=== PATIENT | male | born 1955 | race Caucasian/White ===

== ENCOUNTER 2018-09-12 08:35 | Inpatient (IN) ==
[2018-09-12] MEDS ORDERED: HYDROmorphone INJ 1 MG/ML SYRINGE IV STA ×2 (08:59→10:11)
[2018-09-12] MEDS ORDERED: ONDANSETRON INJ 2 MG/ML 2 ML VIAL IV STA (08:59)
[2018-09-12] MEDS ORDERED: SODIUM CHLORIDE 0.9% 1000ML 1,000 ML IV SCH (09:00)
[2018-09-12 09:47] LABS: Hematocrit (blood only) 33.1 % (42-52); Hemoglobin 10.7 g/dL (14.0-18.0); Mean Corpuscular Hgb Conc 32.3 g/dL (32-36); Mean Corpuscular Volume 92.5 fL (80-100); Mean Platelet Volume 9.8 fL (7.4-10.4); Platelet Count 143 K/uL (130-400); RDW Coefficient of Variation 14.2 % (11.5-14.5); RDW Standard Deviation 47.2 fL (36.4-46.3); Red Blood Count 3.58 M/uL (4.7-6.1); White Blood Count 5.64 K/uL (4.8-10.8)
[2018-09-12 09:59] LABS: Partial Thromboplastin Ratio 1.1; Partial Thromboplastin Time 29.4 Seconds (21.0-31.0); Prothrombin Time 10.3 Seconds (9.0-12.0)
[2018-09-12 10:03] LABS: Alanine Aminotransferase 17 U/L (12-78); Albumin Level 2.5 gm/dl (3.4-5.0); Aspartate Aminotransferase 18 U/L (15-37); BUN Creatinine Ratio 27.5 (10-20); Blood Urea Nitrogen 13 mg/dl (7-18); Calcium 8.7 mg/dl (8.5-10.1); Carbon Dioxide 26 mmol/L (21-32); Chloride 100 mmol/L (98-107); Creatinine Clr Calc Pharmacy 133.2 ml/min; Est GFR (African American) 135.2; Est GFR (Non-African American) 116.7; Glucose 161 mg/dl (70-99); Potassium 3.8 mmol/L (3.5-5.1); Sodium 134 mmol/L (136-145)
[2018-09-12 10:08] LABS: Albumin Globulin Ratio 0.6 (0.9-2); Alkaline Phosphatase 107 U/L (45-117); Bilirubin,Total 0.5 mg/dl (0.2-1); Globulin 4.1 gm/dl (2.5-4.0); Total Protein 6.6 gm/dl (6.4-8.2); Troponin I < 0.015 ng/ml (0-0.045)
[2018-09-12 10:09] LABS: Basophils # (auto) 0.01 K/uL (0-0.2); Basophils % (auto) 0.2 %; Eosinophils # (auto) 0.08 K/uL (0-0.5); Eosinophils % (auto) 1.4 %; Immature Granulocytes # (auto) 0.01 K/uL (0.00-0.02); Immature Granulocytes % (auto) 0.2 %; Lymphocytes # (auto) 0.52 K/uL (1.2-3.4); Lymphocytes % (auto) 9.2 %; Monocytes # (auto) 0.68 K/uL (0.11-0.59); Monocytes % (auto) 12.1 %; Neutrophils # (auto) 4.34 K/uL (1.4-6.5); Neutrophils % (auto) 76.9 %
[2018-09-12] MEDS ORDERED: IOVERSOL 100ml IV PRN (10:25)
--- NOTE | 2018-09-12 10:46 | CT Scan Report ---
CT SCAN OF THE ABDOMEN AND PELVIS WITH IV CONTRAST CLINICAL HISTORY: Diarrhea. Hematochezia. Left lower quadrant abdominal pain. COMPARISON STUDY: Abdominal CT dated 07/31/2018. TECHNIQUE: Following the IV administration of 94 cc of Optiray 320, CT scan of the abdomen and pelvi s is performed from the lung bases to the proximal femora. Images are reviewed in the axial, sagittal , and coronal planes. IV contrast was administered without complication. A dose lowering technique wa s utilized adhering to the principles of ALARA. CT DOSE: 293.82 mGy.cm FINDINGS: Lung bases: The heart is normal in size and without pericardial effusion. There is a moderate to larg e left pleural effusion with near-complete atelectasis of the left lower lung. Emphysematous change i s noted at the right lung base. There are foci of right basilar scarring/atelectasis. There are pulmo nary nodules at the right lung base which measure up to 7 mm (axial images #4, #7, #23). A small hiat al hernia is noted. Liver: The contrast-enhanced liver is normal in size, contour, and attenuation. There is no intrahepa tic biliary ductal dilatation. The hepatic veins and portal veins are patent. Gallbladder: Unremarkable. Spleen: Normal in size and attenuation. Pancreas: The pancreas is moderately atrophic. Scattered parenchymal calcifications suggest chronic p ancreatitis. Adrenal glands: Unremarkable. Kidneys: The contrast enhanced kidneys are normal in size and without hydronephrosis. The kidneys enh ance symmetrically. Abdominal vasculature: The abdominal aorta is normal in course and caliber noting advanced atheroscle rotic calcification. Bowel: There is a long segment of wall thickening and edema seen involving the distal descending colo n, the sigmoid colon, and the rectum. There is surrounding inflammatory change and trace fluid. The a ppearance is consistent with a nonspecific proctocolitis. No bowel obstruction is identified. There a re scattered colonic diverticula without CT evidence of acute diverticulitis. Moderate constipation i s observed. The appendix is well-visualized and normal. Peritoneum: There is no intraperitoneal free air or abdominal ascites. Foci of induration and subcuta neous gas within the ventral abdominal wall are likely related to subcutaneous injections. Lymphadenopathy: None. Pelvic viscera: Evaluation of the pelvis is degraded by streak artifact from a left hip arthroplasty. The bladder is distended but otherwise normal in appearance. The prostate gland is atrophic. Skeletal structures: Findings consistent with multifocal osseous metastatic disease. Lesions are iden tified throughout the lumbar spine. The largest lesion involves the body of L5 with a mild associated pathologic compression deformity. There is also minimal superior endplate compression deformity of L 1. The L5 compression deformity is new from 07/31/2018. No large retropulsed fragments are identified. There is a large permeative destructive lesion identified involving the left ischium with surroundin g soft tissue mass. The soft tissue lesion measures at least 5 cm as seen on image #415. Additional s maller lesions are scattered throughout the bony pelvis. A left hip arthroplasty is in place. IMPRESSION: 1. Findings are consistent with a nonspecific proctocolitis as above. This is likely on an infectious or inflammatory basis. 2. There is a moderate to large left pleural effusion with complete atelectasis of the left lower lawrence g. This has markedly increased in size from 07/31/2018. 3. There are changes of multifocal osseous metastatic disease. This appears modestly progressive as c ompared to 07/31/2018. 4. Mild pathologic compression deformities are seen involving L1 and L5. The L5 compression deformity is new from 07/31/2018. No retropulsed fragments are identified. 5. Metastatic pulmonary nodules are present at the right lung base. These have modestly increased in size from 07/31/2018. 6. Emphysema. 7. Additional findings as above. Electronically signed by: Corwin Gtz M.D. 09/12/2018 10:44 AM
--- NOTE | 2018-09-12 12:44 | History & Physical Report ---
Date of Service September 12, 2018 Assessment & Plan (1) Proctocolitis with rectal bleeding: This is a 63yo M with a PMH of metastatic lung cancer with mets to bone, DM II and HLD who presents with bright red blood in diarrhea since yesterday morning and was found to have non-specific proctocolitis. -Hgb stable at 10.7 (baseline ~12). Continue trending H&H -CT abd/pelvis with a nonspecific proctocolitis as above. This is likely on an infectious or inflammatory basis -Considered empiric Cipro and flagyl but will hold for now, as per GI -Stool cultures, C diff pending -NPO for bowel rest, pain control, antiemetics -Holding SQ lovenox for now (2) Metastatic primary lung cancer: History of metastatic lung cancer with mets to pelvis, vertabrae and ribs, s/p left hip resection of bony mets/replacement in Jul [address] [facility] [place] -Started new chemo regimen on August 30 consisting of Alimta and Carboplatin and is due for second round on September 20 -Recently completed 10 rounds of radiation as of last week -Inadequate home pain regimen. Will continue home dose Morphine ER, gabapentin TID and Methadone HS -Dilaudid FLATCAR WHACKER pump for PRN pain, will adjust as needed (holding Oxycodone IR) -Palliative care consulted for help optimizing pain regimen (3) Diabetes mellitus, type 2: A1c of 6.7 in Jul 2018 -Hold home agents -SSI while in-patient -BSG AC HS (4) Hyperlipidemia: Continue pravastatin DVT Ppx: SCDs in setting of GI bleed Code status: FULL per discussion with patient, PCP: Eugene Thapa Dispo: Admitted to med/surg. Discharge planning ordered. Patient seen in collaboration with Dr. Dawson. Please see addendum. Will be followed by Dr. Eileen Navarro for remainder of admission. History of Present Illness Chief Complaint: bright red blood per rectum Primary Care Provider: Warren Thapa This is a 63yo M with a PMH of metastatic lung cancer with mets to bone, DM II and HLD who presents with bright red blood in diarrhea since yesterday morning. Endorses about 6 episodes of diarrhea with bright red blood mixed in since then with associated lower abdominal pain, nausea and one episode of emesis yesterday. Denies history of GI bleed. Patient started new chemo regimen on August 30 consisting of Alimta and Carboplatin and is due for second round on September 20. Also completed 10 rounds of radiation as of last week. Takes 40 mg SQ Lovenox daily, last taken around 1400 yesterday. Denies any lightheadedness, chest pain, palpitations or shortness of breath. No melena. Hemoglobin is 10.7 (baseline ~12). Does endorse worsening bone pain of pelvis, ribs, left leg in setting of metastasis to bone. Allergies Allergy/AdvReac Type Severity Reaction Status Date / Time ciprofloxacin [From Cipro] Allergy Intermediate BLOOD IN Verified 09/12/18 10:54 KIDNEYS mushroom AdvReac Intermediate STOMACH Verified 09/12/18 10:54 PAIN Home Medications Home Medications Medication Instructions Recorded Confirmed Type Janumet 1 tab PO BID 08/20/18 09/12/18 History Jardiance 10 mg PO QAM 08/20/18 09/12/18 History aspirin [Aspir-Low] 81 mg PO QAM 08/20/18 09/12/18 History enoxaparin [Lovenox] 40 mg SUBCUT DAILY@1400 08/20/18 09/12/18 History morphine 90 mg PO HS 08/20/18 09/12/18 History multivitamin 1 tab PO DAILY 08/20/18 09/12/18 History pravastatin 80 mg PO QAM 08/20/18 09/12/18 History folic acid 1 mg tablet 1 mg PO DAILY 08/24/18 09/12/18 History morphine ER 60 mg tablet,extended 60 mg PO BID tab 08/24/18 09/12/18 History release ondansetron HCl 8 mg tablet 8 mg PO TID PRN 08/24/18 09/12/18 History prochlorperazine maleate 10 mg 10 mg PO UD PRN tab 08/24/18 09/12/18 History tablet dexamethasone 4 mg tablet 8 mg PO UD tab 08/28/18 09/12/18 History docusate sodium 100 mg capsule 100 mg PO BID 08/28/18 09/12/18 History polyethylene glycol 3350 17 17 gm PO DAILY 08/28/18 09/12/18 History gram/dose oral powder duloxetine 30 mg capsule,delayed 30 mg PO DAILY 09/03/18 09/12/18 History release gabapentin 600 mg tablet 600 mg PO TID tab 09/03/18 09/12/18 History oxycodone 20 mg tablet 20 mg PO Q2H PRN tab 09/03/18 09/12/18 History Ca-D3-mag wj-mzso-ugk-live-bor 1 tab PO BID 09/12/18 09/12/18 History [Calcium 600-D3 Plus] acetaminophen 1,000 mg PO Q8H PRN 09/12/18 09/12/18 History denosumab [Xgeva] 120 mg SUBCUT UD 09/12/18 09/12/18 History methadone 5 mg PO HS 09/12/18 09/12/18 History Past Med/Surg History Medical History Metastatic primary lung cancer (Chronic) with mets to pelvis, vertebrae, ribs Hyperlipidemia (Chronic) Diabetes mellitus, type 2 (Chronic) NIDDM Osteoarthritis (Chronic) Surgical History History of hip surgery (Resolved) s/p left acetabuluar metastasis and cemented left total hip arthroplasty 08/02/18= Grade I, Grider 2, ETT 7.5 at [facility] (anesthesia records scanned in); on lovenox post-op for DVT prophylaxis History of tooth extraction (Resolved) Hx of vasectomy (Resolved) Family History Other Coronary heart disease Social History Preferred Language: Turkish Communication Ability: Effective Beliefs That Will Affect Care: None marital status: Current Living Situation: Spouse 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 occupational status: 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 Other Information That Helps Us Care for You: No Feels Safe at Home: Yes Safety Concerns: Feels Safe At This Time Smoking Status: Former smoker Hx Alcohol Use: Yes Hx Substance Use: No during the past year weight has: decreased > 10 lbs Review of Systems All systems reviewed & are unremarkable except as noted in HPI & below Physical Exam Vital Signs (Past 24 Hours): Last Vital Signs Temp 36.3 C L 09/12/18 08:41 Pulse 92 H 09/12/18 10:36 Resp 29 H 09/12/18 10:36 BP 139/72 09/12/18 10:36 Pulse Ox 90 09/12/18 08:41 Physical Exam: General Appearance: WD/WN, no apparent distress, chronically i ll appearing Head: normocephalic, atraumatic Eyes: normal inspection, PERRL, EOMI ENT: hearing grossly normal, pharynx normal (moist mucous membranes) Neck: supple, no JVD, no adenopathy Respiratory/Chest: lungs clear to auscultation, decreased breath sounds at bases. No wheezes, rales or rhonci. No respiratory distress or accessory muscle use Cardiovascular: regular rate, rhythm, no murmur, normal peripheral pulses Abdomen/GI: normal bowel sounds, soft, TTP of LLQ and RLQ, no guarding Extremities/Musculoskelatal: normal inspection, no calf tenderness, normal capillary refill, no pedal edema Neurologic/Psych: alert, normal mood/affect, oriented x 3, anxious Skin: normal color, warm/dry Results & Data Laboratory Results Short CBC 09/12/18 Range/Units 09:32 WBC 5.64 (4.8-10.8) K/uL Hgb 10.7 L (14.0-18.0) g/dL Hct 33.1 L (42-52) % Plt Count 143 (130-400) K/uL BMP 09/12/18 09:32 Sodium 134 L Potassium 3.8 Chloride 100 Carbon Dioxide 26 BUN 13 Creatinine 0.47 L Glucose 161 H Calcium 8.7 Cardiac Enzymes 09/12/18 Range/Units 09:32 Troponin I < 0.015 (0-0.045) ng/ml Liver Function 09/12/18 Range/Units 09:32 Total Bilirubin 0.5 (0.2-1) mg/dl AST 18 (15-37) U/L ALT 17 (12-78) U/L Alkaline Phosphatase 107 (45-117) U/L Albumin 2.5 L (3.4-5.0) gm/dl Diagnostic Findings CT abd/pelvis: IMPRESSION: 1. Findings are consistent with a nonspecific proctocolitis as above. This is likely on an infectious or inflammatory basis. 2. There is a moderate to large left pleural effusion with complete atelectasis of the left lower lung. This has markedly increased in size from 07/31/2018. 3. There are changes of multifocal osseous metastatic disease. This appears modestly progressive as compared to 07/31/2018. 4. Mild pathologic compression deformities are seen involving L1 and L5. The L5 compression deformity is new from 07/31/2018. No retropulsed fragments are identified. 5. Metastatic pulmonary nodules are present at the right lung base. These have modestly increased in size from 07/31/2018. 6. Emphysema. 7. Additional findings as above. Code Status & VTE Plan Code Status FULL Supervising Physician Co-Signing Physician Notes I have seen and examined the patient and have discussed the case with the provider above. I agree with the assessment and plan as stated. The patient is comfortable on the diladud FLATCAR WHACKER in place of his oxycodone. DDX for GI bleed includes but is not limited to radiation proctitis, infection, ischemic colitis. Physical exam is unremarkable. Cont plan as above. Apprec GI recs. DO Samir
[2018-09-12] MEDS ORDERED: DEXTROSE 50% 50 ML SYRINGE IV PRN (13:17)
[2018-09-12] MEDS ORDERED: CARBOHYDRATES FOR HYPOGLYCEMIA PO PRN (13:17)
[2018-09-12] MEDS ORDERED: GLUCOSE 10 TABS/TUBE PO PRN (13:17)
[2018-09-12] MEDS ORDERED: GLUCAGON FOR INJ 1 MG VIAL SQ PRN (13:17)
[2018-09-12] MEDS ORDERED: GLUCOSE 40% GEL 15 GM TUBE PO PRN (13:17)
--- NOTE | 2018-09-12 13:24 | Gastrointestinal Consultation ---
Date of Consultation September 12, 2018 Assessment & Plan (1) Proctocolitis with rectal bleedin63 year old male with history of metastatic lung cancer to pelvis, ribs, vertebrae who presents with diarrhea, rectal bleeding and abdominal pain. CT w/ long segment of wall thickening and edema seen involving the distal descending colon, the sigmoid colon, and the rectum. He notes prior colon[place] of state w/ diverticulosis otherwise unremarkable. DDX discussed: infectious colitis, ischemic colitis, IBD, malignancy etc - NPO for bowel rest - Trend H&H - Monitor and document all GI output - Transfuse PRN - Check stool culture, stool for c.diff - Would hold on empiric ABX for now - Can have Bentyl 10 mg TID PRN abd pain or cramping Thank you for allowing us to participate in the care of this patient. Please call with any acute changes, questions or concerns. Please see addendum below with additional recommendation from my supervising physician. (2) Metastatic primary lung cancer: Supervising Physician Co-Signing Physician Notes Late entry: Patient was seen and examined on 09/12 with EMMETT Leone whose note reflects our findings and plan. History of Present Illness Reason for Consultation: rectal bleeding Requesting Physician: Jamison Attending Physician: Jamison History of Present Illness 63 year old male with history of T2DM, dyslipidemia, metastatic lung cancer to bone on chemotherapy w/ alimta and carboplatin and radiation therapy who presented to the ED with lower abdominal pain and rectal bleeding - GI asked to evaluate. at bedside in the ED. Assists in history. Endorses worsening bone pain - sternum, back, left hep and left leg. This has been progressive over the past 1-2 weeks. Notes that about 2-3 days ago developed looser, more frequent stools. Notes about 3-4 loose stools daily. At the same time was reporting difficulty urinating as well but no dysuria or hematuria. Yesterday, developed LLQ pain, intermittent associated with rectal bleeding. Notes 2-3 liquid stool with BRB in the toilet bowl and on the toilet tissue. No fever, chills, CP, SOB. No sick contacts. In the ED, he is afebrile w/o leukocytosis. HGB 10.7 down from baseline 12. No bump in BUN. LFT unremarkable. CT w/long segment of wall thickening and edema seen involving the distal descending colon, the sigmoid colon, and the rectum without evidence of diverticulitis CT: long segment of wall thickening and edema seen involving the distal descending colon, the sigmoid colon, and the rectum EGD: none Colonoscopy: many priors out of state in [place] and [place] Allergies Allergy/AdvReac Type Severity Reaction Status Date / Time ciprofloxacin [From Cipro] Allergy Intermediate BLOOD IN Verified 09/12/18 10:54 KIDNEYS mushroom AdvReac Intermediate STOMACH Verified 09/12/18 10:54 PAIN Home Medications Home Medications Medication Instructions Recorded Confirmed Type Janumet 1 tab PO BID 08/20/18 09/12/18 History Jardiance 10 mg PO QAM 08/20/18 09/12/18 History aspirin [Aspir-Low] 81 mg PO QAM 08/20/18 09/12/18 History enoxaparin [Lovenox] 40 mg SUBCUT DAILY@1400 08/20/18 09/12/18 History morphine 90 mg PO HS 08/20/18 09/12/18 History multivitamin 1 tab PO DAILY 08/20/18 09/12/18 History pravastatin 80 mg PO QAM 08/20/18 09/12/18 History folic acid 1 mg tablet 1 mg PO DAILY 08/24/18 09/12/18 History morphine ER 60 mg tablet,extended 60 mg PO BID tab 08/24/18 09/12/18 History release ondansetron HCl 8 mg tablet 8 mg PO TID PRN 08/24/18 09/12/18 History prochlorperazine maleate 10 mg 10 mg PO UD PRN tab 08/24/18 09/12/18 History tablet dexamethasone 4 mg tablet 8 mg PO UD tab 08/28/18 09/12/18 History docusate sodium 100 mg capsule 100 mg PO BID 08/28/18 09/12/18 History polyethylene glycol 3350 17 17 gm PO DAILY 08/28/18 09/12/18 History gram/dose oral powder duloxetine 30 mg capsule,delayed 30 mg PO DAILY 09/03/18 09/12/18 History release gabapentin 600 mg tablet 600 mg PO TID tab 09/03/18 09/12/18 History oxycodone 20 mg tablet 20 mg PO Q2H PRN tab 09/03/18 09/12/18 History Ca-D3-mag ox-khdt-pee-live-bor 1 tab PO BID 09/12/18 09/12/18 History [Calcium 600-D3 Plus] acetaminophen 1,000 mg PO Q8H PRN 09/12/18 09/12/18 History denosumab [Xgeva] 120 mg SUBCUT UD 09/12/18 09/12/18 History methadone 5 mg PO HS 09/12/18 09/12/18 History Patient History Medical History Metastatic primary lung cancer (Chronic) with mets to pelvis, vertebrae, ribs Hyperlipidemia (Chronic) Diabetes mellitus, type 2 (Chronic) NIDDM Osteoarthritis (Chronic) Surgical History History of hip surgery (Resolved) s/p left acetabuluar metastasis and cemented left total hip arthroplasty 08/02/18= Grade I, Grider 2, ETT 7.[address] 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 Other Information That Helps Us Care for You: No Feels Safe at Home: Yes Safety Concerns: Feels Safe At This Time Smoking Status: Former smoker Hx Alcohol Use: Yes Hx Substance Use: No during the past year weight has: decreased > 10 lbs Review of Systems Constitutional: no fever, no chills, no fatigue and no anorexia Respiratory: no cough, no dyspnea and no wheezing Cardiovascular: no chest pain, no chest pain at rest, no dyspnea and no palpitations Gastrointestinal: + abdominal pain, + diarrhea/loose stools and + blood in stools; no bloating, no nausea, no hematemesis, no cramping and no melena Genitourinary (Male): + difficulty urinating Physical Exam Vital Signs (Past 24 Hours): Last Vital Signs Temp 36.3 C L 09/12/18 08:41 Pulse 92 H 09/12/18 10:36 Resp 29 H 09/12/18 10:36 BP 139/72 09/12/18 10:36 Pulse Ox 90 09/12/18 08:41 Constitutional: + ill appearing (chronically ill) and cooperative; no acute distress Respiratory: normal respiratory effort, lungs clear to auscultation Cardiovascular: RRR, no murmur, no edema Gastrointestinal (Abdomen): Inspection/Auscultation: normal bowel sounds Percussion/Palpation: + abdomen tender (generalized abd pain worse in LLQ no rebound or guarding) and abdomen soft; no guarding and abdomen not rigid Skin: no rashes, warm and dry Results & Data Laboratory Results 09/12/18 09/12/18 09/12/18 Range/Units 09:32 09:32 09:32 WBC 5.64 (4.8-10.8) K/uL RBC 3.58 L (4.7-6.1) M/uL Hgb 10.7 L (14.0-18.0) g/dL Hct 33.1 L (42-52) % MCV 92.5 (80-100) fL MCH 29.9 (25-34) pg MCHC 32.3 (32-36) g/dL RDW Std Deviation 47.2 H (36.4-46.3) fL RDW Coeff of Henri 14.2 (11.5-14.5) % Plt Count 143 (130-400) K/uL MPV 9.8 (7.4-10.4) fL Immature Gran % (Auto) 0.2 % Neut % (Auto) 76.9 % Lymph % (Auto) 9.2 % Donley % (Auto) 12.1 % Eos % (Auto) 1.4 % Baso % (Auto) 0.2 % Immature Gran # (Auto) 0.01 (0.00-0.02) K/uL Neut # (Auto) 4.34 (1.4-6.5) K/uL Lymph # (Auto) 0.52 L (1.2-3.4) K/uL Donley # (Auto) 0.68 H (0.11-0.59) K/uL Eos # (Auto) 0.08 (0-0.5) K/uL Baso # (Auto) 0.01 (0-0.2) K/uL PT 10.3 (9.0-12.0) Seconds INR 1.0 (0.9-1.1) APTT 29.4 (21.0-31.0) Seconds PTT Ratio 1.1 Sodium 134 L (136-145) mmol/L Potassium 3.8 (3.5-5.1) mmol/L Chloride 100 (98-107) mmol/L Carbon Dioxide 26 (21-32) mmol/L Anion Gap 8.0 (3-11) BUN 13 (7-18) mg/dl Creatinine 0.47 L (0.6-1.4) mg/dl Est Cr Clr Drug Dosing 133.2 ml/min Est GFR ( Amer) 135.2 Est GFR (Non-Af Amer) 116.7 BUN/Creatinine Ratio 27.5 H (10-20) Glucose 161 H (70-99) mg/dl Calcium 8.7 (8.5-10.1) mg/dl Total Bilirubin 0.5 (0.2-1) mg/dl AST 18 (15-37) U/L ALT 17 (12-78) U/L Alkaline Phosphatase 107 (45-117) U/L Troponin I < 0.015 (0-0.045) ng/ml Total Protein 6.6 (6.4-8.2) gm/dl Albumin 2.5 L (3.4-5.0) gm/dl Globulin 4.1 H (2.5-4.0) gm/dl Albumin/Globulin Ratio 0.6 L (0.9-2) Blood Type Antibody Screen 09/12/18 Range/Units 09:20 WBC (4.8-10.8) K/uL RBC (4.7-6.1) M/uL Hgb (14.0-18.0) g/dL Hct (42-52) % MCV (80-100) fL MCH (25-34) pg MCHC (32-36) g/dL RDW Std Deviation (36.4-46.3) fL RDW Coeff of Henri (11.5-14.5) % Plt Count (130-400) K/uL MPV (7.4-10.4) fL Immature Gran % (Auto) % Neut % (Auto) % Lymph % (Auto) % Donley % (Auto) % Eos % (Auto) % Baso % (Auto) % Immature Gran # (Auto) (0.00-0.02) K/uL Neut # (Auto) (1.4-6.5) K/uL Lymph # (Auto) (1.2-3.4) K/uL Donley # (Auto) (0.11-0.59) K/uL Eos # (Auto) (0-0.5) K/uL Baso # (Auto) (0-0.2) K/uL PT (9.0-12.0) Seconds INR (0.9-1.1) APTT (21.0-31.0) Seconds PTT Ratio Sodium (136-145) mmol/L Potassium (3.5-5.1) mmol/L Chloride (98-107) mmol/L Carbon Dioxide (21-32) mmol/L Anion Gap (3-11) BUN (7-18) mg/dl Creatinine (0.6-1.4) mg/dl Est Cr Clr Drug Dosing ml/min Est GFR ( Amer) Est GFR (Non-Af Amer) BUN/Creatinine Ratio (10-20) Glucose (70-99) mg/dl Calcium (8.5-10.1) mg/dl Total Bilirubin (0.2-1) mg/dl AST (15-37) U/L ALT (12-78) U/L Alkaline Phosphatase (45-117) U/L Troponin I (0-0.045) ng/ml Total Protein (6.4-8.2) gm/dl Albumin (3.4-5.0) gm/dl Globulin (2.5-4.0) gm/dl Albumin/Globulin Ratio (0.9-2) Blood Type A Positive Antibody Screen NEGATIVE
[2018-09-12] MEDS ORDERED: OXYCODONE HCL IR 30 MG TAB (IMMEDIATE RELEASE) PO ONE (13:46)
--- NOTE | 2018-09-12 13:47 | Emergency Department Note ---
Entered by Abiola Marcus acting as a scribe for History of Present Illness General Chief complaint: Rectal Bleed Stated complaint: RECTAL BLEEDING Source: patient History of Present Illness Provider complaint: blood in stool Onset (ago): day(s) (yesterday morning) Location: buttocks Pain Consistency: + other (multiple episodes) Maximum Pain Intensity: 8 Quality: + other (blood in stool) Associated symptoms: + other (diarrhea, abdominal pain. denies: dark/tarry stools) The patient is a 63 year old male who presents to the Emergency Room with complaints of multiple episodes of blood in stool beginning yesterday morning. He reports he saw bright red blood around a normal stool yesterday, and had diarrhea today. The patient denies dark or tarry stools. He notes abdominal pain and diarrhea over the past few days, and states he has been having about 2 bowel movements every day. The patient reports he has seen about 1/4 to 1/2 cup of blood with each bowel movement. He notes he recently had difficulty passing urine. The patient states he has stage IV lung cancer (non-small cell adenocarcinoma) and has received chemo (most recently 08/30/18) and radiation. He reports he is on Lovenox and his last dose was yesterday. Home Medications Home Medications Medication Instructions Recorded Confirmed Type Janumet 1 tab PO BID 08/20/18 09/12/18 History Jardiance 10 mg PO QAM 08/20/18 09/12/18 History aspirin [Aspir-Low] 81 mg PO QAM 08/20/18 09/12/18 History enoxaparin [Lovenox] 40 mg SUBCUT DAILY@1400 08/20/18 09/12/18 History morphine 90 mg PO HS 08/20/18 09/12/18 History multivitamin 1 tab PO DAILY 08/20/18 09/12/18 History pravastatin 80 mg PO QAM 08/20/18 09/12/18 History folic acid 1 mg tablet 1 mg PO DAILY 08/24/18 09/12/18 History morphine ER 60 mg tablet,extended 60 mg PO BID tab 08/24/18 09/12/18 History release ondansetron HCl 8 mg tablet 8 mg PO TID PRN 08/24/18 09/12/18 History prochlorperazine maleate 10 mg 10 mg PO UD PRN tab 08/24/18 09/12/18 History tablet dexamethasone 4 mg tablet 8 mg PO UD tab 08/28/18 09/12/18 History docusate sodium 100 mg capsule 100 mg PO BID 08/28/18 09/12/18 History polyethylene glycol 3350 17 17 gm PO DAILY 08/28/18 09/12/18 History gram/dose oral powder duloxetine 30 mg capsule,delayed 30 mg PO DAILY 09/03/18 09/12/18 History release gabapentin 600 mg tablet 600 mg PO TID tab 09/03/18 09/12/18 History oxycodone 20 mg tablet 20 mg PO Q2H PRN tab 09/03/18 09/12/18 History Ca-D3-mag hh-etnn-ylz-live-bor 1 tab PO BID 09/12/18 09/12/18 History [Calcium 600-D3 Plus] acetaminophen 1,000 mg PO Q8H PRN 09/12/18 09/12/18 History denosumab [Xgeva] 120 mg SUBCUT UD 09/12/18 09/12/18 History methadone 5 mg PO HS 09/12/18 09/12/18 History Allergies Allergy/AdvReac Type Severity Reaction Status Date / Time ciprofloxacin [From Cipro] Allergy Intermediate BLOOD IN Verified 09/12/18 10:54 KIDNEYS mushroom AdvReac Intermediate STOMACH Verified 09/12/18 10:54 PAIN Past Med/Surg History Medical History Metastatic primary lung cancer (Chronic) with mets to pelvis, vertebrae, ribs Hyperlipidemia (Chronic) Diabetes mellitus, type 2 (Chronic) NIDDM Osteoarthritis (Chronic) Surgical History History of hip surgery (Resolved) s/p left acetabuluar metastasis and cemented left total hip arthroplasty 08/02/18= Grade I, Grider 2, ETT 7.5 at [facility] (anesthesia records scanned in); on lovenox post-op for DVT prophylaxis History of tooth extraction (Resolved) Hx of vasectomy (Resolved) Family History Other Coronary heart disease Social History Preferred Language: Welsh Communication Ability: Effective Beliefs That Will Affect Care: None marital status: Current Living Situation: Spouse current occupational status: retired 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 and A total of 10 systems reviewed and were otherwise negative Physical Exam Vital Signs Vital Signs - 24 hr 09/12/18 08:41 09/12/18 09:45 09/12/18 10:00 Temperature 36.3 C L Temperature Source Oral Sepsis Recent Fever Within 48 Hours No Sepsis Action Taken by Nursing No Action Required Pulse Rate 101 H 80 90 Pulse Rhythm Regular Pulse Strength Normal Respiratory Rate 26 H 18 30 H Respiratory Effort / Characteristics Non-Labored Respiratory Depth Normal Respiratory Pattern Regular Blood Pressure 124/81 Blood Pressure Mean 95 Blood Pressure Position Sitting Pulse Oximetry 90 Oxygen Delivery Method Room Air 09/12/18 10:30 09/12/18 10:36 09/12/18 10:37 Temperature Temperature Source Sepsis Recent Fever Within 48 Hours Sepsis Action Taken by Nursing Pulse Rate 94 H 92 H 93 H Pulse Rhythm Pulse Strength Respiratory Rate 24 29 H 22 Respiratory Effort / Characteristics Respiratory Depth Respiratory Pattern Blood Pressure 139/72 Blood Pressure Mean 94 Blood Pressure Position Pulse Oximetry Oxygen Delivery Method 09/12/18 10:56 09/12/18 11:00 09/12/18 11:35 Temperature Temperature Source Sepsis Recent Fever Within 48 Hours Sepsis Action Taken by Nursing Pulse Rate 94 H 97 H Pulse Rhythm Pulse Strength Respiratory Rate 25 H 26 H Respiratory Effort / Characteristics Non-Labored Spontaneous Respiratory Depth Normal Respiratory Pattern Regular Blood Pressure Blood Pressure Mean Blood Pressure Position Pulse Oximetry Oxygen Delivery Method Room Air 09/12/18 12:00 09/12/18 12:30 09/12/18 13:00 Temperature Temperature Source Sepsis Recent Fever Within 48 Hours Sepsis Action Taken by Nursing Pulse Rate 96 H 93 H 91 H Pulse Rhythm Pulse Strength Respiratory Rate 21 17 16 Respiratory Effort / Characteristics Respiratory Depth Respiratory Pattern Blood Pressure 133/75 Blood Pressure Mean 94 Blood Pressure Position Pulse Oximetry 98 Oxygen Delivery Method Room Air 09/12/18 13:20 Temperature Temperature Source Sepsis Recent Fever Within 48 Hours Sepsis Action Taken by Nursing Pulse Rate 92 H Pulse Rhythm Pulse Strength Respiratory Rate 21 Respiratory Effort / Characteristics Respiratory Depth Respiratory Pattern Blood Pressure 133/75 Blood Pressure Mean 94 Blood Pressure Position Pulse Oximetry Oxygen Delivery Method GENERAL: Sitting up in bed, chronically ill-appearing, no distress, non-toxic EYE EXAM: normal conjunctiva. OROPHARYNX: no exudate, no erythema, lips, buccal mucosa, and tongue normal and mucous membranes are moist NECK: supple, no nuchal rigidity, no adenopathy, non-tender LUNGS: Clear to auscultation. Normal chest wall mechanics HEART: no murmurs, S1 normal and S2 normal ABDOMEN: abdomen soft, normo-active bowel, sounds, no masses, no rebound or guarding. Diffuse tenderness to palpation in lower abdomen. BACK: Back is symmetrical on inspection and there is no deformity, no midline tenderness, no CVA tenderness. SKIN: no rashes and no bruising UPPER EXTREMITIES: upper extremities are grossly normal. LOWER EXTREMITIES: No pitting edema. NEURO EXAM: Normal sensorium, cranial nerves II-XII grossly intact, normal speech, no gross weakness of arms, no gross weakness of legs. Course ED COURSE: Vital signs were reviewed and showed tachycardia. The patients medical record was reviewed The above diagnostic studies were performed and reviewed. ED treatments and interventions as stated above. 0852: The patient was evaluated in room A10. A complete history and physical examination was performed. 1109: I reviewed the patient's case with Radha Swift PA-C, [facility]. She will evaluate the patient for further management. 1111: Upon reevaluation, the patient is resting. I discussed my findings with the patient and he understands and agrees with the treatment plan. Based on the patients age, coexisting illnesses, exam and lab findings the decision to treat as an inpatient was made. The patient remained stable while under my care. The patient will be evaluated for further management. Consultations Consultation #1: Radha Swift PA-C, [facility] Time: 11:09 Administered Medications Ioversol (Optiray 320 100ml) 94 ml IV ONCE PRN PRN Reason: Interaction Checking Stop: 09/16/18 10:24 Last Admin: 09/12/18 10:26 Dose: 94 ml Documented by: [id number] Discontinued Medications Hydromorphone HCl (Dilaudid) 1 mg IV NOW STA Stop: 09/12/18 09:00 Last Admin: 09/12/18 09:26 Dose: 1 mg Documented by: [id number] Hydromorphone HCl (Dilaudid) 1 mg IV NOW STA Stop: 09/12/18 10:12 Last Admin: 09/12/18 10:14 Dose: 1 mg Documented by: [id number] Sodium Chloride (Nss 1000ml) 1,000 mls @ 999 mls/hr IV .Q1H1M YEHUDA Stop: 09/12/18 10:00 Last Infusion: 09/12/18 10:49 Dose: 0 mls/hr Documented by: [id number] Admin: 09/12/18 09:32 Dose: 999 mls/hr Documented by: [id number] Ondansetron HCl (Zofran) 4 mg IV ONE STA Stop: 09/12/18 09:00 Last Admin: 09/12/18 09:26 Dose: 4 mg Documented by: [id number] Medical Decision Making Differential Diagnosis Differential diagnoses includes but is not limited to gastritis, peptic ulcer disease, GERD, gallbladder disease, pancreatitis, small bowel obstruction, acute coronary syndrome, pericarditis, ischemic bowel, irritable bowel disease, irritable bowel syndrome, appendicitis, diverticulitis, malignancy, hernia, urinary tract infection, torsion, perforation, trauma, infectious. Medical Records Attestation: I reviewed the patient's medical records. Home Medications Current Medication List: was personally reviewed by me Laboratory Data Attestation: I reviewed the patient's lab results. Result diagrams: 09/12/18 09:32 09/12/18 09:32 Lab Results 09/12/18 09/12/18 09/12/18 Range/Units 09:20 09:32 09:32 WBC 5.64 (4.8-10.8) K/uL RBC 3.58 L (4.7-6.1) M/uL Hgb 10.7 L (14.0-18.0) g/dL Hct 33.1 L (42-52) % MCV 92.5 (80-100) fL MCH 29.9 (25-34) pg MCHC 32.3 (32-36) g/dL RDW Std Deviation 47.2 H (36.4-46.3) fL RDW Coeff of Henri 14.2 (11.5-14.5) % Plt Count 143 (130-400) K/uL MPV 9.8 (7.4-10.4) fL Immature Gran % (Auto) 0.2 % Neut % (Auto) 76.9 % Lymph % (Auto) 9.2 % [place] % (Auto) 12.1 % Eos % (Auto) 1.4 % Baso % (Auto) 0.2 % Immature Gran # (Auto) 0.01 (0.00-0.02) K/uL Neut # (Auto) 4.34 (1.4-6.5) K/uL Lymph # (Auto) 0.52 L (1.2-3.4) K/uL [place] # (Auto) 0.68 H (0.11-0.59) K/uL Eos # (Auto) 0.08 (0-0.5) K/uL Baso # (Auto) 0.01 (0-0.2) K/uL PT 10.3 (9.0-12.0) Seconds INR 1.0 (0.9-1.1) APTT 29.4 (21.0-31.0) Seconds PTT Ratio 1.1 Sodium (136-145) mmol/L Potassium (3.5-5.1) mmol/L Chloride (98-107) mmol/L Carbon Dioxide (21-32) mmol/L Anion Gap (3-11) BUN (7-18) mg/dl Creatinine (0.6-1.4) mg/dl Est Cr Clr Drug Dosing ml/min Est GFR ( Amer) Est GFR (Non-Af Amer) BUN/Creatinine Ratio (10-20) Glucose (70-99) mg/dl Calcium (8.5-10.1) mg/dl Total Bilirubin (0.2-1) mg/dl AST (15-37) U/L ALT (12-78) U/L Alkaline Phosphatase (45-117) U/L Troponin I (0-0.045) ng/ml Total Protein (6.4-8.2) gm/dl Albumin (3.4-5.0) gm/dl Globulin (2.5-4.0) gm/dl Albumin/Globulin Ratio (0.9-2) Blood Type A Positive Antibody Screen NEGATIVE 09/12/18 Range/Units 09:32 WBC (4.8-10.8) K/uL RBC (4.7-6.1) M/uL Hgb (14.0-18.0) g/dL Hct (42-52) % MCV (80-100) fL MCH (25-34) pg MCHC (32-36) g/dL RDW Std Deviation (36.4-46.3) fL RDW Coeff of Henri (11.5-14.5) % Plt Count (130-400) K/uL MPV (7.4-10.4) fL Immature Gran % (Auto) % Neut % (Auto) % Lymph % (Auto) % [place] % (Auto) % Eos % (Auto) % Baso % (Auto) % Immature Gran # (Auto) (0.00-0.02) K/uL Neut # (Auto) (1.4-6.5) K/uL Lymph # (Auto) (1.2-3.4) K/uL [place] # (Auto) (0.11-0.59) K/uL Eos # (Auto) (0-0.5) K/uL Baso # (Auto) (0-0.2) K/uL PT (9.0-12.0) Seconds INR (0.9-1.1) APTT (21.0-31.0) Seconds PTT Ratio Sodium 134 L (136-145) mmol/L Potassium 3.8 (3.5-5.1) mmol/L Chloride 100 (98-107) mmol/L Carbon Dioxide 26 (21-32) mmol/L Anion Gap 8.0 (3-11) BUN 13 (7-18) mg/dl Creatinine 0.47 L (0.6-1.4) mg/dl Est Cr Clr Drug Dosing 133.2 ml/min Est GFR ( Amer) 135.2 Est GFR (Non-Af Amer) 116.7 BUN/Creatinine Ratio 27.5 H (10-20) Glucose 161 H (70-99) mg/dl Calcium 8.7 (8.5-10.1) mg/dl Total Bilirubin 0.5 (0.2-1) mg/dl AST 18 (15-37) U/L ALT 17 (12-78) U/L Alkaline Phosphatase 107 (45-117) U/L Troponin I < 0.015 (0-0.045) ng/ml Total Protein 6.6 (6.4-8.2) gm/dl Albumin 2.5 L (3.4-5.0) gm/dl Globulin 4.1 H (2.5-4.0) gm/dl Albumin/Globulin Ratio 0.6 L (0.9-2) Blood Type Antibody Screen Imaging Data Radiologist's Impression: Radiology results as stated below per my review and the radiologist's interpretation: CT SCAN OF THE ABDOMEN AND PELVIS WITH IV CONTRAST CLINICAL HISTORY: Diarrhea. Hematochezia. Left lower quadrant abdominal pain. COMPARISON STUDY: Abdominal CT dated 07/31/2018. TECHNIQUE: Following the IV administration of 94 cc of Optiray 320, CT scan of the abdomen and pelvis is performed from the lung bases to the proximal femora. Images are reviewed in the axial, sagittal, and coronal planes. IV contrast was administered without complication. A dose lowering technique was utilized adhering to the principles of ALARA. CT DOSE: 293.82 mGy.cm FINDINGS: Lung bases: The heart is normal in size and without pericardial effusion. There is a moderate to large left pleural effusion with near-complete atelectasis of the left lower lung. Emphysematous change is noted at the right lung base. There are foci of right basilar scarring/atelectasis. There are pulmonary nodules at the right lung base which measure up to 7 mm (axial images #4, #7, #23). A small hiatal hernia is noted. Liver: The contrast-enhanced liver is normal in size, contour, and attenuation. There is no intrahepatic biliary ductal dilatation. The hepatic veins and portal veins are patent. Gallbladder: Unremarkable. Spleen: Normal in size and attenuation. Pancreas: The pancreas is moderately atrophic. Scattered parenchymal calcifications suggest chronic pancreatitis. Adrenal glands: Unremarkable. Kidneys: The contrast enhanced kidneys are normal in size and without hydronephrosis. The kidneys enhance symmetrically. Abdominal vasculature: The abdominal aorta is normal in course and caliber noting advanced atherosclerotic calcification. Bowel: There is a long segment of wall thickening and edema seen involving the distal descending colon, the sigmoid colon, and the rectum. There is surrounding inflammatory change and trace fluid. The appearance is consistent with a nonspecific proctocolitis. No bowel obstruction is identified. There are scattered colonic diverticula without CT evidence of acute diverticulitis. Moderate constipation is observed. The appendix is well-visualized and normal. Peritoneum: There is no intraperitoneal free air or abdominal ascites. Foci of induration and subcutaneous gas within the ventral abdominal wall are likely related to subcutaneous injections. Lymphadenopathy: None. Pelvic viscera: Evaluation of the pelvis is degraded by streak artifact from a left hip arthroplasty. The bladder is distended but otherwise normal in appearance. The prostate gland is atrophic. Skeletal structures: Findings consistent with multifocal osseous metastatic disease. Lesions are identified throughout the lumbar spine. The largest lesion involves the body of L5 with a mild associated pathologic compression deformity. There is also minimal superior endplate compression deformity of L1. The L5 compression deformity is new from 07/31/2018. No large retropulsed fragments are identified. There is a large permeative destructive lesion identified involving the left ischium with surrounding soft tissue mass. The soft tissue lesion measures at least 5 cm as seen on image #415. Additional smaller lesions are scattered throughout the bony pelvis. A left hip arthroplasty is in place. IMPRESSION: 1. Findings are consistent with a nonspecific proctocolitis as above. This is likely on an infectious or inflammatory basis. 2. There is a moderate to large left pleural effusion with complete atelectasis of the left lower lung. This has markedly increased in size from 07/31/2018. 3. There are changes of multifocal osseous metastatic disease. This appears modestly progressive as compared to 07/31/2018. 4. Mild pathologic compression deformities are seen involving L1 and L5. The L5 compression deformity is new from 07/31/2018. No retropulsed fragments are identified. 5. Metastatic pulmonary nodules are present at the right lung base. These have modestly increased in size from 07/31/2018. 6. Emphysema. 7. Additional findings as above. Electronically signed by: Corwin Gtz M.D. 09/12/2018 10:44 AM ECG Data Attestation: I personally reviewed and interpreted this ECG as follows: Indication: other (GI bleed) Rate (beats per minute): 81 Rhythm: normal sinus Findings: + other (normal axis); no PVC Blood Pressure Blood Pressure Findings: Elevated blood pressure Blood Pressure Disposition: further management by hospitalist KELLY Lee Patient is a 63-year-old male with a past medical history of non-small cell adenocarcinoma who presents the ER on Lovenox shots for left lower quadrant pain associated with bright red blood per rectum for the past 24 hours. Labs were obtained and showed a mild anemia at 10.7. No significant leukocytosis. INR was unremarkable. BMP along with LFTs bilirubin was unremarkable. Troponin was negative. Patient was given IV fluids and IV narcotics along with Zofran. CT abdomen pelvis shows pancolitis. He was updated bedside. He was discussed with the hospitalist and admitted for bright red blood per rectum. Impression & Plan GI bleed Discharge Plan Visit Data Chief Complaint: Rectal Bleed Stated Complaint: RECTAL BLEEDING ED Provider: Gt Pereyra Discharge Problem: GI bleed Patient Disposition: Being Evaluated by Hospitalist The scribe's documentation has been prepared under my direction and personally reviewed by me in its entirety. I confirm that the note above accurately reflects all work, treatment, procedures, and medical decision making performed by me.
[2018-09-12] MEDS ORDERED: OXYCODONE HCL IR 5 MG TAB (IMMEDIATE RELEASE) ONE (14:09)
[2018-09-12] MEDS ORDERED: NALOXONE HCL 0.4 MG/1 ML VIAL/CARP IV PRN (14:15)
[2018-09-12] MEDS ORDERED: ACETAMINOPHEN 500 MG TAB PO PRN (14:15)
[2018-09-12] MEDS ORDERED: GABAPENTIN 600 MG TAB PO SCH (14:30)
[2018-09-12] MEDS ORDERED: CONSULT PHARMACY PRN (14:33)
[2018-09-12] MEDS: SODIUM CHLORIDE 0.9% 1000ML 1,000 ML IV SCH ×2 (14:39→16:33)
[2018-09-12] MEDS: MoRPHine SULFATE CR 60 MG TABCR PO SCH ×2 (14:39→19:58)
[2018-09-12] MEDS: GABAPENTIN 600 MG TAB PO SCH ×2 (14:47→18:30)
[2018-09-12] MEDS: HYDROmorphone HCL 0.5MG/ML 50 ML CASSETTE IV PRN (14:48)
[2018-09-12] MEDS ORDERED: BUTT PASTE (ZINC OXIDE 16%) 171 APPLN/57 GM JAR EXT PRN (15:36)
[2018-09-12] MEDS: INSULIN ASPART 100 UNITS/ML 3 ML PEN SC SCH ×2 (17:18→20:36)
[2018-09-12] MEDS: MoRPHine SULFATE CR 15 MG TABCR PO SCH (19:58)
[2018-09-12] MEDS: CALCIUM 600MG + VIT D 400 IU TAB PO SCH (19:58)
[2018-09-12] MEDS ORDERED: MoRPHine SULFATE CR 60 MG TABCR PO SCH (20:00)
[2018-09-12] MEDS: ONDANSETRON INJ 2 MG/ML 2 ML VIAL IV PRN (20:03)
[2018-09-12] MEDS ORDERED: METHADONE HCL 5 MG TAB PO SCH (21:00)
[2018-09-12 21:06] LABS: Hematocrit (blood only) 32.7 % (42-52); Hemoglobin 10.4 g/dL (14.0-18.0)
[2018-09-13] MEDS: SODIUM CHLORIDE 0.9% 1000ML 1,000 ML IV SCH ×3 (04:25→16:01)
[2018-09-13 06:36] LABS: Hematocrit (blood only) 33.6 % (42-52); Hemoglobin 10.6 g/dL (14.0-18.0); Mean Corpuscular Hgb Conc 31.5 g/dL (32-36); Mean Corpuscular Volume 93.9 fL (80-100); Mean Platelet Volume 8.8 fL (7.4-10.4); Platelet Count 163 K/uL (130-400); RDW Coefficient of Variation 14.3 % (11.5-14.5); RDW Standard Deviation 48.4 fL (36.4-46.3); Red Blood Count 3.58 M/uL (4.7-6.1); White Blood Count 5.42 K/uL (4.8-10.8)
[2018-09-13] MEDS: ONDANSETRON INJ 2 MG/ML 2 ML VIAL IV PRN (06:38)
[2018-09-13 07:07] LABS: BUN Creatinine Ratio 26.7 (10-20); Blood Urea Nitrogen 9 mg/dl (7-18); Calcium 8.4 mg/dl (8.5-10.1); Carbon Dioxide 23 mmol/L (21-32); Chloride 104 mmol/L (98-107); Creatinine Clr Calc Pharmacy 196.3 ml/min; Est GFR (African American) > 150.0; Est GFR (Non-African American) 136.6; Glucose 120 mg/dl (70-99); Potassium 3.8 mmol/L (3.5-5.1); Sodium 137 mmol/L (136-145)
[2018-09-13] MEDS ORDERED: HYDROmorphone INJ 1 MG/ML SYRINGE ONE (09:00)
--- NOTE | 2018-09-13 09:17 | XRay Report ---
XR chest 1V portable CLINICAL HISTORY: thoracentesis postthoracentesis COMPARISON STUDY: 08/21/2018 FINDINGS: No evidence for postprocedural pneumothorax. Slight decrease in volume of a left effusion. Persistent prominence of pulmonary vasculature. IMPRESSION: No evidence for pneumothorax postthoracentesis. The above report was generated using voice recognition software. It may contain grammatical, syntax or spelling errors. Electronically signed by: Lan William M.D. 09/13/2018 9:15 AM
[2018-09-13] MEDS: MoRPHine SULFATE CR 60 MG TABCR PO SCH ×3 (09:19→19:33)
[2018-09-13] MEDS: FOLIC ACID 1 MG TAB PO SCH (09:21)
[2018-09-13] MEDS: CALCIUM 600MG + VIT D 400 IU TAB PO SCH ×2 (09:21→20:43)
[2018-09-13] MEDS: PRAVASTATIN SOD 40 MG TAB PO SCH (09:21)
[2018-09-13] MEDS: MULTIVITAMIN TAB PO SCH (09:21)
[2018-09-13] MEDS: GABAPENTIN 600 MG TAB PO SCH ×3 (09:21→18:11)
[2018-09-13] MEDS: DULOXETINE HCL 30 MG CAP PO SCH (09:21)
[2018-09-13] MEDS ORDERED: HYDROmorphone INJ 1 MG/ML SYRINGE IV STA (09:27)
--- NOTE | 2018-09-13 09:32 | Gastroenterology Progress Note ---
Date of Service September 13, 2018 Assessment & Plan (1) Proctocolitis with rectal bleedin63 year old male with history of metastatic lung cancer to pelvis, ribs, vertebrae who presents with diarrhea, rectal bleeding and abdominal pain. CT w/ long segment of wall thickening and edema seen involving the distal descending colon, the sigmoid colon, and the rectum. He notes [place] w/ diverticulosis otherwise unremarkable. DDX discussed: infectious colitis, ischemic colitis, radiation colitis, IBD, malignancy etc - C.diff negative - Pending culture - Clear liquids ok from GI standpoint - Trend H&H - Monitor and document all GI output - Transfuse PRN - Would hold on empiric ABX for now - Can have Bentyl 10 mg TID PRN abd pain or cramping Consider unprepped flex sig tomorrow. Thank you for allowing us to participate in the care of this patient. Please call with any acute changes, questions or concerns. Please see addendum below with additional recommendation from my supervising physician. (2) Metastatic primary lung cancer: Supervising Physician Co-Signing Physician Notes I have seen and examined the patient with EMMETT Leone whose note reflects our findings and plan. Subjective Pt was seen and evalauted, chart reviewed. No BM or rectal bleeding since admission. Does have persistent lower abdominal pain. Intermittent. No nausea, vomiting. Is hungry. No fever, chills. C.diff negative Culture pending CT: long segment of wall thickening and edema seen involving the distal descending colon, the sigmoid colon, and the rectum EGD: none Colonoscopy: many priors out of state in [place] and [place] Constitutional: no fever, no chills, no body aches and no weight loss Respiratory: no cough, no dyspnea and no wheezing Cardiovascular: no chest pain, no dyspnea and no palpitations Gastrointestinal: + abdominal pain, + diarrhea/loose stools and + blood in stools; no bloating, no nausea, no hematemesis, no cramping and no melena Genitourinary (Male): + difficulty urinating Physical Exam Vital Signs (Past 24 Hours): Last Vital Signs Temp 37.1 C 09/13/18 07:24 Pulse 84 09/13/18 07:24 Resp 18 09/13/18 07:24 BP 144/78 H 09/13/18 07:24 Pulse Ox 90 09/13/18 07:24 Constitutional: + ill appearing (chronically ill) and cooperative; no acute distress Respiratory: normal respiratory effort, lungs clear to auscultation Cardiovascular: RRR, no murmur, no edema Gastrointestinal (Abdomen): Inspection/Auscultation: normal bowel sounds Percussion/Palpation: + abdomen tender (generalized abd pain worse in LLQ no rebound or guarding) and abdomen soft; no guarding and abdomen not rigid Skin: no rashes, warm and dry Results & Data Laboratory Results 09/13/18 09/13/18 09/13/18 Range/Units 08:19 08:19 07:38 WBC (4.8-10.8) K/uL RBC (4.7-6.1) M/uL Hgb (14.0-18.0) g/dL Hct (42-52) % MCV (80-100) fL MCH (25-34) pg MCHC (32-36) g/dL RDW Std Deviation (36.4-46.3) fL RDW Coeff of Henri (11.5-14.5) % Plt Count (130-400) K/uL MPV (7.4-10.4) fL Immature Gran % (Auto) % Neut % (Auto) % Lymph % (Auto) % Mcdonough % (Auto) % Eos % (Auto) % Baso % (Auto) % Immature Gran # (Auto) (0.00-0.02) K/uL Neut # (Auto) (1.4-6.5) K/uL Lymph # (Auto) (1.2-3.4) K/uL Mcdonough # (Auto) (0.11-0.59) K/uL Eos # (Auto) (0-0.5) K/uL Baso # (Auto) (0-0.2) K/uL PT (9.0-12.0) Seconds INR (0.9-1.1) APTT (21.0-31.0) Seconds PTT Ratio Sodium (136-145) mmol/L Potassium (3.5-5.1) mmol/L Chloride (98-107) mmol/L Carbon Dioxide (21-32) mmol/L Anion Gap (3-11) BUN (7-18) mg/dl Creatinine (0.6-1.4) mg/dl Est Cr Clr Drug Dosing ml/min Est GFR ( Amer) Est GFR (Non-Af Amer) BUN/Creatinine Ratio (10-20) Glucose (70-99) mg/dl POC Glucose 122 H (70-99) Calcium (8.5-10.1) mg/dl Total Bilirubin (0.2-1) mg/dl AST (15-37) U/L ALT (12-78) U/L Alkaline Phosphatase (45-117) U/L Troponin I (0-0.045) ng/ml Total Protein (6.4-8.2) gm/dl Albumin (3.4-5.0) gm/dl Globulin (2.5-4.0) gm/dl Albumin/Globulin Ratio (0.9-2) Pleural Fluid Source Pending Pleural Color Pending Pleural Appearance Pending Pleural WBC Pending Pleural RBC Pending Pleural Total Protein Pending Pleural LDH Pending Pleural Glucose Pending Pleural Amylase Pending Pleural Cholesterol Pending Stl C. diff Tox B Gene (Neg) Blood Type Antibody Screen 09/13/18 09/13/18 09/12/18 Range/Units 06:20 06:20 20:50 WBC 5.42 (4.8-10.8) K/uL RBC 3.58 L (4.7-6.1) M/uL Hgb 10.6 L 10.4 L (14.0-18.0) g/dL Hct 33.6 L 32.7 L (42-52) % MCV 93.9 (80-100) fL MCH 29.6 (25-34) pg MCHC 31.5 L (32-36) g/dL RDW Std Deviation 48.4 H (36.4-46.3) fL RDW Coeff of Henri 14.3 (11.5-14.5) % Plt Count 163 (130-400) K/uL MPV 8.8 (7.4-10.4) fL Immature Gran % (Auto) % Neut % (Auto) % Lymph % (Auto) % Mcdonough % (Auto) % Eos % (Auto) % Baso % (Auto) % Immature Gran # (Auto) (0.00-0.02) K/uL Neut # (Auto) (1.4-6.5) K/uL Lymph # (Auto) (1.2-3.4) K/uL Mcdonough # (Auto) (0.11-0.59) K/uL Eos # (Auto) (0-0.5) K/uL Baso # (Auto) (0-0.2) K/uL PT (9.0-12.0) Seconds INR (0.9-1.1) APTT (21.0-31.0) Seconds PTT Ratio Sodium 137 (136-145) mmol/L Potassium 3.8 (3.5-5.1) mmol/L Chloride 104 (98-107) mmol/L Carbon Dioxide 23 (21-32) mmol/L Anion Gap 10.0 (3-11) BUN 9 (7-18) mg/dl Creatinine 0.32 L (0.6-1.4) mg/dl Est Cr Clr Drug Dosing 196.3 ml/min Est GFR ( Amer) > 150.0 Est GFR (Non-Af Amer) 136.6 BUN/Creatinine Ratio 26.7 H (10-20) Glucose 120 H (70-99) mg/dl POC Glucose (70-99) Calcium 8.4 L (8.5-10.1) mg/dl Total Bilirubin (0.2-1) mg/dl AST (15-37) U/L ALT (12-78) U/L Alkaline Phosphatase (45-117) U/L Troponin I (0-0.045) ng/ml Total Protein (6.4-8.2) gm/dl Albumin (3.4-5.0) gm/dl Globulin (2.5-4.0) gm/dl Albumin/Globulin Ratio (0.9-2) Pleural Fluid Source Pleural Color Pleural Appearance Pleural WBC Pleural RBC Pleural Total Protein Pleural LDH Pleural Glucose Pleural Amylase Pleural Cholesterol Stl C. diff Tox B Gene (Neg) Blood Type Antibody Screen 09/12/18 09/12/18 09/12/18 Range/Units 20:30 20:20 16:51 WBC (4.8-10.8) K/uL RBC (4.7-6.1) M/uL Hgb (14.0-18.0) g/dL Hct (42-52) % MCV (80-100) fL MCH (25-34) pg MCHC (32-36) g/dL RDW Std Deviation (36.4-46.3) fL RDW Coeff of Henri (11.5-14.5) % Plt Count (130-400) K/uL MPV (7.4-10.4) fL Immature Gran % (Auto) % Neut % (Auto) % Lymph % (Auto) % Mcdonough % (Auto) % Eos % (Auto) % Baso % (Auto) % Immature Gran # (Auto) (0.00-0.02) K/uL Neut # (Auto) (1.4-6.5) K/uL Lymph # (Auto) (1.2-3.4) K/uL Mcdonough # (Auto) (0.11-0.59) K/uL Eos # (Auto) (0-0.5) K/uL Baso # (Auto) (0-0.2) K/uL PT (9.0-12.0) Seconds INR (0.9-1.1) APTT (21.0-31.0) Seconds PTT Ratio Sodium (136-145) mmol/L Potassium (3.5-5.1) mmol/L Chloride (98-107) mmol/L Carbon Dioxide (21-32) mmol/L Anion Gap (3-11) BUN (7-18) mg/dl Creatinine (0.6-1.4) mg/dl Est Cr Clr Drug Dosing ml/min Est GFR ( Amer) Est GFR (Non-Af Amer) BUN/Creatinine Ratio (10-20) Glucose (70-99) mg/dl POC Glucose 118 H 128 H (70-99) Calcium (8.5-10.1) mg/dl Total Bilirubin (0.2-1) mg/dl AST (15-37) U/L ALT (12-78) U/L Alkaline Phosphatase (45-117) U/L Troponin I (0-0.045) ng/ml Total Protein (6.4-8.2) gm/dl Albumin (3.4-5.0) gm/dl Globulin (2.5-4.0) gm/dl Albumin/Globulin Ratio (0.9-2) Pleural Fluid Source Pleural Color Pleural Appearance Pleural WBC Pleural RBC Pleural Total Protein Pleural LDH Pleural Glucose Pleural Amylase Pleural Cholesterol Stl C. diff Tox B Gene Negative Cdiff Gene (Neg) Blood Type Antibody Screen 04/10/19 04/10/19 04/10/19 Range/Units 09:32 09:32 09:32 WBC 5.64 (4.8-10.8) K/uL RBC 3.58 L (4.7-6.1) M/uL Hgb 10.7 L (14.0-18.0) g/dL Hct 33.1 L (42-52) % MCV 92.5 (80-100) fL MCH 29.9 (25-34) pg MCHC 32.3 (32-36) g/dL RDW Std Deviation 47.2 H (36.4-46.3) fL RDW Coeff of Henri 14.2 (11.5-14.5) % Plt Count 143 (130-400) K/uL MPV 9.8 (7.4-10.4) fL Immature Gran % (Auto) 0.2 % Neut % (Auto) 76.9 % Lymph % (Auto) 9.2 % Mcdonough % (Auto) 12.1 % Eos % (Auto) 1.4 % Baso % (Auto) 0.2 % Immature Gran # (Auto) 0.01 (0.00-0.02) K/uL Neut # (Auto) 4.34 (1.4-6.5) K/uL Lymph # (Auto) 0.52 L (1.2-3.4) K/uL Mcdonough # (Auto) 0.68 H (0.11-0.59) K/uL Eos # (Auto) 0.08 (0-0.5) K/uL Baso # (Auto) 0.01 (0-0.2) K/uL PT 10.3 (9.0-12.0) Seconds INR 1.0 (0.9-1.1) APTT 29.4 (21.0-31.0) Seconds PTT Ratio 1.1 Sodium 134 L (136-145) mmol/L Potassium 3.8 (3.5-5.1) mmol/L Chloride 100 (98-107) mmol/L Carbon Dioxide 26 (21-32) mmol/L Anion Gap 8.0 (3-11) BUN 13 (7-18) mg/dl Creatinine 0.47 L (0.6-1.4) mg/dl Est Cr Clr Drug Dosing 133.2 ml/min Est GFR ( Amer) 135.2 Est GFR (Non-Af Amer) 116.7 BUN/Creatinine Ratio 27.5 H (10-20) Glucose 161 H (70-99) mg/dl POC Glucose (70-99) Calcium 8.7 (8.5-10.1) mg/dl Total Bilirubin 0.5 (0.2-1) mg/dl AST 18 (15-37) U/L ALT 17 (12-78) U/L Alkaline Phosphatase 107 (45-117) U/L Troponin I < 0.015 (0-0.045) ng/ml Total Protein 6.6 (6.4-8.2) gm/dl Albumin 2.5 L (3.4-5.0) gm/dl Globulin 4.1 H (2.5-4.0) gm/dl Albumin/Globulin Ratio 0.6 L (0.9-2) Pleural Fluid Source Pleural Color Pleural Appearance Pleural WBC Pleural RBC Pleural Total Protein Pleural LDH Pleural Glucose Pleural Amylase Pleural Cholesterol Stl C. diff Tox B Gene (Neg) Blood Type Antibody Screen 09/12/18 Range/Units 09:20 WBC (4.8-10.8) K/uL RBC (4.7-6.1) M/uL Hgb (14.0-18.0) g/dL Hct (42-52) % MCV (80-100) fL MCH (25-34) pg MCHC (32-36) g/dL RDW Std Deviation (36.4-46.3) fL RDW Coeff of Henri (11.5-14.5) % Plt Count (130-400) K/uL MPV (7.4-10.4) fL Immature Gran % (Auto) % Neut % (Auto) % Lymph % (Auto) % Mcdonough % (Auto) % Eos % (Auto) % Baso % (Auto) % Immature Gran # (Auto) (0.00-0.02) K/uL Neut # (Auto) (1.4-6.5) K/uL Lymph # (Auto) (1.2-3.4) K/uL Mcdonough # (Auto) (0.11-0.59) K/uL Eos # (Auto) (0-0.5) K/uL Baso # (Auto) (0-0.2) K/uL PT (9.0-12.0) Seconds INR (0.9-1.1) APTT (21.0-31.0) Seconds PTT Ratio Sodium (136-145) mmol/L Potassium (3.5-5.1) mmol/L Chloride (98-107) mmol/L Carbon Dioxide (21-32) mmol/L Anion Gap (3-11) BUN (7-18) mg/dl Creatinine (0.6-1.4) mg/dl Est Cr Clr Drug Dosing ml/min Est GFR ( Amer) Est GFR (Non-Af Amer) BUN/Creatinine Ratio (10-20) Glucose (70-99) mg/dl POC Glucose (70-99) Calcium (8.5-10.1) mg/dl Total Bilirubin (0.2-1) mg/dl AST (15-37) U/L ALT (12-78) U/L Alkaline Phosphatase (45-117) U/L Troponin I (0-0.045) ng/ml Total Protein (6.4-8.2) gm/dl Albumin (3.4-5.0) gm/dl Globulin (2.5-4.0) gm/dl Albumin/Globulin Ratio (0.9-2) Pleural Fluid Source Pleural Color Pleural Appearance Pleural WBC Pleural RBC Pleural Total Protein Pleural LDH Pleural Glucose Pleural Amylase Pleural Cholesterol Stl C. diff Tox B Gene (Neg) Blood Type A Positive Antibody Screen NEGATIVE
[2018-09-13] MEDS: INSULIN ASPART 100 UNITS/ML 3 ML PEN SC SCH ×4 (09:33→21:45)
[2018-09-13 09:53] LABS: Glucose Pleural Fluid 127 mg/dl
[2018-09-13] MEDS: HYDROmorphone HCL 0.5MG/ML 50 ML CASSETTE IV PRN ×3 (09:55→19:41)
[2018-09-13 10:01] LABS: Amylase Pleural Fluid 22 U/L; LDH Pleural Fluid 179 U/L; Total Protein Pleural Fluid 3.9 g/dl
[2018-09-13 10:17] LABS: Appearance Pleural Fluid CLOUDY; Color Pleural Fluid AMBER; Mononuclear WBC Pleural 95.1 %; Polynuclear WBC Pleural 4.9 %; RBC Pleural Fluid (A) 19000 /uL; Source Pleural Fluid LEFT LUNG; WBC Pleural Fluid (A) 493 /uL
--- NOTE | 2018-09-13 10:44 | Palliative Care Consultation ---
Date of Consultation September 13, 2018 Assessment & Plan (1) Cancer related pain: -63 year old male with PMH osteoarthritis, htn, hld, and newly diagnosed stage IV lung cancer, presented to the hospital with bright red bleeding per rectum. CT abd/pelvis showed proctocolitis and GI is consulted. Waiting for stool culture, if negative plan is for possible scope tomorrow. Patient also experiencing severe, intractable pain in his left acetabulum, where he has metastatic disease. Patient just recently moved here from [place], he and his have retired here. In [place], patient was experiencing this left knee and hip pain for about a year. He was told he had osteoarthritis by an orthopedic prov ider. He was dealing with the pain okay. After he retired, he and his set out on a trip across the country-- to [place], [place], [place], [place], and [place]. When visiting family in [place], patient started having severe pain, so they quickly came to here to [place] [employer] and got set up with a PCP. His PCP sent him to see Dr. Walker with ortho, who then ordered imaging which showed metastatic disease. He was admitted to [facility] on 07/30/18 in [place] and underwent extensive testing including biopsy of the left acetabular lesion which revealed metastatic lung cancer. Full body bone scan revealed mets to pelvis, vertebrae, and ribs. Patient then underwent left hip replacement in hopes that it would alleviate some pain. Unfortunately, it did not. He started following with palliative care at [facility] right away for pain management. He has been on a wide range of medications. Currently, his pain regime was MS Contin 60mg at 0800 and 1400, 90mg at 2000, oxy IR 20mg Q2h gabapentin 600mg TID, cymbalta, and methadone 5mg PO QHS (started on 09/10). Patient was still in excruciating pain that was "off the charts" with any movement. Patient was started on Dilaudid WIRED SWEATBAND CUTTER pump at 0.4mg Q20min demand dose on admission. Thoracic surgery consulted for left pleural effusion-- thoracentesis done today with drainage of >1000ml fluid. Palliative care is consulted for pain management. -Met with patient and his , Fior, in room 408. Upon entering, patient had just got done with thoracentesis and was in excruciating pain. Was writhing in bed, facial grimacing, tearful. Had nurse give 1mg IV Dilaudid. -Based on usage of Dilauidid WIRED SWEATBAND CUTTER pump since about 3:30pm yesterday, patient was averaging about 0.6mg/hr. I added a basal rate of 0.4mg/hr, continue the demand dose of 0.4mg Q20min. Patient began to get some relief. -Patient did have one dose of his current chemo regimen on 09/10, began experiencing diarrhea the day after, and eventually had BRBPR. His H/H is stable. Other labs unremarkable. Diarrhea is improving, no BM since yesterday morning. -Spoke with Dr. Lopez and returned to [facility] room to see patient together. Spoke again with patient and . -We will increase methadone to 10mg TID. -Start decadron 4mg PO daily. -If sedation is an issue, discontinue Dilaudid basal rate first. Call palliative care with any questions. [phone] -Emotional support given to patient and . -Palliative care will continue to follow. (2) Metastatic primary lung cancer: (3) Proctocolitis with rectal bleeding: Supervising Physician Co-Signing Physician Notes Chart reviewed, patient seen and examined along with his and Monica Bailon at bedside Reviewed patient's home pain regime as well as his current pain med requirements. Patient's pain regime at home-he was requiring approximately 570 mg of oral morphine equivalent with poor control. Patient's pain is related to his extensive bony metastases. This would calculate to approximately 40 mg of methadone. Discussed with patient and regarding use of methadone for pain control-they are agreeable to plan. PE: Patient awake and alert, appears more comfortable HEENT: EOMI, normal hearing Respirations: Clear, unlabored CV: Regular rate, no edema Abdomen: Soft, nontender Extremities: Full range of motion Neuro: Alert and oriented x4 Agree with above note, assessment and plan as per DEMETRIS Gonzalez. Collaborated with Monica regarding transition to methadone, also collaborated with attending physician. History of Present Illness Attending Physician: Eileen Navarro History of Present Illness This 63 year old male with PMH osteoarthritis, htn, hld, and newly diagnosed stage IV lung cancer, presented to the hospital with bright red bleeding per rectum. CT abd/pelvis showed proctocolitis and GI is consulted. Waiting for stool culture, if negative plan is for possible scope tomorrow. Patient also experiencing severe, intractable pain in his left acetabulum, where he has metastatic disease. Patient just recently moved here from [place], he and his have retired here. In [place], patient was experiencing this left knee and hip pain for about a year. He was told he had osteoarthritis by an orthopedic provider. He was dealing with the pain okay. After he retired, he and his set out on a trip across the country-- to [place], [place], [place], [place], and [place]. When visiting family in [place], patient started having severe pain, so they quickly came to here to [employer] and got set up with a PCP. His PCP sent him to see Dr. Walker with ortho, who then ordered imaging which showed metastatic disease. He was admitted to [facility] on 07/30/18 in [place] and underwent extensive testing including biopsy of the left acetabular lesion which revealed metastatic lung cancer. Full body bone scan revealed mets to pelvis, vertebrae, and ribs. Patient then underwent left hip replacement in hopes that it would alleviate some pain. Unfortunately, it did not. He started following with palliative care at [facility] right away for pain management. He has been on a wide range of medications. Currently, his pain regime was MS Contin 60mg at 0800 and 1400, 90mg at 2000, oxy IR 20mg Q2h gabapentin 600mg TID, cymbalta, and methadone 5mg PO QHS (started on 09/10). Patient was still in excruciating pain that was "off the charts" with any movement. Patient was started on Dilaudid WIRED SWEATBAND CUTTER pump at 0.4mg Q20min demand dose on admission. Thoracic surgery consulted for left pleural effusion-- thoracentesis done today with drainage of >1000ml fluid. Palliative care is consulted for pain management. Thank you kindly for this consult. We will follow. Allergies Allergy/AdvReac Type Severity Reaction Status Date / Time ciprofloxacin [From Cipro] Allergy Intermediate BLOOD IN Verified 09/12/18 10:54 KIDNEYS mushroom AdvReac Intermediate STOMACH Verified 09/12/18 10:54 PAIN Home Medications Home Medications Medication Instructions Recorded Confirmed Type Janumet 1 tab PO BID 08/20/18 09/12/18 History Jardiance 10 mg PO QAM 08/20/18 09/12/18 History aspirin [Aspir-Low] 81 mg PO QAM 08/20/18 09/12/18 History enoxaparin [Lovenox] 40 mg SUBCUT DAILY@1400 08/20/18 09/12/18 History morphine 90 mg PO HS 08/20/18 09/12/18 History multivitamin 1 tab PO DAILY 08/20/18 09/12/18 History pravastatin 80 mg PO QAM 08/20/18 09/12/18 History folic acid 1 mg tablet 1 mg PO DAILY 08/24/18 09/12/18 History morphine ER 60 mg tablet,extended 60 mg PO BID tab 08/24/18 09/12/18 History release ondansetron HCl 8 mg tablet 8 mg PO TID PRN 08/24/18 09/12/18 History prochlorperazine maleate 10 mg 10 mg PO UD PRN tab 08/24/18 09/12/18 History tablet dexamethasone 4 mg tablet 8 mg PO UD tab 08/28/18 09/12/18 History docusate sodium 100 mg capsule 100 mg PO BID 08/28/18 09/12/18 History polyethylene glycol 3350 17 17 gm PO DAILY 08/28/18 09/12/18 History gram/dose oral powder duloxetine 30 mg capsule,delayed 30 mg PO DAILY 09/03/18 09/12/18 History release gabapentin 600 mg tablet 600 mg PO TID tab 09/03/18 09/12/18 History oxycodone 20 mg tablet 20 mg PO Q2H PRN tab 09/03/18 09/12/18 History Ca-D3-mag gs-zrcr-zoe-live-bor 1 tab PO BID 09/12/18 09/12/18 History [Calcium 600-D3 Plus] acetaminophen 1,000 mg PO Q8H PRN 09/12/18 09/12/18 History denosumab [Xgeva] 120 mg SUBCUT UD 09/12/18 09/12/18 History methadone 5 mg PO HS 09/12/18 09/12/18 History Patient History Medical History Metastatic primary lung cancer (Chronic) with mets to pelvis, vertebrae, ribs Hyperlipidemia (Chronic) Diabetes mellitus, type 2 (Chronic) NIDDM Osteoarthritis (Chronic) Surgical History History of hip surgery (Resolved) s/p left acetabuluar metastasis and cemented left total hip arthroplasty 08/02/18= Grade I, Grider 2, ETT 7.5 at [facility] (anesthesia records scanned in); on lovenox post-op for DVT prophylaxis History of tooth extraction (Resolved) Hx of vasectomy (Resolved) Family History Other Coronary heart disease Social History Communication Ability: Effective Beliefs That Will Affect Care: None marital status: Current Living Situation: Spouse current occupational status: retired 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 Other Information That Helps Us Care for You: No Feels Safe at Home: Yes Safety Concerns: Feels Safe At This Time Smoking Status: Former smoker Hx Alcohol Use: Yes Hx Substance Use: No during the past year weight has: decreased > 10 lbs Review of Systems Constitutional: + weakness (mild) Ear, Nose, Mouth, Throat: no dysphagia Respiratory: + cough and + dyspnea on exertion; no dyspnea and no sputum production Cardiovascular: + chest pain (related to cancer pain); no edema Gastrointestinal: no abdominal pain, no nausea, no vomiting and no diarrhea/loose stools (none since admission) Neurologic: no confusion Psychiatric: + anxiety (related to the pain and cancer diagnosis) Physical Exam Vital Signs (Past 24 Hours): Last Vital Signs Temp 37.1 C 09/13/18 07:24 Pulse 84 09/13/18 07:24 Resp 18 09/13/18 07:24 BP 144/78 H 09/13/18 07:24 Pulse Ox 90 09/13/18 07:24 Constitutional: well developed, well nourished and + thin ENMT: external ear and nose normal, oropharynx normal Ears: no hearing impairment Neck: normal visual inspection Respiratory: normal respiratory effort; no labored breathing Auscultation: + crackles (LLL) Cardiovascular: RRR, no murmur, no edema Gastrointestinal (Abdomen): Inspection/Auscultation: abdomen normal to inspec tion and normal bowel sounds; abdomen not distended Percussion/Palpation: abdomen soft; abdomen nontender Skin: no rashes, warm and dry Neurologic: awake; not confused Psychiatric: A+Ox3, euthymic affect Time Spent Midlevel 145 minutes with >50% of time spent at bedside with patient and family discussing condition, pain management and plan of care; returned to room several times to discuss.
[2018-09-13] MEDS ORDERED: METOCLOPRAMIDE HCL INJ 5 MG/ML 2 ML VIAL IV ONE (10:49)
--- NOTE | 2018-09-13 11:06 | Consultation Report ---
DATE OF CONSULTATION: 09/13/2018 REASON FOR CONSULTATION: Pleural effusion. HISTORY OF PRESENT ILLNESS: This is a very pleasant gentleman who is 63 years old. He has a history of metastatic lung cancer with known bone metastases. He was admitted to the hospital yesterday secondary to bright red blood and loose bowel movements yesterday. Apparently, the patient had approximately 6 episodes of bright red blood per rectum with associated lower abdominal pain and nausea. He was admitted to the hospital for that problem. I did question the patient on numerous things, he said that he did not have any falls as a result of this. He denies head injuries, visual changes, tinnitus or sore throat. No neck pain or chest pain is reported. He does report some associated shortness of breath. He had abdominal complaints as well as bright blood per rectum as noted above. He has no prior history of GI bleed. He denies dysuria. He denied any fever, shakes, or chills. He does not have any known DVT or PE. Denies anxiety or depression. Upon presentation, the patient did have labs checked and his most recent labs were from today showing a white blood cell count and platelet count that were within normal range. Hemoglobin and hematocrit are 10.6 and 33.6. There has been no significant drop since admission. Coagulation studies were noted to be within normal range and a chemistry profile this morning showed sodium, potassium and BUN within normal range. His creatinine was actually slightly low at 0.32. The patient also had imaging studies including a CT scan of the abdomen and pelvis. The CT scan abdomen and pelvis did note some nonspecific proctocolitis. This did also demonstrate a moderate to large left pleural effusion with compressive atelectasis of the left lung. For this reason, we were asked to see the patient. At the time of my exam, he is resting comfortably in bed, but did admit to some shortness of breath with activity. PAST MEDICAL HISTORY: Includes the followin. History of metastatic lung cancer. 2. Hyperlipidemia. 3. Diabetes. 4. Osteoarthritis. PAST SURGICAL HISTORY: Includes: 1. Left hip arthroplasty. 2. History of teeth extractions. 3. History of vasectomy. SOCIAL HISTORY: The patient is a former smoker. FAMILY HISTORY: Positive for coronary artery disease. REVIEW OF SYSTEMS: As described above. ALLERGIES: HE HAS LISTED ALLERGIES TO MUSHROOMS AND CIPRO. HOME MEDICATIONS: Include: 1. As-needed Tylenol. 2. Aspirin 81 mg daily. 3. Calcium supplementation. 4. Xgeva 120 mg subcutaneously daily. 5. Dexamethasone 4 mg daily. 6. Colace 100 mg twice daily. 7. Cymbalta 30 mg daily. 8. Lovenox 40 mg daily subcutaneously. 9. Folic acid 1 mg daily. 10. Gabapentin 600 mg 3 times daily. 11. Janumet 1 tablet twice daily. 12. Jardiance 10 mg daily. 13. Methadone 5 mg at bedtime. 14. Morphine 90 mg at bedtime. 15. Morphine ER 60 mg twice daily. 16. Multivitamin daily. 17. Zofran 8 mg as needed for nausea. 18. Oxycodone 20 mg every 2 hours as needed. 19. MiraLax daily. 20. Pravachol 80 mg daily. 21. Phenergan 10 mg daily as needed for nausea. PHYSICAL EXAMINATION: VITAL SIGNS: The patient has a blood pressure of 144/78, pulse 84 and regular, respirations are 18 and unlabored. Temperature: He is afebrile with temperature of 37.1. Pulse ox 90% on room air. GENERAL: The patient was alert and oriented x3. He is not in any distress. HEENT: Head is atraumatic, normocephalic. Eyes: Pupils equal, round and reactive to light and accommodation. Extraocular motions are intact. Ears: Auditory acuity is grossly intact. Nose: Nasal patency was intact. Sinuses are nontender. Mouth is moist without exudates. NECK: Supple. There is no tracheal shift or stridor. CARDIOVASCULAR: Regular rate and rhythm. LUNGS: Revealed markedly decreased breath sounds at the left base. ABDOMEN: Soft and nontender. EXTREMITIES: Revealed no cyanosis or clubbing. NEUROLOGIC: Revealed he could move all 4 extremities and follow simple commands without noted focal deficits. DIAGNOSTIC DATA: As noted above. IMPRESSION: This is a 63-year-old male with known metastatic lung cancer. The patient now has a large left pleural effusion. Myself and Dr. Salcido have met with the patient at bedside this morning and we have discussed with him the possibility of performing an ultrasound-guided thoracentesis at bedside for diagnostic as well as therapeutic purposes. We have outlined the risks which include but not limited to bleeding, infection and pneumothorax. I have also outlined the benefits including obtain a diagnosis of the fluid as well as improve his respiratory status. Alternatives include clinical monitoring, but the benefits include improving his respiratory status and we have indicated his breathing may become worse if the fluid is not drain. After this discussion, the patient agreed and we will proceed with a left ultrasound-guided thoracentesis. For specifics of this procedure, please see separate operative report.
--- NOTE | 2018-09-13 13:40 | Hospitalist Progress Note ---
Date of Service September 13, 2018 Assessment & Plan (1) Proctocolitis with rectal bleeding: This is a 63 y/o M with a PMH of metastatic lung cancer with mets to bone, DM II and HLD who presents with bright red blood in diarrhea since yesterday morning and was found to have non-specific proctocolitis. No more bleeding episodes or BM since admission -Start on clear liquid diet -Hgb stable at 10.6 (baseline ~12). Continue trending H & H -CT abd/pelvis with a nonspecific proctocolitis as above. -D/D : Infectious colitis, ischemic colitis, radiation colitis -Stool cultures, C diff Neg -Appreciate GI inputs--> Considering flex sigmoidoscopy in AM (2) Metastatic primary lung cancer: History of metastatic lung cancer with mets to pelvis, vertabrae and ribs, s/p left hip resection of bony mets/replacement in Jul 2018 at [facility] [place] -Started new chemo regimen on August 30 consisting of Alimta and Carboplatin and is due for second round on September 20 -Recently completed 10 rounds of radiation last week -Inadequate home pain regimen. Will continue home dose of MS Contin 60 mg BID, 90 mg q HS, gabapentin 600 mg 3 times daily, Cymbalta. Held Oxy IR 20 mg PRN. Methadone 5 mg was started on admission---> Increased to 10 mg TID today. -Dilaudid EDITORIAL MANAGER pump for PRN pain (rate adjusted by palliative medicine) -Discussed with Palliative medicine- appreciate inputs (3) Diabetes mellitus, type 2: A1c of 6.7 in Jul 2018 -Hold home agents -SSI while in-patient -BSG HS (4) Hyperlipidemia: Continue pravastatin DVT Ppx: SCDs in setting of GI bleed Code status: FULL per discussion with patient, PCP: Eugene Thapa Dispo: Medical mx in progress Updated by bedside. Will be followed by Dr. Eileen Navarro for remainder of admission. Subjective Patient's pain is better controlled now after adjustment of IV Dilaudid pump rate by palliative medicine. Had nausea, requiring IV antiemetics. Has not had any bowel movement since admission. No bleeding per rectum. Still has left lower abdominal pain. No fever, chills. No nausea, vomiting. Physical Exam Vital Signs (Past 24 Hours): Last Vital Signs Temp 37.1 C 09/13/18 11:35 Pulse 87 09/13/18 11:35 Resp 18 09/13/18 11:35 BP 138/77 09/13/18 11:35 Pulse Ox 90 09/13/18 11:35 Physical Exam: GENERAL- AAOX3, No acute distress; Cachexia NECK- Supple, no JVD LUNGS- Air entry bilaterally equal. No rales, rhonchi, crackles, wheezes heard. HEART- Regular rate and rhythm. No murmurs ABDOMEN- Soft, tenderness - LLQ, non distended, Bowel sounds heard. EXTREMITIES- Good peripheral pulses, no edema
[2018-09-13] MEDS: METHADONE HCL 10 MG TAB PO SCH ×2 (13:45→20:45)
[2018-09-13] MEDS: dexAMETHasone 4 MG TAB PO SCH (13:45)
[2018-09-13] MEDS: MoRPHine SULFATE CR 15 MG TABCR PO SCH (19:33)
--- NOTE | 2018-09-14 01:19 | Consultation Report ---
DATE OF CONSULTATION: 09/13/2018 Mr. Mancini is a patient of Dr. Warren Thapa, who has been found to have stage IV lung cancer. He has bony metastases which are quite painful and in fact has undergone a left hip surgery prophylactically. Unfortunately, he is still having quite a bit of pain. He is also short of breath and has a cough and has been found to have a fairly large left pleural effusion. We were asked to evaluate him for this pleural fluid. I had a very long discussion with the patient's and the patient. I have explained to them that performing a thoracentesis is relatively easy; however, this is not going to provide any long-term survival advantage. It should help his cough and should help his breathing. They understand. We are going to proceed this morning. Please refer to Mr. Jake Segura's full consultation for specifics of this case.
--- NOTE | 2018-09-14 03:06 | Operative Report ---
PROCEDURE: Left thoracentesis under ultrasound guidance. SURGEON: LULU Abraham CO-SURGEON: Cleve Salcido MD ANESTHESIA: Local. SPECIFICS OF PROCEDURE: With the patient in a seated position, his left posterior chest was evaluated with an ultrasound. He was seen to have a large effusion as expected. After marking the space with indelible ink, a timeout was called. He was then prepped and draped in usual sterile fashion. A 25-gauge needle was used to raise a skin wheal and a larger bore needle was used to enter the pleural cavity without difficulty and free-flowing straw-colored fluid was drawn back. A guidewire was inserted and the needle removed. Short triple lumen catheter was slid in 17 cm. The patient was then drained for about 1700 mL of fluid. He began developing a reexpansion cough and had some mild chest pain, so we stopped at that point. It is important to understand that this is for comfort only. We removed the thoracentesis tubing and placed an antimicrobial dressing. No bleeding. He tolerated it well. Chest x-ray showed he still had fluid in his chest, but it was improved.
[2018-09-14] MEDS: SODIUM CHLORIDE 0.9% 1000ML 1,000 ML IV SCH ×3 (04:27→16:42)
[2018-09-14 06:10] LABS: Hematocrit (blood only) 36.4 % (42-52); Hemoglobin 11.5 g/dL (14.0-18.0); Mean Corpuscular Hgb Conc 31.6 g/dL (32-36); Mean Corpuscular Volume 93.3 fL (80-100); Mean Platelet Volume 9.7 fL (7.4-10.4); Platelet Count 260 K/uL (130-400); RDW Coefficient of Variation 14.4 % (11.5-14.5); RDW Standard Deviation 48.3 fL (36.4-46.3); White Blood Count 5.96 K/uL (4.8-10.8)
[2018-09-14 06:42] LABS: BUN Creatinine Ratio 17.6 (10-20); Calcium 8.5 mg/dl (8.5-10.1); Creatinine Clr Calc Pharmacy 143.9 ml/min; Est GFR (African American) 140.2; Potassium 4.1 mmol/L (3.5-5.1)
--- NOTE | 2018-09-14 06:58 | XRay Report ---
XR chest 1V portable CLINICAL HISTORY: effusion COMPARISON STUDY: 09/13/2018 FINDINGS: A right-sided A-Port catheter remains unchanged in position. There is a persistent left ple ural effusion with associated left lower lobe atelectasis/consolidation. There are old right-sided ri b fractures. There is a nonspecific 16 mm nodular opacity within the right upper lung zone[ IMPRESSION: 1. Persistent left pleural effusion with associated left lower lobe atelectasis/consolidation 2. Suspected 16mm right upper lung zone pulmonary nodule Electronically signed by: Derrick Deras M.D. 09/14/2018 6:57 AM
[2018-09-14] MEDS: INSULIN ASPART 100 UNITS/ML 3 ML PEN SC SCH ×3 (07:30→21:30)
[2018-09-14] MEDS: MoRPHine SULFATE CR 60 MG TABCR PO SCH ×3 (08:34→21:24)
[2018-09-14] MEDS: PRAVASTATIN SOD 40 MG TAB PO SCH (08:35)
[2018-09-14] MEDS: dexAMETHasone 4 MG TAB PO SCH (08:35)
[2018-09-14] MEDS: CALCIUM 600MG + VIT D 400 IU TAB PO SCH ×2 (08:35→21:24)
[2018-09-14] MEDS: MULTIVITAMIN TAB PO SCH (08:35)
[2018-09-14] MEDS: METHADONE HCL 10 MG TAB PO SCH ×3 (08:35→21:23)
[2018-09-14] MEDS: DULOXETINE HCL 30 MG CAP PO SCH (08:35)
[2018-09-14] MEDS: FOLIC ACID 1 MG TAB PO SCH (08:35)
[2018-09-14] MEDS: GABAPENTIN 600 MG TAB PO SCH ×3 (08:35→17:53)
[2018-09-14] MEDS: ONDANSETRON INJ 2 MG/ML 2 ML VIAL IV PRN (08:38)
--- NOTE | 2018-09-14 08:44 | Anesthesiology Consultation ---
Date of Service September 14, 2018 Assessment & Plan (1) Encounter for pre-operative examination: Chart Review Chart Review: Acceptable Risk for Surgery Consults Requested none ASA ASA4 Proposed Anesthesia Anesthesia Type: MAC Risk / Benefits Reviewed With: PT / POA / Parent / Guardian, Accepts Plan and Informed Consent Obtained NPO Date Last Intake of Fluids: 09/14/18 Time Last Intake of Fluids: 00:00 Date Last Intake of Solids: 09/14/18 Time Last Intake of Solids: 00:00 History Surgery Operation Date: 09/14/18 09:00 Proposed Procedures p Flexible Sigmoidoscopy Dr Tapia - Isadora Tapia Height/Weight Height: 5 ft 8 in Weight: 59.4 kg Allergies Allergy/AdvReac Type Severity Reaction Status Date / Time ciprofloxacin [From Cipro] Allergy Intermediate BLOOD IN Verified 09/12/18 10:54 KIDNEYS mushroom AdvReac Intermediate STOMACH Verified 09/12/18 10:54 PAIN Medications Home Medications Medication Instructions Recorded Confirmed Last Taken Janumet 1 tab PO BID 08/20/18 09/12/18 08/19/18 18:00 Jardiance 10 mg PO QAM 08/20/18 09/12/18 08/20/18 09:00 aspirin [Aspir-Low] 81 mg PO QAM 08/20/18 09/12/18 08/19/18 18:00 enoxaparin [Lovenox] 40 mg SUBCUT DAILY@1400 08/20/18 09/12/18 08/20/18 14:00 morphine 90 mg PO HS 08/20/18 09/12/18 08/20/18 20:00 multivitamin 1 tab PO DAILY 08/20/18 09/12/18 08/19/18 09:00 pravastatin 80 mg PO QAM 08/20/18 09/12/18 08/19/18 08:00 folic acid 1 mg tablet 1 mg PO DAILY 08/24/18 09/12/18 09/12/18 morphine ER 60 mg tablet,extended 60 mg PO BID tab 08/24/18 09/12/18 Unknown release ondansetron HCl 8 mg tablet 8 mg PO TID PRN 08/24/18 09/12/18 09/12/18 prochlorperazine maleate 10 mg 10 mg PO UD PRN tab 08/24/18 09/12/18 Unknown tablet dexamethasone 4 mg tablet 8 mg PO UD tab 08/28/18 09/12/18 Unknown docusate sodium 100 mg capsule 100 mg PO BID 08/28/18 09/12/18 Unknown polyethylene glycol 3350 17 17 gm PO DAILY 08/28/18 09/12/18 Unknown gram/dose oral powder duloxetine 30 mg capsule,delayed 30 mg PO DAILY 09/03/18 09/12/18 09/12/18 release gabapentin 600 mg tablet 600 mg PO TID tab 09/03/18 09/12/18 09/12/18 oxycodone 20 mg tablet 20 mg PO Q2H PRN tab 09/03/18 09/12/18 09/12/18 Ca-D3-mag [id number]-[id number] 1 tab PO BID 09/12/18 09/12/18 09/12/18 [Calcium 600-D3 Plus] acetaminophen 1,000 mg PO Q8H PRN 09/12/18 09/12/18 Unknown denosumab [Xgeva] 120 mg SUBCUT UD 09/12/18 09/12/18 Unknown methadone 5 mg PO HS 09/12/18 09/12/18 Unknown Active Medications Generic Name Dose Route Start Last Admin Trade Name Freq PRN Reason Stop Dose Admin Dexamethasone 4 mg 09/13/18 11:45 09/14/18 08:35 Decadron PO 10/13/18 11:44 4 mg DAILY YEHUDA Administration Duloxetine HCl 30 mg 09/13/18 09:00 09/14/18 08:35 Cymbalta PO 10/13/18 08:59 30 mg DAILY YEHUDA Administration Folic Acid 1 mg 09/13/18 09:00 09/14/18 08:35 Folvite PO 10/13/18 08:59 1 mg DAILY YEHUDA Administration Gabapentin 600 mg 09/12/18 14:45 09/14/18 08:35 Neurontin PO 10/12/18 14:44 600 mg TID@0800,1400,1800 YEHUDA Administration Hydromorphone HCl 25 mg 09/12/18 14:15 09/14/18 10:35 Dilaudid Career Placement Services Counselor IV 09/26/18 14:14 16.8 mg PRN PRN Administration Pain Protocol Sodium Chloride 1,000 mls @ 15 mls/hr 09/12/18 14:15 09/14/18 04:27 Nss 1000ml IV 09/26/18 14:17 0 mls/hr .Q24H YEHUDA Infusion Sodium Chloride 1,000 mls @ 80 mls/hr 09/12/18 15:15 09/14/18 04:27 Nss 1000ml IV 10/12/18 15:14 80 mls/hr .[id number] YEHUDA Administration Methadone HCl 10 mg 09/13/18 14:00 09/14/18 08:35 Dolophine PO 09/27/18 13:59 10 mg TID YEHUDA Administration Morphine Sulfate 60 mg 09/12/18 14:45 09/14/18 08:34 Ms Contin PO 09/26/18 14:44 60 mg BID@0800,1400 YEHUDA Administration Morphine Sulfate 60 mg 09/12/18 20:00 09/13/18 19:33 Ms Contin PO 09/26/18 19:59 60 mg DAILY@1999 YEHUDA Administration Morphine Sulfate 30 mg 09/12/18 20:00 09/13/18 19:33 Ms Contin PO 09/26/18 19:59 30 mg DAILY@1999 YEHUDA Administration Multivitamins 1 tab 09/13/18 09:00 09/14/18 08:35 Multivitamin Tab PO 10/13/18 08:59 1 tab DAILY YEHUDA Administration Multivitamins/Minerals 1 tab 09/12/18 21:00 09/14/18 08:35 Caltrate Plus PO 10/12/18 20:59 1 tab BID YEHUDA Administration Ondansetron HCl 4 mg 09/12/18 14:15 09/14/18 08:38 Zofran IV 10/12/18 14:14 4 mg Q6H PRN Administration Nausea Petrolatum 1 appln 09/12/18 15:36 09/12/18 16:20 Butt Paste EXT 10/12/18 15:44 1 appln Q1H PRN Administration anal pain/soreness/itching Pravastatin Sodium 80 mg 09/13/18 09:00 09/14/18 08:35 Pravachol PO 10/13/18 08:59 80 mg QAM YEHUDA Administration Past Medical History Medical History Metastatic primary lung cancer (Chronic) with mets to pelvis, vertebrae, ribs Hyperlipidemia (Chronic) Diabetes mellitus, type 2 (Chronic) NIDDM Osteoarthritis (Chronic) Past Family History Family History Other Coronary heart disease Past Surgical History Surgical History History of hip surgery (Resolved) s/p left acetabuluar metastasis and cemented left total hip arthroplasty 08/02/18= Grade I, Grider 2, ETT 7.5 at [facility] (anesthesia records scanned in); on lovenox post-op for DVT prophylaxis History of tooth extraction (Resolved) Hx of vasectomy (Resolved) Past Anesthesia History No Hx of Anesthesia Complications and No Family Hx of Anesthesia Complications History of PONV No Motion Sickness Screening History of Motion Sickness: No Social History Smoking Status: Former smoker tobacco type: cigarettes Smoking cigarettes per day: 1 PPD when he smoked Smoking End Date: 2012 Hx Alcohol Use: Yes Alcohol type: beer alcohol intake frequency: a few times a month Hx Substance Use: No substance use type: does not use Exercise / Class Metabolic Activity III < 4 Walking/Shop/Light housework Physical Exam Vital Signs Last Vital Signs Temp 98.8 F 09/14/18 11:32 Pulse 79 09/14/18 11:32 Resp 20 09/14/18 11:32 BP 141/74 H 09/14/18 11:32 Pulse Ox 94 09/14/18 11:32 ENMT Mouth: no dentition abnormality Thyromental Distance: > or= 3.5 Finger Breadths Mallampati Class: II Neck normal visual inspection Respiratory normal respiratory effort Auscultation: lungs clear to auscultation bilaterally Cardiovascular Rate/Rhythm: regular rate and regular rhythm Testing Electrocardiogram Date: 09/12/18 Normal sinus rhythm, rate 81 bpm Low voltage QRS Cannot rule out Anterior infarct , age undetermined Chest X-Ray Date: 09/14/18 1. Persistent left pleural effusion with associated left lower lobe atelectasis/consolidation 2. Suspected 16mm right upper lung zone pulmonary nodule Laboratory Results 09/14/18 05:24 09/14/18 05:24 Blood Type A Positive 09/12/18 09:20 Antibody Screen NEGATIVE 09/12/18 09:20 PT 10.3 Seconds (9.0-12.0) 09/12/18 09:32 INR 1.0 (0.9-1.1) 04/10/19 09:32 APTT 29.4 Seconds (21.0-31.0) 09/12/18 09:32 09/13/18 08:19 Acid Fast Bacilli Smear - Final Pleural Fluid 09/12/18 20:30 Shiga Toxin Test - Preliminary Stool Stool Culture - Preliminary No Salmonella isolated to date, No Shigella isolated to date, No Campylobacter jejuni isolated to date. 09/13/18 08:19 Fungal Smear - Final Pleural Fluid 09/13/18 08:19 Gram Stain - Final Pleural Fluid 09/14/18 09/13/18 06:14 23:58 POC Glucose 138 H 144 H
--- NOTE | 2018-09-14 08:46 | Gastroenterology Progress Note ---
Date of Service September 14, 2018 Assessment & Plan (1) Proctocolitis with rectal bleedin63 year old male with history of metastatic lung cancer to pelvis, ribs, vertebrae who presents with diarrhea, rectal bleeding and abdominal pain. CT w/ long segment of wall thickening and edema seen involving the distal descending colon, the sigmoid colon, and the rectum. He [place]/ diverticulosis otherwise unremarkable. DDX discussed: infectious colitis, ischemic colitis, radiation colitis, IBD, malignancy etc - NPO - Tap water enema - Flex sig - C.diff negative - Negative culture - Trend H&H - Monitor and document all GI output - Transfuse PRN - Would hold on empiric ABX for now - Can have Bentyl 10 mg TID PRN abd pain or cramping (2) Metastatic primary lung cancer: Supervising Physician Co-Signing Physician Notes I have seen and examined the patient with A.S whose note reflects our findings and plan Subjective Pt was seen and evaluated, chart reviewed. ABD pain still present althought slightly improved. Did have a small bm w/ rectal bleeding since this AM. . No nausea, vomiting. Is hungry. No fever, chills. C.diff negative Culture negative CT: long segment of wall thickening and edema seen involving the distal descending colon, the sigmoid colon, and the rectum EGD: none Colonoscopy: many priors out of state in [place] and [place] Gastrointestinal: + abdominal pain, + diarrhea/loose stools and + blood in stools; no bloating, no nausea, no hematemesis, no cramping and no melena Genitourinary (Male): + difficulty urinating Physical Exam Vital Signs (Past 24 Hours): Last Vital Signs Temp 37.2 C 09/14/18 07:35 Pulse 78 09/14/18 07:35 Resp 18 09/14/18 07:35 BP 131/70 09/14/18 07:35 Pulse Ox 90 09/14/18 07:35 Constitutional: well developed, well nourished, cooperative and comfortable; no acute distress Respiratory: normal respiratory effort, lungs clear to auscultation Cardiovascular: RRR, no murmur, no edema Gastrointestinal (Abdomen): Inspection/Auscultation: normal bowel sounds Percussion/Palpation: + abdomen tender (generalized abd pain worse in LLQ no rebound or guarding) and abdomen soft; no guarding and abdomen not rigid Skin: no rashes, warm and dry Results & Data Laboratory Results 09/14/18 09/14/18 09/14/18 Range/Units 06:14 05:24 05:24 WBC 5.96 (4.8-10.8) K/uL RBC 3.90 L (4.7-6.1) M/uL Hgb 11.5 L (14.0-18.0) g/dL Hct 36.4 L (42-52) % MCV 93.3 (80-100) fL MCH 29.5 (25-34) pg MCHC 31.6 L (32-36) g/dL RDW Std Deviation 48.3 H (36.4-46.3) fL RDW Coeff of Henri 14.4 (11.5-14.5) % Plt Count 260 D (130-400) K/uL MPV 9.7 (7.4-10.4) fL Sodium 140 (136-145) mmol/L Potassium 4.1 (3.5-5.1) mmol/L Chloride 108 H (98-107) mmol/L Carbon Dioxide 27 (21-32) mmol/L Anion Gap 5.0 (3-11) BUN 7 (7-18) mg/dl Creatinine 0.43 L (0.6-1.4) mg/dl Est Cr Clr Drug Dosing 143.9 ml/min Est GFR ( Amer) 140.2 Est GFR (Non-Af Amer) 121.0 BUN/Creatinine Ratio 17.6 (10-20) Glucose 129 H (70-99) mg/dl POC Glucose 138 H (70-99) Calcium 8.5 (8.5-10.1) mg/dl Pleural Fluid Source Pleural Color Pleural Appearance Pleural WBC /uL Pleural RBC /uL Pleural Polynuclear % % Pleural Mononuclear % % Pleural Total Protein g/dl Pleural LDH U/L Pleural Glucose mg/dl Pleural Amylase U/L Pleural Cholesterol Stool Occult Bld Scrn (Negative) 09/14/18 09/13/18 09/13/18 Range/Units 01:05 23:58 20:54 WBC (4.8-10.8) K/uL RBC (4.7-6.1) M/uL Hgb (14.0-18.0) g/dL Hct (42-52) % MCV (80-100) fL MCH (25-34) pg MCHC (32-36) g/dL RDW Std Deviation (36.4-46.3) fL RDW Coeff of Henri (11.5-14.5) % Plt Count (130-400) K/uL MPV (7.4-10.4) fL Sodium (136-145) mmol/L Potassium (3.5-5.1) mmol/L Chloride (98-107) mmol/L Carbon Dioxide (21-32) mmol/L Anion Gap (3-11) BUN (7-18) mg/dl Creatinine (0.6-1.4) mg/dl Est Cr Clr Drug Dosing ml/min Est GFR ( Amer) Est GFR (Non-Af Amer) BUN/Creatinine Ratio (10-20) Glucose (70-99) mg/dl POC Glucose 144 H 170 H (70-99) Calcium (8.5-10.1) mg/dl Pleural Fluid Source Pleural Color Pleural Appearance Pleural WBC /uL Pleural RBC /uL Pleural Polynuclear % % Pleural Mononuclear % % Pleural Total Protein g/dl Pleural LDH U/L Pleural Glucose mg/dl Pleural Amylase U/L Pleural Cholesterol Stool Occult Bld Scrn Positive H (Negative) 09/13/18 09/13/18 09/13/18 Range/Units 16:40 11:27 08:19 WBC (4.8-10.8) K/uL RBC (4.7-6.1) M/uL Hgb (14.0-18.0) g/dL Hct (42-52) % MCV (80-100) fL MCH (25-34) pg MCHC (32-36) g/dL RDW Std Deviation (36.4-46.3) fL RDW Coeff of Henri (11.5-14.5) % Plt Count (130-400) K/uL MPV (7.4-10.4) fL Sodium (136-145) mmol/L Potassium (3.5-5.1) mmol/L Chloride (98-107) mmol/L Carbon Dioxide (21-32) mmol/L Anion Gap (3-11) BUN (7-18) mg/dl Creatinine (0.6-1.4) mg/dl Est Cr Clr Drug Dosing ml/min Est GFR ( Amer) Est GFR (Non-Af Amer) BUN/Creatinine Ratio (10-20) Glucose (70-99) mg/dl POC Glucose 173 H 194 H (70-99) Calcium (8.5-10.1) mg/dl Pleural Fluid Source Pleural Color Pleural Appearance Pleural WBC /uL Pleural RBC /uL Pleural Polynuclear % % Pleural Mononuclear % % Pleural Total Protein g/dl Pleural LDH U/L Pleural Glucose mg/dl Pleural Amylase U/L Pleural Cholesterol Pending Stool Occult Bld Scrn (Negative) 09/13/18 Range/Units 08:19 WBC (4.8-10.8) K/uL RBC (4.7-6.1) M/uL Hgb (14.0-18.0) g/dL Hct (42-52) % MCV (80-100) fL MCH (25-34) pg MCHC (32-36) g/dL RDW Std Deviation (36.4-46.3) fL RDW Coeff of Henri (11.5-14.5) % Plt Count (130-400) K/uL MPV (7.4-10.4) fL Sodium (136-145) mmol/L Potassium (3.5-5.1) mmol/L Chloride (98-107) mmol/L Carbon Dioxide (21-32) mmol/L Anion Gap (3-11) BUN (7-18) mg/dl Creatinine (0.6-1.4) mg/dl Est Cr Clr Drug Dosing ml/min Est GFR ( Amer) Est GFR (Non-Af Amer) BUN/Creatinine Ratio (10-20) Glucose (70-99) mg/dl POC Glucose (70-99) Calcium (8.5-10.1) mg/dl Pleural Fluid Source LEFT LUNG Pleural Color KATHY Pleural Appearance CLOUDY Pleural WBC 493 /uL Pleural RBC 65944 /uL Pleural Polynuclear % 4.9 % Pleural Mononuclear % 95.1 % Pleural Total Protein 3.9 g/dl Pleural LDH 179 U/L Pleural Glucose 127 mg/dl Pleural Amylase 22 U/L Pleural Cholesterol Stool Occult Bld Scrn (Negative)
[2018-09-14] MEDS ORDERED: NURSING DECISION MEDICATION ONE ×2 (09:24→14:20)
[2018-09-14] MEDS ORDERED: TAP WATER ENEMA PR ONE (09:30)
--- NOTE | 2018-09-14 10:22 | Palliative Care Progress Note ---
Date of Service September 14, 2018 Assessment & Plan (1) Cancer related pain: -Met with patient and his , Fior, in room 408. Patient is having some increased pain today, especially with getting out of bed to bedside commode and doing enema for bowel prep. -Flexible sigmoidoscopy at some point today. -Used 25mg IV Dilaudid over 24 hours. Total oral morphine equivalent, including his PO medications and including methadone, is about 935mg. This equates to about 60mg PO methadone with 75% incomplete cross tolerance reduction. -Will not increase methadone dose until Monday. Patient and aware. I spent more time explain methadone's mechanism of action and how it's used/titrated. Patient and verbalized understanding. Continue 10mg TID. -Increased basal rate of Dilaudid to 0.6mg/hr, increased incremental dose of 0.4mg from every 20 minutes to every 15 minutes as needed. -Continue MS Contin 60mg at 0800, 1400, and 90mg at 2000. -If sedation is an issue, discontinue Dilaudid basal rate first. -Palliative care will continue to follow. (2) Metastatic primary lung cancer: (3) Proctocolitis with rectal bleeding: Subjective Patient feeling okay today. is at bedside. Plan is for flexible sigmoidoscopy today. Having some increased pain, 6-8/10, in left hip, chest, and back. Constitutional: + weakness (mild) Respiratory: + cough and + dyspnea on exertion; no dyspnea and no sputum production Cardiovascular: + chest pain (related to cancer pain); no edema Gastrointestinal: no abdominal pain and no nausea Neurologic: no confusion Psychiatric: + anxiety (related to the pain and cancer diagnosis) Physical Exam Vital Signs (Past 24 Hours): Last Vital Signs Temp 37.2 C 09/14/18 07:35 Pulse 78 09/14/18 07:35 Resp 18 09/14/18 07:35 BP 131/70 09/14/18 07:35 Pulse Ox 90 09/14/18 07:35 Constitutional: well developed, well nourished and + thin ENMT: external ear and nose normal, oropharynx normal Ears: no hearing impairment Neck: normal visual inspection Respiratory: normal respiratory effort; no labored breathing Auscultation: + crackles (LLL) Cardiovascular: RRR, no murmur, no edema Gastrointestinal (Abdomen): Inspection/Auscultation: abdomen normal to inspection and normal bowel sounds; abdomen not distended Percussion/Palpation: abdomen soft; abdomen nontender Skin: no rashes, warm and dry Neurologic: awake; not confused Psychiatric: A+Ox3, euthymic affect Supervising Physician Co-Signing Physician Notes Patient seen and examined, patient's , sister and [id number] at bedside. Patient reports much improved pain control-did have some breakthrough pain throughout the night-Dilaudid basal rate increased. Patient and report pain controlled well enough for patient to ambulate to the bathroom with minimal discomfort. PE: Patient appears comfortable, more relaxed facial expression HEENT: EOMI, normal hearing Respirations: Unlabored CV: Regular rate, no edema Abdomen: Not distended Extremities: Full range of motion Neuro: Alert and oriented, not sedated Agree with above note, assessment and plan as per DEMETRIS Gonzalez P-we will continue to follow to assist with pain management and goals of care Time Spent Midlevel 35 minutes with >50% of time spent at bedside with patient and family discussing pain medication/management.
[2018-09-14] MEDS: HYDROmorphone HCL 0.5MG/ML 50 ML CASSETTE IV PRN ×2 (10:35→18:00)
[2018-09-14] MEDS ORDERED: INSULIN ASPART 100 UNITS/ML 3 ML PEN SC SCH (12:00)
[2018-09-14] MEDS ORDERED: PROPOFOL IV EMULSION 10 MG/ML 20 ML VIAL IV ONE (12:11)
[2018-09-14] MEDS ORDERED: LIDOCAINE HCL 2% 2 ML VIAL/AMP(20MG/ML) INFIL ONE (12:12)
--- NOTE | 2018-09-14 12:35 | GI REPORT ---
Patient Name: Alex Mancini Procedure Date: 09/14/2018 12:16 PM Date of : 1955 Admit Type: Inpatient Age: 63 Gender: Male Attending MD: Isadora Tapia DO Procedure: Flexible Sigmoidoscopy Providers: Isadora Tapia DO Referring MD: Eileen Navarro Indications: Hematochezia Medicines: Propofol per Anesthesia Complications: No immediate complications. Estimated blood loss: None. Estimated Blood Loss: Estimated blood loss: none. Procedure: Pre-Anesthesia Assessment: - Prior to the procedure, a History and Physical was performed, and patient medications, allergies and sensitivities were reviewed. The patient's tolerance of previous anesthesia was reviewed. - The risks and benefits of the procedure and the sedation options and risks were discussed with the patient. All questions were answered and informed consent was obtained. - Patient identification and proposed procedure were verified prior to the procedure by the physician and the nurse. The procedure was verified in the pre-procedure area in the procedure room. - Mental Status Examination: alert and oriented. Airway Examination: normal oropharyngeal airway and neck mobility. Respiratory Examination: clear to auscultation. CV Examination: normal. Abdominal Examination: bowel sounds present, abdomen soft and non-tender, no masses or organomegaly noted. - ASA Grade Assessment: IV - A patient with severe systemic disease that is a constant threat to life. After obtaining informed consent, the endoscope was passed under direct vision. Throughout the procedure, the patient's blood pressure, pulse, and oxygen saturations were monitored continuously. The Endoscope was introduced through the anus and advanced to the rectosigmoid junction. The flexible sigmoidoscopy was accomplished without difficulty. The patient tolerated the procedure well. The quality of the bowel preparation was reasonably adequate. Findings: The perianal and digital rectal examinations were normal. Pertinent negatives include normal sphincter tone and no palpable rectal lesions. A localized area of erythematous mucosa was found in the rectum. Internal hemorrhoids were found during retroflexion. The hemorrhoids were medium-sized. Impression: - Erythematous mucosa in the rectum. No fresh or old blood. - Internal hemorrhoids. Recommendation: - Return patient to hospital [facility] for ongoing care. Isadora Tapia D.O. Isadora Tapia DO 09/14/2018 12:34:57 PM This report has been signed electronically. Note Initiated On: 09/14/2018 12:16 PM Number of Addenda: 0 I attest to the content of the Intraoperative Record and orders documented therein, exceptions below {[id number]}
--- NOTE | 2018-09-14 13:01 | Anesthesiology Progress Note ---
Date of Service September 14, 2018 Anesthesia Post Procedure Vital Signs Vital Signs: Temp Pulse Resp BP BP Pulse Ox 09/14/18 12:50 84 18 129/77 95 09/14/18 12:35 78 16 115/68 94 09/14/18 11:32 98.8 F 79 20 141/74 H 94 09/14/18 07:35 99.0 F 78 18 131/70 90 09/14/18 04:00 97.9 F 74 18 126/74 94 09/13/18 23:42 97.5 F L 76 18 121/73 90 09/13/18 19:13 99.0 F 83 18 143/80 H 92 09/13/18 15:38 98.4 F 88 18 151/84 H 93 Pain Intensity Back: Pain Intensity: 7 Lower Abdomen: Pain Intensity: 5 Generalized: Pain Intensity: 3 Notes Mental Status: alert / awake / arousable and participated in evaluation Patient Amnestic to Procedure: Yes Nausea / Vomiting: adequately controlled Pain: adequately controlled Airway Patency, RR, SpO2: stable & adequate BP & HR: stable & adequate Hydration State: stable & adequate Anesthetic Complications: no major complications apparent and Pt Satisfied with anesthetic care
[2018-09-14] MEDS ORDERED: HEPARIN 100 UNIT/ML 5ML FLUSH ONE (13:27)
--- NOTE | 2018-09-14 16:44 | Hospitalist Progress Note ---
Date of Service September 14, 2018 Assessment & Plan (1) Proctocolitis with rectal bleeding: This is a 63 y/o M with a PMH of metastatic lung cancer with mets to bone, DM II and HLD who presents with bright red blood in diarrhea since yesterday morning and was found to have non-specific proctocolitis. No more bleeding episodes or BM since admission except for mild streak while straining today -S/P Flexible sigmoidoscopy today by GI- Mild erythema in rectum, internal hemorrhoids. -Hgb stable at baseline. Monitor H & H -CT abd/pelvis with a nonspecific proctocolitis as above. -Stool cultures, C diff Neg -Appreciate GI inputs (2) Metastatic primary lung cancer: History of metastatic lung cancer with mets to pelvis, vertabrae and ribs, s/p left hip resection of bony mets/replacement in Jul 2018 [place] [facility] [place]Started new chemo regimen on August 30 consisting of Alimta and Carboplatin and is due for second round on September 20 -Recently completed 10 rounds of radiation last week -Inadequate home pain regimen. Will continue home dose of MS Contin 60 mg BID, 90 mg q HS, gabapentin 600 mg 3 times daily, Cymbalta. Held Oxy IR 20 mg PRN. Methadone 5 mg was started on admission---> Increased to 10 mg TID on 09/13/18 -Dilaudid LEARNING SUPPORT AIDE pump for pain (basal rate adjusted by palliative medicine today) -Discussed with Palliative medicine- appreciate inputs (3) Diabetes mellitus, type 2: A1c of 6.7 in Jul 2018 -Hold home agents -SSI while in-patient -BSG AC HS (4) Hyperlipidemia: Continue pravastatin DVT Ppx: Will restart Lovenox SQ which he was getting it for DVT prophylaxis at home as well as per ortho (recent sx), hem/onc recommendations. Family keep on restarting it. Code status: FULL per discussion with patient, PCP: Eugene Thapa Dispo: Medical mx in progress Still on IV dilaudid pump for pain control. Goal is to have a PO regimen which would work on discharge They want to be discharged before monday to make it to their PET scan appt on Mon PM which they have already missed 2 times in past. Updated by bedside. Will be followed by Dr. Eileen Navarro for remainder of admission. Subjective Patient's pain was still uncontrolled today a.m. IV Dilaudid pump basal rate was readjusted by palliative medicine. Status post flexible sigmoidoscopy. Now asking for food. Denies any nausea, vomiting. Had bowel movement with minimal streak of blood in it Left lower abdominal pain is better. No fever, chills Physical Exam Vital Signs (Past 24 Hours): Last Vital Signs Temp 36.2 C L 09/14/18 14:00 Pulse 84 09/14/18 14:33 Resp 18 09/14/18 14:33 BP 129/71 09/14/18 14:33 Pulse Ox 95 09/14/18 14:33 Constitutional: Awake, alert, oriented x3, not in acute distress Respiratory: Auscultation: lungs clear to auscultation bilaterally; no crackles and no wheezes Cardiovascular: Rate/Rhythm: regular rate and regular rhythm Extremities: no edema Gastrointestinal (Abdomen): Percussion/Palpation: + abdomen tender Left lower abdominal tenderness, no guarding no rigidity
[2018-09-14] MEDS: ENOXAPARIN INJ 40 MG/0.4 ML SYR SQ SCH (18:36)
[2018-09-14] MEDS: MoRPHine SULFATE CR 15 MG TABCR PO SCH (21:24)
--- NOTE | 2018-09-14 22:15 | Progress Note ---
DATE: 09/14/2018 Mr. Mancini was seen today. He looks much improved. His breathing is much better. He is much improved since we performed a thoracentesis. This is a malignant pleural effusion. It appears to be metastatic adenocarcinoma. Should this recur, we could make a case for inserting a PleurX catheter. We will follow up with Mr. Mancini.
[2018-09-14] MEDS ORDERED: HEPARIN 100 UNIT/ML 5ML FLUSH FLUSH PRN (23:10)
[2018-09-15] MEDS: SODIUM CHLORIDE 0.9% 1000ML 1,000 ML IV SCH ×3 (05:19→17:50)
[2018-09-15 06:24] LABS: Hematocrit (blood only) 34.9 % (42-52); Hemoglobin 11.1 g/dL (14.0-18.0); Mean Corpuscular Hgb Conc 31.8 g/dL (32-36); Mean Corpuscular Volume 93.3 fL (80-100); Mean Platelet Volume 9.2 fL (7.4-10.4); Platelet Count 330 K/uL (130-400); RDW Coefficient of Variation 14.6 % (11.5-14.5); RDW Standard Deviation 49.1 fL (36.4-46.3); Red Blood Count 3.74 M/uL (4.7-6.1); White Blood Count 5.59 K/uL (4.8-10.8)
[2018-09-15] MEDS: METHADONE HCL 10 MG TAB PO SCH ×3 (08:17→21:13)
[2018-09-15] MEDS: MoRPHine SULFATE CR 60 MG TABCR PO SCH ×3 (08:17→21:12)
[2018-09-15] MEDS: CALCIUM 600MG + VIT D 400 IU TAB PO SCH ×2 (08:19→21:13)
[2018-09-15] MEDS: FOLIC ACID 1 MG TAB PO SCH (08:19)
[2018-09-15] MEDS: GABAPENTIN 600 MG TAB PO SCH ×3 (08:19→17:50)
[2018-09-15] MEDS: PRAVASTATIN SOD 40 MG TAB PO SCH (08:19)
[2018-09-15] MEDS: DULOXETINE HCL 30 MG CAP PO SCH (08:19)
[2018-09-15] MEDS: dexAMETHasone 4 MG TAB PO SCH (08:19)
[2018-09-15] MEDS: MULTIVITAMIN TAB PO SCH (08:19)
[2018-09-15] MEDS: INSULIN ASPART 100 UNITS/ML 3 ML PEN SC SCH ×4 (08:54→21:18)
[2018-09-15] MEDS ORDERED: Nursing to Pharmacy Communication ONE (09:36)
[2018-09-15] MEDS: POLYETHYLENE (MIRALAX) 17 GM PACK PO SCH ×2 (11:12→21:13)
[2018-09-15] MEDS: DOCUSATE SODIUM 100 MG CAP PO SCH ×2 (11:12→21:11)
[2018-09-15] MEDS: HYDROmorphone HCL 0.5MG/ML 50 ML CASSETTE IV PRN ×2 (11:25→14:31)
--- NOTE | 2018-09-15 14:27 | Hospitalist Progress Note ---
Date of Service September 15, 2018 Assessment & Plan (1) Proctocolitis with rectal bleeding: This is a 63 y/o M with a PMH of metastatic lung cancer with mets to bone, DM II and HLD who presents with bright red blood in diarrhea since yesterday morning and was found to have non-specific proctocolitis. No more bleeding episodes of blood in BMS -S/P Flexible sigmoidoscopy 09/14/18 by GI- Mild erythema in rectum, internal hemorrhoids. -Hgb stable at baseline. -CT abd/pelvis with a nonspecific proctocolitis as above. -Stool cultures, C diff Neg -Appreciate GI inputs (2) Metastatic primary lung cancer: History of metastatic lung cancer with mets to pelvis, vertabrae and ribs, s/p left hip resection of bony mets[place]placement [place] [facility] [place]Started new chemo regimen on August 30 consisting of Alimta and Carboplatin and is due for second round on September 20 -Recently completed 10 rounds of radiation last week -Inadequate home pain regimen. Continuing home dose of MS Contin 60 mg BID, 90 mg q HS, gabapentin 600 mg 3 times daily, Cymbalta. Held Oxy IR 20 mg PRN. Methadone 5 mg was started on admission---> Increased to 10 mg TID on 09/13/18 -Dilaudid ICT SALES ASSISTANT pump for pain (basal rate increased to 0.8 mg/hour per my discussion with palliative over phone as pain is still not controlled) -Discussed with Palliative medicine- appreciate inputs (3) Diabetes mellitus, type 2: A1c of 6.7 in Jul 2018 -Hold home agents -SSI while in-patient -BSG HS (4) Hyperlipidemia: Continue pravastatin DVT Ppx: Restarted Lovenox SQ which he was getting it for DVT prophylaxis at home as well as per ortho (recent sx), hem/onc recommendations. Family keep on restarting it. Code status: FULL per discussion with patient, PCP: Eugene Thapa Dispo: Medical mx in progress Still on IV dilaudid pump for pain control. Goal is to have a PO regimen which would work on discharge They want to be discharged before monday to make it to their PET scan appt on Mon PM which they have already missed 2 times in past. Updated by bedside. Subjective Patient's pain was still uncontrolled today AM. Used 5.45 mg from 4 to 8 AM and requested it 16 times, got it 9 times Denies any nausea, vomiting. No blood in BM Left lower abdominal pain is better. No fever, chills Tolerating regular diet well Physical Exam Vital Signs (Past 24 Hours): Last Vital Signs Temp 36.8 C 09/15/18 07:00 Pulse 71 09/15/18 07:00 Resp 18 09/15/18 07:00 BP 124/80 09/15/18 07:00 Pulse Ox 91 09/15/18 07:00 Constitutional: well developed Awake, alert, oriented x3, not in acute distress Respiratory: Auscultation: lungs clear to auscultation bilaterally; no crackles and no wheezes Cardiovascular: Rate/Rhythm: regular rate and regular rhythm Extremities: no edema Gastrointestinal (Abdomen): Percussion/Palpation: + abdomen tender
--- NOTE | 2018-09-15 14:58 | Surgery Progress Note ---
Date of Service September 15, 2018 Assessment & Plan (1) Pleural effusion on left: -pt. is s/p thoracentesis -cytology (+) for malignancy -culture are (-) -pt. appears to be reaccumulating fluid -consideration will be given to placing pleurex cather Subjective Pt. state his breathing feels better since thoracentesis. Physical Exam Vital Signs (Past 24 Hours): Last Vital Signs Temp 36.8 C 09/15/18 07:00 Pulse 71 09/15/18 07:00 Resp 18 09/15/18 07:00 BP 124/80 09/15/18 07:00 Pulse Ox 91 09/15/18 07:00 Respiratory: no respiratory distress, no labored breathing and does not use accessory muscles BS are decrease at left base
[2018-09-15] MEDS: ENOXAPARIN INJ 40 MG/0.4 ML SYR SQ SCH (17:51)
[2018-09-15] MEDS: MoRPHine SULFATE CR 15 MG TABCR PO SCH (21:11)
[2018-09-16] MEDS: SODIUM CHLORIDE 0.9% 1000ML 1,000 ML IV SCH ×2 (06:28→17:57)
[2018-09-16] MEDS ORDERED: LIDOCAINE HCL 2% (LOCAL) INJ 50 ML VIAL INFIL SCH (07:45)
--- NOTE | 2018-09-16 07:50 | Surgery Progress Note ---
Date of Service September 16, 2018 Assessment & Plan (1) Pleural effusion on left: -pt. is s/p thoracentesis -cytology (+) for malignancy -culture are (-) -will repeat CXR in am and consideration will be given to placing pleurex catheter Subjective Pt. notes he feels good without labored breathing and was able to walk in hallway yesterday as his pain control has improved. Physical Exam Vital Signs (Past 24 Hours): Last Vital Signs Temp 36.9 C 09/16/18 04:30 Pulse 101 H 09/16/18 04:30 Resp 18 09/16/18 04:30 BP 153/80 H 09/16/18 04:30 Pulse Ox 96 09/16/18 04:30 Respiratory: no respiratory distress, no labored breathing and does not use accessory muscles BS with some decrease at left base, but seems to have better aeration than what was noted yesterday
[2018-09-16] MEDS: HYDROmorphone HCL 0.5MG/ML 50 ML CASSETTE IV PRN (08:06)
[2018-09-16] MEDS: METHADONE HCL 10 MG TAB PO SCH ×3 (08:14→21:06)
[2018-09-16] MEDS: dexAMETHasone 4 MG TAB PO SCH (08:15)
[2018-09-16] MEDS: DULOXETINE HCL 30 MG CAP PO SCH (08:15)
[2018-09-16] MEDS: MoRPHine SULFATE CR 60 MG TABCR PO SCH ×3 (08:15→21:06)
[2018-09-16] MEDS: CALCIUM 600MG + VIT D 400 IU TAB PO SCH ×2 (08:15→21:07)
[2018-09-16] MEDS: GABAPENTIN 600 MG TAB PO SCH ×3 (08:15→18:21)
[2018-09-16] MEDS: POLYETHYLENE (MIRALAX) 17 GM PACK PO SCH ×2 (08:16→21:08)
[2018-09-16] MEDS: PRAVASTATIN SOD 40 MG TAB PO SCH (08:16)
[2018-09-16] MEDS: MULTIVITAMIN TAB PO SCH (08:16)
[2018-09-16] MEDS: DOCUSATE SODIUM 100 MG CAP PO SCH ×2 (08:17→21:07)
[2018-09-16] MEDS: FOLIC ACID 1 MG TAB PO SCH (08:17)
[2018-09-16] MEDS: INSULIN ASPART 100 UNITS/ML 3 ML PEN SC SCH ×4 (08:21→21:09)
--- NOTE | 2018-09-16 14:32 | Hospitalist Progress Note ---
Date of Service September 16, 2018 Assessment & Plan (1) Proctocolitis with rectal bleeding: This is a 63 y/o M with a PMH of metastatic lung cancer with mets to bone, DM II and HLD who presents with bright red blood in diarrhea since yesterday morning and was found to have non-specific proctocolitis. Intermittently has few streaks of blood in BM -S/P Flexible sigmoidoscopy 09/14/18 by GI- Mild erythema in rectum, internal hemorrhoids. -Hgb stable at baseline. -CT abd/pelvis with a nonspecific proctocolitis as above. -Stool cultures, C diff - Neg -Appreciate GI inputs (2) Pleural effusion on left: Patient is status post Thoracentesis by CT surgery on admission -Again SOB, on and off transient hypoxic episodes -Per CT surgery- CXR in AM and accordingly consider pleurx catheter placement -Appreciate inputs -Cytology from thoracentesis came back positive Present on Admission?: Yes (3) Metastatic primary lung cancer: History of metastatic lung cancer with mets to pelvis, vertabrae and ribs, s/p [place] [facility] [place]Started new chemo regimen on August 30 consisting of Alimta and Carboplatin and is due for second round on September 20 -Recently completed 10 rounds of radiation last week -Inadequate home pain regimen. Continuing home dose of MS Contin 60 mg BID, 90 mg q HS, gabapentin 600 mg 3 times daily, Cymbalta. Held Oxy IR 20 mg PRN. Methadone 5 mg was started on admission---> Increased to 10 mg TID on 09/13/18 -Dilaudid PARTS PRODUCT ANALYST pump for pain (basal rate increased to 0.8 mg/hour per my discu ssion with palliative over phone yesterday) -Discussed with Palliative medicine- appreciate inputs (4) Burning with urination: New complaint today Urinalysis ordered Follow-up (5) Diabetes mellitus, type 2: A1c of 6.7 in Jul 2018 -Hold home agents -SSI while in-patient -BSG AC HS (6) Hyperlipidemia: Continue pravastatin DVT Ppx: Restarted Lovenox SQ which he was getting it for DVT prophylaxis at home as well as per ortho (recent sx), hem/onc recommendations. Code status: FULL per discussion with patient, PCP: S [facility] Dispo: Medical mx in progress Still on IV dilaudid pump for pain control. Goal is to have a PO regimen which would work on discharge They want to be discharged before monday to make it to their PET scan appt on Mon PM which they have already missed 2 times in past. Updated by bedside. Subjective Patient's pain is better controlled after increasing the basal IV Dilaudid rate 2.8 mg/h yesterday. Does complain of shortness of breath on ambulation New complaint of burning micturition, frequency Does have a little bleeding with stools on and off, streaks Denies any nausea, vomiting. Tolerating diet well Physical Exam Vital Signs (Past 24 Hours): Last Vital Signs Temp 36.9 C 09/16/18 08:00 Pulse 80 09/16/18 08:00 Resp 20 09/16/18 08:00 BP 155/85 H 09/16/18 08:00 Pulse Ox 96 09/16/18 08:00 Constitutional: well developed Respiratory: Auscultation: + breath sounds absent (Left lung base); no crackles and no wheezes Cardiovascular: Rate/Rhythm: regular rate and regular rhythm Extremities: + edema; no pedal edema Gastrointestinal (Abdomen): Percussion/Palpation: + abdomen tender
[2018-09-16] MEDS ORDERED: LIDOCAINE HCL 1% 20 ML VIAL INFIL PRN (14:37)
[2018-09-16 15:14] LABS: Appearance Urine Clear (Clear); Bilirubin Urine Negative (Negative); Blood Urine Negative (Negative); Color Urine Yellow; Glucose Urine UA 3+ (Negative); Ketones Urine Negative (Negative); Leukocyte Esterase Urine Negative (Negative); Nitrite Urine Negative (Negative); Protein Urine Negative (Negative); Specific Gravity Urine 1.016 (1.000-1.030); Urobilinogen Urine Negative (Negative); pH Urine 7.5 (4.5-7.5)
[2018-09-16] MEDS: ENOXAPARIN INJ 40 MG/0.4 ML SYR SQ SCH (17:48)
[2018-09-16] MEDS: MoRPHine SULFATE CR 15 MG TABCR PO SCH (21:06)
[2018-09-17 05:56] LABS: Hematocrit (blood only) 35.8 % (42-52); Hemoglobin 11.6 g/dL (14.0-18.0); Mean Corpuscular Hgb Conc 32.4 g/dL (32-36); Mean Corpuscular Volume 92.3 fL (80-100); Mean Platelet Volume 8.8 fL (7.4-10.4); Nucleated RBC # (auto) 0.02 K/uL (0-0); Nucleated RBC % (auto) 0.4 %; Platelet Count 372 K/uL (130-400); RDW Coefficient of Variation 14.8 % (11.5-14.5); RDW Standard Deviation 49.2 fL (36.4-46.3); Red Blood Count 3.88 M/uL (4.7-6.1); White Blood Count 6.37 K/uL (4.8-10.8)
[2018-09-17 06:16] LABS: BUN Creatinine Ratio 18.7 (10-20); Calcium 8.8 mg/dl (8.5-10.1); Creatinine Clr Calc Pharmacy 130.2 ml/min; Est GFR (African American) 129.7; Est GFR (Non-African American) 111.9; Potassium 3.4 mmol/L (3.5-5.1)
[2018-09-17] MEDS: HYDROmorphone HCL 0.5MG/ML 50 ML CASSETTE IV PRN ×3 (07:06→23:21)
--- NOTE | 2018-09-17 07:22 | XRay Report ---
SINGLE VIEW CHEST CLINICAL HISTORY: Pleural effusion. FINDINGS: An AP, portable, upright chest radiograph is compared to study dated 09/14/2018. Correlation is made with chest CT dated 07/31/2018. The examination is degraded by portable technique and patient rotation. A right internal jugular central venous infusion port is unchanged in position. The cardio mediastinal silhouette is unremarkable, noting atherosclerotic calcification of the thoracic aorta. E mphysema and chronic interstitial thickening are similar to previous. There is a moderate left pleura l effusion with associated consolidation. This is similar to previous. A nodule is again seen in the right upper lobe. No pneumothorax is seen. The skeletal structures are osteopenic. The bony thorax is grossly intact. IMPRESSION: 1. Moderate left pleural effusion with associated consolidation. This is unchanged from previous. 2. Emphysema. 3. A right upper lobe pulmonary nodule is again noted. This was better characterized on the recent [facility] CT. Electronically signed by: Corwin Gtz M.D. 09/17/2018 7:20 AM
[2018-09-17] MEDS: POLYETHYLENE (MIRALAX) 17 GM PACK PO SCH ×2 (08:01→21:09)
[2018-09-17] MEDS: METHADONE HCL 10 MG TAB PO SCH ×3 (08:01→21:14)
[2018-09-17] MEDS: MoRPHine SULFATE CR 60 MG TABCR PO SCH ×3 (08:01→21:13)
[2018-09-17] MEDS: PRAVASTATIN SOD 40 MG TAB PO SCH (08:02)
[2018-09-17] MEDS: CALCIUM 600MG + VIT D 400 IU TAB PO SCH ×2 (08:02→21:08)
[2018-09-17] MEDS: DULOXETINE HCL 30 MG CAP PO SCH (08:02)
[2018-09-17] MEDS: DOCUSATE SODIUM 100 MG CAP PO SCH ×2 (08:02→21:09)
[2018-09-17] MEDS: GABAPENTIN 600 MG TAB PO SCH ×3 (08:02→18:30)
[2018-09-17] MEDS: dexAMETHasone 4 MG TAB PO SCH (08:02)
[2018-09-17] MEDS: FOLIC ACID 1 MG TAB PO SCH (08:03)
[2018-09-17] MEDS: MULTIVITAMIN TAB PO SCH (08:03)
[2018-09-17] MEDS: INSULIN ASPART 100 UNITS/ML 3 ML PEN SC SCH ×4 (08:53→21:06)
[2018-09-17] MEDS ORDERED: BISACODYL 5 MG TABEC PO ONE (11:29)
[2018-09-17] MEDS ORDERED: POTASSIUM CHLORIDE 20 MEQ TABCR PO STA (11:38)
--- NOTE | 2018-09-17 12:13 | Progress Note ---
DATE: 09/17/2018 Mr. Mancini was seen today on 09/17/2018. He is on room air with good saturations. He denies dyspnea on exertion. We obtained an x-ray today and he does have some fluid on the left, but has not changed greatly. I had a long discussion with the patient and his today at the bedside. He is still having pain in his hip and pelvic area. At this point, I would hold off addressing this fluid. One option would be to place a PleurX catheter. He really has not accumulated that much more fluid and as he is not requiring oxygen, I would hold off on this. It is a malignant effusion, it is quite possible that we will have to do something, but I would not offer to him at this point. We will continue to follow him while he is here, and if he is discharged, I will see him back in the office.
--- NOTE | 2018-09-17 12:27 | Palliative Care Progress Note ---
Date of Service September 17, 2018 Assessment & Plan (1) Cancer related pain: -Increase methadone to 20mg BID. Give today's dose at 1400, then start 20mg tonight at 2100. -Discussed posterior chest wall pain-- seems to be related to the metastatic lesions. Not associated exclusively to certain movements, pain is mobile and does move from place to place. -Continue Dilaudid LIVE HANGER at 0.8mg/hr, with incremental dose of 0.4mg Q15min PRN breakthrough pain. -Pleural effusion does appear to be malignant-- patient and family not aware of this yet today. Dr. Jordan Kilgore will discuss this with them. Question of whether or not to repeat thora vs. place Pleur-x catheter. Dr. Mock following. (2) Metastatic primary lung cancer: (3) Proctocolitis with rectal bleeding: -Flex sig on 09/14. Internal hemorrhoids, otherwise negative. Subjective Patient feeling okay today. Having some increased "fogginess" related to the Dilaudid and Methadone, which is expected. No respiratory depression. is at bedside. Pain is 4/10 today in left posterior chest wall. Constitutional: + weakness (mild) Respiratory: + cough and + dyspnea on exertion; no dyspnea and no sputum production Cardiovascular: + chest pain (related to cancer pain); no edema Psychiatric: + anxiety (related to the pain and cancer diagnosis) Physical Exam Vital Signs (Past 24 Hours): Last Vital Signs Temp 36.7 C 09/17/18 11:45 Pulse 87 09/17/18 11:45 Resp 18 09/17/18 11:45 BP 131/80 09/17/18 11:45 Pulse Ox 97 09/17/18 11:45 Constitutional: well developed, well nourished and + thin ENMT: external ear and nose normal, oropharynx normal Ears: no hearing impairment Neck: normal visual inspection Respiratory: normal respiratory effort; no labored breathing Auscultation: + diminished lung sounds (LLL) Cardiovascular: RRR, no murmur, no edema Chest (Breasts): Chest: normal inspection of chest; no mass Gastrointestinal (Abdomen): Inspection/Auscultation: abdomen normal to inspection and normal bowel sounds; abdomen not distended Percussion/Palpation: abdomen soft; abdomen nontender Skin: no rashes, warm and dry Neurologic: awake; not confused Psychiatric: A+Ox3, euthymic affect Supervising Physician Co-Signing Physician Notes Patient seen and examined, patient's , sister and [id number] at bedside. Collaborated with DEMETRIS Gonzalez regarding pain management strategies. Over the weekend patient had multiple PCI attempts-basal rate was increased to 0.8-he had only 3 attempts overnight. Patient is on day 09/07 of methadone-can increase to 40 mg daily divided twice daily. Calculating opioid requirements -goal still puts us in the range of 60- 80 mg of methadone daily. We will continue to titrate methadone and other opioids so that patient no longer requires IV Dilaudid-plan for further methadone titration as an outpatient PE: Patient up in a chair, alert, awake, no acute distress-eating lunch HEENT: EOMI, hearing within normal limits Respirations: Unlabored CV: Well-perfused Neuro: Alert and oriented on exam this afternoon Agree with above note, assessment and plan as per DEMETRIS Gonzalez-will continue to follow and assist with pain management as well as goals of care. Time Spent Midlevel 65 minutes with >50% of time spent at bedside with patient and discussing condition and pain management, as well as collaborating with IDT to discuss case.
--- NOTE | 2018-09-17 12:45 | Hospitalist Progress Note ---
Date of Service September 17, 2018 Assessment & Plan (1) Proctocolitis with rectal bleeding: This is a 63 y/o M with a PMH of metastatic lung cancer with mets to bone, DM II and HLD who presents with bright red blood in diarrhea for 1 day and was found to have non-specific proctocolitis. Intermittently has few streaks of blood in BM, but mainly liquid around -S/P Flexible sigmoidoscopy 09/14/18 by GI- Mild erythema in rectum, internal hemorrhoids. -Hgb stable at baseline. -CT abd/pelvis with a nonspecific proctocolitis as above. -Stool cultures, C diff - Neg -Appreciate GI inputs- signed off (2) Pleural effusion on left: Patient is status post Thoracentesis by CT surgery on admission -SOB on exertion + -Per CT surgery- CXR was done today- Moderate Lt pleural effusion, unchanged from previous, so no plans was pleurx catheter for now. -Cytology from thoracentesis came back positive (3) Metastatic primary lung cancer: History of metastatic lung cancer with mets to pelvis, vertabrae and ribs, s/p left hip resection of bony mets/replacement in Jul 2018 [place] [facility] [place]Started new chemo regimen on August 30 consisting of Alimta and Carboplatin and is due for second round on September 20 -Recently completed 10 rounds of radiation last week -Inadequate home pain regimen. Continuing home dose of MS Contin 60 mg BID, 90 mg q HS, gabapentin 600 mg 3 times daily, Cymbalta. Held Oxy IR 20 mg PRN. -Dilaudid TRIMMER OPERATOR THREE KNIFE pump for pain (basal rate increased to 0.8 mg/hour per my discussion with palliative over phone on 09/15/18). -Methadone 5 mg started on admission---> Increased to 10 mg TID next day-->Today up to to 20 mg BID -Discussed with Palliative medicine- appreciate inputs (4) Burning with urination: Urinary Urgency + Likely BPH in setting of receiving IVF UA- negative (5) Diabetes mellitus, type 2: A1c of 6.7 in Jul 2018 -Hold home agents -SSI while in-patient -BSG AC HS (6) Constipation: Liquid stool around but no solid stool coming out -On colace, miralex -Sennakot ordered by palliative medicine (7) Hyperlipidemia: Continue pravastatin DVT Ppx: Restarted Lovenox SQ which he was getting it for DVT prophylaxis at home as well as per ortho (recent sx), hem/onc recommendations. Code status: FULL per discussion with patient, PCP: Eugene Thapa Dispo: Medical mx in progress Still on IV dilaudid pump for pain control. Goal is to have a PO regimen which would work on discharge They want to be discharged before monday to make it to their PET scan appt on Mon PM which they have already missed 2 times in past. Decided to post post the appt. Updated by bedside. Subjective Patient's pain is better controlled after increasing the basal IV Dilaudid rate 0.8 mg/h over weekend. Today c/o back pain Does complain of shortness of breath on ambulation, but stable at rest Does complain of urinary urgency Does have a little bleeding with stools on and off, streaks- mainly liquid Denies any nausea, vomiting. Tolerating diet well Physical Exam Vital Signs (Past 24 Hours): Last Vital Signs Temp 36.7 C 09/17/18 11:45 Pulse 87 09/17/18 11:45 Resp 18 09/17/18 11:45 BP 131/80 09/17/18 11:45 Pulse Ox 97 09/17/18 11:45 Constitutional: well developed Awake, alert, oriented x 3, not in acute distress Respiratory: Auscultation: + breath sounds absent (Left lung base); no crackles and no wheezes Cardiovascular: Rate/Rhythm: regular rate and regular rhythm Extremities: + edema; no pedal edema Gastrointestinal (Abdomen): Percussion/Palpation: + abdomen tender
[2018-09-17] MEDS: SENNA 8.6 MG TAB PO SCH ×2 (13:05→21:10)
[2018-09-17] MEDS: ENOXAPARIN INJ 40 MG/0.4 ML SYR SQ SCH (18:30)
[2018-09-17] MEDS: MoRPHine SULFATE CR 15 MG TABCR PO SCH (21:13)
[2018-09-18] MEDS: HYDROmorphone INJ 0.5 MG/0.5 ML SYR IV PRN ×2 (01:48→07:29)
[2018-09-18] MEDS: HYDROmorphone HCL 0.5MG/ML 50 ML CASSETTE IV PRN ×2 (07:35→10:21)
[2018-09-18] MEDS: SODIUM CHLORIDE 0.9% 1000ML 1,000 ML IV SCH ×2 (07:35→22:00)
[2018-09-18] MEDS: METHADONE HCL 10 MG TAB PO SCH ×2 (07:40→20:49)
[2018-09-18] MEDS: MoRPHine SULFATE CR 60 MG TABCR PO SCH ×3 (07:40→20:49)
[2018-09-18] MEDS: MULTIVITAMIN TAB PO SCH (07:41)
[2018-09-18] MEDS: POLYETHYLENE (MIRALAX) 17 GM PACK PO SCH ×2 (07:41→20:41)
[2018-09-18] MEDS: DULOXETINE HCL 30 MG CAP PO SCH (07:41)
[2018-09-18] MEDS: SENNA 8.6 MG TAB PO SCH ×2 (07:41→20:43)
[2018-09-18] MEDS: PRAVASTATIN SOD 40 MG TAB PO SCH (07:41)
[2018-09-18] MEDS: FOLIC ACID 1 MG TAB PO SCH (07:41)
[2018-09-18] MEDS: DOCUSATE SODIUM 100 MG CAP PO SCH ×2 (07:42→20:45)
[2018-09-18] MEDS: CALCIUM 600MG + VIT D 400 IU TAB PO SCH ×2 (07:42→20:44)
[2018-09-18] MEDS: dexAMETHasone 4 MG TAB PO SCH (07:42)
[2018-09-18] MEDS: GABAPENTIN 600 MG TAB PO SCH ×3 (07:42→20:45)
[2018-09-18] MEDS: INSULIN ASPART 100 UNITS/ML 3 ML PEN SC SCH ×4 (08:51→20:41)
[2018-09-18] MEDS ORDERED: ANUSOL SUPP 1 EA PR PRN (14:59)
--- NOTE | 2018-09-18 15:07 | Hospitalist Progress Note ---
Date of Service September 18, 2018 Assessment & Plan (1) Proctocolitis with rectal bleeding: This is a 63 y/o M with a PMH of metastatic lung cancer with mets to bone, DM II and HLD who presents with bright red blood in diarrhea for 1 day and was found to have non-specific proctocolitis. Intermittently has few streaks of blood in BM, but mainly liquid around -S/P Flexible sigmoidoscopy 09/14/18 by GI- Mild erythema in rectum, internal hemorrhoids. -Anusol PRN for hemorrhoids -Hgb stable at baseline. -CT abd/pelvis with a nonspecific proctocolitis as above. -Stool cultures, C diff - Neg -Appreciate GI inputs- signed off (2) Pleural effusion on left: Patient is status post Thoracentesis by CT surgery on admission -SOB on exertion + -Per CT surgery- CXR was done today- Moderate Lt pleural effusion, unchanged from previous, so no plans was pleurx catheter for now. -Cytology from thoracentesis came back positive. Discussed with patient and (3) Myoclonic jerking: Noted yesterday on 09/17/18, now improved Likely secondary to opiods Stopped IV dilaudid pump x 2 hours yesterday and than decreased basal rate to half 0.4 mg/hour. Restarted at 0.6 mg / hour today -Monitor closely (4) Metastatic primary lung cancer: History of metastatic lung cancer with mets to pelvis, vertabrae and ribs, [place] [facility] [place]Started new chemo regimen on August 30 consisting of Alimta and Carboplatin and is due for second round on September 20 -Recently completed 10 rounds of radiation last week -Inadequate home pain regimen. Continuing home dose of MS Contin 60 mg BID, 90 mg q HS, gabapentin 600 mg 3 times daily, Cymbalta. Held Oxy IR 20 mg PRN. -Dilaudid SERGEANT MISSILE CREWMAN pump for pain (basal rate increased to 0.6 mg today (decreased from 0.8 yesterday) -Methadone 5 mg started on admission---> Increased to 10 mg TID next day-->up to to 20 mg BID on 09/17 -Discussed with Palliative medicine- appreciate inputs (5) Diabetes mellitus, type 2: A1c of 6.7 in Jul 2018 -Hold home agents -SSI while in-patient -BSG AC HS (6) Constipation: Liquid stool around but no solid stool coming out -On colace, miralex -Sennakot ordered by palliative medicine (7) Hyperlipidemia: Continue pravastatin DVT Ppx: Restarted Lovenox SQ which he was getting it for DVT prophylaxis at home as well as per ortho (recent sx), hem/onc recommendations. Code status: FULL per discussion with patient, PCP: Eugene Thapa Dispo: Medical mx in progress Still on IV dilaudid pump for pain control. Goal is to have a PO regimen which would work on discharge They want to be discharged before monday to make it to their PET scan appt on Mon PM which they have already missed 2 times in past. Decided to post post the appt. Updated by bedside. Subjective Patient had myoclonic jerks, increased drowsiness yesterday - IV dilaudid pump was stopped x 2 hours and restarted at half rate 0.4 mg/hour. Overnight had increased pain. Dilaudid pump basal rate increased to 0.6 mg now---> Doing well Does complain of shortness of breath on ambulation, but stable at rest Does complain of urinary urgency Does have a little bleeding with stools on and off, streaks- mainly liquid Denies any nausea, vomiting. Tolerating diet well Physical Exam Vital Signs (Past 24 Hours): Last Vital Signs Temp 36.8 C 09/18/18 14:54 Pulse 89 09/18/18 14:54 Resp 18 09/18/18 14:54 BP 144/89 H 09/18/18 14:54 Pulse Ox 90 09/18/18 14:54 Constitutional: well developed Respiratory: Auscultation: + breath sounds absent (Left lung base); no crackles and no wheezes Cardiovascular: Rate/Rhythm: regular rate and regular rhythm Extremities: + edema; no pedal edema Gastrointestinal (Abdomen): Percussion/Palpation: + abdomen tender
--- NOTE | 2018-09-18 15:43 | Palliative Care Progress Note ---
Date of Service September 18, 2018 Assessment & Plan (1) Cancer related pain: -Patient began experiencing myoclonic jerks yesterday afternoon/evening as well as increased drowsiness and foggiheadedness. Presumably from the amount of narcotics he is on, which are now potentiated with increasing levels of methadone. The evening shift doctor decreased basal rate to 0.4mg/hr and continued the intermittent dose of 0.4mg Q15min. Patient then began experiencing increased pain, so he was ordered a couple boluses of dilaudid 0.5mg IV. -Of course, while some drowsiness is expected until methadone is able to be titrated up and other narcotics weaned, we do need to be cautious of RADIOTELEGRAPHER depression, neurologic effects and watch for any respiratory depression. I spoke with Dr. Lopez. We will increase the basal rate to 0.6mg/hr. Increased the bolus dose to 0.6mg Q15min as needed in order to make up for the decreased basal rate (was 0.8mg/hr). Patient is satisfied with this. -Dr. Lopez did return to patient's room this afternoon and reports that patient is feeling better as far as his pain. This morning before bolus of Dilaudid, pain was back up to 6-7/10, now is at 4-5/10. His was at bedside and aware of plan. Both are comfortable with his current status. -Continue methadone to 20mg BID. (2) Metastatic primary lung cancer: (3) Proctocolitis with rectal bleeding: -Flex sig on 09/14. Internal hemorrhoids, otherwise negative. Subjective Patient began having myoclonic jerks yesterday afternoon/evening. Was dropping things. Dilaudid TRANSIT PLANNER was decreased and myoclonus improved. See A&P. Constitutional: + weakness (mild) Ear, Nose, Mouth, Throat: no dysphagia Respiratory: + cough and + dyspnea on exertion; no dyspnea and no sputum production Cardiovascular: + chest pain (related to cancer pain); no edema Gastrointestinal: no abdominal pain, no nausea and no vomiting Neurologic: as per Subjective / HPI "foggiheadedness" Psychiatric: + anxiety (related to the pain and cancer diagnosis) Physical Exam Vital Signs (Past 24 Hours): Last Vital Signs Temp 36.8 C 09/18/18 14:54 Pulse 89 09/18/18 14:54 Resp 18 04/16/19 14:54 BP 144/89 H 09/18/18 14:54 Pulse Ox 90 09/18/18 14:54 Constitutional: well developed, well nourished and + thin ENMT: external ear and nose normal, oropharynx normal Ears: no hearing impairment Neck: normal visual inspection Respiratory: normal respiratory effort; no labored breathing Auscultation: + diminished lung sounds (LLL) and + crackles (LLL) Cardiovascular: RRR, no murmur, no edema Chest (Breasts): Chest: normal inspection of chest; no mass Gastrointestinal (Abdomen): Inspection/Auscultation: abdomen normal to inspection and normal bowel sounds; abdomen not distended Percussion/Palpation: abdomen soft; abdomen nontender Skin: no rashes, warm and dry Neurologic: awake Motor/Sensory: + abnormal movement (having some myoclonic jerks while trying to use final motor skills) Psychiatric: Orientation: alert (but a little more "foggy" yesterday and today) and oriented x 3 Supervising Physician Co-Signing Physician Notes Chart reviewed, patient seen and examined- at bedside. Collaborated with DEMETRIS Gonzalez Attending physician called last p.m. regarding myoclonic jerks-decreased TRANSIT PLANNER continuous rate as well as held for 2 hours-patient with increasing pain, increased basal rate to 0.6 mg/h Dilaudid. PE: Patient sitting up in a chair, alert, pain control improved. Patient with mild sedation due to IV Dilaudid and other opioids HEENT: EOMI, hearing within normal limits Lungs: Good air movement bilaterally CV: Regular rate, no edema Abdomen: Not distended Neuro mild sedation, alert and oriented x4 Agree with above note, assessment and plan as per DEMETRIS Gonzalez. Will continue to follow and assist with pain management-goal is to control pain without use of IV medications-further titration on methadone to wean off other opioids can be done as an outpatient Time Spent Midlevel 35 minutes with >50% of time spent at bedside with patient discussing pain management and POC, as well as collaborating with physician to discuss plan.
[2018-09-18] MEDS: ENOXAPARIN INJ 40 MG/0.4 ML SYR SQ SCH (20:40)
[2018-09-18] MEDS: MoRPHine SULFATE CR 15 MG TABCR PO SCH (20:49)
--- NOTE | 2018-09-19 08:02 | XRay Report ---
XR chest 1V portable HISTORY: Pleural effusion. COMPARISON: Chest 09/17/2018. FINDINGS: Right jugular Port-A-Cath is unchanged in position. No pneumothorax. Moderate left pleural effusion and left basilar densities remain unchanged. No new focal lung consolidations. No evidence f or pulmonary edema. The heart is normal in size. Right upper lobe nodule is partially obscured by the overlying port. IMPRESSION: No change in the moderate left pleural effusion. Electronically signed by: Adelso Woo M.D. 09/19/2018 8:01 AM
[2018-09-19] MEDS: DOCUSATE SODIUM 100 MG CAP PO SCH ×2 (08:56→21:07)
[2018-09-19] MEDS: GABAPENTIN 600 MG TAB PO SCH ×3 (08:56→17:41)
[2018-09-19] MEDS: MoRPHine SULFATE CR 60 MG TABCR PO SCH ×3 (08:56→21:06)
[2018-09-19] MEDS: METHADONE HCL 10 MG TAB PO SCH ×2 (08:56→21:12)
[2018-09-19] MEDS: PRAVASTATIN SOD 40 MG TAB PO SCH (08:56)
[2018-09-19] MEDS: POLYETHYLENE (MIRALAX) 17 GM PACK PO SCH ×2 (08:56→21:13)
[2018-09-19] MEDS: DULOXETINE HCL 30 MG CAP PO SCH (08:56)
[2018-09-19] MEDS: CALCIUM 600MG + VIT D 400 IU TAB PO SCH ×2 (08:56→21:07)
[2018-09-19] MEDS: SENNA 8.6 MG TAB PO SCH ×2 (08:57→21:10)
[2018-09-19] MEDS: dexAMETHasone 4 MG TAB PO SCH (08:57)
[2018-09-19] MEDS: FOLIC ACID 1 MG TAB PO SCH (08:57)
[2018-09-19] MEDS: MULTIVITAMIN TAB PO SCH (08:57)
[2018-09-19] MEDS: INSULIN ASPART 100 UNITS/ML 3 ML PEN SC SCH ×4 (09:00→21:05)
[2018-09-19] MEDS ORDERED: HYDROCORTISONE HC 2.5% CRM 30GM TUBE EXT PRN (09:44)
[2018-09-19] MEDS ORDERED: HYDROCORTISONE HC 2.5% CRM 30GM TUBE EXT ONE (10:00)
[2018-09-19] MEDS: HYDROmorphone HCL 0.5MG/ML 50 ML CASSETTE IV PRN ×2 (10:11→19:18)
--- NOTE | 2018-09-19 12:46 | Progress Note ---
DATE: 09/19/2018 THORACIC SURGERY PROGRESS NOTE Mr. Mancini was seen today. He is still on room air 96% saturations. Physical exam is unchanged. His x-ray showed no increase in fluid in the left, although he still has moderate left pleural effusion. At this point, I would not do anything different. Our next step in this patient would probably be to put a PleurX and I would prefer not to do that. I have explained this to the patient and his . We will follow along and if this does become a problem, will be glad to insert a catheter.
[2018-09-19] MEDS: SODIUM CHLORIDE 0.9% 1000ML 1,000 ML IV SCH (14:55)
--- NOTE | 2018-09-19 15:42 | Palliative Care Progress Note ---
Date of Service September 19, 2018 Assessment & Plan (1) Cancer related pain: -Patient feeling much better today. Pain is at 4-5/10 in rectum, left hip, and back. Back pain is better than yesterday. Had three bowel movements last night. -Used about 20mg IV Dilaudid in 24 hours. Amount of button pushes on QUALITY CONTROL EXPERT has dramatically decreased from yesterday. -Still having mild jerking movements with hands, but much improved and less frequent today. -More awake and alert. -Continue QUALITY CONTROL EXPERT pump where it is: 0.6mg/hr with incremental dose 0.6mg Q15min. -Continue methadone 20mg BID. Will probably titrate up again tomorrow or Monday. Hopefully then will be able to start weaning IV Dilaudid. Still foresee discharge being delayed until next week once pain is under control on oral medications. -Plan will be for him to go home with his , Emilie. (2) Metastatic primary lung cancer: (3) Proctocolitis with rectal bleeding: -Flex sig on 09/14. Internal hemorrhoids, otherwise negative. Subjective Patient feeling much better today. Pain is at 4-5/10 in rectum, left hip, and back. Back pain is better than yesterday. Used about 20mg IV Dilaudid in 24 hours. Amount of button pushes on QUALITY CONTROL EXPERT has dramatically decreased from yesterday. Physical Exam Constitutional: well developed, well nourished and + thin ENMT: external ear and nose normal, oropharynx normal Ears: no hearing impairment Neck: normal visual inspection Respiratory: normal respiratory effort; no labored breathing Auscultation: + diminished lung sounds (LLL) Cardiovascular: RRR, no murmur, no edema Chest (Breasts): Chest: normal inspection of chest; no mass Gastrointestinal (Abdomen): Inspection/Auscultation: abdomen normal to inspection and normal bowel sounds; abdomen not distended Percussion/Palpation: abdomen soft; abdomen nontender Skin: no rashes, warm and dry Neurologic: awake Motor/Sensory: + abnormal movement (less myoclonic jerks while trying to use final motor skills) Psychiatric: A+Ox3, euthymic affect Results & Data Vital Signs (Past 12 Hours) Vital Signs Temp Pulse Resp BP BP Pulse Ox 09/19/18 15:26 36.4 C L 85 16 123/75 94 09/19/18 11:03 36.5 C 93 H 18 140/60 96 09/19/18 07:20 36.1 C L 80 16 137/79 96 09/19/18 04:14 37 C 73 18 160/84 H 98 Time Spent Midlevel 45 minutes with >50% of time spent at bedside with patient and discussing pain management and plan of care.
--- NOTE | 2018-09-19 16:19 | Hospitalist Progress Note ---
Date of Service September 19, 2018 Assessment & Plan (1) Proctocolitis with rectal bleeding: This is a 63 y/o M with a PMH of metastatic lung cancer with mets to bone, DM II and HLD who presents with bright red blood in diarrhea for 1 day and was found to have non-specific proctocolitis. Intermittently has few streaks of blood in BM, but mainly liquid around -S/P Flexible sigmoidoscopy 09/14/18 by GI- Mild erythema in rectum, internal hemorrhoids. -Anusol PRN for hemorrhoids/changed to Anusol cream, as patient was not able to use Anusol suppository secondary to pain -CT abd/pelvis with a nonspecific proctocolitis as above. -Stool cultures, C diff - Neg Clinically improved, denies of any abdominal pain no nausea, tolerating diet well (2) Pleural effusion on left: Malignant pleural effusion secondary to metastatic lung CA Patient is status post Thoracentesis by CT surgery on admission Respiratory status stable denies of any shortness of breath or dyspnea on exertion -Per CT surgery- CXR Moderate Lt pleural effusion, unchanged from previous, so no plans was pleurx catheter for now. -Cytology from thoracentesis came back positive for malignancy, and patient updated by previous hospitalist (3) Myoclonic jerking: Does not have any tremors today (4) Metastatic primary lung cancer: History of metastatic lung cancer with mets to pelvis, vertabrae and ribs, s/p left hip resection of bony mets/replacement in Jul 2018 at [facility] [place] -Started new chemo regimen on August 30 consisting of Alimta and Carboplatin and is due for second round on September 20 -Recently completed 10 rounds of radiation last week -Inadequate home pain regimen. Continuing home dose of MS Contin 60 mg BID, 90 mg q HS, gabapentin 600 mg 3 times daily, Cymbalta. Held Oxy IR 20 mg PRN. -Dilaudid MEDICAL RECORD LIBRARIAN pump for pain (basal rate increased to 0.6 mg today (decreased from 0.8 yesterday) -Methadone 5 mg started on admission---> Increased to 10 mg TID next day-->up to to 20 mg BID on 09/17 -Discussed with Palliative medicine- appreciate inputs (5) Diabetes mellitus, type 2: A1c of 6.7 in Jul 2018 -Hold home agents -SSI while in-patient -BSG AC HS (6) Constipation: -On colace, miralex -Sennakot ordered by palliative medicine (7) Hyperlipidemia: Continue pravastatin DVT Ppx: Restarted Lovenox SQ which he was getting it for DVT prophylaxis at home as well as per ortho (recent sx), hem/onc recommendations. Code status: FULL per discussion with patient, PCP: Eugene Thapa Dispo: Plan to discharge home Still on IV dilaudid pump for pain control. Goal is to have a PO regimen which would work on discharge Subjective Mentions the pain is much better today, appears to be comfortable Was able to walk on the hallway earlier Very occasionally using Dilaudid MEDICAL RECORD LIBRARIAN Physical Exam Constitutional: well developed, well nourished, + ill appearing (chronically ill), + thin, cooperative and comfortable; no acute distress ENMT: Mouth: no dentition abnormality Mallampati Class: II Neck: normal visual inspection Respiratory: normal respiratory effort, lungs clear to auscultation normal respiratory effort; no respiratory distress, no labored breathing and does not use accessory muscles Auscultation: lungs clear to auscultation bilaterally, + breath sounds absent (Left lung base), + diminished lung sounds (LLL) and + crackles (LLL); no wheezes Cardiovascular: RRR, no murmur, no edema Rate/Rhythm: regular rate and regular rhythm Extremities: + edema; no pedal edema Gastrointestinal (Abdomen): Inspection/Auscultation: abdomen normal to inspection and normal bowel sounds; abdomen not distended Percussion/Palpation: abdomen soft; abdomen nontender and no guarding Skin: no rashes, warm and dry Neurologic: PERRL, EOMI, accommodation nl, no face palsy, no dysarthria + confused Psychiatric: A+Ox3, euthymic affect Orientation: oriented x 3 Results & Data Vital Signs (Past 12 Hours) Vital Signs Temp Pulse Resp BP Pulse Ox 09/19/18 15:26 36.4 C L 85 16 123/75 94 09/19/18 11:03 36.5 C 93 H 18 140/60 96 09/19/18 07:20 36.1 C L 80 16 137/79 96
[2018-09-19] MEDS: ENOXAPARIN INJ 40 MG/0.4 ML SYR SQ SCH (17:41)
[2018-09-19] MEDS: MoRPHine SULFATE CR 15 MG TABCR PO SCH (21:06)
[2018-09-20] MEDS: MoRPHine SULFATE CR 60 MG TABCR PO SCH ×3 (07:41→20:12)
[2018-09-20] MEDS: GABAPENTIN 600 MG TAB PO SCH ×3 (07:41→18:12)
[2018-09-20] MEDS: HYDROmorphone HCL 0.5MG/ML 50 ML CASSETTE IV PRN ×2 (07:56→13:46)
[2018-09-20] MEDS: INSULIN ASPART 100 UNITS/ML 3 ML PEN SC SCH ×4 (08:39→21:32)
[2018-09-20] MEDS: PRAVASTATIN SOD 40 MG TAB PO SCH (08:41)
[2018-09-20] MEDS: FOLIC ACID 1 MG TAB PO SCH (08:41)
[2018-09-20] MEDS: MULTIVITAMIN TAB PO SCH (08:41)
[2018-09-20] MEDS: DOCUSATE SODIUM 100 MG CAP PO SCH ×2 (08:41→20:10)
[2018-09-20] MEDS: dexAMETHasone 4 MG TAB PO SCH (08:41)
[2018-09-20] MEDS: POLYETHYLENE (MIRALAX) 17 GM PACK PO SCH ×2 (08:41→20:10)
[2018-09-20] MEDS: CALCIUM 600MG + VIT D 400 IU TAB PO SCH ×2 (08:42→20:10)
[2018-09-20] MEDS: DULOXETINE HCL 30 MG CAP PO SCH (08:42)
[2018-09-20] MEDS: SENNA 8.6 MG TAB PO SCH ×2 (08:43→20:10)
[2018-09-20] MEDS: METHADONE HCL 10 MG TAB PO SCH ×2 (08:48→20:11)
--- NOTE | 2018-09-20 15:44 | Palliative Care Progress Note ---
Date of Service September 20, 2018 Assessment & Plan (1) Palliative care encounter: Cancer related pain: -Patient feeling much better today. Pain is at 4-5/10 in rectum, left hip, and back. Back pain is better than yesterday. Had a bowel movement today as well as yesterday. -Used about 25mg IV Dilaudid in 24 hours. Needed 1 as needed bolus dose between 10 PM and 4 AM, was able to sleep well. Increase use of GEOTECHNICAL ENGINEER due to increased activity. Patient taking walks with outside -No further myoclonic jerks -More awake and alert. -Continue GEOTECHNICAL ENGINEER pump where it is: 0.6mg/hr with incremental dose 0.6mg Q15min. Will look to wean with next methadone increase if he has more sedation -Increase methadone from 20mg BID to 30 mg twice daily-starting tonight. Discussed with attending physician strategy for weaning his GEOTECHNICAL ENGINEER-starting with the continuous dose, would leave the bolus dose as is. -Plan will be for him to go home with his , Emilie. (2) Metastatic primary lung cancer: (3) Proctocolitis with rectal bleeding: -Flex sig on 09/14. Internal hemorrhoids, otherwise negative. Collaborated with attending physician Dr. Chen-will continue to follow and I will be available over the weekend by phone if needed (2) Cancer related pain: Improving with current regime-goal is to titrate methadone and be able to wean patient off IV Dilaudid-further titration to wean off long-acting morphine can be done as an outpatient (3) Metastatic primary lung cancer: Follow-up with oncology for further treatment (4) Proctocolitis with rectal bleeding: Improving (5) Constipation: Well-controlled on scheduled Dulcolax, senna and MiraLAX Subjective Patient awake and alert, states his pain is well controlled-pain level is a 3-4 out of 10. Patient with pain related to his lung cancer. Patient reports he felt great yesterday and went for for walks-he feels he may h ave overdone it a bit and that he had some increased back pain and leg pain. Reviewed GEOTECHNICAL ENGINEER records-patient required approximately 25 mg of IV Dilaudid in the past 24 hours-this is approximately 500 mg of oral morphine. Discussed titrating patient's methadone-tomorrow is day 5 on his current dose of 20 mg twice daily-calculated patient's ultimate dose will be closer to 100 mg daily with activity. Will increase his methadone to 30 mg twice daily starting tonight-we will look to wean his continuous rate of IV Dilaudid over the weekend, would recommend keeping his GEOTECHNICAL ENGINEER bolus dose at 0.6 mg. Patient moving his bowels well-no constipation. Review of Systems Review of Systems: Patient denies fever, chills, chest pain, increased shortness of breath, or constipation Physical Exam Physical Exam: PE: Patient awake and alert, no sedation, oriented HEENT: EOMI, hearing within normal limits Respirations: Unlabored CV: Regular rate, no edema Abdomen: Not distended Extremities: Normal strength, full range of motion Neuro: Alert and oriented x4 Results & Data Vital Signs (Past 12 Hours) Vital Signs Temp Pulse Resp BP BP Pulse Ox 09/20/18 15:27 97.5 F L 71 18 138/75 95 09/20/18 11:44 98.8 F 74 18 116/74 95 09/20/18 07:45 74 16 138/84 09/20/18 07:30 98.8 F 80 18 147/74 H 95 Time Spent Attending Total time spent 40 minutes with greater than 50% of the time spent at bedside discussing current pain management as well as goals with pain control. Collaborated with attending physician
--- NOTE | 2018-09-20 16:37 | Hospitalist Progress Note ---
Date of Service September 20, 2018 Assessment & Plan (1) Proctocolitis with rectal bleeding: This is a 63 y/o M with a PMH of metastatic lung cancer with mets to bone, DM II and HLD who presents with bright red blood in diarrhea for 1 day and was found to have non-specific proctocolitis. Intermittently has few streaks of blood in BM, but mainly liquid around -S/P Flexible sigmoidoscopy 09/14/18 by GI- Mild erythema in rectum, internal hemorrhoids. -Anusol PRN for hemorrhoids/changed to Anusol cream, as patient was not able to use Anusol suppository secondary to pain -CT abd/pelvis with a nonspecific proctocolitis as above. -Stool cultures, C diff - Neg Clinically improved, denies of any abdominal pain no nausea, tolerating diet well (2) Pleural effusion on left: Malignant pleural effusion secondary to metastatic lung CA Patient is status post Thoracentesis by CT surgery on admission Respiratory status stable denies of any shortness of breath or dyspnea on exertion -Per CT surgery- CXR Moderate Lt pleural effusion, unchanged from previous, so no plans was pleurx catheter for now. -Cytology from thoracentesis came back positive for malignancy, and patient updated by previous hospitalist (3) Myoclonic jerking: Does not have any tremors today (4) Metastatic primary lung cancer: History of metastatic lung cancer with mets to pelvis, vertabrae and ribs, s/p left hip resection of bony mets/replacement in Jul 2018 at [facility] [place] -Started new chemo regimen on August 30 consisting of Alimta and Carboplatin and is due for second round on September 20 -Recently completed 10 rounds of radiation last week -Inadequate home pain regimen. Continuing home dose of MS Contin 60 mg BID, 90 mg q HS, gabapentin 600 mg 3 times daily, Cymbalta. Held Oxy IR 20 mg PRN. 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 pump for pain (basal rate increased to 0.6 mg today (decreased from 0.8 yesterday) -Methadone 5 mg started on admission---> Increased to 10 mg TID next day-->up to to 20 mg BID on 09/17 Plan to increase methadone to 30 mg twice daily -Appreciate input from palliative medicine (5) Diabetes mellitus, type 2: A1c of 6.7 in Jul 2018 -Hold home agents -SSI while in-patient -BSG AC HS (6) Constipation: -On colace, miralex -Sennakot ordered by palliative medicine (7) Hyperlipidemia: Continue pravastatin DVT Ppx: Restarted Lovenox SQ which he was getting it for DVT prophylaxis at h ome as well as per ortho (recent sx), hem/onc recommendations. Code status: FULL per discussion with patient, PCP: Eugene Thapa Dispo: Plan to discharge home Still on IV dilaudid pump for pain control. Goal is to have a PO regimen which would work on discharge Subjective Patient mentioned he feels much better today, Able to walk on the hallway multiple times yesterday, caused increased pain on his leg, back On methadone, Requiring IV Dilaudid via MATERIAL CREW SUPERVISOR pump intermittently Physical Exam Constitutional: well developed, well nourished, + ill appearing (chronically ill), + thin, cooperative and comfortable; no acute distress ENMT: Mouth: no dentition abnormality Mallampati Class: II Neck: normal visual inspection Respiratory: normal respiratory effort, lungs clear to auscultation normal respiratory effort; no respiratory distress, no labored breathing and does not use accessory muscles Auscultation: lungs clear to auscultation bilaterally and + breath sounds absent (Left lung base) Cardiovascular: RRR, no murmur, no edema Rate/Rhythm: regular rate and regular rhythm Extremities: + edema; no pedal edema Chest (Breasts): Chest: normal inspection of chest; no mass Gastrointestinal (Abdomen): Inspection/Auscultation: abdomen normal to inspection and normal bowel sounds; abdomen not distended Percussion/Palpation: abdomen soft; abdomen nontender and no guarding Skin: no rashes, warm and dry Neurologic: PERRL, EOMI, accommodation nl, no face palsy, no dysarthria + confused Psychiatric: A+Ox3, euthymic affect Orientation: oriented x 3 Results & Data Vital Signs (Past 12 Hours) Vital Signs Temp Pulse Resp BP BP Pulse Ox 09/20/18 15:27 36.4 C L 71 18 138/75 95 09/20/18 11:44 37.1 C 74 18 116/74 95 09/20/18 07:45 74 16 138/84 09/20/18 07:30 37.1 C 80 18 147/74 H 95
[2018-09-20] MEDS: ENOXAPARIN INJ 40 MG/0.4 ML SYR SQ SCH (18:10)
[2018-09-20] MEDS: MoRPHine SULFATE CR 15 MG TABCR PO SCH (20:10)
[2018-09-20] MEDS: INSULIN GLARGINE SOLOSTAR 100 UNITS/ML 3 ML PEN SQ SCH (21:31)
[2018-09-21] MEDS: SODIUM CHLORIDE 0.9% 1000ML 1,000 ML IV SCH ×2 (00:16→21:12)
[2018-09-21] MEDS: POLYETHYLENE (MIRALAX) 17 GM PACK PO SCH ×2 (08:23→21:14)
[2018-09-21] MEDS: GABAPENTIN 600 MG TAB PO SCH ×3 (08:23→17:37)
[2018-09-21] MEDS: METHADONE HCL 10 MG TAB PO SCH ×2 (08:23→21:07)
[2018-09-21] MEDS: MoRPHine SULFATE CR 60 MG TABCR PO SCH ×3 (08:23→21:07)
[2018-09-21] MEDS: CALCIUM 600MG + VIT D 400 IU TAB PO SCH ×2 (08:24→21:07)
[2018-09-21] MEDS: DULOXETINE HCL 30 MG CAP PO SCH (08:24)
[2018-09-21] MEDS: dexAMETHasone 4 MG TAB PO SCH (08:24)
[2018-09-21] MEDS: MULTIVITAMIN TAB PO SCH (08:24)
[2018-09-21] MEDS: DOCUSATE SODIUM 100 MG CAP PO SCH ×2 (08:24→21:07)
[2018-09-21] MEDS: SENNA 8.6 MG TAB PO SCH ×2 (08:25→21:08)
[2018-09-21] MEDS: PRAVASTATIN SOD 40 MG TAB PO SCH (08:25)
[2018-09-21] MEDS: FOLIC ACID 1 MG TAB PO SCH (08:25)
[2018-09-21] MEDS: INSULIN ASPART 100 UNITS/ML 3 ML PEN SC SCH ×4 (08:29→21:09)
--- NOTE | 2018-09-21 13:48 | Palliative Care Progress Note ---
Date of Service September 21, 2018 Assessment & Plan (1) Palliative care encounter: Cancer related pain: -Patient feeling much better today. Pain is at 3-4/10 -Used about 20mg IV Dilaudid in 24 hours. Patient states pain did not interfere with sleep. Patient's methadone was increased to 30 mg twice daily with the first dose last p.m. -No further myoclonic jerks -Continue PIPELINE CONTROLLER pump where it is: 0.6mg/hr with incremental dose 0.6mg Q15min. Will look to wean with next methadone increase if he has more sedation -Increased methadone to 30 mg twice daily-starting evening of 09/20. Discussed goals of weaning IV Dilaudid with patient and -Plan will be for him to go home with his , Emilie. (2) Metastatic primary lung cancer: (3) Proctocolitis with rectal bleeding: -Flex sig on 09/14. Internal hemorrhoids, otherwise negative. Will continue to follow and I will be available over the weekend by phone if needed for assistance with pain management (2) Cancer related pain: Improving with current regime-goal is to titrate methadone and be able to wean patient off IV Dilaudid-further titration to wean off long-acting morphine can be done as an outpatient (3) Metastatic primary lung cancer: Follow-up with oncology for further treatment (4) Proctocolitis with rectal bleeding: Improving (5) Constipation: Well-controlled on scheduled Dulcolax, senna and MiraLAX Subjective Patient seen and examined in his room, patient's , brother and sister at bedside. Patient ambulating without difficulty and without increased pain. Patient required 20.5 mg of IV Dilaudid in the past 24 hours down from 25 the day prior. Patient states he was able to sleep well-pain did not interfere with his sleep. Review of Systems Review of Systems: Patient denies fever, chills, chest pain, increased shortness of breath. Constipation is well controlled on current bowel regime Physical Exam Physical Exam: PE: Alert and oriented-minimal sedation HEENT: EOMI, hearing within normal limits Respirations: Unlabored CV: Regular rate, no edema Abdomen: Not distended Extremities: Full range of motion, ambulating without any assistance Neuro: Alert and oriented x4 Results & Data Vital Signs (Past 12 Hours) Vital Signs Temp Pulse Resp BP BP Pulse Ox 09/21/18 11:53 97.7 F 72 18 150/80 H 93 09/21/18 07:20 98.6 F 72 16 141/76 H 93 09/21/18 04:11 99.0 F 68 18 161/80 H 95 Time Spent Attending Total time spent 35 minutes with greater than 50% of time spent at bedside assessing patient's pain control and discussing plan was for weaning IV Dilaudid
[2018-09-21] MEDS: HYDROmorphone HCL 0.5MG/ML 50 ML CASSETTE IV PRN (15:18)
[2018-09-21] MEDS: ENOXAPARIN INJ 40 MG/0.4 ML SYR SQ SCH (17:37)
--- NOTE | 2018-09-21 20:25 | Hospitalist Progress Note ---
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 meds for patient to return home (2) Proctocolitis with rectal bleeding: Symptom has resolved, -S/P Flexible sigmoidoscopy 09/14/18 by GI- Mild erythema in rectum, internal hemorrhoids. -Anusol PRN for hemorrhoids/changed to Anusol cream, as patient was not able to use Anusol suppository secondary to pain (3) Pleural effusion on left: Malignant pleural effusion secondary to metastatic lung CA Patient is status post Thoracentesis by CT surgery on admission Respiratory status stable denies of any shortness of breath or dyspnea on exertion -Per CT surgery- CXR Moderate Lt pleural effusion, unchanged from previous, so no plans was pleurx catheter for now. -Cytology from thoracentesis came back positive for malignancy, and patient updated by previous hospitalist Overall prognosis poor, (4) Myoclonic jerking: Does not have any tremors today (5) Metastatic primary lung cancer: History of metastatic lung cancer with mets to pelvis, vertabrae and ribs, s/p left hip resection of bony mets/replacement in Jul 2018 at [facility] [place] -Started new chemo regimen on August 30 consisting of Alimta and Carboplatin and is due for second round on September 20 -Recently completed 10 rounds of radiation last week -Inadequate home pain regimen. Continuing home dose of MS Contin 60 mg BID, 90 mg q HS, gabapentin 600 mg 3 times daily, Cymbalta. Held Oxy IR 20 mg PRN. 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 pump for pain (basal rate increased to 0.6 mg today (decreased from 0.8 yesterday) -Methadone 5 mg started on admission---> Increased to 10 mg TID next day-->up to to 20 mg BID on 09/17 Plan to increase methadone to 30 mg twice daily -Appreciate input from palliative medicine (6) Diabetes mellitus, type 2: A1c of 6.7 in Jul 2018 -Hold home agents -SSI while in-patient -BSG AC HS (7) Constipation: -On colace, miralex -Sennakot ordered by palliative medicine (8) Hyperlipidemia: Continue pravastatin DVT Ppx: Restarted Lovenox SQ which he was getting it for DVT prophylaxis at home as well as per ortho (recent sx), hem/onc recommendations. Code status: FULL per discussion with patient, PCP: Eugene Thapa Dispo: Plan to discharge home Still on IV dilaudid pump for pain control. Goal is to have a PO regimen which would work on discharge Subjective Continues to feel better, says pain is much better controlled today, Physical Exam Constitutional: well developed, well nourished, + ill appearing (chronically ill), + thin, cooperative and comfortable; no acute distress ENMT: Mouth: no dentition abnormality Mallampati Class: II Neck: normal visual inspection Respiratory: normal respiratory effort, lungs clear to auscultation normal respiratory effort; no respiratory distress, no labored breathing and does not use accessory muscles Auscultation: lungs clear to auscultation bilaterally and + breath sounds absent (Left lung base) Cardiovascular: RRR, no murmur, no edema Rate/Rhythm: regular rate and regular rhythm Extremities: + edema; no pedal edema Chest (Breasts): Chest: normal inspection of chest; no mass Gastrointestinal (Abdomen): Inspection/Auscultation: abdomen normal to inspection and normal bowel sounds; abdomen not distended Per cussion/Palpation: abdomen soft; abdomen nontender and no guarding Skin: no rashes, warm and dry Neurologic: PERRL, EOMI, accommodation nl, no face palsy, no dysarthria + confused Motor/Sensory: + abnormal movement (less myoclonic jerks while trying to use final motor skills) Psychiatric: A+Ox3, euthymic affect Orientation: oriented x 3 Results & Data Vital Signs (Past 12 Hours) Vital Signs Temp Pulse Resp BP BP Pulse Ox 09/21/18 19:21 35.8 C L 69 18 150/76 H 98 09/21/18 15:04 36.5 C 72 20 147/74 H 94 09/21/18 11:53 36.5 C 72 18 150/80 H 93
[2018-09-21] MEDS: MoRPHine SULFATE CR 15 MG TABCR PO SCH (21:07)
[2018-09-21] MEDS: INSULIN GLARGINE SOLOSTAR 100 UNITS/ML 3 ML PEN SQ SCH (21:08)
--- NOTE | 2018-09-21 21:16 | Progress Note ---
DATE: 09/21/2018 Mr. Mancini was seen today on 09/21/2018. He is in good spirits. He and his are both pleased with his progress. He is on room air with excellent saturations. I was pleased with his x-ray from 2 days ago. He does have decreased breath sounds on the left. At this point, I would not do anything different with Mr. Mancini. I explained to the patient and his that we will be following along and I will be glad to see him in the office and should he develop increasing fluid from this malignant pleural effusion, we will be glad to address this.
[2018-09-21] MEDS ORDERED: PHARMACY GLYCEMIC MGMT CONSULT PRN (23:29)
[2018-09-22] MEDS ORDERED: INSULIN ASPART 100 UNITS/ML 3 ML PEN SC SCH
[2018-09-22] MEDS: CALCIUM 600MG + VIT D 400 IU TAB PO SCH ×2 (08:06→20:45)
[2018-09-22] MEDS: MoRPHine SULFATE CR 60 MG TABCR PO SCH ×3 (08:06→20:44)
[2018-09-22] MEDS: METHADONE HCL 10 MG TAB PO SCH ×2 (08:06→20:59)
[2018-09-22] MEDS: FOLIC ACID 1 MG TAB PO SCH (08:06)
[2018-09-22] MEDS: dexAMETHasone 4 MG TAB PO SCH (08:06)
[2018-09-22] MEDS: SENNA 8.6 MG TAB PO SCH ×2 (08:06→20:45)
[2018-09-22] MEDS: GABAPENTIN 600 MG TAB PO SCH ×3 (08:07→17:42)
[2018-09-22] MEDS: DULOXETINE HCL 30 MG CAP PO SCH (08:07)
[2018-09-22] MEDS: POLYETHYLENE (MIRALAX) 17 GM PACK PO SCH ×2 (08:07→20:47)
[2018-09-22] MEDS: DOCUSATE SODIUM 100 MG CAP PO SCH ×2 (08:07→20:46)
[2018-09-22] MEDS: PRAVASTATIN SOD 40 MG TAB PO SCH (08:07)
[2018-09-22] MEDS: MULTIVITAMIN TAB PO SCH (08:07)
[2018-09-22 08:32] LABS: Estimated Average Glucose 163 mg/dl; Hemoglobin A1C 7.3 % (4.5-5.6)
[2018-09-22] MEDS: INSULIN ASPART 100 UNITS/ML 3 ML PEN SC SCH ×4 (08:44→20:49)
[2018-09-22] MEDS ORDERED: INSULIN GLARGINE SOLOSTAR 100 UNITS/ML 3 ML PEN SQ SCH (09:00)
[2018-09-22] MEDS: SODIUM CHLORIDE 0.9% 1000ML 1,000 ML IV SCH (13:14)
[2018-09-22] MEDS: ENOXAPARIN INJ 40 MG/0.4 ML SYR SQ SCH (17:42)
[2018-09-22] MEDS: HYDROmorphone HCL 0.5MG/ML 50 ML CASSETTE IV PRN ×2 (17:45→19:08)
[2018-09-22] MEDS: MoRPHine SULFATE CR 15 MG TABCR PO SCH (20:44)
--- NOTE | 2018-09-23 06:43 | Hospitalist Progress Note ---
Date of Service September 23, 2018 Assessment & Plan (1) Intractable pain: From metastatic lung cancer with metastases to bone Appreciate input from palliative care Patient has been on large dose of MS Contin On methadone, dose titrated by palliative care-on 30 mg p.o. twice daily On IV Dilaudid SAND SLINGER Continuous IV basal infusion of Dilaudid SAND SLINGER reduced to 0.4mg/h evidence of oversedation, confusion Plan to wean down then discontinue IV Dilaudid SAND SLINGER and transition to oral p.o. meds for patient to return home (2) Proctocolitis with rectal bleeding: Symptom has resolved, -S/P Flexible sigmoidoscopy 09/14/18 by GI- Mild erythema in rectum, internal h emorrhoids. -Anusol PRN for hemorrhoids/changed to Anusol cream, as patient was not able to use Anusol suppository secondary to pain Rectal pain seems to be adequately controlled with Anusol cream (3) Pleural effusion on left: Malignant pleural effusion secondary to metastatic lung CA Patient is status post Thoracentesis by CT surgery on admission Respiratory status stable since then denies of any shortness of breath or dyspnea on exertion Repeat chest x-ray moderate Lt pleural effusion, unchanged from previous, Appreciate input from CT surgery so no plans was pleurx catheter for now. -Cytology from thoracentesis came back positive for malignancy, and patient updated by previous hospitalist Overall prognosis poor, (4) Myoclonic jerking: Symptom worsened after increment of methadone dose, To titrate down IV SAND SLINGER basal rate, We will continue to monitor clinical improvement (5) Metastatic primary lung cancer: History of metastatic lung cancer with mets to pelvis, vertebrae and ribs, s/p left hip resection of bony mets/replacement in Jul 2018 at [facility] [place] -Started new chemo regimen on August 30 consisting of Alimta and Carboplatin and is due for second round on September 20 -Recently completed 10 rounds of radiation last week -Dilaudid SAND SLINGER pump for pain (basal rate decreased to 0.4 mg today for confusion /narcotic induced tremors -Methadone 5 mg started on admission---> Increased to 10 mg TID next day-->up to to 30 mg BID on 09/21 -Appreciate input from palliative medicine will cont to follow Palliative care guideline for Metadone titration cont bowel regimen to prevent narcotic induced constipation (6) Diabetes mellitus, type 2: A1c of 6.7 in Jul 2018 -Hold home agents -SSI while in-patient -BSG AC HS (7) Constipation: -On colace, miralex -Sennakot ordered by palliative medicine pt reports of small hard bowel movement yesterday asked him to notify nursing if no BM in 24-48 hrs /will need more aggressive bow el regimen may need continued increment of bowel regimen as Methadone dose is titrated up (8) Hyperlipidemia: Continue pravastatin DVT Ppx: Lovenox SQ which he was getting it for DVT prophylaxis at home as well as per ortho (recent sx), hem/onc recommendations. PCP: Eugene Thapa Dispo: Plan to discharge home Still on IV dilaudid pump for pain control. Goal is to transition to PO regimen providing adequate pain control prior to discharge home Subjective Patient noted to be more confused, today Having fine on intention tremor, family at bedside voicing concern Patient seen at bedside, Awake, states pain is better controlled, but he feels "loopy" Discussed the pain regimen with family, methadone dose increased to 30 mg twice daily since yesterday 09/21/2018 Plan to taper down IV Dilaudid At present on continuous basal rate of 0.6 mg/h IV Dilaudid, with intermittent IV push of 0.4 mg with a lockout time of 30 minutes Patient is reluctant for complete short of of basal rate of IV Dilaudid SAND SLINGER, as in prior attempt it put him through excruciating pain Willing for low gradual taper, reducing the continuous basal rate to 0.4 mg IV Which may improve narcotic induced confusion, and tremor Pharmacy updated regarding change of basal rate for IV Dilaudid SAND SLINGER Physical Exam Constitutional: well developed, well nourished, + ill appearing (chronically ill), + thin, cooperative and comfortable; no acute distress Neck: normal visual inspection Respiratory: normal respiratory effort, lungs clear to auscultation normal respiratory effort; no respiratory distress, no labored breathing and does not use accessory muscles Auscultation: lungs clear to auscultation bilaterally and + breath sounds absent (Left lung base) Cardiovascular: RRR, no murmur, no edema Rate/Rhythm: regular rate and regular rhythm Extremities: + edema; no pedal edema Chest (Breasts): Chest: normal inspection of chest; no mass Gastrointestinal (Abdomen): Inspection/Auscultation: abdomen normal to inspection and normal bowel sounds; abdomen not distended Percussion/Palpation: abdomen soft; abdomen nontender and no guarding Skin: no rashes, warm and dry Neurologic: PERRL, EOMI, accommodation nl, no face palsy, no dysarthria + confused Motor/Sensory: + abnormal movement (less myoclonic jerks while trying to use final motor skills) Psychiatric: A+Ox3, euthymic affect Orientation: oriented x 3 Results & Data Vital Signs (Past 12 Hours) Vital Signs Temp Pulse Resp BP BP Pulse Ox 09/23/18 05:25 153/81 H 09/23/18 04:31 36.4 C L 79 18 170/88 H 94 09/22/18 23:08 36.7 C 60 18 146/89 H 93 09/22/18 19:26 37.1 C 77 18 137/78 94
[2018-09-23] MEDS: METHADONE HCL 10 MG TAB PO SCH ×2 (07:41→21:13)
[2018-09-23] MEDS: POLYETHYLENE (MIRALAX) 17 GM PACK PO SCH ×3 (07:41→21:18)
[2018-09-23] MEDS: FOLIC ACID 1 MG TAB PO SCH (07:42)
[2018-09-23] MEDS: SENNA 8.6 MG TAB PO SCH ×2 (07:42→21:13)
[2018-09-23] MEDS: MULTIVITAMIN TAB PO SCH (07:42)
[2018-09-23] MEDS: PRAVASTATIN SOD 40 MG TAB PO SCH (07:42)
[2018-09-23] MEDS: GABAPENTIN 600 MG TAB PO SCH ×3 (07:42→17:46)
[2018-09-23] MEDS: DULOXETINE HCL 30 MG CAP PO SCH (07:42)
[2018-09-23] MEDS: dexAMETHasone 4 MG TAB PO SCH (07:42)
[2018-09-23] MEDS: MoRPHine SULFATE CR 60 MG TABCR PO SCH ×3 (07:42→21:12)
[2018-09-23] MEDS: DOCUSATE SODIUM 100 MG CAP PO SCH ×2 (07:43→21:12)
[2018-09-23] MEDS: CALCIUM 600MG + VIT D 400 IU TAB PO SCH ×2 (08:38→21:12)
[2018-09-23] MEDS: INSULIN ASPART 100 UNITS/ML 3 ML PEN SC SCH ×4 (08:42→21:53)
[2018-09-23] MEDS ORDERED: INSULIN GLARGINE SOLOSTAR 100 UNITS/ML 3 ML PEN SC ONE (09:00)
--- NOTE | 2018-09-23 09:38 | Pharmacy Report ---
Glycemic Control Consultation - Date of Service September 23, 2018 - Scope Scope: Glycemic Pharmacist consulted for glycemic control and to write orders per [facility] inpatient glycemic control protocol - Objective Weight: 57.4 kg Accuchecks BSG (last 24hrs): 09/22/18 09/22/18 09/22/18 11:25 16:46 20:15 POC Glucose 254 H 259 H 255 H 09/23/18 07:40 POC Glucose 149 H HbA1c: Hemoglobin A1c 7.3 % (4.5-5.6) H 09/22/18 05:56 - Recent Pertinent Medications Outpatient Anti-diabetic Regimen: * Empagliflozin 10 mg po qAM * Janumet 50/1000mg po BID * A1c = 7.3 % on 09/22/18 The patient is currently receiving: * Basal insulin: Lantus 5 units 09/21 PM and 10 units 09/22 AM * Correctional Insulin: Novolog Correction per scale ACHS Goal Range: Low 110 mg/dL - High 140 mg/dL Correction Factor: 30 mg/dL/unit * Prandial insulin: Per carb ratio of 1 unit per 13 grams CHO consumed * Oral Agents: On hold Risk Factors for Insulin Resistance: * Steroids: dexamethasone 4 mg po daily * Diet: T2DM - Assessment & Plan Assessment & Plan: ASSESSMENT: * 63 yo M with metastatic lung CA admitted with intractable pain * Pharmacy consulted on 09/22 for hyperglycemia, likely steroid related * AM fasting BSG today slightly above goal. Will slightly increase Lantus * Significant post-prandial elevations in BSG noted, despite tightening CHO ratio yesterday. Will tighten again today, to slightly tighter than weight- based severe stress estimate PLAN FOR INPATIENT GLYCEMIC CONTROL: * Hold outpatient oral diabetes medications * Basal insulin * Lantus 15 units SQ x1 this AM * Bolus insulin * NovoLog per scale ACHS or Q6hrs while NPO * Goal Range: Low 110 mg/dL - High 140 mg/dL * Correction Factor: 30 mg/dL/unit * Nutritional / Prandial insulin per carb ratio of 1 unit per 8 grams CHO consumed * Please note that the plan above was derived based on current level of insulin resistance and hospital stress. These recommendations are appropriate for inpatient admission only. Plan of care upon discharge will need to be reassessed to avoid potential outpatient hypo/hyperglycemia. Thank you.
[2018-09-23] MEDS: SODIUM CHLORIDE 0.9% 1000ML 1,000 ML IV SCH (15:25)
[2018-09-23] MEDS: ENOXAPARIN INJ 40 MG/0.4 ML SYR SQ SCH (17:46)
--- NOTE | 2018-09-23 19:52 | Hospitalist Progress Note ---
Date of Service September 23, 2018 Assessment & Plan (1) Intractable pain: From metastatic lung cancer with metastases to bone Appreciate input from palliative care Patient has been on large dose of MS Contin On methadone, dose titrated by palliative care-on 30 mg p.o. twice daily On IV Dilaudid CHUCKING MACHINE SET UP OPERATOR TOOL Continuous IV basal infusion of Dilaudid CHUCKING MACHINE SET UP OPERATOR TOOL reduced to 0.4mg/h evidence of oversedation, confusion Plan to wean down then discontinue IV Dilaudid CHUCKING MACHINE SET UP OPERATOR TOOL and transition to oral p.o. meds for patient to return home (2) Proctocolitis with rectal bleeding: Symptom has resolved, -S/P Flexible sigmoidoscopy 09/14/18 by GI- Mild erythema in rectum, internal h emorrhoids. -Anusol PRN for hemorrhoids/changed to Anusol cream, as patient was not able to use Anusol suppository secondary to pain Rectal pain seems to be adequately controlled with Anusol cream (3) Pleural effusion on left: Malignant pleural effusion secondary to metastatic lung CA Patient is status post Thoracentesis by CT surgery on admission Respiratory status stable since then denies of any shortness of breath or dyspnea on exertion Repeat chest x-ray moderate Lt pleural effusion, unchanged from previous, Appreciate input from CT surgery so no plans was pleurx catheter for now. -Cytology from thoracentesis came back positive for malignancy, and patient updated by previous hospitalist Overall prognosis poor, (4) Myoclonic jerking: Symptom worsened after increment of methadone dose, To titrate down IV CHUCKING MACHINE SET UP OPERATOR TOOL basal rate, We will continue to monitor clinical improvement (5) Metastatic primary lung cancer: History of metastatic lung cancer with mets to pelvis, vertebrae and ribs, s/p left hip resection of bony mets/replacement in Jul 2018 at [facility] -Started new chemo regimen on August 30 consisting of Alimta and Carboplatin and is due for second round on September 20 -Recently completed 10 rounds of radiation last week -Dilaudid CHUCKING MACHINE SET UP OPERATOR TOOL pump for pain (basal rate decreased to 0.4 mg today for confusion /narcotic induced tremors -Methadone 5 mg started on admission---> Increased to 10 mg TID next day-->up to to 30 mg BID on 09/21 -Appreciate input from palliative medicine will cont to follow Palliative care guideline for Metadone titration cont bowel regimen to prevent narcotic induced constipation (6) Diabetes mellitus, type 2: A1c of 6.7 in Jul 2018 -Hold home agents -SSI while in-patient -BSG AC HS (7) Constipation: -On colace, miralex -Sennakot ordered by palliative medicine pt reports of small hard bowel movement yesterday asked him to notify nursing if no BM in 24-48 hrs /will need more aggressive bow el regimen may need continued increment of bowel regimen as Methadone dose is titrated up (8) Hyperlipidemia: Continue pravastatin DVT Ppx: Lovenox SQ which he was getting it for DVT prophylaxis at home as well as per ortho (recent sx), hem/onc recommendations. PCP: Eugene Thapa Dispo: Plan to discharge home Still on IV dilaudid pump for pain control. Goal is to transition to PO regimen providing adequate pain control prior to discharge home Subjective Patient noted to be more confused, today Having fine on intention tremor, family at bedside voicing concern Patient seen at bedside, Awake, states pain is better controlled, but he feels "loopy" Discussed the pain regimen with family, methadone dose increased to 30 mg twice daily since yesterday 09/21/2018 Plan to taper down IV Dilaudid At present on continuous basal rate of 0.6 mg/h IV Dilaudid, with intermittent IV push of 0.4 mg with a lockout time of 30 minutes Patient is reluctant for complete short of of basal rate of IV Dilaudid CHUCKING MACHINE SET UP OPERATOR TOOL, as in prior attempt it put him through excruciating pain Willing for low gradual taper, reducing the continuous basal rate to 0.4 mg IV Which may improve narcotic induced confusion, and tremor Pharmacy updated regarding change of basal rate for IV Dilaudid CHUCKING MACHINE SET UP OPERATOR TOOL Physical Exam Constitutional: well developed, well nourished, + ill appearing (chronically ill), + thin, cooperative and comfortable; no acute distress ENMT: Mouth: no dentition abnormality Mallampati Class: II Neck: normal visual inspection Respiratory: normal respiratory effort, lungs clear to auscultation normal respiratory effort; no respiratory distress, no labored breathing and does not use accessory muscles Auscultation: lungs clear to auscultation bilaterally and + breath sounds absent (Left lung base) Cardiovascular: RRR, no murmur, no edema Rate/Rhythm: regular rate and regular rhythm Extremities: + edema; no pedal edema Chest (Breasts): Chest: normal inspection of chest; no mass Gastrointestinal (Abdomen): Inspection/Auscultation: abdomen normal to inspection and normal bowel sounds; abdomen not distended Percussion/Palpation: abdomen soft; abdomen nontender and no guarding Skin: no rashes, warm and dry Neurologic: PERRL, EOMI, accommodation nl, no face palsy, no dysarthria + confused Motor/Sensory: + abnormal movement (less myoclonic jerks while trying to use final motor skills) Psychiatric: A+Ox3, euthymic affect Orientation: oriented x 3 Results & Data Vital Signs (Past 12 Hours) Vital Signs Temp Pulse Resp BP BP Pulse Ox 09/23/18 19:19 37.1 C 72 18 143/77 H 97 09/23/18 15:01 36.5 C 73 16 134/81 94 09/23/18 11:24 37.2 C 65 16 147/76 H 93
[2018-09-23] MEDS: MoRPHine SULFATE CR 15 MG TABCR PO SCH (21:11)
[2018-09-24] MEDS: HYDROmorphone HCL 0.5MG/ML 50 ML CASSETTE IV PRN (06:37)
--- NOTE | 2018-09-24 07:52 | XRay Report ---
XR chest 1V portable CLINICAL HISTORY: effusion pleural effusion COMPARISON STUDY: 09/19/2018 FINDINGS: Stable left pleural effusion. Lungs otherwise appear clear. There is a central catheter in superior vena cava. Right hemidiaphragm is smooth. IMPRESSION: Unchanged left pleural effusion. The above report was generated using voice recognition software. It may contain grammatical, syntax or spelling errors. Electronically signed by: Lan William M.D. 09/24/2018 7:51 AM
[2018-09-24] MEDS: PRAVASTATIN SOD 40 MG TAB PO SCH (08:09)
[2018-09-24] MEDS: SENNA 8.6 MG TAB PO SCH ×2 (08:09→21:53)
[2018-09-24] MEDS: GABAPENTIN 600 MG TAB PO SCH ×3 (08:09→18:35)
[2018-09-24] MEDS: CALCIUM 600MG + VIT D 400 IU TAB PO SCH ×2 (08:09→21:51)
[2018-09-24] MEDS: POLYETHYLENE (MIRALAX) 17 GM PACK PO SCH ×2 (08:09→21:51)
[2018-09-24] MEDS: DULOXETINE HCL 30 MG CAP PO SCH (08:09)
[2018-09-24] MEDS: FOLIC ACID 1 MG TAB PO SCH (08:09)
[2018-09-24] MEDS: DOCUSATE SODIUM 100 MG CAP PO SCH ×2 (08:09→21:51)
[2018-09-24] MEDS: MULTIVITAMIN TAB PO SCH (08:09)
[2018-09-24] MEDS: METHADONE HCL 10 MG TAB PO SCH ×2 (08:09→21:47)
[2018-09-24] MEDS: dexAMETHasone 4 MG TAB PO SCH (08:09)
[2018-09-24] MEDS: MoRPHine SULFATE CR 60 MG TABCR PO SCH ×3 (08:10→21:50)
[2018-09-24] MEDS ORDERED: INSULIN GLARGINE SOLOSTAR 100 UNITS/ML 3 ML PEN SC STA (08:15)
[2018-09-24] MEDS: INSULIN ASPART 100 UNITS/ML 3 ML PEN SC SCH ×4 (08:45→21:51)
[2018-09-24] MEDS ORDERED: PHARMACY GLYCEMIC MGMT CONSULT STA (10:49)
[2018-09-24] MEDS ORDERED: HYDROmorphone INJ 1 MG/ML SYRINGE IV STA (10:53)
[2018-09-24] MEDS ORDERED: HYDROmorphone INJ 1 MG/ML SYRINGE ONE (10:56)
--- NOTE | 2018-09-24 13:53 | Pharmacy Report ---
Pharmacy Glycemic Short Note 2 - Date of Service September 24, 2018 - Glycemic Short BSG Results (Last 24 hours): 09/23/18 09/24/18 09/24/18 20:08 07:32 11:38 POC Glucose 155 H 155 H 235 H OUTPATIENT ANTIDIABETIC REGIMEN: * Empagliflozin 10 mg po qAM * Janumet 50/1000mg po BID * A1c = 7.3 % on 09/22/18 The patient is currently receiving: * Basal insulin: Lantus 5 units 09/21 PM, 10 units 09/22 AM, 15 units 09/23 AM * Correctional Insulin: Novolog Correction per scale ACHS Goal Range: Low 110 mg/dL - High 140 mg/dL Correction Factor: 30 mg/dL/unit * Prandial insulin: Per carb ratio of 1 unit per 8 grams CHO consumed * Oral Agents: On hold ASSESSMENT: * BG ranged 149-295 past 24 hours. Insulin needs have continued to increase past few days, with patient receiving 47 units yesterday. Nursing reports today that brings patient food. Hyperglycemia during the day likely from carbs which are not being covered. * Fasting BG this AM was 155, which is above goal. Will incr' Lantus again. * Will tighten correction factor and carb ratio to target post-prandial elevations also. PLAN FOR INPATIENT GLYCEMIC CONTROL: * Hold outpatient oral diabetes medications * Basal insulin * Lantus 20 units SC x 1 this AM - INCREASE; needs scheduled Lantus qAM, but optimal dose still being determined * Bolus insulin * NovoLog per scale ACHS or Q6hrs while NPO * Goal Range: Low 110 mg/dL - High 140 mg/dL * Correction Factor: 25 mg/dL/unit - TIGHTEN * Nutritional / Prandial insulin per carb ratio of 1 unit per 7 grams CHO consumed - TIGHTEN PLAN FOR DISCHARGE: * HbA1c of 7.3% is near goal <7%. Recommend to restart Jardiance and Janumet as outpatient. Follow-up with outpatient provider to determine additional way to achieve diabetes goal (i.e. more intensive lifestyle modifications vs. adding another agent - possibly need to target post-prandial hyperglycemia given use of dexamethasone). * Patient/ expressed concern about needing insulin after discharge. Instructed nursing to tell them that insulin not being recommended to be continued at home at this time. Unsure why BG >200 this admission when he r eports home readings 150-170's.
--- NOTE | 2018-09-24 15:18 | Palliative Care Progress Note ---
Date of Service September 24, 2018 Assessment & Plan (1) Palliative care encounter: Cancer related pain: -Patient reports increased back pain-appears to be musculoskeletal by history and by exam-we will start Naprosyn 500 mg every 12 hours starting this evening. Discussed with patient continued use of massage, heat and ice for back pain, avoid using ECONOMICS LECTURER Dilaudid. -Used about 19mg IV Dilaudid in 24 hours. Patient states pain did not interfere with sleep. Patient's methadone is currently at 30 mg twice daily-patient has received 4 full days at this dose -No further myoclonic jerks -Continue ECONOMICS LECTURER pump where it is: 0.4mg/hr with incremental dose 0.6mg Q15min. Will look to wean to 0.2 mg, continue bolus dose at 0.6 -Increased methadone to 40 mg twice daily-starting this evening. Discussed goals of weaning IV Dilaudid with patient and -Patient plan for PET scan on 09/26-goal is to have his pain controlled well enough for him to be discharged to have at this scan -Plan will be for him to go home with his , Emilie. (2) Metastatic primary lung cancer: (3) Proctocolitis with rectal bleeding: -Flex sig on 09/14. Internal hemorrhoids, otherwise negative. -Rectal pain improving Will continue to follow and I will be available over the weekend by phone if needed for assistance with pain management (2) Cancer related pain: Improving with current regime-goal is to titrate methadone and be able to wean patient off IV Dilaudid-further titration to wean off long-acting morphine can be done as an outpatient (3) Metastatic primary lung cancer: Follow-up with oncology for further treatment Patient scheduled for PET scan on 09/26 (4) Proctocolitis with rectal bleeding: Pain improving (5) Constipation: Well-controlled on scheduled Dulcolax, senna and MiraLAX Subjective Patient awake and alert, no drowsiness noted on exam today, patient's at bedside Patient states he awoke with severe back pain-has been using as needed Dilaudid ECONOMICS LECTURER for back pain-evaluated patient's pain-it appears to be more musculoskeletal in nature. Patient reports improves with heat and ice, has palpable muscle tightness left paraspinal muscles between the spine and the scapula. Reviewed with patient not using the ECONOMICS LECTURER for muscle pain- will help with m assage as well as continue heat and ice-we will add Naprosyn 500 mg every 12h. Patient used 17 mg of IV - would likely require less if used only for his cancer related hip pain. Left message with Dr. Aleja Navarro asking him to review patient's films to see if there is any bone metastases in the left scapula, ribs, or spine. Patient on Decadron at 4 mg daily-no need to adjust dose for bone pain. Patient on methadone at 30 mg twice daily-he has received 4 full days at this dose-will increase to 40 mg twice daily starting this evening. Initial calculations placed his pain requirements in the 80-100 mg/day of methadone. Review of Systems Review of Systems: Patient denies fever, chills, chest pain, increased shortness of breath, or GI issues. Physical Exam Physical Exam: PE: Alert and oriented, not sedated HEENT: EOMI, hearing within normal limits Respirations: Unlabored CV: Regular rate, no edema Abdomen: Not distended Musculoskeletal: Palpable muscle tightness in the paraspinal muscles in the upper thoracic region-pain improves with massage, heat and ice Neuro: Alert and oriented x4-positive memory deficits due to to opioids Results & Data Vital Signs (Past 12 Hours) Vital Signs Temp Pulse Resp BP BP Pulse Ox 09/24/18 15:01 97.2 F L 69 20 135/79 93 09/24/18 11:33 98.8 F 65 20 142/82 H 91 09/24/18 07:11 98.1 F 73 20 150/79 H 93 09/24/18 04:00 97.9 F 68 18 158/88 H 91 Time Spent Attending Total time spent on 2 separate visits-45 minutes with greater than 50% of the time spent at bedside discussing medications for 2 separate types of pain, in hopes of weaning off the IV Dilaudid by 09/26
[2018-09-24] MEDS ORDERED: HYDROmorphone HCL 0.5MG/ML 50 ML CASSETTE IV PRN (15:47)
[2018-09-24] MEDS: ENOXAPARIN INJ 40 MG/0.4 ML SYR SQ SCH (18:34)
--- NOTE | 2018-09-24 20:44 | Hospitalist Progress Note ---
Date of Service September 24, 2018 Assessment & Plan (1) Intractable pain: From metastatic lung cancer with metastases to bone Appreciate input from palliative care Patient has been on large dose of MS Contin On methadone, dose titrated by palliative care-on 30 mg p.o. twice daily Continue dose titration by palliative care, On IV Dilaudid BOTTLE HOUSE CLEANERS SUPERVISOR Plan to continue reduction dose to wean off IV Dilaudid BOTTLE HOUSE CLEANERS SUPERVISOR Continuous IV basal infusion of Dilaudid BOTTLE HOUSE CLEANERS SUPERVISOR reduced to 0.2mg/h Plan to wean down then discontinue IV Dilaudid BOTTLE HOUSE CLEANERS SUPERVISOR and transition to oral p.o. meds for patient to return home (2) Proctocolitis with rectal bleeding: Symptom has resolved, -S/P Flexible sigmoidoscopy 09/14/18 by GI- Mild erythema in rectum, internal hemorrhoids. -Anusol PRN for hemorrhoids/changed to Anusol cream, as patient was not able to use Anusol suppository secondary to pain Rectal pain seems to be adequately controlled with Anusol cream (3) Pleural effusion on left: Malignant pleural effusion secondary to metastatic lung CA Patient is status post Thoracentesis by CT surgery on admission Respiratory status stable since then denies of any shortness of breath or dyspnea on exertion Repeat chest x-ray moderate Lt pleural effusion, unchanged from previous, Appreciate input from CT surgery so no plans was pleurx catheter for now. -Cytology from thoracentesis came back positive for malignancy, and patient updated by previous hospitalist Overall prognosis poor, (4) Myoclonic jerking: No tremor noted today (5) Metastatic primary lung cancer: History of metastatic lung cancer with mets to pelvis, vertebrae and ribs, s/p left hip resection of bony mets/replacement in Jul 2018 at [facility] -Started new chemo regimen on August 30 consisting of Alimta and Carboplatin and is due for second round on September 20 -Recently completed 10 rounds of radiation last week -Appreciate input from palliative medicine will cont to follow Palliative care guideline for Metadone titration cont bowel regimen to prevent narcotic induced constipation (6) Diabetes mellitus, type 2: A1c of 6.7 in Jul 2018 -Hold home agents -SSI while in-patient -BSG AC HS (7) Constipation: -On colace, miralex -Sennakot ordered by palliative medicine pt reports of small hard bowel movement yesterday asked him to notify nursing if no BM in 24-48 hrs /will need more aggressive bowel regimen may need continued increment of bowel regimen as Methadone dose is titrated up (8) Hyperlipidemia: Continue pravastatin DVT Ppx: Lovenox SQ which he was getting it for DVT prophylaxis at home as well as per ortho (recent sx), hem/onc recommendations. PCP: Eugene Thapa Dispo: Plan to discharge home Still on IV dilaudid pump for pain control. Goal is to transition to PO regimen providing adequate pain control prior to discharge home Subjective Patient awake and alert, no drowsiness No tremors Patient states he woke up last night with severe back pain- Requiring to use IV Dilaudid BOTTLE HOUSE CLEANERS SUPERVISOR more frequently Appreciate evaluation by palliative care Patient's back pain noted to be musculoskeletal in nature, recommended NSAIDs Physical Exam Constitutional: well developed, well nourished, + ill appearing (chronically ill), + thin, cooperative and comfortable; no acute distress ENMT: Mouth: no dentition abnormality Mallampati Class: II Neck: normal visual inspection Respiratory: normal respiratory effort, lungs clear to auscultation normal respiratory effort; no respiratory distress, no labored breathing and does not use accessory muscles Auscultation: lungs clear to auscultation bilaterally and + breath sounds absent (Left lung base) Cardiovascular: RRR, no murmur, no edema Rate/Rhythm: regular rate and regular rhythm Extremities: + edema; no pedal edema Chest (Breasts): Chest: normal inspection of chest; no mass Gastrointestinal (Abdomen): Inspection/Auscultation: abdomen normal to inspection and normal bowel sounds; abdomen not distended Percussion/Palpation: abdomen soft; abdomen nontender and no guarding Skin: no rashes, warm and dry Neurologic: PERRL, EOMI, accommodation nl, no face palsy, no dysarthria + confused Motor/Sensory: + abnormal movement (less myoclonic jerks while trying to use final motor skills) Psychiatric: A+Ox3, euthymic affect Orientation: oriented x 3 Results & Data Vital Signs (Past 12 Hours) Vital Signs Temp Pulse Resp BP BP Pulse Ox 09/24/18 18:57 36.4 C L 09/24/18 18:49 75 18 145/78 H 97 09/24/18 15:01 36.2 C L 69 20 135/79 93 09/24/18 11:33 37.1 C 65 20 142/82 H 91
[2018-09-24] MEDS: MoRPHine SULFATE CR 15 MG TABCR PO SCH (21:47)
[2018-09-24] MEDS: NAPROXEN 250 MG TAB PO SCH (21:53)
[2018-09-24] MEDS: SODIUM CHLORIDE 0.9% 1000ML 1,000 ML IV SCH (23:33)
[2018-09-25] MEDS: NAPROXEN 250 MG TAB PO SCH ×2 (08:26→20:07)
[2018-09-25] MEDS: SENNA 8.6 MG TAB PO SCH ×2 (08:26→20:08)
[2018-09-25] MEDS: POLYETHYLENE (MIRALAX) 17 GM PACK PO SCH ×2 (08:26→20:07)
[2018-09-25] MEDS: DOCUSATE SODIUM 100 MG CAP PO SCH ×2 (08:26→20:06)
[2018-09-25] MEDS: DULOXETINE HCL 30 MG CAP PO SCH (08:26)
[2018-09-25] MEDS: FOLIC ACID 1 MG TAB PO SCH (08:27)
[2018-09-25] MEDS: dexAMETHasone 4 MG TAB PO SCH (08:27)
[2018-09-25] MEDS: CALCIUM 600MG + VIT D 400 IU TAB PO SCH ×2 (08:27→20:06)
[2018-09-25] MEDS: GABAPENTIN 600 MG TAB PO SCH ×3 (08:27→18:19)
[2018-09-25] MEDS: MULTIVITAMIN TAB PO SCH (08:27)
[2018-09-25] MEDS: INSULIN GLARGINE SOLOSTAR 100 UNITS/ML 3 ML PEN SC SCH (08:27)
[2018-09-25] MEDS: PRAVASTATIN SOD 40 MG TAB PO SCH (08:27)
[2018-09-25] MEDS: INSULIN ASPART 100 UNITS/ML 3 ML PEN SC SCH ×4 (08:28→21:36)
[2018-09-25] MEDS: MoRPHine SULFATE CR 60 MG TABCR PO SCH ×3 (08:35→20:05)
[2018-09-25] MEDS: METHADONE HCL 10 MG TAB PO SCH ×2 (08:35→21:35)
[2018-09-25] MEDS ORDERED: HYDROmorphone HCL 2 MG TAB PO PRN (10:58)
--- NOTE | 2018-09-25 11:08 | Palliative Care Progress Note ---
Date of Service September 25, 2018 Assessment & Plan (1) Cancer related pain: -Less back pain today. Patient agrees that the pain does seem more musculoskeletal. It helped to have heating pad, lying more flat in bed, stretching and having his massage the muscles between scapulae. -Pain is currently 4/10, mostly in back where patient is having MS pain. -Patient used 9.5mg IV Dilaudid via REFINERY OPERATOR VAPOR RECOVERY UNIT pump in last 24 hours. This converts to 4mg PO Dilaudid Q2h. I will discontinue the REFINERY OPERATOR VAPOR RECOVERY UNIT pump and order 4mg PO Dilaudid SCHEDULED Q4h. Will also order Dilaudid 4mg PO Q4h PRN pain to be used in between the scheduled doses. Wait two hours after the scheduled dose to give the PRN dose. Discussed this plan with patient, his , his sister and brother, Dr. Chen and Dr. Lopez. -Patient has scheduled PET/CT scan tomorrow at [facility] in [place] tomorrow at 1pm. If his pain is controlled on PO medication, he can be discharged tomorrow in time for his test. Would give dose of IV Dilaudid prior to leaving the hospital in order to get him through the test. Need to instruct his that at any point, if patient's respirations slow to less than 12/min, if he has any signs of over-sedation such as lethargy/confusion, if patient is experiencing myoclonic jerks, or any other concerning symptoms, she should call 911 right away. -Patient will need follow-up with Dr. Lopez as an outpatient, likely for early next week if he does in fact leave tomorrow. -Will continue to follow and ensure that patient's pain is well-enough managed on PO medications. (2) Metastatic primary lung cancer: (3) Proctocolitis with rectal bleeding: -Flex sig on 09/14. Internal hemorrhoids, otherwise negative. Subjective Patient is feeling much better today. His Emilie, brother Fabian and patient's sister, are at bedside. Review of Systems Constitutional: no weakness Ear, Nose, Mouth, Throat: no dysphagia Respiratory: no cough and no dyspnea Cardiovascular: no chest pain and no edema Gastrointestinal: no abdominal pain and no nausea Musculoskeletal: + back pain Neurologic: no paresthesia, no tremor(s) and no seizure-like activity Psychiatric: + anxiety (related to cancer and pain) Physical Exam Constitutional: + thin; no acute distress ENMT: external ear and nose normal, oropharynx normal Ears: no hearing impairment Neck: normal visual inspection Respiratory: normal respiratory effort, lungs clear to auscultation Auscultation: + diminished lung sounds Cardiovascular: RRR, no murmur, no edema Gastrointestinal (Abdomen): Inspection/Auscultation: abdomen normal to inspection and normal bowel sounds; abdomen not distended Skin: no rashes, warm and dry Neurologic: awake; not confused no myoclonic jerks today. Psychiatric: A+Ox3, euthymic affect Results & Data Vital Signs (Past 12 Hours) Vital Signs Temp Pulse Resp BP BP Pulse Ox 09/25/18 07:25 36.9 C 68 18 136/75 96 09/25/18 04:25 36.5 C 74 18 148/76 H 93 09/24/18 23:05 36.4 C L 70 18 155/83 H 93 Supervising Physician Co-Signing Physician Notes Patient seen and examined this afternoon-patient now off his REFINERY OPERATOR VAPOR RECOVERY UNIT. Patient received 1 dose of IV Dilaudid approximately 2 hours ago-pain has been well controlled. Patient states his back pain is improving with heat/ice/stretching/massage and Naprosyn. Discussed with patient and his planned discharge pain medication regime- including methadone 40 mg twice daily, continue MS Contin on current schedule- patient states he has approximately 1 week's worth at home, will continue Decadron at 4 mg daily, he does have some as needed oxycodone at 20 mg at home- not sure how many tablets, also has 8 mg Dilaudid tablets at home-not sure of number. Patient will also continue on his gabapentin as well as his Cymbalta Will collaborate with attending-Dr. Chen -regarding discharge opioid prescriptions. Gave prescription for methadone 10 mg tablets-4 tablets twice daily to take to pharmacy this evening. Patient given information regarding number to call to set up a follow-up appointment with me for 2 weeks after discharge . PE: No acute distress, patient ambulating in room with cane HEENT: EOMI, hearing within normal limits Respirations: Unlabored CV: Regular rate, well-perfused Neuro: Alert, oriented x4 Psych: Less anxious Agree with above note, assessment and plan-spent 45 minutes in addition to the 70 minutes spent by DEMETRIS Gonzalez for a total of 115 minutes with greater than 50% of the time spent at bedside assessing patient's current pain level, reviewing pain management regime, and answering any questions from pa tiebarak and . Time Spent Midlevel 70 minutes with >50% of time spent at bedside with patient and his family discussing pain management and plan of care.
[2018-09-25] MEDS: HYDROmorphone HCL 2 MG TAB PO SCH ×4 (11:52→22:33)
--- NOTE | 2018-09-25 13:09 | Pharmacy Report ---
Pharmacy Glycemic Short Note 2 - Date of Service September 25, 2018 - Glycemic Short BSG Results (Last 24 hours): 09/24/18 09/24/18 09/25/18 16:48 20:08 07:39 POC Glucose 280 H 207 H 139 H 09/25/18 11:32 POC Glucose 207 H OUTPATIENT ANTIDIABETIC REGIMEN: * Empagliflozin 10 mg po qAM * Janumet 50/1000mg po BID * A1c = 7.3 % on 09/22/18 ASSESSMENT: * Patient received 55 units of insulin yesterday (20 units of basal and 35 units of bolus insulin) * Of note, nursing reports that brings in food for patient. * Patient remains on dexamethasone 4 mg PO daily. * Fasting BSG of 139 mg/dL is improved compared to 09/24. Continue current dose of Lantus. * Post prandial BSGs were elevated over the past 24 hours, therefore Novolog CF/CR was tightened. PLAN FOR INPATIENT GLYCEMIC CONTROL: * Hold outpatient oral diabetes medications * Basal insulin * Lantus 20 units SC daily * Bolus insulin * NovoLog per scale ACHS or Q6hrs while NPO * Goal Range: Low 110 mg/dL - High 140 mg/dL * Correction Factor: 20 mg/dL/unit - TIGHTEN * Nutritional / Prandial insulin per carb ratio of 1 unit per 6 grams CHO consumed - TIGHTEN PLAN FOR DISCHARGE: * HbA1c of 7.3% is near goal <7%. Recommend to restart Jardiance and Janumet as outpatient. Follow-up with outpatient provider to determine additional way to achieve diabetes goal (i.e. more intensive lifestyle modifications vs. adding another agent - possibly need to target post-prandial hyperglycemia given use of dexamethasone). * Patient/ expressed concern about needing insulin after discharge. Instructed nursing to tell them that insulin not being recommended to be continued at home at this time. Unsure why BG >200 this admission when he reports home readings 150-170's.
[2018-09-25] MEDS: SODIUM CHLORIDE 0.9% 1000ML 1,000 ML IV SCH (14:56)
--- NOTE | 2018-09-25 17:34 | Progress Note ---
DATE: 09/25/2018 I saw the patient and his today. He still has decreased breath sounds in the left base posteriorly, but he looks actually very good. I discussed this case with Dr. Chen and his narcotic requirements are still quite high. From our standpoint, we will continue to follow along. I will follow him up as an outpatient. He has a malignant left pleural effusion, but it has been relatively stable clinically and radiographically. We will keep an eye on the patient and I explained that to the patient and his .
[2018-09-25] MEDS: ENOXAPARIN INJ 40 MG/0.4 ML SYR SQ SCH (18:17)
[2018-09-25] MEDS: MoRPHine SULFATE CR 15 MG TABCR PO SCH (20:05)
--- NOTE | 2018-09-25 22:13 | Hospitalist Progress Note ---
Date of Service September 25, 2018 Assessment & Plan (1) Intractable pain: From metastatic lung cancer with metastases to bone Appreciate input from palliative care Patient has been on large dose of MS Contin-continued On methadone, dose titrated by palliative care-increased to 40 mg PO BID pt is counselled for narcotic induced constipation given emphasis to continued adequate stool softener -colace , miralax, senna to take daily one or more doses in order to have one bowel movement every day or every other day IV WELDING LEAD BURNER pump D/prabha By Dr Beckman -Patient used 9.5mg IV Dilaudid via WELDING LEAD BURNER pump in last 24 hours-amount converted to 4mg PO Dilaudid SCHEDULED Q4h. l also ordered Dilaudid 4mg PO Q4h PRN pain to be used in between the scheduled doses. Wait two hours after the scheduled dose to give the PRN dose. Discussed this plan with patient, his , his sister and brothe-pt and family comfortable with plan -Patient has scheduled PET/CT scan tomorrow at [facility] at 1pm. If his pain is controlled on PO medication, he can be discharged tomorrow in time for his test. one dose of IV Dilaudid will be given prior to leaving the hospital in order to get him through the test. pt's is instructed /educated regarding S/S of Narcotic overdose : patient's respirations slow to less than 12/min, or any signs of over-sedation such as lethargy/confusion, started to experiece myoclonic jerks, or any other concerning symptoms, she should call 911 right away. -Patient will need follow-up with Dr. Lopez as an outpatient, likely for early next week -palliative care team will continue to follow and ensure that patient's pain is well-enough managed on PO medications. ( (2) Proctocolitis with rectal bleeding: Symptom has resolved, -S/P Flexible sigmoidoscopy 09/14/18 by GI- Mild erythema in rectum, internal hemorrhoids. -Anusol PRN for hemorrhoids/changed to Anusol cream, as patient was not able to use Anusol suppository secondary to pain Rectal pain seems to be adequately controlled with Anusol cream (3) Pleural effusion on left: Malignant pleural effusion secondary to metastatic lung CA Patient is status post Thoracentesis by CT surgery on admission Respiratory status stable since then denies of any shortness of breath or dyspnea on exertion Repeat chest x-ray moderate Lt pleural effusion, unchanged from previous, Appreciate input from CT surgery so no plans was pleurx catheter for now. -Cytology from thoracentesis came back positive for malignancy, and patient updated by previous hospitalist Overall prognosis poor, (4) Myoclonic jerking: No tremor noted today (5) Metastatic primary lung cancer: History of metastatic lung cancer with mets to pelvis, vertebrae and ribs, s/p left [place] of [place] [facility] [place]Started new chemo regimen on August 30 consisting of Alimta and Carboplatin and is due for second round on September 20 -Recently completed 10 rounds of radiation last week -Appreciate input from palliative medicine will cont to follow Palliative care guideline for Metadone titration cont bowel regimen to prevent narcotic induced constipation (6) Diabetes mellitus, type 2: A1c of 6.7 in Jul 2018 -Hold home agents -SSI while in-patient -BSG AC HS (7) Constipation: -On colace, miralex -Sennakot ordered by palliative medicine pt reports of small hard bowel movement yesterday asked him to notify nursing if no BM in 24-48 hrs /will need more aggressive bowel regimen may need continued increment of bowel regimen as Methadone dose is titrated up (8) Hyperlipidemia: Continue pravastatin DVT Ppx: Lovenox SQ which he was getting it for DVT prophylaxis at home as well as per ortho (recent sx), hem/onc recommendations. PCP: Eugene Thapa Dispo: Plan to discharge home IV heel sorter D/ed converted to PO regimen by Palliative care plan is to DC home tomorrow if pain is adequately controlled with PO meds Subjective Patient is feeling much better today. His Emilie, brother Fabian and patient's sister, are at bedside. Back pain -Muscle spasm has improved with heating pad , started on Naproxen pt is scheduled for PET/CT scan at [facility] tomorrowat ! pm eager to be able to be discharged for the test pt used minimum amount IV Dilaudid appreciate input from Palliative care IV WELDING LEAD BURNER D/prabha , started on PO Dilaudid tab 4 mg Q4 prn and scheduled observe overnight plan to discharge home tomorrow early enough time for pt to have the PET/CT scan Physical Exam Constitutional: + ill appearing (chronically ill), + thin, cooperative and comfortable; no acute distress Respiratory: normal respiratory effort, lungs clear to auscultation Auscultation: + breath sounds absent (Left lung base) Cardiovascular: RRR, no murmur, no edema Rate/Rhythm: regular rhythm Chest (Breasts): Chest: normal inspection of chest Gastrointestinal (Abdomen): Inspection/Auscultation: abdomen normal to inspection and normal bowel sounds; abdomen not distended Percussion/Palpation: abdomen soft; abdomen nontender and no guarding Skin: no rashes, warm and dry Neurologic: PERRL, EOMI, accommodation nl, no face palsy, no dysarthria Psychiatric: A+Ox3, euthymic affect Orientation: oriented x 3 Results & Data Vital Signs (Past 12 Hours) Vital Signs Temp Pulse Resp BP BP Pulse Ox 09/25/18 19:11 37.2 C 74 20 148/77 H 96 09/25/18 15:27 36.2 C L 83 18 131/73 94 09/25/18 15:10 36.2 C L 83 18 131/73 94 09/25/18 11:40 36.6 C 66 18 150/87 H 92
[2018-09-26 03:45] VITALS: TEMP 98.8; O2SAT 95
[2018-09-26] MEDS: HYDROmorphone HCL 2 MG TAB PO SCH ×3 (03:46→11:18)
[2018-09-26 07:18] VITALS: BP 134/77
[2018-09-26] MEDS: METHADONE HCL 10 MG TAB PO SCH (08:16)
[2018-09-26] MEDS: FOLIC ACID 1 MG TAB PO SCH (08:16)
[2018-09-26] MEDS: MoRPHine SULFATE CR 60 MG TABCR PO SCH (08:16)
[2018-09-26] MEDS: SENNA 8.6 MG TAB PO SCH (08:16)
[2018-09-26] MEDS: DULOXETINE HCL 30 MG CAP PO SCH (08:17)
[2018-09-26] MEDS: NAPROXEN 250 MG TAB PO SCH (08:17)
[2018-09-26] MEDS: GABAPENTIN 600 MG TAB PO SCH (08:17)
[2018-09-26] MEDS: PRAVASTATIN SOD 40 MG TAB PO SCH (08:17)
[2018-09-26] MEDS: MULTIVITAMIN TAB PO SCH (08:17)
[2018-09-26] MEDS: CALCIUM 600MG + VIT D 400 IU TAB PO SCH (08:18)
[2018-09-26] MEDS: dexAMETHasone 4 MG TAB PO SCH (08:18)
[2018-09-26] MEDS: DOCUSATE SODIUM 100 MG CAP PO SCH (08:19)
[2018-09-26] MEDS: POLYETHYLENE (MIRALAX) 17 GM PACK PO SCH (08:20)
[2018-09-26] MEDS: INSULIN GLARGINE SOLOSTAR 100 UNITS/ML 3 ML PEN SC SCH (08:54)
[2018-09-26] MEDS: INSULIN ASPART 100 UNITS/ML 3 ML PEN SC SCH (08:54)
[2018-09-26] MEDS ORDERED: INSULIN GLARGINE SOLOSTAR 100 UNITS/ML 3 ML PEN SC SCH (09:00)
[2018-09-26 11:09] VITALS: PULSE 72
[2018-09-26] MEDS ORDERED: HYDROmorphone INJ 2 MG/ML SYR/VIAL IV STA (11:30)
--- NOTE | 2018-09-26 11:30 | Discharge Summary ---
Date of Service September 26, 2018 Admission HPI Per Admitting Provider This is a 63yo M with a PMH of metastatic lung cancer with mets to bone, DM II and HLD who presents with bright red blood in diarrhea since yesterday morning. Endorses about 6 episodes of diarrhea with bright red blood mixed in since then with associated lower abdominal pain, nausea and one episode of emesis yesterday. Denies history of GI bleed. Patient started new chemo regimen on August 30 consisting of Alimta and Carboplatin and is due for second round on September 20. Also completed 10 rounds of radiation as of last week. Takes 40 mg SQ Lovenox daily, last taken around 1400 yesterday. Denies any lightheadedness, chest pain, palpitations or shortness of breath. No melena. Hemoglobin is 10.7 (baseline ~12). Does endorse worsening bone pain of pelvis, ribs, left leg in setting of metastasis to bone. Principal Diagnosis METASTATIC LUNG CA /INTRACTABLE PAIN Discharge Exam Constitutional well developed, well nourished, + ill appearing (chronically ill), + thin, cooperative and comfortable; no acute distress ENMT Mouth: no dentition abnormality Mallampati Class: II Neck normal visual inspection Respiratory normal respiratory effort, lungs clear to auscultation normal respiratory effort; no respiratory distress, no labored breathing and does not use accessory muscles Auscultation: lungs clear to auscultation bilaterally and + breath sounds absent (Left lung base) Cardiovascular RRR, no murmur, no edema Rate/Rhythm: regular rate and regular rhythm Extremities: + edema; no pedal edema Chest (Breasts) Chest: normal inspection of chest; no mass Gastrointestinal (Abdomen) Inspection/Auscultation: abdomen normal to inspection and normal bowel sounds; abdomen not distended Percussion/Palpation: abdomen soft; abdomen nontender and no guarding Skin no rashes, warm and dry Neurologic PERRL, EOMI, accommodation nl, no face palsy, no dysarthria + confused Motor/Sensory: + abnormal movement (less myoclonic jerks while trying to use final motor skills) Psychiatric A+Ox3, euthymic affect Orientation: oriented x 3 Discharge Data Allergies Allergy/AdvReac Type Severity Reaction Status Date / Time ciprofloxacin [From Cipro] Allergy Intermediate BLOOD IN Verified 09/12/18 10:54 KIDNEYS mushroom AdvReac Intermediate STOMACH Verified 09/12/18 10:54 PAIN Consultations 09/12/18 11:07 ED Decision to Admit Stat 09/12/18 14:15 Consult Case Management - Discharge Planning Routine Consult Gastroenterology Routine Consult Palliative Care Routine 09/13/18 08:00 Consult Thoracic Surgery Routine Procedures Performed Operation Date: 09/14/18 09:00 Actual Procedures p Flexible Sigmoidoscopy(Not Applicable) - Isadora Tapia Ordered Studies 09/12/18 08:59 CT abd pelvis IV con only Stat Hospital Course (1) Intractable pain: From metastatic lung cancer with metastases to bone Appreciate input from palliative care Patient to be discharged today. PET/CT scan is scheduled for 1pm. -Continue MS Continue 60mg BID, 90mg at bedtime. -Continue Naprosyn 500mg PO BID. -Continue Dilaudid 4mg PO Q4h scheduled, and Q4h between scheduled doses as needed for breakthrough pain. -Continue methadone 40mg BID. -Schedule outpatient appointment with Dr. Lopez for two weeks. Left phone number with patient and his to call ([phone]). - (2) Proctocolitis with rectal bleeding: Symptom has resolved, -S/P Flexible sigmoidoscopy 09/14/18 by GI- Mild erythema in rectum, internal hemorrhoids. -Anusol PRN for hemorrhoids/changed to Anusol cream, as patient was not able to use Anusol suppository secondary to pain Rectal pain seems to be adequately controlled with Anusol cream (3) Pleural effusion on left: Malignant pleural effusion secondary to metastatic lung CA Patient is status post Thoracentesis by CT surgery on admission Respiratory status stable since then denies of any shortness of breath or dyspnea on exertion Repeat chest x-ray moderate Lt pleural effusion, unchanged from previous, Appreciate input from CT surgery so no plans was pleurx catheter for now. -Cytology from thoracentesis came back positive for malignancy, and patient updated by previous hospitalist Overall prognosis poor, (4) Myoclonic jerking: No tremor noted today (5) Metastatic primary lung cancer: History of metastatic lung cancer with mets to pelvis, vertebrae and ribs, s/[place] [facility] [place]Started new chemo regimen on August 30 consisting of Alimta and Carboplatin and is due for second round on September 20 -Recently completed 10 rounds of radiation last week -Appreciate input from palliative medicine will cont to follow Palliative care guideline for Metadone titration cont bowel regimen to prevent narcotic induced constipation (6) Diabetes mellitus, type 2: A1c of 6.7 in Jul 2018 -Hold home agents -SSI while in-patient -BSG AC HS (7) Constipation: -On colace, miralex -Sennakot ordered by palliative medicine pt reports of small hard bowel movement yesterday asked him to notify nursing if no BM in 24-48 hrs /will need more aggressive bowel regimen may need continued increment of bowel regimen as Methadone dose is titrated up (8) Hyperlipidemia: Continue pravastatin DVT Ppx: Lovenox SQ which he was getting it for DVT prophylaxis at home as well as per ortho (recent sx), hem/onc recommendations. PCP: Eugene Segovia Dispo: stable to be discharged home today Total Time Total Time Spent Total Time Spent (In Minutes): approx 40 mins Total Time Includes: Examination of the Patient, Discharge Planning, Medication Reconciliation and Communication With Other Providers Discharge Plan Discharge Items Patient Disposition: Home - Home Health Services Reason For Visit: LOWER GI BLEED Discharge Diagnosis: METASTATIC LUNG CA WITH METS TO BONE Discharge Goals: Decrease discomfort Activity: Resume your previous activity Non-emergency contact: Primary Care Provider Call non-emergency contact if: your pain is concerning for you Follow-up/Referrals: Fior Lopez MD [Physician] - (FOLLOW UP IN 2 WEEKS ) Bernadette Segovia, [Primary Care Provider] - Diet: Regular Addtl Provider Instructions: HOSPITAL FOLLOW UP WITH DR BERNADETTE SEGOVIA IN 1-2 WEEKS , PLEASE CALL TO SCHEDULE APPOINTMENT FOLLOW UP WITH DR GUZMÁN IN 1-2 WEEKS , PLEASE CALL TO SCHEDULE APPOINTMENT TAKE MULTIPLE BOWEL REGIMEN /STOOL SOFTENER /LAXATIVE OVER THE COUNTER TO PREVENT CONSTIPATION ( GOAL FOR BOWEL MOVEMENT ONCE DAILY /ONCE IN TWO DAYS -DUE TO LARGE AMOUNT OF NARCOTIC PAIN MEDICATIONS TAKE MIRALAX 1 HEAPED TABLE SPOONFUL IN 8 OZ OF BEVERAGE ( WATER/JUICE /COFFEE) EVERY DAY 3-4 TIMES NEEDED DRINK PLENTY OF FLUID , ADD FRUITS AND VEGETABLE IN MEALS TO PREVENT CONSTIPATION PLEASE TAKE NAPROXEN AFTER MEAL TO PREVENT ULCER /BLEEDING IN STOMACH Prescriptions: New methadone 10 mg tablet 40 mg PO BID Qty: 60 RF: 0 morphine 60 mg Tablet Extended Release 90 mg PO DAILY@1999 30 Days Qty: 45 RF: 0 morphine 60 mg Tablet Extended Release 60 mg PO BID@0800,1400 30 Days Qty: 60 RF: 0 sennosides [Senokot] 8.6 mg Tablet 8.6 mg PO BID 30 Days Qty: 60 RF: 0 hydrocortisone [Proctosol HC] 2.5 % Cream With Perineal Applicator 1 applic EXT Q8H PRN (Reason: PAIN) 30 Days Qty: 1 RF: 0 Boudreauxs Butt Paste 16 % Ointment 1 applic EXT Q1H PRN (Reason: PAIN) 30 Days Qty: 1 RF: 0 naproxen 500 mg tablet,delayed release (DR/EC) 500 mg PO BID PRN (Reason: pain) 30 Days Qty: 60 RF: 3 hydromorphone [Dilaudid] 4 mg tablet 4 mg PO Q4 PRN (Reason: pain) Qty: 30 RF: 0 hydromorphone [Dilaudid] 4 mg tablet 4 mg PO Q4 30 Days Qty: 90 RF: 0 Continued ondansetron HCl [Zofran] 8 mg tablet 8 mg PO TID PRN (Reason: Nausea) RF: 0 folic acid 1 mg tablet 1 mg PO DAILY RF: 0 prochlorperazine maleate [Compazine] 10 mg tablet 10 mg PO UD PRN (Reason: nausea and vomiting) RF: 0 dexamethasone 4 mg tablet 8 mg PO UD RF: 0 docusate sodium [Colace] 100 mg capsule 100 mg PO BID RF: 0 polyethylene glycol 3350 [Miralax] 17 gram/dose powder 17 gm PO DAILY RF: 0 gabapentin 600 mg tablet 600 mg PO TID RF: 0 duloxetine [Cymbalta] 30 mg capsule,delayed release(DR/EC) 30 mg PO DAILY RF: 0 multivitamin Tablet 1 tab PO DAILY RF: 0 aspirin [Aspir-Low] 81 mg Tablet,Delayed Release (Dr/Ec) 81 mg PO QAM RF: 0 pravastatin 80 mg Tablet 80 mg PO QAM RF: 0 enoxaparin [Lovenox] 40 mg/0.4 mL Syringe 40 mg subcut DAILY@1400 RF: 0 Janumet 50-1,000 mg Tablet 1 tab PO BID RF: 0 Jardiance 10 mg Tablet 10 mg PO QAM RF: 0 acetaminophen 500 mg Tablet 1,000 mg PO Q8H PRN (Reason: pain/fever) RF: 0 Xgeva 120 mg/1.7 mL (70 mg/mL) Solution 120 mg SUBCUT UD RF: 0 Ca-D3-mag [id number]-live-bor [Calcium 600-D3 Plus] 600 mg calcium- 800 unit- 50 mg Tablet 1 tab PO BID RF: 0 Discontinued oxycodone 20 mg tablet 20 mg PO Q2H PRN (Reason: pain) RF: 0 morphine 30 mg Tablet Extended Release 90 mg PO HS RF: 0 morphine 60 mg tablet extended release 60 mg PO BID RF: 0 methadone 5 mg tablet 5 mg PO HS RF: 0 Stand-Alone Forms: [facility] Discharge Orders: Discharge Order (Routine); Ordered 09/26/18 Ordered By: Amanda Chen Admission Data Admit Date/Time: 09/12/18 12:22 Attending Provider: Amanda Chen Admit Provider: Eileen Navarro Primary Care Provider: Bernadette Segovia Other Providers: Isadora Tapia ; Cleve Salcido ; Fior Lopez ; Eileen Navarro ; Home,Nursing Agency Service: Medical Other Interventions: Discharge Summary Assessment (RN) Last Done: 09/26/18 11:07 DC Date/Time DO NOT enter until pt leaves facility: 09/26/18 12:36
--- NOTE | 2018-09-26 11:46 | Palliative Care Progress Note ---
Date of Service September 26, 2018 Assessment & Plan (1) Cancer related pain: -Patient to be discharged today. PET/CT scan is scheduled for 1pm. -Continue MS Continue 60mg BID, 90mg at bedtime. -Continue Naprosyn 500mg PO BID. -Continue Dilaudid 4mg PO Q4h scheduled, and Q4h between scheduled doses as needed for breakthrough pain. -Continue methadone 40mg BID. -Schedule outpatient appointment with Dr. Lopez for two weeks. Left phone number with patient and his to call ([phone]). - (2) Metastatic primary lung cancer: (3) Proctocolitis with rectal bleeding: -Flex sig on 09/14. Internal hemorrhoids, otherwise negative. Subjective Mr. Mancini looks great today. His pain is well-managed on PO medications. , Emilie, at bedside. Review of Systems Constitutional: no weakness Ear, Nose, Mouth, Throat: no dysphagia Respiratory: no cough and no dyspnea Cardiovascular: no chest pain and no edema Gastrointestinal: no abdominal pain and no nausea Musculoskeletal: + back pain (much improved) Neurologic: no paresthesia, no tremor(s), no abnormal movements and no confusion Physical Exam Constitutional: + thin; no acute distress ENMT: external ear and nose normal, oropharynx normal Ears: no hearing impairment Neck: normal visual inspection Respiratory: normal respiratory effort, lungs clear to auscultation Auscultation: + diminished lung sounds Cardiovascular: RRR, no murmur, no edema Chest (Breasts): Chest: normal inspection of chest; no mass Skin: no rashes, warm and dry Neurologic: awake; not confused Psychiatric: A+Ox3, euthymic affect Results & Data Vital Signs (Past 12 Hours) Vital Signs Temp Pulse Pulse Resp BP BP Pulse Ox 09/26/18 11:07 37.1 C 73 72 20 134/77 95 09/26/18 07:17 37.1 C 73 20 134/77 95 09/26/18 03:44 37.1 C 67 18 162/83 H 95 Time Spent Midlevel 35 minutes with >50% of time spent at bedside with patient and his discussing plan of care.
== END 2018-09-26 12:36 | disposition home health service (06) | DRG 181 ==
LOC: ED 08:35 → 4E 12:22 → SUATTDRO 12:22 → 4E 13:44

== ENCOUNTER 2018-11-24 10:29 | Inpatient (IN) ==
[2018-11-24] MEDS ORDERED: HYDROmorphone INJ 1 MG/ML SYRINGE IV STA (10:47)
[2018-11-24 11:02] LABS: Basophils # (auto) 0.02 K/uL (0-0.2); Basophils % (auto) 0.4 %; Eosinophils # (auto) 0.05 K/uL (0-0.5); Hematocrit (blood only) 31.9 % (42-52); Hemoglobin 10.3 g/dL (14.0-18.0); Immature Granulocytes # (auto) 0.01 K/uL (0.00-0.02); Immature Granulocytes % (auto) 0.2 %; Lymphocytes # (auto) 0.43 K/uL (1.2-3.4); Lymphocytes % (auto) 8.9 %; Mean Corpuscular Hgb Conc 32.3 g/dL (32-36); Mean Corpuscular Volume 89.4 fL (80-100); Mean Platelet Volume 8.7 fL (7.4-10.4); Monocytes # (auto) 0.11 K/uL (0.11-0.59); Monocytes % (auto) 2.3 %; Neutrophils # (auto) 4.22 K/uL (1.4-6.5); Neutrophils % (auto) 87.2 %; Platelet Count 478 K/uL (130-400); RDW Coefficient of Variation 19.1 % (11.5-14.5); RDW Standard Deviation 61.9 fL (36.4-46.3); Red Blood Count 3.57 M/uL (4.7-6.1); White Blood Count 4.84 K/uL (4.8-10.8)
[2018-11-24 11:13] LABS: iSTAT Creatinine 0.5 mg/dl (0.6-1.3); iSTAT Hemoglobin 11.6 g/dl (14.0-18.0); iSTAT Ionized Calcium 1.16 mmol/l (1.12-1.32)
[2018-11-24 11:19] LABS: Alanine Aminotransferase 24 U/L (12-78); Albumin Level 3.2 gm/dl (3.4-5.0); Aspartate Aminotransferase 18 U/L (15-37); BUN Creatinine Ratio 20.6 (10-20); Blood Urea Nitrogen 18 mg/dl (7-18); Calcium 9.9 mg/dl (8.5-10.1); Carbon Dioxide 23 mmol/L (21-32); Chloride 100 mmol/L (98-107); Creatinine Clr Calc Pharmacy 66.8 ml/min; Est GFR (Non-African American) 91.4; Glucose 213 mg/dl (70-99); Magnesium 2.1 mg/dl (1.8-2.4); Sodium 134 mmol/L (136-145)
[2018-11-24] MEDS ORDERED: HYDROmorphone INJ 2 MG/ML SYR/VIAL IV STA ×2 (11:19→11:57)
[2018-11-24 11:24] LABS: Albumin Globulin Ratio 0.6 (0.9-2); Alkaline Phosphatase 83 U/L (45-117); Bilirubin,Total 0.6 mg/dl (0.2-1); Total Protein 8.2 gm/dl (6.4-8.2); Troponin I < 0.015 ng/ml (0-0.045)
[2018-11-24] MEDS ORDERED: OPTIRAY 320 125ml IV PRN (11:34)
--- NOTE | 2018-11-24 11:51 | CT Scan Report ---
CT ANGIOGRAPHY OF THE CHEST, PULMONARY EMBOLUS PROTOCOL CLINICAL HISTORY: Dyspnea. Lung cancer. Left-sided chest pain. COMPARISON STUDY: Chest CT October 07, 2018. Chest radiograph October 12, 2018. PET/CT September 26, 2018. TECHNIQUE: Following IV administration of 75 mL of Optiray-320, helical axial images of the chest wer e obtained utilizing the pulmonary embolus protocol. Maximal intensity projections and sagittal and coronal reformats were viewed on an independent 3D workstation. IV contrast was administered without complication. Automated exposure control was utilized for the study. A dose lowering technique was utilized adhering to the principles of ALARA. CT DOSE: 279.71 mGy.cm FINDINGS: No pulmonary emboli are identified. As before, several right sided pulmonary arteries are narrowed by pathologic adenopathy. A destructive lesion centered on the left fourth rib is noted with associated pathologic fracture of the left fifth rib. This is similar to CT of October 17, 2018. Enlarge d left axillary lymph nodes are either unchanged or slightly decreased in size since CT of October 17 19. An index left axillary node on image 214 measures 3.2 x 2 cm. It previously measured 3.6 x 2 cm. Mediastinal and bilateral hilar lymph nodes are either unchanged or slightly decreased in size since prior exam. The size of the heart is normal. There is no pericardial effusion. A small left pleural e ffusion has slightly decreased in size. Numerous suspected pleural metastases are noted. Numerous ske letal lesions are again noted. These are similar to prior exam. A spiculated 1.6 cm right upper lobe nodule has slightly decreased in size since prior exam. It previously measured 1.7 cm. A few addition al pulmonary nodules are similar to prior exam. Pathologic L2 compression fractures partially imaged. Upper abdomen is unremarkable. IMPRESSION: 1. No pulmonary emboli identified. 2. Small malignant left pleural effusion, slightly decreased in size since CT of October 17, 2018. 3. Extensive thoracic lymphadenopathy, either unchanged or slightly decreased since prior CT of October 032018. 4. No significant change in extensive skeletal metastatic disease, as described above. Electronically signed by: Jl Kelly M.D. 11/24/2018 11:49 AM
[2018-11-24 12:12] LABS: Prothrombin Time 10.1 Seconds (9.0-12.0)
[2018-11-24] MEDS ORDERED: LORazepam 0.5 MG/1 ML VIAL IV STA (12:12)
--- NOTE | 2018-11-24 12:15 | XRay Report ---
XR chest 1V portable CLINICAL HISTORY: Dyspnea COMPARISON STUDY: Chest radiograph October 12, 2018. Chest CT performed earlier today. FINDINGS: Right internal jugular [id number] is in place. A small left pleural effusion is noted. L eft hemithorax volume loss is noted. There is no pneumothorax. Cardiomediastinal silhouette is stable . Left basilar opacity persists. Destruction of the left fourth rib is noted. There are multiple bila teral rib fractures. IMPRESSION: 1. Small left pleural effusion. 2. Several pathologic rib fractures better depicted on chest CT performed earlier today. Electronically signed by: Jl Kelly M.D. 11/24/2018 12:13 PM
[2018-11-24 12:26] LABS: Partial Thromboplastin Ratio 0.9; Partial Thromboplastin Time 23.6 Seconds (21.0-31.0)
[2018-11-24] MEDS ORDERED: ONDANSETRON 8 MG TABLET PO PRN (15:06)
[2018-11-24] MEDS ORDERED: PROCHLORPERAZINE MALEATE 10 MG TAB PO PRN (15:06)
--- NOTE | 2018-11-24 15:08 | History & Physical Report ---
Date of Service November 24, 2018 Assessment & Plan (1) Intractable pain: (2) Left-sided chest pain: Mostly from metastatic lung cancer with metastases to bone Patient has been on taking Methadone total dose 80mg daily and dilaudid prn Received Dilaudid 6mg IV in the ER Will continue methadone 20mg with breakfast, 30mg with lunch and 30mb with dinner Will start start on IV dilaudid 1 mg q3h prn Wiill consult palliative care Dr. 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 S/P Thoracentesis by CT surgery last one 10/09 Not a candidate for pleurX catheter as per thoracic surgeon (4) Myoclonic jerking: Stable (5) Metastatic primary lung cancer: History of metastatic lung cancer with mets to pelvis, vertebrae and ribs, s/p left hip resection of bony mets/replacement in Jul 2018 at [facility] [place] Last radiation therapy on 11/19 Follow up with oncology dr Navarro Poor prognosis Continue pain control (6) Diabetes mellitus, type 2: A1c of 6.7 in Jul 2018 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 Pt said that he had chronic left side chest pain related to the lung cancer. He said that pain has been worsening today. He said that he received his last radiation therapy on 11/19, since since then his pain has been increased. He said that he had similar pain in the past in the left hip area due to bone mets. He said that he remembered that he took him about 2 weeks after completing radiation for the left hip for the pain to improves. He said that pain is worsening with breathing. He said that Dr. Lopez has been managed hi pain. He said that he takes a total of 80mg methadone daily and dilaudid prn for breakthrough pain. Pt said that his pain feels much better after received a total of 6 mg IV dilaudid in the ER. He said that he would rather stay for today to make sure pain improves. Pt denies any drowsiness after taking Methadone/dilaudid and Ativan. Currently sitting comfortable with no distress. Denies any chest pain, palpitation, dizziness, weakness and SOB Allergies Allergy/AdvReac Type Severity Reaction Status Date / Time ciprofloxacin [From Cipro] Allergy Intermediate BLOOD IN Verified 11/24/18 11:46 KIDNEYS mushroom AdvReac Intermediate STOMACH Verified 11/24/18 11:46 PAIN Home Medications Home Medications Medication Instructions Recorded Confirmed Type Janumet 1 tab PO BIDM 08/20/18 11/24/18 History multivitamin 1 tab PO 1600 08/20/18 11/24/18 History pravastatin 80 mg PO 1200 08/20/18 11/24/18 History folic acid 1 mg tablet 1 mg PO QAM 08/24/18 11/24/18 History ondansetron HCl 8 mg tablet 8 mg PO Q8H PRN 08/24/18 11/24/18 History prochlorperazine maleate 10 mg 10 mg PO Q6H PRN tab 08/24/18 11/24/18 History tablet docusate sodium 100 mg capsule 100 mg PO BID 08/28/18 11/24/18 History polyethylene glycol 3350 17 17 gm PO DAILY 08/28/18 11/24/18 History gram/dose oral powder cholecalciferol (vitamin D3) 2,000 unit PO DAILY 10/07/18 11/24/18 History [Vitamin D3] hydromorphone [Dilaudid] 2 - 4 mg PO Q4H PRN 10/07/18 11/24/18 History sennosides [Senokot] 8.6 mg PO PM 10/07/18 11/24/18 History carboplatin 544 mg IV UD 10/12/18 11/24/18 History denosumab [Xgeva] 120 mg SUBCUT UD 10/12/18 11/24/18 History naproxen 500 mg PO BID 10/12/18 11/24/18 History calcium carbonate 500 mg calcium 1,500 mg PO DAILY tab 10/19/18 11/24/18 History (1,250 mg) chewable tablet dexamethasone 4 mg tablet 4 mg PO QAM 10/19/18 11/24/18 History sertraline 25 mg tablet 50 mg PO QAM 10/19/18 11/24/18 History lorazepam 0.5 mg tablet 0.5 mg PO Q6H PRN 11/05/18 11/24/18 History methadone 10 mg tablet 30 mg PO DAILY tab 11/05/18 11/24/18 History methadone 10 mg tablet 30 mg PO QAM tab 11/05/18 11/24/18 History methadone 20 mg PO DAILY 11/24/18 11/24/18 History rivaroxaban [Xarelto] 10 mg PO DAILY 11/24/18 11/24/18 History Past Med/Surg History Medical History Metastatic primary lung cancer (Chronic) with mets to pelvis, vertebrae, ribs Hyperlipidemia (Chronic) Diabetes mellitus, type 2 (Chronic) NIDDM Osteoarthritis (Chronic) Surgical History History of hip surgery (Resolved) s/p left acetabuluar metastasis and cemented left total hip arthroplasty 08/02/18= Grade I, Grider 2, ETT 7.5 at [facility] (anesthesia records scanned in); on lovenox post-op for DVT prophylaxis History of tooth extraction (Resolved) Hx of vasectomy (Resolved) Family History Other Coronary heart disease Social History Preferred Language: Citizen Of [place] Communication Ability: Effective Visual Impairment: No Limitations Hearing Ability: Normal Health And Safety Instructor Required: No Beliefs That Will Affect Care: None marital status: Current Living Situation: Spouse current occupational status: 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 Other Information That Helps Us Care for You: No Feels Safe at Home: Yes Safety Concerns: Feels Safe At This Time Smoking Status: Former smoker Tobacco Type: cigarettes Cigarettes Per Day: 20 Do You Dip or Chew Tobacco: No Second Hand Exposure: No Tobacco Cessation Education Requested by Patient: No Hx Alcohol Use: Yes Alcohol type: beer Hx Substance Use: No during the past year weight has: decreased > 10 lbs Review of Systems Review of Systems: All systems reviewed & are unremarkable except as noted in HPI & below Physical Exam Physical Exam: General- No acute distress Head- atraumatic Eyes- PERRL, EOMI, ENT- oropharynx clear Neck- supple, no JVD Lungs- decrease BS at left lower base, left sided chest tenderness Heart- regular rhythm; no murmur Abdomen- normal bowel sounds, soft Extremities- no calf tenderness Neuro- alert, oriented x 3; PERRL, EOMI; no facial palsy; no dysarthria Skin- warm & dry Results & Data Vital Signs (Past 12 Hours) Vital Signs Temp Pulse Pulse Resp BP BP Pulse Ox 11/24/18 14:19 98 H 22 151/98 H 99 11/24/18 13:40 97 H 19 11/24/18 13:30 93 H 21 11/24/18 13:20 101 H 18 11/24/18 13:10 88 11/24/18 13:01 92 H 18 11/24/18 13:00 89 22 164/87 H 11/24/18 12:50 86 21 99 11/24/18 12:40 78 23 98 11/24/18 12:30 72 26 H 99 11/24/18 12:20 77 22 98 11/24/18 12:11 74 23 98 11/24/18 12:10 73 26 H 165/97 H 99 11/24/18 12:09 75 20 165/97 H 99 11/24/18 12:08 77 19 98 11/24/18 11:50 79 27 H 100 11/24/18 11:40 76 20 99 11/24/18 11:39 71 18 156/88 H 100 11/24/18 11:38 72 24 156/88 H 99 11/24/18 11:37 75 34 H 11/24/18 11:20 77 16 100 11/24/18 11:10 75 14 99 11/24/18 11:00 76 76 16 153/87 H 99 11/24/18 10:58 98 11/24/18 10:57 77 99 11/24/18 10:47 75 153/87 H 98 11/24/18 10:33 36.3 C L 84 24 158/81 H 97
[2018-11-24] MEDS ORDERED: MULTIVITAMIN TAB PO SCH (16:00)
[2018-11-24] MEDS ORDERED: CARBOHYDRATES FOR HYPOGLYCEMIA PO PRN ×2 (16:41→16:50)
[2018-11-24] MEDS ORDERED: GLUCOSE 40% GEL 15 GM TUBE PO PRN ×2 (16:41→16:50)
[2018-11-24] MEDS ORDERED: DEXTROSE 50% 50 ML SYRINGE IV PRN ×2 (16:41→16:50)
[2018-11-24] MEDS ORDERED: GLUCOSE 10 TABS/TUBE PO PRN ×2 (16:41→16:50)
[2018-11-24] MEDS ORDERED: GLUCAGON FOR INJ 1 MG VIAL SQ PRN ×2 (16:41→16:50)
--- NOTE | 2018-11-24 17:07 | Emergency Department Note ---
Entered by Nino Roberson acting as a scribe for Monroe Mayfield M.D. History of Present Illness General Chief complaint: Respiratory Problems Stated complaint: DIFFICULTY BREATHING Source: patient and family History of Present Illness Onset (ago): day(s) (past couple) Location: chest (lungs) Pain Consistency: + other (worsening) Quality: + other (shortness of breath) Associated symptoms: + chest pain, + cough and + other (denies abdominal pain) The patient is a 63 year old male who presents to the Emergency Room with c omplaints of worsening shortness of breath over the past couple of days. Family at bedside reports that that patient has stage IV lung cancer with metastases to the bones. He is chronically short of breath, but his symptoms have worsened over the past couple of days, especially this morning. The patient reports a slight cough productive of phlegm. The patient also reports some left-sided chest pain. He states that he took Dilaudid this morning. He reports a history of rib fractures. Family states that he was recently switched from Lovenox to Xarelto. The patient denies any abdominal pain. He states that he received radiation therapy this past week. Home Medications Home Medications Medication Instructions Recorded Confirmed Type Janumet 1 tab PO BIDM 08/20/18 11/24/18 History multivitamin 1 tab PO 1600 08/20/18 11/24/18 History pravastatin 80 mg PO 1200 08/20/18 11/24/18 History folic acid 1 mg tablet 1 mg PO QAM 08/24/18 11/24/18 History ondansetron HCl 8 mg tablet 8 mg PO Q8H PRN 08/24/18 11/24/18 History prochlorperazine maleate 10 mg 10 mg PO Q6H PRN tab 08/24/18 11/24/18 History tablet docusate sodium 100 mg capsule 100 mg PO BID 08/28/18 11/24/18 History polyethylene glycol 3350 17 17 gm PO DAILY 08/28/18 11/24/18 History gram/dose oral powder cholecalciferol (vitamin D3) 2,000 unit PO DAILY 10/07/18 11/24/18 History [Vitamin D3] hydromorphone [Dilaudid] 2 - 4 mg PO Q4H PRN 10/07/18 11/24/18 History sennosides [Senokot] 8.6 mg PO PM 10/07/18 11/24/18 History carboplatin 544 mg IV UD 10/12/18 11/24/18 History denosumab [Xgeva] 120 mg SUBCUT UD 10/12/18 11/24/18 History naproxen 500 mg PO BID 10/12/18 11/24/18 History calcium carbonate 500 mg calcium 1,500 mg PO DAILY tab 10/19/18 11/24/18 History (1,250 mg) chewable tablet dexamethasone 4 mg tablet 4 mg PO QAM 10/19/18 11/24/18 History sertraline 25 mg tablet 50 mg PO QAM 10/19/18 11/24/18 History lorazepam 0.5 mg tablet 0.5 mg PO Q6H PRN 11/05/18 11/24/18 History methadone 10 mg tablet 30 mg PO DAILY tab 11/05/18 11/24/18 History methadone 10 mg tablet 30 mg PO QAM tab 11/05/18 11/24/18 History methadone 20 mg PO DAILY 11/24/18 11/24/18 History rivaroxaban [Xarelto] 10 mg PO DAILY 11/24/18 11/24/18 History Allergies Allergy/AdvReac Type Severity Reaction Status Date / Time ciprofloxacin [From Cipro] Allergy Intermediate BLOOD IN Verified 11/24/18 11:46 KIDNEYS mushroom AdvReac Intermediate STOMACH Verified 11/24/18 11:46 PAIN Past Med/Surg History Medical History Metastatic primary lung cancer (Chronic) with mets to pelvis, vertebrae, ribs Hyperlipidemia (Chronic) Diabetes mellitus, type 2 (Chronic) NIDDM Osteoarthritis (Chronic) Surgical History History of hip surgery (Resolved) s/p left acetabuluar metastasis and cemented left total hip arthroplasty 08/02/18= Grade I, Grider 2, ETT 7.5 at [facility] (anesthesia records scanned in); on lovenox post-op for DVT prophylaxis History of tooth extraction (Resolved) Hx of vasectomy (Resolved) Family History Other Coronary heart disease Social History Preferred Language: Slovenian Communication Ability: Effective Visual Impairment: No Limitations Hearing Ability: Normal [place] Required: No Beliefs That Will Affect Care: None marital status: Current Living Situation: Spouse current occupational status: 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 and A total of 10 systems reviewed and were otherwise negative Physical Exam Vital Signs Vital Signs - 24 hr 11/24/18 10:33 11/24/18 10:45 11/24/18 10:47 Temperature 36.3 C L Temperature Source Oral Sepsis Recent Fever Within 48 Hours No Sepsis Action Taken by Nursing No Action Required Pulse Rate 84 75 Pulse Rate [Apical] Pulse Rate from SpO2 Sensor 77 Respiratory Rate 24 Respiratory Effort / Characteristics Labored Respiratory Depth Respiratory Pattern Regular Blood Pressure 158/81 H 153/87 H Blood Pressure [Left Arm] Blood Pressure Mean 106 109 Blood Pressure Mean [Left Arm] Blood Pressure Position [Left Arm] Pulse Oximetry 97 98 Oxygen Delivery Method Room Air Room Air Oxygen Flow Rate 11/24/18 10:57 11/24/18 10:58 11/24/18 11:00 Temperature Temperature Source Sepsis Recent Fever Within 48 Hours Sepsis Action Taken by Nursing Pulse Rate 77 76 Pulse Rate [Apical] 76 Pulse Rate from SpO2 Sensor 75 76 Respiratory Rate 16 Respiratory Effort / Characteristics Non-Labored Respiratory Depth Normal Respiratory Pattern Regular Blood Pressure Blood Pressure [Left Arm] 153/87 H Blood Pressure Mean Blood Pressure Mean [Left Arm] 109 Blood Pressure Position [Left Arm] Sitting Pulse Oximetry 99 98 99 Oxygen Delivery Method Nasal Cannula Nasal Cannula Oxygen Flow Rate 2 2 11/24/18 11:10 11/24/18 11:20 11/24/18 11:37 Temperature Temperature Source Sepsis Recent Fever Within 48 Hours Sepsis Action Taken by Nursing Pulse Rate 75 77 75 Pulse Rate [Apical] Pulse Rate from SpO2 Sensor 75 77 Respiratory Rate 14 16 34 H Respiratory Effort / Characteristics Respiratory Depth Respiratory Pattern Blood Pressure Blood Pressure [Left Arm] Blood Pressure Mean Blood Pressure Mean [Left Arm] Blood Pressure Position [Left Arm] Pulse Oximetry 99 100 Oxygen Delivery Method Oxygen Flow Rate 11/24/18 11:38 11/24/18 11:39 11/24/18 11:40 Temperature Temperature Source Sepsis Recent Fever Within 48 Hours Sepsis Action Taken by Nursing Pulse Rate 72 76 Pulse Rate [Apical] 71 Pulse Rate from SpO2 Sensor 72 76 Respiratory Rate 24 18 20 Respiratory Effort / Characteristics Respiratory Depth Respiratory Pattern Blood Pressure 156/88 H Blood Pressure [Left Arm] 156/88 H Blood Pressure Mean 110 Blood Pressure Mean [Left Arm] 110 Blood Pressure Position [Left Arm] Sitting Pulse Oximetry 99 100 99 Oxygen Delivery Method Nasal Cannula Oxygen Flow Rate 3 11/24/18 11:50 11/24/18 12:08 11/24/18 12:09 Temperature Temperature Source Sepsis Recent Fever Within 48 Hours Sepsis Action Taken by Nursing Pulse Rate 79 77 Pulse Rate [Apical] 75 Pulse Rate from SpO2 Sensor 79 86 Respiratory Rate 27 H 19 20 Respiratory Effort / Characteristics Respiratory Depth Respiratory Pattern Blood Pressure Blood Pressure [Left Arm] 165/97 H Blood Pressure Mean Blood Pressure Mean [Left Arm] 119 Blood Pressure Position [Left Arm] Pulse Oximetry 100 98 99 Oxygen Delivery Method Nasal Cannula Oxygen Flow Rate 2 11/24/18 12:10 11/24/18 12:11 11/24/18 12:20 Temperature Temperature Source Sepsis Recent Fever Within 48 Hours Sepsis Action Taken by Nursing Pulse Rate 73 74 77 Pulse Rate [Apical] Pulse Rate from SpO2 Sensor 74 74 77 Respiratory Rate 26 H 23 22 Respiratory Effort / Characteristics Respiratory Depth Respiratory Pattern Blood Pressure 165/97 H Blood Pressure [Left Arm] Blood Pressure Mean 119 Blood Pressure Mean [Left Arm] Blood Pressure Position [Left Arm] Pulse Oximetry 99 98 98 Oxygen Delivery Method Oxygen Flow Rate 11/24/18 12:30 11/24/18 12:40 11/24/18 12:50 Temperature Temperature Source Sepsis Recent Fever Within 48 Hours Sepsis Action Taken by Nursing Pulse Rate 72 78 86 Pulse Rate [Apical] Pulse Rate from SpO2 Sensor 72 79 85 Respiratory Rate 26 H 23 21 Respiratory Effort / Characteristics Respiratory Depth Respiratory Pattern Blood Pressure Blood Pressure [Left Arm] Blood Pressure Mean Blood Pressure Mean [Left Arm] Blood Pressure Position [Left Arm] Pulse Oximetry 99 98 99 Oxygen Delivery Method Oxygen Flow Rate 11/24/18 13:00 11/24/18 13:01 11/24/18 13:10 Temperature Temperature Source Sepsis Recent Fever Within 48 Hours Sepsis Action Taken by Nursing Pulse Rate 89 92 H 88 Pulse Rate [Apical] Pulse Rate from SpO2 Sensor Respiratory Rate 22 18 Respiratory Effort / Characteristics Spontaneous SOB on Exertion Respiratory Depth Normal Respiratory Pattern Regular Blood Pressure 164/87 H Blood Pressure [Left Arm] Blood Pressure Mean 112 Blood Pressure Mean [Left Arm] Blood Pressure Position [Left Arm] Pulse Oximetry Oxygen Delivery Method Nasal Cannula Oxygen Flow Rate 2 11/24/18 13:20 11/24/18 13:30 11/24/18 13:40 Temperature Temperature Source Sepsis Recent Fever Within 48 Hours Sepsis Action Taken by Nursing Pulse Rate 101 H 93 H 97 H Pulse Rate [Apical] Pulse Rate from SpO2 Sensor Respiratory Rate 18 21 19 Respiratory Effort / Characteristics Respiratory Depth Respiratory Pattern Blood Pressure Blood Pressure [Left Arm] Blood Pressure Mean Blood Pressure Mean [Left Arm] Blood Pressure Position [Left Arm] Pulse Oximetry Oxygen Delivery Method Oxygen Flow Rate GENERAL: Awake, alert, appears to be in moderate distress, tachypneic. HENT: Normocephalic, atraumatic. EYES: Normal conjunctiva. Sclera non-icteric. NECK: Supple. No nuchal rigidity. RESPIRATORY: Tachypnea noted. Diminished but present left-sided breath sounds. No wheezes. CARDIAC: Normal rate. Normal rhythm. Extremities warm and well perfused. GI: Soft, non-distended. No tenderness to palpation. No rebound or guarding. No masses. RECTAL: Deferred. MUSCULOSKELETAL: Atraumatic. Chest examination reveals left-sided tenderness. There is a port in the right upper chest. LOWER EXTREMITIES: Calves are equal size bilaterally and non-tender. No edema NEURO: Normal sensorium. No sensory or motor deficits noted. No facial droop. SKIN: Warm and dry. No jaundice noted. Course 1043: The patient was evaluated in room C4. A complete history and physical examination were performed. 1223: I updated the patient on current results. 1228: I consulted Radha Swift PA-C: [facility] Hospitalist. The patient will be reevaluated for hospitalization. Administered Medications Discontinued Medications Hydromorphone HCl (Dilaudid) 2 mg IV NOW STA Stop: 11/24/18 10:48 Last Admin: 11/24/18 10:55 Dose: 2 mg Documented by: [id number] Hydromorphone HCl (Dilaudid) 2 mg IV NOW STA Stop: 11/24/18 11:20 Last Admin: 11/24/18 11:23 Dose: 2 mg Documented by: [id number] Hydromorphone HCl (Dilaudid) 2 mg IV NOW STA Stop: 11/24/18 11:58 Last Admin: 11/24/18 12:08 Dose: 2 mg Documented by: [id number] Lorazepam (Ativan) 0.5 mg in 1 mls @ 1 mls/min IV NOW STA Stop: 11/24/18 12:13 Last Admin: 11/24/18 12:17 Dose: 1 mls/min Documented by: [id number] Ioversol (Optiray 320 125ml) 75 ml IV ONCE PRN PRN Reason: Interaction Checking Stop: 11/28/18 11:33 Last Admin: 11/24/18 11:34 Dose: 75 ml Documented by: [id number] Medical Decision Making Differential Diagnosis Differential diagnosis includes: infections, reactive airway disease, pneumonia, pneumothorax, COPD, CHF, cardiac ischemia, pulmonary embolism, musculoskeletal, gastrointestinal, as well as others were entertained. Medical Records Attestation: I reviewed the patient's medical records. Home Medications Current Medication List: was personally reviewed by me Laboratory Data Attestation: I reviewed the patient's lab results. Result diagrams: 11/24/18 10:49 11/24/18 10:49 Lab Results 11/24/18 11/24/18 11/24/18 Range/Units 10:49 10:49 10:49 WBC 4.84 (4.8-10.8) K/uL RBC 3.57 L (4.7-6.1) M/uL Hgb 10.3 L (14.0-18.0) g/dL POC Hgb (14.0-18.0) g/dl Hct 31.9 L (42-52) % POC Hct (42-52) % MCV 89.4 (80-100) fL MCH 28.9 (25-34) pg MCHC 32.3 (32-36) g/dL RDW Std Deviation 61.9 H (36.4-46.3) fL RDW Coeff of Henri 19.1 H (11.5-14.5) % Plt Count 478 H (130-400) K/uL MPV 8.7 (7.4-10.4) fL Immature Gran % (Auto) 0.2 % Neut % (Auto) 87.2 % Lymph % (Auto) 8.9 % [place] % (Auto) 2.3 % Eos % (Auto) 1.0 % Baso % (Auto) 0.4 % Immature Gran # (Auto) 0.01 (0.00-0.02) K/uL Neut # (Auto) 4.22 (1.4-6.5) K/uL Lymph # (Auto) 0.43 L (1.2-3.4) K/uL [place] # (Auto) 0.11 (0.11-0.59) K/uL Eos # (Auto) 0.05 (0-0.5) K/uL Baso # (Auto) 0.02 (0-0.2) K/uL PT Cancelled INR Cancelled APTT Cancelled PTT Ratio Cancelled POC Sodium (135-144) mEq/L Sodium 134 L (136-145) mmol/L POC Potassium (3.3-5.0) mEq/L Potassium 4.0 (3.5-5.1) mmol/L POC Chloride (101-112) mEq/L Chloride 100 (98-107) mmol/L Carbon Dioxide 23 (21-32) mmol/L POC Total CO2 (24-31) mEq/l Anion Gap 11.0 (3-11) POC Anion Gap (16-25) mmol/L POC BUN (7-18) mg/dl BUN 18 (7-18) mg/dl Creatinine 0.85 (0.6-1.4) mg/dl POC Creatinine (0.6-1.3) mg/dl Est Cr Clr Drug Dosing 66.8 ml/min Est GFR ( Amer) 106.0 Est GFR (Non-Af Amer) 91.4 BUN/Creatinine Ratio 20.6 H (10-20) Glucose 213 H (70-99) mg/dl POC Glucose (other) (70-99) mg/dl Calcium 9.9 (8.5-10.1) mg/dl POC Ioniz Calcium Lindsey (1.12-1.32) mmol/l Magnesium 2.1 (1.8-2.4) mg/dl Total Bilirubin 0.6 (0.2-1) mg/dl AST 18 (15-37) U/L ALT 24 (12-78) U/L Alkaline Phosphatase 83 (45-117) U/L Troponin I < 0.015 (0-0.045) ng/ml Total Protein 8.2 (6.4-8.2) gm/dl Albumin 3.2 L (3.4-5.0) gm/dl Globulin 5.0 H (2.5-4.0) gm/dl Albumin/Globulin Ratio 0.6 L (0.9-2) 11/24/18 11/24/18 11/24/18 Range/Units 11:00 11:55 11:55 WBC (4.8-10.8) K/uL RBC (4.7-6.1) M/uL Hgb (14.0-18.0) g/dL POC Hgb 11.6 L (14.0-18.0) g/dl Hct (42-52) % POC Hct 34 L (42-52) % MCV (80-100) fL MCH (25-34) pg MCHC (32-36) g/dL RDW Std Deviation (36.4-46.3) fL RDW Coeff of Henri (11.5-14.5) % Plt Count (130-400) K/uL MPV (7.4-10.4) fL Immature Gran % (Auto) % Neut % (Auto) % Lymph % (Auto) % [place] % (Auto) % Eos % (Auto) % Baso % (Auto) % Immature Gran # (Auto) (0.00-0.02) K/uL Neut # (Auto) (1.4-6.5) K/uL Lymph # (Auto) (1.2-3.4) K/uL [place] # (Auto) (0.11-0.59) K/uL Eos # (Auto) (0-0.5) K/uL Baso # (Auto) (0-0.2) K/uL PT 10.1 INR 1.0 APTT 23.6 PTT Ratio 0.9 POC Sodium 134 L (135-144) mEq/L Sodium (136-145) mmol/L POC Potassium 4.0 (3.3-5.0) mEq/L Potassium (3.5-5.1) mmol/L POC Chloride 98 L (101-112) mEq/L Chloride (98-107) mmol/L Carbon Dioxide (21-32) mmol/L POC Total CO2 19 L (24-31) mEq/l Anion Gap (3-11) POC Anion Gap 21.0 (16-25) mmol/L POC BUN 18 (7-18) mg/dl BUN (7-18) mg/dl Creatinine (0.6-1.4) mg/dl POC Creatinine 0.5 L (0.6-1.3) mg/dl Est Cr Clr Drug Dosing ml/min Est GFR ( Amer) Est GFR (Non-Af Amer) BUN/Creatinine Ratio (10-20) Glucose (70-99) mg/dl POC Glucose (other) 221 H (70-99) mg/dl Calcium (8.5-10.1) mg/dl POC Ioniz Calcium Lindsey 1.16 (1.12-1.32) mmol/l Magnesium (1.8-2.4) mg/dl Total Bilirubin (0.2-1) mg/dl AST (15-37) U/L ALT (12-78) U/L Alkaline Phosphatase (45-117) U/L Troponin I (0-0.045) ng/ml Total Protein (6.4-8.2) gm/dl Albumin (3.4-5.0) gm/dl Globulin (2.5-4.0) gm/dl Albumin/Globulin Ratio (0.9-2) Imaging Data Radiologist's Impression: Radiology results as stated below per my review and the radiologist's interpretation: CT ANGIOGRAPHY OF THE CHEST, PULMONARY EMBOLUS PROTOCOL CLINICAL HISTORY: Dyspnea. Lung cancer. Left-sided chest pain. COMPARISON STUDY: Chest CT October 07, 2018. Chest radiograph October 12, 2018. PET/CT September 26, 2018. TECHNIQUE: Following IV administration of 75 mL of Optiray-320, helical axial images of the chest were obtained utilizing the pulmonary embolus protocol. Maximal intensity projections and sagittal and coronal reformats were viewed on an independent 3D workstation. IV contrast was administered without complication. Automated exposure control was utilized for the study. A dose lowering technique was utilized adhering to the principles of ALARA. CT DOSE: 279.71 mGy.cm FINDINGS: No pulmonary emboli are identified. As before, several right sided pulmonary arteries are narrowed by pathologic adenopathy. A destructive lesion centered on the left fourth rib is noted with associated pathologic fracture of the left fifth rib. This is similar to CT of October 17, 2018. Enlarged left axillary lymph nodes are either unchanged or slightly decreased in size since CT of October 17, 2018. An index left axillary node on image 214 measures 3.2 x 2 cm. It previously measured 3.6 x 2 cm. Mediastinal and bilateral hilar lymph nodes are either unchanged or slightly decreased in size since prior exam. The size of the heart is normal. There is no pericardial effusion. A small left pleural effusion has slightly decreased in size. Numerous suspected pleural metastases are noted. Numerous skeletal lesions are again noted. These are similar to prior exam. A spiculated 1.6 cm right upper lobe nodule has slightly decreased in size since prior exam. It previously measured 1.7 cm. A few additional pulmonary nodules are similar to prior exam. Pathologic L2 compression fractures partially imaged. Upper abdomen is unremarkable. IMPRESSION: 1. No pulmonary emboli identified. 2. Small malignant left pleural effusion, slightly decreased in size since CT of October 17, 2018. 3. Extensive thoracic lymphadenopathy, either unchanged or slightly decreased since prior CT of October 17, 2018. 4. No significant change in extensive skeletal metastatic disease, as described above. Electronically signed by: Jl Kelly M.D. 11/24/2018 11:49 AM XR chest 1V portable CLINICAL HISTORY: Dyspnea COMPARISON STUDY: Chest radiograph October 12, 2018. Chest CT performed earlier today. FINDINGS: Right internal jugular [id number] is in place. A small left pleural effusion is noted. Left hemithorax volume loss is noted. There is no pneumothorax. Cardiomediastinal silhouette is stable. Left basilar opacity persists. Destruction of the left fourth rib is noted. There are multiple bilateral rib fractures. IMPRESSION: 1. Small left pleural effusion. 2. Several pathologic rib fractures better depicted on chest CT performed earlier today. Electronically signed by: Jl Kelly M.D. 11/24/2018 12:13 PM ECG Data Attestation: I personally reviewed and interpreted this ECG as follows: Indication: SOB/dyspnea Rate (beats per minute): 76 Rhythm: normal sinus Findings: + other (normal axis); no PVC, no ST depression and no ST elevation Blood Pressure Blood Pressure Findings: Elevated blood pressure Blood Pressure Disposition: further management by hospitalist KELLY Narrative Patient is a 63-year-old gentleman with an unfortunate history of widely metastatic lung cancer, hyperlipidemia, diabetes presenting today complaining of significant shortness of breath particularly this morning but worsening over last 2 to 3 days has undergone previous radiation therapy and chemotherapy last on Monday. Prior left thoracentesis by CT surgery. No fever reported and afebrile upon arrival. Not acutely hypoxic upon arrival. Patient is currently maintained on Xarelto. Significant left-sided chest pain. No fevers reported. Taking significant amount of home pain medication including methadone and oral Dilaudid. Given his significant pain and drug tolerance (uses on methadone) did give 2 mg of Dilaudid. EKG was obtained without acute ischemic findings but troponin was sent. Seems most likely be acute ACS. CT scan of the chest was completed exclude PE, rib fracture, pneumothorax, effusion, or pneumonia. Doubt this is aortic dissection. No abdominal complaints. No significant history of fall. Patient's not significantly wheezy with some slightly decreased but present left-sided lung sounds. CT scan showed no pulmonary emboli small malignant left pleural effusion with lymphadenopathy it is likely decreased or not significantly changed compared to prior CT. No significant change in metastatic disease noted on the scan according to radiology report. Laboratory studies appear similar to previous but the patient is having significant pain refractory to multiple doses of Dilaudid. Discussed with patient given multiple dose of Dilaudid here with severe refractory offered admission. Patient was agreed with this given the severe nature of his refractory pain. Discussed with the [facility] hospitalist. Impression & Plan Left-sided chest pain Discharge Plan Visit Data *Final* Discharge Date/Time: 11/24/18 14:19 Chief Complaint: Respiratory Problems Stated Complaint: DIFFICULTY BREATHING ED Provider: Monroe Mayfield Discharge Problem: Left-sided chest pain Patient Disposition: Admitted As Inpatient Discharge Instructions Interventions: ED Discharge Assessment Last Done: 11/24/18 14:19 The babaribyuly's documentation has been prepared under my direction and personally reviewed by me in its entirety. I confirm that the note above accurately reflects all work, treatment, procedures, and medical decision making performed by me.
[2018-11-24] MEDS: RIVAROXABAN 10 MG TABLET PO SCH (17:14)
[2018-11-24] MEDS ORDERED: METHADONE HCL 10 MG TAB PO SCH (18:00)
[2018-11-24] MEDS: DOCUSATE SODIUM 100 MG CAP PO SCH (20:38)
[2018-11-24] MEDS: NAPROXEN 250 MG TAB PO SCH (20:38)
[2018-11-24] MEDS: INSULIN ASPART 100 UNITS/ML 3 ML PEN SC SCH (20:46)
[2018-11-24] MEDS ORDERED: INSULIN ASPART 100 UNITS/ML 3 ML PEN SC SCH (21:00)
[2018-11-24] MEDS ORDERED: SENNA 8.6 MG TAB PO SCH (21:00)
[2018-11-24] MEDS: HYDROmorphone INJ 2 MG/ML SYR/VIAL IV PRN (23:01)
[2018-11-25] MEDS: HEPARIN 100 UNIT/ML 5ML FLUSH FLUSH PRN ×3 (05:18→09:38)
[2018-11-25] MEDS: HYDROmorphone INJ 2 MG/ML SYR/VIAL IV PRN ×2 (05:30→09:37)
[2018-11-25 06:26] LABS: Basophils # (auto) 0.02 K/uL (0-0.2); Basophils % (auto) 0.5 %; Eosinophils # (auto) 0.07 K/uL (0-0.5); Eosinophils % (auto) 1.8 %; Hemoglobin 10.1 g/dL (14.0-18.0); Lymphocytes # (auto) 0.81 K/uL (1.2-3.4); Lymphocytes % (auto) 20.4 %; Mean Corpuscular Hgb Conc 32.6 g/dL (32-36); Mean Corpuscular Volume 90.6 fL (80-100); Mean Platelet Volume 8.5 fL (7.4-10.4); Monocytes # (auto) 0.23 K/uL (0.11-0.59); Monocytes % (auto) 5.8 %; Neutrophils # (auto) 2.84 K/uL (1.4-6.5); Neutrophils % (auto) 71.5 %; Platelet Count 425 K/uL (130-400); RDW Coefficient of Variation 19.3 % (11.5-14.5); RDW Standard Deviation 64.3 fL (36.4-46.3); Red Blood Count 3.42 M/uL (4.7-6.1); White Blood Count 3.97 K/uL (4.8-10.8)
[2018-11-25 06:59] LABS: BUN Creatinine Ratio 27.6 (10-20); Calcium 9.2 mg/dl (8.5-10.1); Creatinine Clr Calc Pharmacy 115.9 ml/min; Est GFR (African American) 132.9; Est GFR (Non-African American) 114.7; Potassium 3.9 mmol/L (3.5-5.1)
[2018-11-25] MEDS: LORazepam 0.5 MG TAB PO PRN ×2 (07:00→12:29)
[2018-11-25] MEDS: NAPROXEN 250 MG TAB PO SCH (07:46)
[2018-11-25] MEDS ORDERED: METHADONE HCL 10 MG TAB PO SCH ×3 (08:00→11:30)
[2018-11-25 08:09] VITALS: BP 145/85; TEMP 97.9; O2SAT 100
[2018-11-25] MEDS: DOCUSATE SODIUM 100 MG CAP PO SCH (08:22)
[2018-11-25] MEDS: INSULIN ASPART 100 UNITS/ML 3 ML PEN SC SCH ×2 (08:27→12:48)
--- NOTE | 2018-11-25 08:35 | Hospitalist Progress Note ---
Date of Service November 25, 2018 Assessment & Plan (1) Intractable pain: (2) Left-sided chest pain: METASTATIC CANCER PAIN Secondary to metastatic lung cancer with metastases to bone. Prior admissions for similar symptoms. Anxiety contributing to the symptoms -Home regimen: Methadone 20-30-30 mg; Naproxen 500 mg PO BID, Dilaudid 2-4 mg PO q 4 hours PRN. Lorezepam 0.5 mg one time as needed for anxiety. -S/P IV Dilaudid 6 mg in ED. On IV Dilaudid 1 mg q 3 hours PRN for severe pain -Palliative medicine Dr Lopez consulted. Per Dr Beckman= recommended increasing zoloft to 2 tabs (50 mg ) and increase lorezepam 0.5 mg to TID PRN from daily PRN LEFT PLEURAL EFFUSION Malignant pleural effusion secondary to metastatic lung CA S/P Thoracentesis by CT surgery last one 10/09 Not a candidate for pleurX catheter as per thoracic surgeon HX OF MYOCLONIC JERKING -Stable METASTATIC PRIMARY LUNG CARCINOMA History of metastatic lung cancer with mets to pelvis, vertebrae and ribs, s/p [place] [facility] [place] radiation therapy on 11/19 -Follow up with oncology dr Navarro -Pain mx as above DM- II A1c of 6.7 in Jul 2018 -Hold home agents -SSI while in-patient CONSTIPATION -Continue On colace, miralax and senokot HYPERLIPIDEMIA -Continue pravastatin DVT PROPHYLAXIS Heparin SQ CODE STATUS FULL CODE DISPOSITION Eager to be discharged home Subjective Patient is feeling better. Pain is controlled. Feels that it is more of his anxiety which is contributing to his symptoms. Wants to be discharged home Denies any worsening of shortness of breath, cough. No fever, chills, abdominal pain, diarrhea, urinary symptoms. Physical Exam Physical Exam: GENERAL- AAOX3, No acute distress LUNGS- PORT + Air entry bilaterally decreased. No rales or rhonchi, wheezing HEART- Regular rate and rhythm. No murmurs ABDOMEN- Soft, non tender, non distended, Bowel sounds heard. EXTREMITIES- Good peripheral pulses, no edema Results & Data Vital Signs (Past 12 Hours) Vital Signs Temp Pulse Pulse Resp BP Pulse Ox 11/25/18 08:00 36.6 C 79 18 145/85 H 100 11/25/18 04:00 36.9 C 95 H 20 135/78 99 11/24/18 22:46 37.0 C 86 22 165/95 H 96
[2018-11-25] MEDS ORDERED: CHOLECALCIFEROL 1,000 UNITS TAB PO SCH (09:00)
[2018-11-25] MEDS ORDERED: CALCIUM 600MG + VIT D 400 IU TAB PO SCH (09:00)
[2018-11-25] MEDS ORDERED: FOLIC ACID 1 MG TAB PO SCH (09:00)
[2018-11-25] MEDS ORDERED: POLYETHYLENE (MIRALAX) 17 GM PACK PO SCH (09:00)
[2018-11-25] MEDS ORDERED: SERTRALINE HCL 50 MG TABLET PO SCH (09:00)
[2018-11-25] MEDS ORDERED: dexAMETHasone 4 MG TAB PO SCH (09:00)
[2018-11-25] MEDS ORDERED: PRAVASTATIN SOD 40 MG TAB PO SCH (12:00)
[2018-11-25] MEDS ORDERED: LORazepam 0.5 MG TAB PO ONE (12:32)
--- NOTE | 2018-11-25 12:43 | Discharge Summary ---
Date of Service November 25, 2018 Admission HPI Per Admitting Provider 63yo M with a PMH of metastatic lung cancer with mets to bone, DM II, HLD, had last radiation therapy on 11/19 (10th radiation) was brought to the ED for intractable pain in his left side chest. Pt said that he had chronic left side chest pain related to the lung cancer. He said that pain has been worsening today. He said that he received his last radiation therapy on 11/19, since since then his pain has been increased. He said that he had similar pain in the past in the left hip area due to bone mets. He said that he remembered that he took him about 2 weeks after completing radiation for the left hip for the pain to improves. He said that pain is worsening with breathing. He said that Dr. Lopez has been managed hi pain. He said that he takes a total of 80mg methadone daily and dilaudid prn for breakthrough pain. Pt said that his pain feels much better after received a total of 6 mg IV dilaudid in the ER. He said that he would rather stay for today to make sure pain improves. Pt denies any drowsiness after taking Methadone/dilaudid and Ativan. Currently sitting comfortable with no distress. Denies any chest pain, palpitation, dizziness, weakness and SOB Principal Diagnosis 1. Metastatic cancer pain 2. Anxiety Secondary diagnoses on discharge 1. Left pleural effusion secondary to metastatic lung carcinoma 2. Diabetes mellitus type 2 3. Constipation 4. Hyperlipidemia 5. Malnutrition Discharge Exam GENERAL- AAOX3, No acute distress LUNGS- PORT + Air entry bilaterally decreased. No rales or rhonchi, wheezing HEART- Regular rate and rhythm. No murmurs ABDOMEN- Soft, non tender, non distended, Bowel sounds heard. EXTREMITIES- Good peripheral pulses, no edema Discharge Data Allergies Allergy/AdvReac Type Severity Reaction Status Date / Time ciprofloxacin [From Cipro] Allergy Intermediate BLOOD IN Verified 11/24/18 11:46 KIDNEYS mushroom AdvReac Intermediate STOMACH Verified 11/24/18 11:46 PAIN Consultations 11/24/18 12:29 ED Decision to Admit Stat 11/24/18 16:40 Consult Palliative Care Routine Ordered Studies 11/24/18 10:48 CT angio chest PE protocol Stat Hospital Course (1) Intractable pain: (2) Left-sided chest pain: METASTATIC CANCER PAIN Secondary to metastatic lung cancer with metastases to bone. Prior admissions for similar symptoms. Anxiety contributing to the symptoms -Home regimen: Methadone 20-30-30 mg; Naproxen 500 mg PO BID, Dilaudid 2-4 mg PO q 4 hours PRN. Lorezepam 0.5 mg one time as needed for anxiety. -S/P IV Dilaudid 6 mg in ED. On IV Dilaudid 1 mg q 3 hours PRN for severe pain -Palliative medicine Dr Lopez consulted. Per Dr Beckman= recommended increasing zoloft to 2 tabs (50 mg ) and increase lorezepam 0.5 mg to TID PRN from daily PRN LEFT PLEURAL EFFUSION Malignant pleural effusion secondary to metastatic lung CA S/P Thoracentesis by CT surgery last one 10/09 Not a candidate for pleurX catheter as per thoracic surgeon HX OF MYOCLONIC JERKING -Stable METASTATIC PRIMARY LUNG CARCINOMA History of metastatic lung cancer with mets to pelvis, vertebrae and ribs, s/p left hip resection of bony mets/replacement in Jul 2018 at [facility] [place] -Last radiation therapy on 11/19 -Follow up with oncology dr Navarro -Pain mx as above DM- II A1c of 6.7 in Jul 2018 -Hold home agents -SSI while in-patient CONSTIPATION -Continue On colace, miralax and senokot HYPERLIPIDEMIA -Continue pravastatin DVT PROPHYLAXIS Heparin SQ CODE STATUS FULL CODE DISPOSITION Eager to be discharged home Total Time Total Time Spent Total Time Spent (In Minutes): 35 minutes Discharge Plan Discharge Items Patient Disposition: Home - Self-Care Reason For Visit: INTRACTABLE PAIN Discharge Diagnosis: METASTATIC CANCER PAIN ANXIETY Discharge Goals: Decrease discomfort Activity: Resume your previous activity Activity Comment: as tolerated Non-emergency contact: Primary Care Provider Call non-emergency contact if: your symptoms worsen Follow-up/Referrals: Fior Lopez MD [Physician] - (As scheduled) Warren Thapa DO [Primary Care Provider] - (We will call you for follow up appt date/time within 7 days as scheduling office is closed today) Diet: Carb Consistent or DM2 Addtl Provider Instructions: MEDICATION CHANGES 1. Increase Zoloft dosing to 2 tablets = 50 mg daily from 25 mg daily 2 increase lorazepam from 0.5 mg daily as needed to 0.5 mg 3 times daily as needed for anxiety Follow up with Dr Lopez, Palliative medicine Prescriptions: Continued ondansetron HCl [Zofran] 8 mg tablet 8 mg PO Q8H PRN (Reason: Nausea) RF: 0 folic acid 1 mg tablet 1 mg PO QAM RF: 0 prochlorperazine maleate [Compazine] 10 mg tablet 10 mg PO Q6H PRN (Reason: nausea and vomiting) RF: 0 docusate sodium [Colace] 100 mg capsule 100 mg PO BID RF: 0 polyethylene glycol 3350 [Miralax] 17 gram/dose powder 17 gm PO DAILY RF: 0 calcium carbonate 500 mg calcium (1,250 mg) tablet,chewable 1,500 mg PO DAILY RF: 0 sertraline [Zoloft] 25 mg tablet 50 mg PO QAM RF: 0 methadone 10 mg tablet 30 mg PO DAILY RF: 0 multivitamin Tablet 1 tab PO 1600 RF: 0 pravastatin 80 mg Tablet 80 mg PO 1200 RF: 0 Janumet 50-1,000 mg Tablet 1 tab PO BIDM RF: 0 cholecalciferol (vitamin D3) [Vitamin D3] 2,000 unit Capsule 2,000 unit PO DAILY RF: 0 sennosides [Senokot] 8.6 mg tablet 8.6 mg PO PM RF: 0 hydromorphone [Dilaudid] 4 mg tablet 2 - 4 mg PO Q4H PRN (Reason: pain) RF: 0 carboplatin 10 mg/mL Solution 544 mg IV UD RF: 0 Xgeva 120 mg/1.7 mL (70 mg/mL) Solution 120 mg SUBCUT UD RF: 0 naproxen 500 mg tablet,delayed release (DR/EC) 500 mg PO BID RF: 0 dexamethasone 4 mg tablet 4 mg PO QAM RF: 0 methadone 10 mg tablet 30 mg PO QAM RF: 0 methadone 10 mg tablet 20 mg PO DAILY RF: 0 Xarelto 10 mg Tablet 10 mg PO DAILY RF: 0 Changed lorazepam [Ativan] 0.5 mg tablet 0.5 mg PO TID PRN (Reason: Anxiety) 30 Days Qty: 20 RF: 0 Stand-Alone Forms: [facility] Discharge Orders: Discharge Order (Routine); Ordered 11/25/18 Ordered By: Eileen Navarro Admission Data Admit Date/Time: 11/24/18 13:56 Attending Provider: Eileen Navarro Admit Provider: Caryn Arias Primary Care Provider: Warren Thapa Other Providers: Crayn Arias ; Fior Lopez Service: Oncology
[2018-11-25] MEDS: RIVAROXABAN 10 MG TABLET PO SCH (12:51)
[2018-11-25 12:59] VITALS: PULSE 95
--- NOTE | 2018-11-26 07:57 | Palliative Care Progress Note ---
Date of Service November 26, 2018 Subjective Consult placed on 11/24 at [facility], patient discharged 11/25. Consult not completed.
== END 2018-11-25 14:10 | disposition home or self-care (01) | DRG 948 ==
LOC: ED 10:29 → 4E 13:56
DX: Z79.01 Long term (current) use of anticoagulants; K59.00 Constipation, unspecified; Z92.3 Personal history of irradiation; J91.0 Malignant pleural effusion; E46 Unspecified protein-calorie malnutrition; C34.90 Malignant neoplasm of unspecified part of unspecified bronchus or lung; E78.5 Hyperlipidemia, unspecified; Z79.84 Long term (current) use of oral hypoglycemic drugs; G89.3 Neoplasm related pain (acute) (chronic); C79.51 Secondary malignant neoplasm of bone; Z79.899 Other long term (current) drug therapy; R07.89 Other chest pain; E11.9 Type 2 diabetes mellitus without complications; Z68.1 Body mass index [BMI] 19.9 or less, adult; G25.3 Myoclonus

== ENCOUNTER 2019-04-18 11:59 | Inpatient (IN) ==
[2019-04-18] MEDS ORDERED: ALBUT/IPRATROP 3MG/0.5MG NEB 3 ML VIAL INH STA (13:02)
[2019-04-18] MEDS ORDERED: methylPREDNISolone 125 MG/2 ML VIAL IV STA (13:03)
--- NOTE | 2019-04-18 13:35 | XRay Report ---
XR chest 1V portable HISTORY: 63 years-old Male Dyspnea acute shortness of breath COMPARISON: Chest radiographs 03/04/2019, CTA chest 11/24/2018 TECHNIQUE: Portable AP view of the chest FINDINGS: Cardiac silhouette is enlarged, unchanged. Emphysema. Chronic interstitial coarsening. 2.4 cm irregul ar nodule of the right upper lobe redemonstrated. Right IJ central venous catheter is stable. There a re patchy left greater than right bibasilar and left midlung airspace opacities with small left pleur al effusion. Probable trace right pleural effusion. No pneumothorax. Skeletal metastasis redemonstrat ed. Healing pathologic fracture of the lateral right sixth rib. IMPRESSION: 1. Left greater than right bibasilar and left midlung airspace opacities suspicious for pneumonia or aspiration pneumonitis. 2. Small left pleural effusion. 3. Irregular right upper lobe pulmonary nodule with skeletal metastasis redemonstrated. 4. Emphysema. The above report was generated using voice recognition software. It may contain grammatical, syntax o r spelling errors. Electronically signed by: Kai Vargas M.D. 04/18/2019 1:34 PM
[2019-04-18 13:38] LABS: Basophils # (auto) 0.02 K/uL (0-0.2); Basophils % (auto) 0.2 %; Eosinophils # (auto) 0.21 K/uL (0-0.5); Eosinophils % (auto) 1.8 %; Hematocrit (blood only) 30.9 % (42-52); Hemoglobin 9.4 g/dL (14.0-18.0); Immature Granulocytes # (auto) 0.05 K/uL (0.00-0.02); Immature Granulocytes % (auto) 0.4 %; Lymphocytes # (auto) 0.55 K/uL (1.2-3.4); Lymphocytes % (auto) 4.7 %; Mean Corpuscular Hemoglobin 26.9 pg (25-34); Mean Corpuscular Hgb Conc 30.4 g/dL (32-36); Mean Corpuscular Volume 88.3 fL (80-100); Mean Platelet Volume 9.1 fL (7.4-10.4); Monocytes # (auto) 0.75 K/uL (0.11-0.59); Monocytes % (auto) 6.4 %; Neutrophils # (auto) 10.06 K/uL (1.4-6.5); Neutrophils % (auto) 86.5 %; Platelet Count 301 K/uL (130-400); RDW Coefficient of Variation 19.7 % (11.5-14.5); RDW Standard Deviation 63.7 fL (36.4-46.3); White Blood Count 11.64 K/uL (4.8-10.8)
[2019-04-18 13:52] LABS: Alanine Aminotransferase 17 U/L (12-78); Albumin Level 2.3 gm/dl (3.4-5.0); Aspartate Aminotransferase 19 U/L (15-37); BUN Creatinine Ratio 27.2 (10-20); Blood Urea Nitrogen 16 mg/dl (7-18); Calcium 9.4 mg/dl (8.5-10.1); Carbon Dioxide 30 mmol/L (21-32); Chloride 98 mmol/L (98-107); Creatinine Clr Calc Pharmacy 81.9 ml/min; Est GFR (African American) 122.3; Est GFR (Non-African American) 105.5; Glucose 129 mg/dl (70-99); INR 1.1 (0.9-1.1); Partial Thromboplastin Ratio 0.8; Partial Thromboplastin Time 20.8 Seconds (21.0-31.0); Potassium 3.8 mmol/L (3.5-5.1); Prothrombin Time 10.9 Seconds (9.0-12.0); Sodium 134 mmol/L (136-145)
[2019-04-18 13:58] LABS: Albumin Globulin Ratio 0.5 (0.9-2); Alkaline Phosphatase 99 U/L (45-117); Bilirubin,Total 0.4 mg/dl (0.2-1); Globulin 4.9 gm/dl (2.5-4.0); Total Protein 7.2 gm/dl (6.4-8.2); Troponin I < 0.015 ng/ml (0-0.045)
[2019-04-18] MEDS ORDERED: VANCOMYCIN CONSULT ACTIVE PRN ×2 (14:12→15:52)
[2019-04-18] MEDS ORDERED: CEFEPIME 2,000 MG/20 ML VIAL IV STA (14:12)
[2019-04-18] MEDS ORDERED: VANCOMYCIN HCL 1,000 MG in SODIUM CHLORIDE 0.9% 500 ML IV ONE (14:12)
[2019-04-18] MEDS ORDERED: OPTIRAY 320 125ml IV PRN (14:47)
--- NOTE | 2019-04-18 15:01 | CT Scan Report ---
CT angio chest PE protocol CT DOSE: 323.03 mGycm HISTORY: 63 years-old Male with Dyspnea, lung ca, o2 sat 65%. Acute shortness of breath in a patien t with history of lung cancer. TECHNIQUE: Multiple CTA images of the chest were obtained after the intravenous administration of 88 ml Optiray 320. Coronal and sagittal MIPS were obtained from the axial data set and were submitted f or review. All measurements were obtained according to NASCET criteria. A dose lowering technique wa s utilized adhering to the principles of ALARA. COMPARISON: Chest radiograph of same day, CTA chest 11/24/2018 FINDINGS: CTA: Heart is mildly enlarged. Trace pericardial effusion. Coronary arterial calcifications are noted. No thoracic aortic aneurysm or dissection. Patency of the imaged great vessels. Pulmonary artery is opac ified to level the subsegmental branches. The distal segmental and subsegmental branches are suboptim ally evaluated secondary to contrast bolus timing. There is narrowing of the pulmonary arterial branc hes of the right hilum secondary to pathologic right hilar adenopathy. CT CHEST: Unremarkable thyroid. Pathologically enlarged mediastinal and hilar lymph nodes with additional multi ple soft tissue nodules/lymph nodes of the epicardial tissues. The epicardial nodules have increased in size from comparison. 10 mm left subpectoral lymph node has decreased in size comparison. Large so ft tissue mass of the left chest wall has also decreased. Left axillary lymph nodes measure up to 1.8 x 1.5 cm. Chronic small left pleural effusion with pleural thickening appears generally unchanged. Extensive mu ltifocal bibasilar groundglass and consolidative opacities, left greater than right with air bronchog vilma. Bilateral intralobular septal thickening with mild emphysema. Increased size of the irregular s piculated nodule of the apical segment right upper lobe, 2.4 x 1.3 cm, previously measuring approxima tely 1.6 x 1.1 cm. Interval development of multiple bilateral solid pulmonary nodules measuring up to approximately 7-8 mm bilaterally compatible with metastasis. Bilateral bronchial wall thickening is noted. Partially imaged soft tissue thickening of the left adrenal gland appears progressed from comp arison measuring up to 1.7 cm suggestive of adrenal metastasis. Diffuse skeletal metastasis redemonst rated. There is increased sclerosis involving multiple the metastatic lesions with several of the neeraj tebral body lesions mildly increased in size.. Lytic bony destruction of the anterolateral left fourt h rib redemonstrated. IMPRESSION: 1. Chronic small left pleural effusion with pleural thickening redemonstrated, likely malignant. 2. Extensive left greater the right bibasilar consolidative and groundglass opacities suggests pneumo tana or aspiration pneumonitis. 3. Cardiomegaly with mild pulmonary edema. 4. No evidence of pulmonary thromboembolic disease. 5. Increased size of the previously noted lobular spiculated right upper lobe nodule with interval de velopment of bilateral pulmonary metastatic nodules. 6. Mild progression of the diffuse skeletal metastasis. 7. Persistent pathologic adenopathy of the chest as above. The above report was generated using voice recognition software. It may contain grammatical, syntax o r spelling errors. Electronically signed by: Kai Vargas M.D. 04/18/2019 3:00 PM
[2019-04-18] MEDS ORDERED: CANNABIDIOL PO SCH (15:52)
[2019-04-18] MEDS ORDERED: PIPERACILL/TAZOBAC CONSULT ACTIVE PRN (15:52)
[2019-04-18] MEDS ORDERED: DEXTROSE 50% 50 ML SYRINGE IV PRN (15:52)
[2019-04-18] MEDS ORDERED: LORazepam 0.5 MG TAB PO PRN (15:52)
[2019-04-18] MEDS ORDERED: GLUCOSE 10 TABS/TUBE PO PRN (15:52)
[2019-04-18] MEDS ORDERED: GLUCAGON FOR INJ 1 MG VIAL SQ PRN (15:52)
[2019-04-18] MEDS ORDERED: POLYETHYLENE (MIRALAX) 17 GM PACK PO PRN (15:52)
[2019-04-18] MEDS ORDERED: ACETAMINOPHEN 325 MG TAB PO PRN (15:52)
[2019-04-18] MEDS ORDERED: MAGNESIUM HYDROXIDE SUSP 30 ML UDC PO PRN (15:52)
[2019-04-18] MEDS ORDERED: GLUCOSE 40% GEL 15 GM TUBE PO PRN (15:52)
[2019-04-18] MEDS ORDERED: ALUMINUM/MAGNESIUM SUSP 30 ML UDC PO PRN (15:52)
[2019-04-18] MEDS ORDERED: SODIUM CHLORIDE 0.9% 1000ML 1,000 ML IV SCH (15:52)
[2019-04-18] MEDS ORDERED: EXTRACT PO SCH (15:52)
--- NOTE | 2019-04-18 15:54 | History & Physical Report ---
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 In ED patient was initially hypoxic to 84% and eventually required nonrebreather to maintain O2 saturation. He was otherwise afebrile and hemodynamically stable. Initial chest x-ray suspicious for pneumonia or aspiration pneumonitis, chronic small left pleural effusion Chest CTA obtained which was negative for PE, but did reveal extensive left greater than right bibasilar consolidative and groundglass opacities concerning for pneumonia or aspiration pneumonitis. Chronic small left pleural effusion with pleural thickening likely malignant. Cardiomegaly with mild pulmonary ed vanessa, increase in size of previously noted lobular spiculated RUL nodule with interval development of bilateral pulmonary metastatic nodules. WBC 11k, H/H stable at 9.4/30.9, bun/cr 16/0.60, LA 1.83, trop WNL. He received broad spectrum IV antibiotics vanco/cefepime, 125mg IV Methylprednisolone and nebulizer tx with mild improvement in sx. He does not meet SIRS/SEPSIS Criteria admit to PCU continue broad spectrum IV antibiotics Vanco/Zosyn to cover for aspiration MRSA swab IV methylprednisolone 40mg q8hr aggressive pulmonary toilet with duoneb, incentive spirometry Pt [place] [facility] [place] low threshold to consult Titrate off non rebreather and to nasal cannula monitor volume status closely (3) Metastatic primary lung cancer: Follows Dr. Navarro hematology oncology Metastatic adenocarcinoma with signet-ring appearance to the bones (left pelvis, L5 vertebral body, ribs) Receives [id number] chemo Alimta and [id number] Xgevea takes dexamethasone 4mg daily - will hold in setting of IV methylprednisolone (4) Diabetes mellitus, type 2: A1c 6.5 on 01/2019 Repeat A1c in a.m. Hold outpatient Janumet Consult glycemic pharmacy in setting of IV methylprednisolone use (5) Cancer related pain: Follows Dr. Lopez for pain management on methadone 30mg q8hr, po hydromorphone 2mg q4hr prn and medical marijuana with tinctures also has received palliative xrt, last 09/2018 (6) Hyperlipidemia: Continue statin (7) DVT prophylaxis: Xarelto, SCD/TEDS disposition: admit to PCU Follow up: PCP Dr. Thapa upon discharge along with appropriate oncology follow up Pt was seen and examined in collaboration with Dr. Garsia, please see addendum Starting 04/19/19 pt will be under the care of Dr. Johnson History of Present Illness Chief Complaint: Worsened SOB x 2 days. Primary Care Provider: Warren Thapa DO This is a 63 yr old M who has significant PMH of Metastatic non small cell Lung CA to bone and pleura, T2DM, HLD, protein calorie malnutrition, depression who presents to [facility] ED secondary to worsened SOB x 2 days. For the past 2-3 weeks pt has had increased cough, more productive sputum white/clear, worsened SOB. The past two mornings pt had significant worsening of SOB specifically first th ing in the morning. states his lips were purple. He does not use O2 at home. Complains of CARIAS, "rib pain" 2/2 to mets. He feels warm but denies documented fever. He is always chilled. Over 50lb weight loss in the past 1 year. Denies dizziness, lightheaded, syncope, hemoptysis, recent n/v, dysuria, increased urg/freq with urination. He does have intermittent nausea after chemo but no vomiting. He also has been experiencing LLQ abd pain intermittently, currently absent. Attributed this to constipation. He alternates from diarrhea to constipation due to pain meds and bowel regimen. He currently is receiving chemo therapy under the care of Dr. Navarro q4 weeks. Was seen in Dr. Navarro office today when O2 saturations were in 60s and he was referred to our ED. Appetite has overall been poor, on Remeron. He takes medical marijuana, po Dilaudid and methadone for pain control. elicits profound fatigue past 2 days. Allergies Allergy/AdvReac Type Severity Reaction Status Date / Time ciprofloxacin [From Cipro] Allergy Intermediate BLOOD IN Verified 04/18/19 13:08 KIDNEYS mushroom AdvReac Intermediate STOMACH Verified 04/18/19 13:08 PAIN Home Medications Home Medications Medication Instructions Recorded Confirmed Type Janumet 1 tab PO BIDM 08/20/18 04/18/19 History multivitamin 1 tab PO 1400 08/20/18 04/18/19 History pravastatin 80 mg PO 1200 08/20/18 04/18/19 History folic acid 1 mg tablet 1 mg PO DAILY@1000 08/24/18 04/18/19 History ondansetron HCl 8 mg tablet 8 mg PO Q8H PRN 08/24/18 04/18/19 History prochlorperazine maleate 10 mg 10 mg PO Q6H PRN tab 08/24/18 04/18/19 History tablet docusate sodium 100 mg capsule 100 mg PO BID 08/28/18 04/18/19 History polyethylene glycol 3350 17 17 gm PO BID 08/28/18 04/18/19 History gram/dose oral powder cholecalciferol (vitamin D3) 2,000 unit PO DAILY@1600 10/07/18 04/18/19 History [Vitamin D3] hydromorphone [Dilaudid] 2 mg PO Q4H PRN 10/07/18 04/18/19 History sennosides [Senokot] 8.6 mg PO PM 10/07/18 04/18/19 History calcium carbonate 500 mg calcium 1,500 mg PO BID tab 10/19/18 04/18/19 History (1,250 mg) chewable tablet dexamethasone 4 mg tablet 4 mg PO DAILY@1000 10/19/18 04/18/19 History lorazepam 0.5 mg tablet 0.25 mg PO QID PRN tab 03/14/19 04/18/19 History methadone 10 mg tablet 30 mg PO Q8H tab 03/14/19 04/18/19 History pemetrexed 500 mg intravenous 0 mg IV UD ea 03/14/19 04/18/19 History solution cannabidiol (CBD) extract 100 100 mg PO UD ml 03/15/19 04/18/19 History mg/mL oral solution cyanocobalamin (vitamin B-12) 0 mcg IM UD 04/18/19 04/18/19 History denosumab [Xgeva] 0 mg SUBCUT UD 04/18/19 04/18/19 History dexamethasone 4 mg PO UD 04/18/19 04/18/19 History mirtazapine 15 mg PO DAILY@2000 04/18/19 04/18/19 History rivaroxaban [Xarelto] 10 mg PO DAILY@1400 11/14/19 11/14/19 History sertraline 100 mg PO DAILY@0800 04/18/19 04/18/19 History Past Med/Surg History Medical History (Updated 04/18/19 @ 16:01 by Christin Gonzalez PA-C) Diabetes mellitus, type 2 (Chronic) NIDDM Fatigue Hx of chest pain Hyperlipidemia (Chronic) Metastatic primary lung cancer (Chronic) with mets to pelvis, vertebrae, ribs Metastatic adenocarcinoma with signet-ring appearance to the bones (left pelvis, L5 vertebral body, ribs) Right upper lobe lung mass, considered to be a primary site, multiple lung nodules. T4 N2 M1c, stage IV EGFR, ALK and BRAF mutation negative PD-L1 expression 15% Malignant left pleural effusion. Osteoarthritis (Chronic) SOB (shortness of breath) Surgical History History of hip surgery (Resolved) s/p left acetabuluar metastasis and cemented left total hip arthroplasty 08/02/18= Grade I, Grider 2, ETT 7.5 at [facility] (anesthesia records scanned in); on lovenox post-op for DVT prophylaxis History of tooth extraction (Resolved) Hx of vasectomy (Resolved) Family History Other Coronary heart disease Diabetes Emphysema of lung Lung cancer Social History (Updated 04/18/19 @ 15:51 by Christin Gonzalez PA-C) Preferred Language: Trinidadian Communication Ability: Effective Visual Impairment: No Limitations Hearing Ability: Normal Day Worker Required: No Beliefs That Will Affect Care: None marital status: Current Living Situation: Spouse current occupational status: retired 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 Feels Safe at Home: Yes Smoking Status: Former smoker Tobacco Type: cigarettes ; packs per day: 1 ; Cigarettes Per Day: 20 ; Number of Years Since Quit: 7 ; Second Hand Exposure: No ; Hx Alcohol Use: Yes Alcohol type: beer Hx Substance Use: No during the past year weight has: decreased > 10 lbs Review of Systems Review of Systems: All systems reviewed & are unremarkable except as noted in HPI & below Physical Exam Physical Exam: Constitutional: Thin, cachectic, M, vitals as above, NAD, sitting up in bed, on non breather 15L, pleasant, conversing easily Head: Normocephalic, Atraumatic Eyes: PERRL, conjunctivae normal, anicteric sclerae ENMT: external ear and nose normal, oropharynx dry mucous membranes Neck: trachea midline, no thyromegaly normal visual inspection Respiratory: normal respiratory effort, lungs clear to auscultation with diffuse expiratory wheezing and diminished breath sounds at bases, no rhonchi. Normal insp/exp effort, no accessory muscle use on 15L via non rebreather Cardiovascular: RRR, no murmur, no edema Vessels: no JVD or carotid bruit Chest: normal inspection of chest Abdomen: normal bowel sounds, soft, nontender, no hepatosplenomegaly Musculoskeletal: no cyanosis or clubbing, extremities motor strength 5/5 Skin: no rashes, warm and dry normal turgor Neurologic: PERRL, EOMI, accommodation nl, no face palsy, no dysarthria CN's II-XI intact bilaterally and moves all extremities Psychiatric: A+Ox3, euthymic affect Lymphatic: no cervical or axillary lymphadenopathy : deferred Results & Data Vital Signs (Past 12 Hours) Vital Signs Temp Pulse Pulse Resp BP BP Pulse Ox 04/18/19 15:10 86 22 137/85 95 04/18/19 14:21 93 04/18/19 14:15 87 L 04/18/19 13:56 83 14 89 L 04/18/19 13:32 91 04/18/19 12:13 93 04/18/19 12:09 37.0 C 92 H 22 137/74 84 L Laboratory Results Short CBC 04/18/19 Range/Units 13:25 WBC 11.64 H (4.8-10.8) K/uL Hgb 9.4 L (14.0-18.0) g/dL Hct 30.9 L (42-52) % Plt Count 301 (130-400) K/uL BMP 04/18/19 13:25 Sodium 134 L Potassium 3.8 Chloride 98 Carbon Dioxide 30 BUN 16 Creatinine 0.60 Glucose 129 H Calcium 9.4 Cardiac Enzymes 04/18/19 Range/Units 13:25 Troponin I < 0.015 (0-0.045) ng/ml Liver Function 04/18/19 Range/Units 13:25 Total Bilirubin 0.4 (0.2-1) mg/dl AST 19 (15-37) U/L ALT 17 (12-78) U/L Alkaline Phosphatase 99 (45-117) U/L Albumin 2.3 L (3.4-5.0) gm/dl Diagnostic Findings Chest CTA: IMPRESSION: 1. Chronic small left pleural effusion with pleural thickening redemonstrated, likely malignant. 2. Extensive left greater the right bibasilar consolidative and groundglass opacities suggests pneumonia or aspiration pneumonitis. 3. Cardiomegaly with mild pulmonary edema. 4. No evidence of pulmonary thromboembolic disease. 5. Increased size of the previously noted lobular spiculated right upper lobe nodule with interval development of bilateral pulmonary metastatic nodules. 6. Mild progression of the diffuse skeletal metastasis. 7. Persistent pathologic adenopathy of the chest as above. CXR: IMPRESSION: 1. Left greater than right bibasilar and left midlung airspace opacities suspicious for pneumonia or aspiration pneumonitis. 2. Small left pleural effusion. 3. Irregular right upper lobe pulmonary nodule with skeletal metastasis redemonstrated. 4. Emphysema. Medications Administered Vancomycin HCl 1,000 mg/ (Sodium Chloride) 520 mls @ 200 mls/hr IV NOW ONE Stop: 04/18/19 16:47 Last Admin: 04/18/19 15:19 Dose: 200 mls/hr Documented by: [id number] Discontinued Medications Albuterol (Duoneb) 3 ml INH NOW STA Stop: 04/18/19 13:03 Last Admin: 04/18/19 13:55 Dose: 3 ml Documented by: [id number] Cefepime HCl (Maxipime) 2,000 mg in 20 mls @ 5 mls/min IV NOW STA; Protocol Stop: 04/18/19 14:15 Last Admin: 04/18/19 15:19 Dose: 5 mls/min Documented by: [id number] Ioversol (Optiray 320 125ml) 88 ml IV ONCE PRN PRN Reason: Interaction Checking Stop: 04/22/19 14:46 Last Admin: 04/18/19 14:47 Dose: 88 ml Documented by: [id number] Methylprednisolone (Solumedrol) 125 mg IV NOW STA Stop: 04/18/19 13:04 Last Admin: 04/18/19 14:01 Dose: 125 mg Documented by: [id number] ECG Rate (beats per minute): 84 Rhythm: normal sinus Code Status & VTE Plan VTE Prophylaxis Plan VTE Prophylaxis will be ordered: Yes Supervising Physician Co-Signing Physician Notes Attending addendum: The patient was seen and examined in emergency room Is a 63-year old male with significant past medical history of metastatic non- small cell lung cancer has been on chemotherapy,last chemo received about 4 weeks ago He was sent in from his oncology oncologist office with increasing shortness of breath and feverish feeling Feels better in the emergency room and denies any chest pain and/or palpitation No abdominal pain nausea no vomiting and no numbness or tingling involving any of the extremities or weakness involving any side in particular On examination Moderate shortness of breath at rest Afebrile and hemodynamically stable Chest-decreased breath sounds both sides with widespread wheezing and crackles at the bases, right more than the left Abdomen-benign Extremities-no edema SQL MANAGER-alert, awake and oriented x3. Generally weak Admission labs and imaging studies reviewed Has extensive bilateral infiltration more on the right than the left without any evidence of pulmonary embolism on CAT scan of the chest Started on appropriate intravenous antibiotics Agree with assessment and plan as outlined above by IVANA Dudley DR
[2019-04-18] MEDS: ALBUT/IPRATROP 3MG/0.5MG NEB 3 ML VIAL NEB SCH ×2 (16:08→19:27)
[2019-04-18] MEDS ORDERED: PHARMACY GLYCEMIC MGMT CONSULT PRN (16:16)
[2019-04-18] MEDS: METHADONE HCL 10 MG TAB PO SCH ×2 (16:18→21:05)
[2019-04-18] MEDS: HYDROmorphone HCL 2 MG TAB PO PRN (16:19)
[2019-04-18] MEDS ORDERED: INSULIN GLARGINE SOLOSTAR 100 UNITS/ML 3 ML PEN SC SCH (17:00)
[2019-04-18] MEDS: RIVAROXABAN 10 MG TABLET PO SCH (17:13)
[2019-04-18] MEDS: CHOLECALCIFEROL 1,000 UNITS TAB PO SCH (17:14)
[2019-04-18 17:24] LABS: Appearance Urine Clear (Clear); Bilirubin Urine Negative (Negative); Blood Urine Negative (Negative); Color Urine Yellow; Glucose Urine UA Negative (Negative); Ketones Urine Negative (Negative); Leukocyte Esterase Urine Negative (Negative); Nitrite Urine Negative (Negative); Protein Urine Negative (Negative); Specific Gravity Urine > 1.045 (1.000-1.030); Urobilinogen Urine Negative (Negative)
[2019-04-18] MEDS: INSULIN ASPART 100 UNITS/ML 3 ML PEN SC SCH ×2 (17:37→20:30)
[2019-04-18] MEDS ORDERED: PIPERACILLIN/TAZOBACTAM 3.375 GM in DEXTROSE 5% 100 ML IV SCH (20:00)
[2019-04-18] MEDS: CALCIUM CARBONATE 1250MG TAB PO SCH (20:08)
[2019-04-18] MEDS: SENNA 8.6 MG TAB PO SCH (20:08)
[2019-04-18] MEDS: MIRTAZAPINE TAB 15 MG TAB PO SCH (20:08)
[2019-04-18] MEDS: DOCUSATE SODIUM 100 MG CAP PO SCH (20:08)
[2019-04-18] MEDS: POLYETHYLENE (MIRALAX) 17 GM PACK PO SCH (20:09)
--- NOTE | 2019-04-18 20:40 | Emergency Department Note ---
Entered by Lenora Bran acting as a scribe for Geovany Cui MD ED Provider Note CHIEF COMPLAINT: Shortness of Breath HISTORY OF PRESENT ILLNESS: The patient is a 63 year old female who presents to the Emergency Room with complaints of shortness of breath for the past few days. He states he woke up with "blue lips" this morning and went to see his Oncologist, Dr. Ridge Navarro of [facility], whom he follows with for a history of stage IV lung cancer. He is on Alimta and Xgeva. His O2 at the doctors office was 65% on RA, so he was referred here to the ED. He was placed on 4L NC by EMS and is around 93% here in the ED. The patient complains of a productive cough and his family states "it sounds like he is going to drown in it when he coughs". He also complains of intermittent chest pain and increased weakness. He is currently on daily Dexamethasone. Pt denies LOC, headache, fevers, chills, diaphoresis, visual changes, neck pain, nausea, vomiting, abdominal pain, back pain, melena, hematochezia, urinary symptoms, numbness, lymphadenopathy, rash, or other complaints. REVIEW OF SYSTEMS: See HPI for pertinent positives and negatives. A total of ten systems were reviewed and were otherwise negative. PMHx/PSHx: Stage IV lung cancer. Left sided pleural effusion. DM. Osteoarthritis. SOCIAL HISTORY: Patient lives at home. PHYSICAL EXAM: GENERAL: Awake, alert, gaunt-appearing, in no distress HENT: Normocephalic, atraumatic. Oropharynx unremarkable. EYES: PERRL. Normal conjunctiva. Sclera non-icteric. NECK: Inspection normal. Non-tender. Supple. No nuchal rigidity. FROM. No ma sses. RESPIRATORY: Inspiratory and expiratory wheezes. No rales. Increased work of breathing. CHEST: Port in right upper chest. CARDIAC: Normal rate. Normal rhythm. No murmurs. No rubs. Extremities warm and well perfused. Pulses equal. No JVD. GI: Soft, non-distended. No tenderness to palpation. No rebound or guarding. No masses. RECTAL: Deferred. MUSCULOSKELETAL: Atraumatic. Chest examination reveals no tenderness. The back is symmetrical on inspection without obvious abnormality. There is no CVA tenderness to palpation. No joint edema. LOWER EXTREMITIES: Calves are equal size bilaterally and non-tender. No edema. No discoloration. NEURO: Normal sensorium. No sensory or motor deficits noted. SKIN: No rash or jaundice noted. EMERGENCY DEPARTMENT COURSE: 1254: Past medical records reviewed. The patient was evaluated in room C7, and a complete history and physical examination were performed. 1415: I reevaluated the patient. He is resting comfortably. I discussed my recommendation he remain in the hospital for further evaluation and management and he is agreeable with the plan. 1420: I discussed the patients case with Christin Gonzalez PA-C, [facility] Hospitalist. The patient will be further evaluated. MEDICAL DECISION MAKING: Triage Nursing notes reviewed and agree them. Additional history obtained from the family. The patient's history was concerning for shortness of breath. Differential diagnosis: Etiologies such as pneumonia, comp of lung cancer, COPD, reactive airway disease, CHF, cardiac ischemia, pulmonary embolism, pneumothorax, musculoskeletal, infections, gastrointestinal, as well as others were enter tained. Physical examination: As above. Increased work of breathing. The patient had hypoxia requiring supplemental nasal cannula oxygen and then titration to a nonrebreather. ER treatment provided: DuoNeb IV Solu-Medrol Supplemental oxygen which was titrated to a nonrebreather IV cefepime IV vancomycin On reassessment the patient felt better. Diagnostic interpretation by me: The electrocardiogram was negative for pathologic change. The labs revealed mild leukocytosis on CBC. Chemistry panel, LFTs and troponin negative. Imaging studies: Chest x-ray concerning for bibasilar and left midlung pneumonia CT imaging was performed. No PE found. Increased metastatic disease present. Bilateral pneumonias in the bases as well as in the left midlung noted. The patient has significant increased work of breathing and is hypoxic without supplemental oxygen use. He is not requiring BiPAP or ventilatory support at the moment but will need management in the hospital. Consultation: A consultation was placed with the hospitalist. The case was discussed and diagnostics were reviewed. The patient was evaluated in the ER for further treatment. IMPRESSION: Hypoxia. Bilateral lower lobe pneumonia. Left mid-lung pneumonia. Metastatic lung cancer. PLAN: Evaluation by Hospitalist. The scribe's documentation has been prepared under my direction and personally reviewed by me in its entirety. I confirm that the note above accurately reflects all work, treatment, procedures, and medical decision making performed by me. CRITICAL CARE: I have personally spent greater than 30 minutes of critical care time in the direct management of this patient. This includes bedside care, interpretation of diagnostic studies, and testing, discussion with consultants, patient, and family members, and other required patient management activities. This 30 minutes is in excess of all separately billable procedures. Impression & Plan Hypoxia, Pneumonia of both lower lobes, Pneumonia involving left lung, Cancer, metastatic to lung Past Med/Surg History Medical History (Updated 04/18/19 @ 16:01 by Christin Gonzalez PA-C) Diabetes mellitus, type 2 (Chronic) NIDDM Fatigue Hx of chest pain Hyperlipidemia (Chronic) Metastatic primary lung cancer (Chronic) with mets to pelvis, vertebrae, ribs Metastatic adenocarcinoma with signet-ring appearance to the bones (left pelvis, L5 vertebral body, ribs) Right upper lobe lung mass, considered to be a primary site, multiple lung nodules. T4 N2 M1c, stage IV EGFR, ALK and BRAF mutation negative PD-L1 expression 15% Malignant left pleural effusion. Osteoarthritis (Chronic) SOB (shortness of breath) Surgical History History of hip surgery (Resolved) s/p left acetabuluar metastasis and cemented left total hip arthroplasty 08/02/18= Grade I, Grider 2, ETT [address] 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 Other Information That Helps Us Care for You: No Feels Safe at Home: Yes Safety Concerns: Feels Safe At This Time Smoking Status: Former smoker Tobacco Type: cigarettes ; packs per day: 1 ; Cigarettes Per Day: 20 ; Do You Dip or Chew Tobacco: No ; Number of Years Since Quit: 7 ; Second Hand Exposure: No ; Tobacco Cessation Education Requested by Patient: No Hx Alcohol Use: No Hx Substance Use: No during the past year weight has: decreased > 10 lbs Results & Data Vital Signs Vital Signs - 24 hr 04/18/19 12:09 04/18/19 12:13 04/18/19 13:32 Temperature 37.0 C Temperature Source Oral Pulse Rate 92 H Pulse Rate [Finger] Respiratory Rate 22 Respiratory Effort / Characteristics Blood Pressure 137/74 Blood Pressure Mean 95 Pulse Oximetry 84 L 93 91 Oxygen Delivery Method Room Air Nasal Cannula Nasal Cannula Oxygen Flow Rate 4 4 Sepsis Recent Fever Within 48 Hours No Sepsis Action Taken by Nursing No Action Required 04/18/19 13:56 04/18/19 14:15 04/18/19 14:21 Temperature Temperature Source Pulse Rate Pulse Rate [Finger] 83 Respiratory Rate 14 Respiratory Effort / Characteristics Spontaneous Blood Pressure Blood Pressure Mean Pulse Oximetry 89 L 87 L 93 Oxygen Delivery Method Nasal Cannula Nasal Cannula Non-rebreather Oxygen Flow Rate 4 6 15 Sepsis Recent Fever Within 48 Hours Sepsis Action Taken by Prison Medications Current Medication List: was personally reviewed by me Laboratory Data Attestation: I reviewed the patient's lab results. Result diagrams: 04/18/19 13:25 04/18/19 13:25 Lab Results 04/18/19 04/18/19 04/18/19 Range/Units 13:25 13:25 13:25 WBC 11.64 H (4.8-10.8) K/uL RBC 3.50 L (4.7-6.1) M/uL Hgb 9.4 L (14.0-18.0) g/dL Hct 30.9 L (42-52) % MCV 88.3 (80-100) fL MCH 26.9 (25-34) pg MCHC 30.4 L (32-36) g/dL RDW Std Deviation 63.7 H (36.4-46.3) fL RDW Coeff of Henri 19.7 H (11.5-14.5) % Plt Count 301 (130-400) K/uL MPV 9.1 (7.4-10.4) fL Immature Gran % (Auto) 0.4 % Neut % (Auto) 86.5 % Lymph % (Auto) 4.7 % Trigg % (Auto) 6.4 % Eos % (Auto) 1.8 % Baso % (Auto) 0.2 % Immature Gran # (Auto) 0.05 H (0.00-0.02) K/uL Neut # (Auto) 10.06 H (1.4-6.5) K/uL Lymph # (Auto) 0.55 L (1.2-3.4) K/uL Trigg # (Auto) 0.75 H (0.11-0.59) K/uL Eos # (Auto) 0.21 (0-0.5) K/uL Baso # (Auto) 0.02 (0-0.2) K/uL PT 10.9 (9.0-12.0) Seconds INR 1.1 (0.9-1.1) APTT 20.8 L (21.0-31.0) Seconds PTT Ratio 0.8 Sodium 134 L (136-145) mmol/L Potassium 3.8 (3.5-5.1) mmol/L Chloride 98 (98-107) mmol/L Carbon Dioxide 30 (21-32) mmol/L Anion Gap 6.0 (3-11) BUN 16 (7-18) mg/dl Creatinine 0.60 (0.6-1.4) mg/dl Est Cr Clr Drug Dosing 81.9 ml/min Est GFR ( Amer) 122.3 Est GFR (Non-Af Amer) 105.5 BUN/Creatinine Ratio 27.2 H (10-20) Glucose 129 H (70-99) mg/dl POC Lactic Acid Blaine (0.90-1.70) mmol/L Calcium 9.4 (8.5-10.1) mg/dl Magnesium 2.0 (1.8-2.4) mg/dl Total Bilirubin 0.4 (0.2-1) mg/dl AST 19 (15-37) U/L ALT 17 (12-78) U/L Alkaline Phosphatase 99 (45-117) U/L Troponin I < 0.015 (0-0.045) ng/ml Total Protein 7.2 (6.4-8.2) gm/dl Albumin 2.3 L (3.4-5.0) gm/dl Globulin 4.9 H (2.5-4.0) gm/dl Albumin/Globulin Ratio 0.5 L (0.9-2) 04/18/19 Range/Units 13:32 WBC (4.8-10.8) K/uL RBC (4.7-6.1) M/uL Hgb (14.0-18.0) g/dL Hct (42-52) % MCV (80-100) fL MCH (25-34) pg MCHC (32-36) g/dL RDW Std Deviation (36.4-46.3) fL RDW Coeff of Henri (11.5-14.5) % Plt Count (130-400) K/uL MPV (7.4-10.4) fL Immature Gran % (Auto) % Neut % (Auto) % Lymph % (Auto) % Trigg % (Auto) % Eos % (Auto) % Baso % (Auto) % Immature Gran # (Auto) (0.00-0.02) K/uL Neut # (Auto) (1.4-6.5) K/uL Lymph # (Auto) (1.2-3.4) K/uL Trigg # (Auto) (0.11-0.59) K/uL Eos # (Auto) (0-0.5) K/uL Baso # (Auto) (0-0.2) K/uL PT (9.0-12.0) Seconds INR (0.9-1.1) APTT (21.0-31.0) Seconds PTT Ratio Sodium (136-145) mmol/L Potassium (3.5-5.1) mmol/L Chloride (98-107) mmol/L Carbon Dioxide (21-32) mmol/L Anion Gap (3-11) BUN (7-18) mg/dl Creatinine (0.6-1.4) mg/dl Est Cr Clr Drug Dosing ml/min Est GFR ( Amer) Est GFR (Non-Af Amer) BUN/Creatinine Ratio (10-20) Glucose (70-99) mg/dl POC Lactic Acid Blaine 1.83 H (0.90-1.70) mmol/L Calcium (8.5-10.1) mg/dl Magnesium (1.8-2.4) mg/dl Total Bilirubin (0.2-1) mg/dl AST (15-37) U/L ALT (12-78) U/L Alkaline Phosphatase (45-117) U/L Troponin I (0-0.045) ng/ml Total Protein (6.4-8.2) gm/dl Albumin (3.4-5.0) gm/dl Globulin (2.5-4.0) gm/dl Albumin/Globulin Ratio (0.9-2) Administered Medications Albuterol (Duoneb) 3 ml NEB QIDR YEHUDA Stop: 05/18/19 15:51 Last Admin: 04/18/19 19:27 Dose: 3 ml Documented by: [id number] Admin: 04/18/19 16:08 Dose: Not Given Documented by: [id number] Calcium Carbonate (Os-Edison 500) 1,250 mg PO BID [facility] Stop: 05/18/19 20:59 Last Admin: 04/18/19 20:08 Dose: 1,250 mg Documented by: [id number] Docusate Sodium (Colace) 100 mg PO BID YEHUDA Stop: 05/18/19 20:59 Last Admin: 04/18/19 20:08 Dose: 100 mg Documented by: [id number] Hydromorphone HCl (Dilaudid) 2 mg PO QID PRN PRN Reason: Pain Stop: 05/02/19 16:04 Last Admin: 04/18/19 16:19 Dose: 2 mg Documented by: [id number] Insulin Aspart (Novolog Flexpen) 0 units SC ACHS YEHUDA Stop: 05/18/19 16:59 Last Admin: 04/18/19 20:30 Dose: 2 units Documented by: [id number] Cosigned by: [id number] Admin: 04/18/19 17:37 Dose: 3 units Documented by: [id number] Cosigned by: [id number] Insulin Glargine (Lantus Solostar Pen) 12 units SC ONE [facility] Stop: 04/18/19 21:00 Last Admin: 04/18/19 17:36 Dose: 12 units Documented by: [id number] Cosigned by: [id number] Methadone HCl (Dolophine) 30 mg PO Q8 [facility] Stop: 05/02/19 16:14 Last Admin: 04/18/19 16:18 Dose: 30 mg Documented by: [id number] Mirtazapine (Remeron) 15 mg PO DAILY@1999 [facility] Stop: 05/18/19 19:59 Last Admin: 04/18/19 20:08 Dose: 15 mg Documented by: [id number] Polyethylene Glycol (Miralax Powder Packet) 17 gm PO BID@ [facility] Stop: 05/18/19 19:59 Last Admin: 04/18/19 20:09 Dose: Not Given Documented by: [id number] Rivaroxaban (Xarelto) 10 mg PO DAILY@1400 [facility] Stop: 05/18/19 16:59 Last Admin: 04/18/19 17:13 Dose: 10 mg Documented by: [id number] Sennosides (Senokot) 8.6 mg PO PM [facility] Stop: 05/18/19 20:59 Last Admin: 04/18/19 20:08 Dose: 8.6 mg Documented by: [id number] Vitamin D (Vitamin D3) 2,000 units PO DAILY@1600 [facility] Stop: 05/18/19 15:59 Last Admin: 04/18/19 17:14 Dose: 2,000 units Documented by: [id number] Discontinued Medications Albuterol (Duoneb) 3 ml INH NOW STA Stop: 04/18/19 13:03 Last Admin: 04/18/19 13:55 Dose: 3 ml Documented by: [id number] Cefepime HCl (Maxipime) 2,000 mg in 20 mls @ 5 mls/min IV NOW STA; Protocol Stop: 04/18/19 14:15 Last Admin: 04/18/19 15:19 Dose: 5 mls/min Documented by: [id number] Vancomycin HCl 1,000 mg/ (Sodium Chloride) 520 mls @ 200 mls/hr IV NOW ONE Stop: 04/18/19 16:47 Last Infusion: 04/18/19 18:52 Dose: 0 mls/hr Documented by: [id number] Admin: 04/18/19 15:19 Dose: 200 mls/hr Documented by: [id number] Sodium Chloride (Nss 1000ml) 1,000 mls @ 80 mls/hr IV .[id number] [facility] Stop: 04/19/19 04:21 Last Admin: 04/18/19 18:52 Dose: Not Given Documented by: [id number] Piperacillin Sod/Tazobactam (Sod 3.375 gm/ Dextrose) 115 mls @ 230 mls/hr IV TODAY@1999 [facility]; Protocol Stop: 04/18/19 20:29 Last Admin: 04/18/19 20:15 Dose: 230 mls/hr Documented by: [id number] Ioversol (Optiray 320 125ml) 88 ml IV ONCE PRN PRN Reason: Interaction Checking Stop: 04/22/19 14:46 Last Admin: 04/18/19 14:47 Dose: 88 ml Documented by: [id number] Methylprednisolone (Solumedrol) 125 mg IV NOW STA Stop: 04/18/19 13:04 Last Admin: 04/18/19 14:01 Dose: 125 mg Documented by: [id number] Imaging Data Radiologist's Impression: Radiology results as stated below per my review and the radiologist's interpretation: XR chest 1V portable HISTORY: 63 years-old Male Dyspnea acute shortness of breath COMPARISON: Chest radiographs 03/04/2019, CTA chest 11/24/2018 TECHNIQUE: Portable AP view of the chest FINDINGS: Cardiac silhouette is enlarged, unchanged. Emphysema. Chronic interstitial coarsening. 2.4 cm irregular nodule of the right upper lobe redemonstrated. Right IJ central venous catheter is stable. There are patchy left greater than right bibasilar and left midlung airspace opacities with small left pleural effusion. Probable trace right pleural effusion. No pneumothorax. Skeletal metastasis redemonstrated. Healing pathologic fracture of the lateral right sixth rib. IMPRESSION: 1. Left greater than right bibasilar and left midlung airspace opacities suspicious for pneumonia or aspiration pneumonitis. 2. Small left pleural effusion. 3. Irregular right upper lobe pulmonary nodule with skeletal metastasis redemo nstrated. 4. Emphysema. The above report was generated using voice recognition software. It may contain grammatical, syntax or spelling errors. Electronically signed by: Kai Vargas M.D. 04/18/2019 1:34 PM ECG Data Attestation: I personally reviewed and interpreted this ECG as follows: Indication: + SOB/dyspnea Rate (beats per minute): 84 Rhythm: normal sinus ECG Intervals/blocks: + Normal QRS and + Normal QT ECG ST segments: no ST depression and no ST elevation ECG Findings: + Q waves (Anterior) and + Other (Left atrial enlargement); no PACs and no PVCs Blood Pressure Blood Pressure Findings: Elevated blood pressure Blood Pressure Disposition: further management by hospitalist Discharge Plan Visit Data *Final* Discharge Date/Time: 04/18/19 15:24 Chief Complaint: Shortness of Breath/Dyspnea Stated Complaint: sob ED Provider: Geovany Cui Discharge Problem: Hypoxia, Pneumonia of both lower lobes, Pneumonia involving left lung, Cancer, metastatic to lung Patient Disposition: Admitted As Inpatient Discharge Instructions Interventions: ED Discharge Assessment Last Done: 04/18/19 15:24 The scribe's documentation has been prepared under my direction and personally reviewed by me in its entirety. I confirm that the note above accurately reflec ts all work, treatment, procedures, and medical decision making performed by me.
[2019-04-18] MEDS: methylPREDNISolone 40 MG in SYRINGE 0 ML IV SCH (21:05)
[2019-04-19] MEDS: PIPERACILLIN/TAZOBACTAM 3.375 GM in DEXTROSE 5% 100 ML IV SCH ×3 (02:23→17:36)
[2019-04-19] MEDS: HYDROmorphone HCL 2 MG TAB PO PRN (02:23)
[2019-04-19] MEDS: VANCOMYCIN HCL 750 MG in SODIUM CHLORIDE 0.9% 250 ML IV SCH ×2 (02:24→15:54)
[2019-04-19] MEDS: methylPREDNISolone 40 MG in SYRINGE 0 ML IV SCH ×2 (06:11→15:54)
[2019-04-19] MEDS: METHADONE HCL 10 MG TAB PO SCH ×3 (06:19→22:33)
[2019-04-19 06:36] LABS: Basophils # (auto) 0.01 K/uL (0-0.2); Basophils % (auto) 0.1 %; Eosinophils # (auto) 0.01 K/uL (0-0.5); Eosinophils % (auto) 0.1 %; Hematocrit (blood only) 28.1 % (42-52); Hemoglobin 8.5 g/dL (14.0-18.0); Immature Granulocytes # (auto) 0.03 K/uL (0.00-0.02); Immature Granulocytes % (auto) 0.3 %; Lymphocytes # (auto) 0.64 K/uL (1.2-3.4); Lymphocytes % (auto) 6.9 %; Mean Corpuscular Hemoglobin 26.7 pg (25-34); Mean Corpuscular Hgb Conc 30.2 g/dL (32-36); Mean Corpuscular Volume 88.4 fL (80-100); Mean Platelet Volume 9.2 fL (7.4-10.4); Monocytes # (auto) 0.68 K/uL (0.11-0.59); Monocytes % (auto) 7.4 %; Neutrophils # (auto) 7.85 K/uL (1.4-6.5); Neutrophils % (auto) 85.2 %; Platelet Count 316 K/uL (130-400); RDW Coefficient of Variation 19.7 % (11.5-14.5); RDW Standard Deviation 63.7 fL (36.4-46.3); Red Blood Count 3.18 M/uL (4.7-6.1); White Blood Count 9.22 K/uL (4.8-10.8)
[2019-04-19] MEDS: ALBUT/IPRATROP 3MG/0.5MG NEB 3 ML VIAL NEB SCH ×4 (07:05→18:59)
[2019-04-19 07:06] LABS: Albumin Level 2.1 gm/dl (3.4-5.0); BUN Creatinine Ratio 23.2 (10-20); Calcium 8.9 mg/dl (8.5-10.1); Creatinine Clr Calc Pharmacy 103.5 ml/min; Est GFR (African American) 131.8; Est GFR (Non-African American) 113.7
[2019-04-19 07:09] LABS: Albumin Globulin Ratio 0.4 (0.9-2); Bilirubin,Total 0.5 mg/dl (0.2-1); Globulin 4.8 gm/dl (2.5-4.0); Total Protein 6.9 gm/dl (6.4-8.2)
[2019-04-19 07:41] LABS: Estimated Average Glucose 151 mg/dl; Hemoglobin A1C 6.9 % (4.5-5.6)
[2019-04-19] MEDS ORDERED: INSULIN GLARGINE SOLOSTAR 100 UNITS/ML 3 ML PEN SC ONE (09:00)
[2019-04-19] MEDS: DOCUSATE SODIUM 100 MG CAP PO SCH ×2 (09:02→19:52)
[2019-04-19] MEDS: SERTRALINE HCL 100 MG TABLET PO SCH (09:02)
[2019-04-19] MEDS: FOLIC ACID 1 MG TAB PO SCH (09:02)
[2019-04-19] MEDS: CALCIUM CARBONATE 1250MG TAB PO SCH ×2 (09:03→19:52)
[2019-04-19] MEDS: INSULIN ASPART 100 UNITS/ML 3 ML PEN SC SCH ×4 (09:05→22:36)
[2019-04-19] MEDS: POLYETHYLENE (MIRALAX) 17 GM PACK PO SCH ×2 (09:07→19:52)
--- NOTE | 2019-04-19 11:08 | Palliative Care Consultation ---
Date of Consultation April 19, 2019 Assessment & Plan (1) Goals of care, counseling/discussion: -63 year old male patient with metastatic non-small cell lung cancer, presented to the hospital from his oncologist's office for hypoxia and feeling unwell. Patient found to have bilateral pneumonia and was requiring 30L high- flow oxygen. He was of course started on abx and is already feeling much better and is down to 6L nasal cannula. Patient is well-known to palliative care service from his time of diagnosis back in August 2018 when he was having intractable, excruciating pain from his bone mets. He completed palliative XRT and was ultimately placed on methadone and PO Dilaudid for breakthrough pain and sent home with his Fior. Patient followed-up with heme/onc and has been undergoing chemotherapy under the care of Dr. Ridge Navarro. Patient had a PET scan on 03/06/19 that showed stable pulmonary disease and they made plans to start a new chemo regimen. Since then, patient has been declining and feeling lousy-- increased SOB, weakness, fatigue, weight loss. Yesterday, he went to Dr. Navarro's office to start his new chemo regimen, and he was sent to the ED for evaluation. He was found to have bilateral pneumonia. Dr. Bennett follows patient in the outpatient setting and came to see patient in hospital-- informed patient there may be new spots on his lungs and possibly increased size of nodules. Palliative care is consulted for continuity of care and supportive care. -Met with patient during several visits in room 236. His was present during second visit. -Patient states he is feeling much better today and already feels less short of breath. Patient's major concern is his weigh loss and poor appetite. He is on medical marijuana which does seem to help. He is hoping that once his breathing is more under control, it may improve his ability to eat. He was eating lunch during my second visit without a problem. -Patient was quite discouraged from the news about his possible progression of disease despite chemotherapy. Dr. Bennett plans to return to patient's room when present to discuss. We will also continue to follow for medical decision making and discussion about goals of care. -Code status should be clarified and we will discuss this with he and his after they've been able to talk with other physicians. -Continue methadone 30mg PO TID. Use 2mg PO Dilaudid for breakthrough pain. Has lorazepam ordered PRN for anxiety. Anxiety has been a huge factor for this patient throughout this process. (2) Cancer, metastatic to lung: (3) Bilateral pneumonia: (4) Cancer related pain: Supervising Physician Co-Signing Physician Notes Patient seen and examined, patient's and patient's [id number] at bedside Collaborated with EMMETT Gonzalez as well as attending physician Dr. Johnson Patient is well-known to me from outpatient palliative clinic-manage his cancer related pain as well as his anxiety. Patient had been doing well until the past few weeks when he was experiencing increased shortness of breath. Patient was sent to the emergency room from the oncology office for hypoxia. Overnight patient was able to tolerate being off high flow nasal cannula for a while- recently returned back to high flow today. Patient appears to be responding well to IV antibiotics. His pain is well controlled on his current regime-he only required 2 PRN p.o. Dilaudid in the past 24 hours. Discussed in detail and at length with patient and his CODE STATUS-they both understand that even if he were to decide to be a DNR does not mean that short-term intubation would not be offered. Expect patient to continue to improve and eventually return home, discussed his wishes if the unexpected occurred. He and his will think about it-they will notify attending physician Dr. Johnson, if there is a change in his current CODE STATUS. PE: Patient awake and alert, appears comfortable at rest and with conversation on high flow nasal cannula HEENT: EOMI, hearing within normal limits Respirations: Unlabored CV: Regular rate, no edema Abdomen: Not distended Extremities: Full range of motion Neuro: Alert and oriented x4 Agree with above note, assessment and plan as per EMMETT Gonzalez-will continue to follow and assist with symptom management and medical decision making as needed. History of Present Illness Attending Physician: Geovany Johnson MD History of Present Illness This 63 year old male patient with metastatic non-small cell lung cancer, presented to the hospital from his oncologist's office for hypoxia and feeling unwell. Patient found to have bilateral pneumonia and was requiring 30L high- flow oxygen. He was of course started on abx and is already feeling much better and is down to 6L nasal cannula. Patient is well-known to palliative care service from his time of diagnosis back in August 2018 when he was having intractable, excruciating pain from his bone mets. He completed palliative XRT and was ultimately placed on methadone and PO Dilaudid for breakthrough pain and sent home with his Fior. Patient followed-up with heme/onc and has been undergoing chemotherapy under the care of Dr. Ridge Navarro. Patient had a PET scan on 03/06/19 that showed stable pulmonary disease and they made plans to start a new chemo regimen. Since then, patient has been declining and feeling lousy-- increased SOB, weakness, fatigue, weight loss. Yesterday, he went to Dr. Navarro's office to start his new chemo regimen, and he was sent to the ED for evaluation. He was found to have bilateral pneumonia. Dr. Bennett follows patient in the outpatient setting and came to see patient in hospital-- informed patient there may be new spots on his lungs and possibly increased size of nodules. Palliative care is consulted for continuity of care and supportive care. Thank you kindly for this consult. Palliative care team will follow as needed. Allergies Allergy/AdvReac Type Severity Reaction Status Date / Time ciprofloxacin [From Cipro] Allergy Intermediate BLOOD IN Verified 04/18/19 13:08 KIDNEYS mushroom AdvReac Intermediate STOMACH Verified 04/18/19 13:08 PAIN Home Medications Home Medications Medication Instructions Recorded Confirmed Type Janumet 1 tab PO BIDM 08/20/18 04/18/19 History multivitamin 1 tab PO 1400 08/20/18 04/18/19 History pravastatin 80 mg PO 1200 08/20/18 04/18/19 History folic acid 1 mg tablet 1 mg PO DAILY@1000 08/24/18 04/18/19 History ondansetron HCl 8 mg tablet 8 mg PO Q8H PRN 08/24/18 04/18/19 History prochlorperazine maleate 10 mg 10 mg PO Q6H PRN tab 08/24/18 04/18/19 History tablet docusate sodium 100 mg capsule 100 mg PO BID 08/28/18 04/18/19 History polyethylene glycol 3350 17 17 gm PO BID 08/28/18 04/18/19 History gram/dose oral powder cholecalciferol (vitamin D3) 2,000 unit PO DAILY@1600 10/07/18 04/18/19 History [Vitamin D3] hydromorphone [Dilaudid] 2 mg PO Q4H PRN 10/07/18 04/18/19 History sennosides [Senokot] 8.6 mg PO PM 10/07/18 04/18/19 History calcium carbonate 500 mg calcium 1,500 mg PO BID tab 10/19/18 04/18/19 History (1,250 mg) chewable tablet dexamethasone 4 mg tablet 4 mg PO DAILY@1000 10/19/18 04/18/19 History lorazepam 0.5 mg tablet 0.25 mg PO QID PRN tab 03/14/19 04/18/19 History methadone 10 mg tablet 30 mg PO Q8H tab 03/14/19 04/18/19 History pemetrexed 500 mg intravenous 0 mg IV UD ea 03/14/19 04/18/19 History solution cannabidiol (CBD) extract 100 100 mg PO UD ml 03/15/19 04/18/19 History mg/mL oral solution cyanocobalamin (vitamin B-12) 0 mcg IM UD 04/18/19 04/18/19 History denosumab [Xgeva] 0 mg SUBCUT UD 04/18/19 04/18/19 History dexamethasone 4 mg PO UD 04/18/19 04/18/19 History mirtazapine 15 mg PO DAILY@2000 04/18/19 04/18/19 History rivaroxaban [Xarelto] 10 mg PO DAILY@1400 04/18/19 04/18/19 History sertraline 100 mg PO DAILY@0800 04/18/19 04/18/19 History Patient History Medical History (Updated 04/19/19 @ 14:24 by Nakul Bennett MD) Diabetes mellitus, type 2 (Chronic) NIDDM Fatigue Goals of care, counseling/discussion Hx of chest pain Hyperlipidemia (Chronic) Metastatic primary lung cancer (Chronic) with mets to pelvis, vertebrae, ribs Metastatic adenocarcinoma with signet-ring appearance to the bones (left pelv is, L5 vertebral body, ribs) Right upper lobe lung mass, considered to be a primary site, multiple lung nodules. T4 N2 M1c, stage IV EGFR, ALK and BRAF mutation negative PD-L1 expression 15% Malignant left pleural effusion. Osteoarthritis (Chronic) SOB (shortness of breath) Surgical History History of hip surgery (Resolved) s/p left acetabuluar metastasis and cemented left total hip arthroplasty 08/02/18= Grade I, Grider 2, ETT 7.5 at [facility] (anesthesia records scanned in); on lovenox post-op for DVT prophylaxis History of tooth extraction (Resolved) Hx of vasectomy (Resolved) Family History Other Coronary heart disease Diabetes Emphysema of lung Lung cancer Social History (Updated 04/18/19 @ 15:51 by Christin Gonzalez PA-C) Preferred Language: Luxembourger Communication Ability: Effective Visual Impairment: No Limitations Hearing Ability: Normal Litigation Support Analyst Required: No Beliefs That Will Affect Care: None marital status: Current Living Situation: Spouse current occupational status: retired 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 Other Information That Helps Us Care for You: No Feels Safe at Home: Yes Safety Concerns: Feels Safe At This Time Smoking Status: Former smoker Tobacco Type: cigarettes ; packs per day: 1 ; Cigarettes Per Day: 20 ; Do You Dip or Chew Tobacco: No ; Number of Years Since Quit: 7 ; Second Hand Exposure: No ; Tobacco Cessation Education Requested by Patient: No Hx Alcohol Use: No Hx Substance Use: No during the past year weight has: decreased > 10 lbs Review of Systems Review of Systems: Const: + weakness, + fatigue ENMT: No dysphagia Resp: + SOB, + cough but no sputum Cardio: No chest pain, no edema GI: No abdominal pain, no N/V, + poor appetite and weight loss MS: + musculoskeletal pain-- left ribs. Currently under control Neuro: No confusion Psych: No anxiety, no depression Physical Exam Constitutional: + frail appearing; no acute distress ENMT: external ear and nose normal, oropharynx normal Neck: normal visual inspection Respiratory: + labored breathing (mildly labored); no respiratory distress Cardiovascular: Rate/Rhythm: regular rate and regular rhythm Gastrointestinal (Abdomen): Percussion/Palpation: abdomen soft; abdomen nontender Neurologic: moves all extremities and awake (slow to respond to questions at times) Psychiatric: A+Ox3, euthymic affect Results & Data Vital Signs (Past 12 Hours) Vital Signs Temp Pulse Resp BP BP Pulse Ox 04/19/19 07:46 36.5 C 75 20 136/72 90 04/19/19 07:06 72 18 94 04/19/19 07:05 63 18 94 04/19/19 04:46 36.5 C 60 18 107/68 97 04/19/19 04:12 58 L 16 98 04/19/19 00:58 171/94 H 04/19/19 00:57 36.6 C 65 19 176/89 H 98 PG Care Time/CCT Prolonged Care Time Prolonged Care Time: Yes Total Prolonged Care Time: 40 Time Spent Midlevel 70 minutes with >50% of the time spent at bedside with patient and family discussing condition and GOC. Attending Spent 40 minutes in addition to this 70 minutes spent by EMMETT Gonzalez for a total of 110 minutes with greater than 50% of the time spent at bedside discussing patient's goals of care and CODE STATUS Critical Care Time Prolonged Care Time Prolonged Care Time: Yes Total Prolonged Care Time: 40 110
[2019-04-19] MEDS: PRAVASTATIN SOD 40 MG TAB PO SCH (12:23)
--- NOTE | 2019-04-19 13:58 | Pulmonary Consultation ---
Date of Consultation April 19, 2019 Assessment & Plan (1) Metastatic primary lung cancer: Impression: 63-year-old male with history of metastatic adenocarcinoma and known malignant pleural effusion of presumed lung primary on pemetrexed and cisplatin now with progressive pulmonary infiltrates, growing/new pulmonary nodules, and increased interstitial/groundglass opacities the bilateral lower lobes. The differential would include infectious or inflammatory etiologies including Alimta pulmonary toxicity. Cannot exclude lymphangitic tumor especially given the progression of disease noted on a CT scan with new pulmonary nodules. Recommendations: 1. I had a long and extensive discussion with the patient and with his at the bedside. I reviewed the images independently and with them. I advised them that in the brief interval of 6 weeks between his PET scan and the current CT scan, his cancer appears to be progressing with growth of the primary nodule as well as development of new pulmonary nodules. There is also the possibility of lymphangitic spread. If this is the case, he may not respond to interventions and full palliative approach may be appropriate. For now I would propose treating him aggressively for all potentially reversible causes. Would continue Zosyn but think vancomycin can be discontinued. We will treat him with high- dose steroids (250 mg Solu-Medrol every 8) for potential chemotherapeutic associated pulmonary toxicity and follow clinical response. His oxygen requirement currently would preclude bronchoscopy or lung biopsy needed to definitively diagnose his lung process. I suspect he would require intubation mechanical ventilation and there is a high likelihood that he may not come off the mechanical ventilator once intubated. He is comfortable proceeding with imperative therapy to see how he responds. I did discuss with him that his goals of therapy should be reviewed with his . Case discussed with the hospitalist service at bedside and with the patient his at bedside. (2) Abnormal CT scan of lung: (3) Acute hypoxemic respiratory failure: History of Present Illness Attending Physician: Geovany Johnson MD History of Present Illness Asked by the [facility] hospitalist service to evaluate this patient with known stage IV non-small cell lung cancer and chronic hypoxemic respiratory failure admitted with progressive hypoxemia and abnormal CT scan. The patient is known to me from clinic. This 63-year-old male with a history of metastatic adenocarcinoma likely of lung origin. He presented with bony metastases which were biopsied and confirmed to be adenocarcinoma. He has been receiving pemetrexed and cisplatin and has received palliative radiation therapy. His last PET scan performed at [facility] in March apparently demonstrated persistent lesions which were stable in size with reduced metabolic activity. I had the opportunity of meeting the patient in the pulmonary clinic in March. He reported at that time issues with progressive shortness of breath despite being on supplemental oxygen. He had multiple CT scans for pulmonary embolism which is all been negative. His shortness of breath was definitely out of proportion to abnormalities on imaging. We entertained the possibility of tumor emboli syndrome at that point time. The patient elected to pursue conservative management. Patient did have a follow-up PET scan after my initial visit. This demonstrated some patchy basilar opacities at the right lung base. He was put on a course of antibiotics at that point time. The patient presented to the emergency room yesterday with cough and sputum production and increasing shortness of breath. He was found to have increasing hypoxemic respiratory failure and was placed on high flow oxygen. He was admitted to the hospitalist service. He was treated with 40 mg of Solu-Medrol as well as broad-spectrum antibiotic's in the form of Zosyn vancomycin. [facility] his fabio failure. He did complete a repeat CT angiogram which showed no evidence of PEs but did show evidence of progressive pulmonary nodules with new increased septal markings in the left lung apex and fluent interstitial/alveolar airspace opacities in the bilateral lower lobes. Allergies Allergy/AdvReac Type Severity Reaction Status Date / Time ciprofloxacin [From Cipro] Allergy Intermediate BLOOD IN Verified 04/18/19 13:08 KIDNEYS mushroom AdvReac Intermediate STOMACH Verified 04/18/19 13:08 PAIN Home Medications Home Medications Medication Instructions Recorded Confirmed Type Janumet 1 tab PO BIDM 08/20/18 04/18/19 History multivitamin 1 tab PO 1400 08/20/18 04/18/19 History pravastatin 80 mg PO 1200 08/20/18 04/18/19 History folic acid 1 mg tablet 1 mg PO DAILY@1000 08/24/18 04/18/19 History ondansetron HCl 8 mg tablet 8 mg PO Q8H PRN 08/24/18 04/18/19 History prochlorperazine maleate 10 mg 10 mg PO Q6H PRN tab 08/24/18 04/18/19 History tablet docusate sodium 100 mg capsule 100 mg PO BID 08/28/18 04/18/19 History polyethylene glycol 3350 17 17 gm PO BID 08/28/18 04/18/19 History gram/dose oral powder cholecalciferol (vitamin D3) 2,000 unit PO DAILY@1600 10/07/18 04/18/19 History [Vitamin D3] hydromorphone [Dilaudid] 2 mg PO Q4H PRN 10/07/18 04/18/19 History sennosides [Senokot] 8.6 mg PO PM 10/07/18 04/18/19 History calcium carbonate 500 mg calcium 1,500 mg PO BID tab 10/19/18 04/18/19 History (1,250 mg) chewable tablet dexamethasone 4 mg tablet 4 mg PO DAILY@1000 10/19/18 04/18/19 History lorazepam 0.5 mg tablet 0.25 mg PO QID PRN tab 03/14/19 04/18/19 History methadone 10 mg tablet 30 mg PO Q8H tab 03/14/19 04/18/19 History pemetrexed 500 mg intravenous 0 mg IV UD ea 03/14/19 04/18/19 History solution cannabidiol (CBD) extract 100 100 mg PO UD ml 03/15/19 04/18/19 History mg/mL oral solution cyanocobalamin (vitamin B-12) 0 mcg IM UD 04/18/19 04/18/19 History denosumab [Xgeva] 0 mg SUBCUT UD 04/18/19 04/18/19 History dexamethasone 4 mg PO UD 04/18/19 04/18/19 History mirtazapine 15 mg PO DAILY@2000 04/18/19 04/18/19 History rivaroxaban [Xarelto] 10 mg PO DAILY@1400 04/18/19 04/18/19 History sertraline 100 mg PO DAILY@0800 04/18/19 04/18/19 History Patient History Medical History (Updated 04/19/19 @ 14:24 by Nakul Bennett MD) Diabetes mellitus, type 2 (Chronic) NIDDM Fatigue Goals of care, counseling/discussion Hx of chest pain Hyperlipidemia (Chronic) Metastatic primary lung cancer (Chronic) with mets to pelvis, vertebrae, ribs Metastatic adenocarcinoma with signet-ring appearance to the bones (left p william, L5 vertebral body, ribs) Right upper lobe lung mass, considered to be a primary site, multiple lung nodules. T4 N2 M1c, stage IV EGFR, ALK and BRAF mutation negative PD-L1 expression 15% Malignant left pleural effusion. Osteoarthritis (Chronic) SOB (shortness of breath) Surgical History History of hip surgery (Resolved) s/p left acetabuluar metastasis and cemented left total hip arthroplasty 08/02/18= Grade I, Grider 2, ETT 7.5 at [facility] (anesthesia records scanned in); on lovenox post-op for DVT prophylaxis History of tooth extraction (Resolved) Hx of vasectomy (Resolved) Family History Other Coronary heart disease Diabetes Emphysema of lung Lung cancer Social History (Updated 04/18/19 @ 15:51 by Christin Gonzalez PA-C) Preferred Language: Djiboutian Communication Ability: Effective Visual Impairment: No Limitations Hearing Ability: Normal Senior Instructor Required: No Beliefs That Will Affect Care: None marital status: Current Living Situation: Spouse 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 I have no significant additional details. Physical Exam Physical Exam: Constitutional: Thin, cachectic, M, vitals as above, NAD, sitting up in bed, on non breather 15L, pleasant, conversing easily Head: Normocephalic, Atraumatic Eyes: PERRL, conjunctivae normal, anicteric sclerae ENMT: external ear and nose normal, oropharynx dry mucous membranes Neck: trachea midline, no thyromegaly normal visual inspection Respiratory: normal respiratory effort, lungs clear to auscultation with diffuse expiratory wheezing and diminished breath sounds at bases, no rhonchi. Normal insp/exp effort, no accessory muscle use on 15L via non rebreather Cardiovascular: RRR, no murmur, no edema Vessels: no JVD or carotid bruit Chest: normal inspection of chest Abdomen: normal bowel sounds, soft, nontender, no hepatosplenomegaly Musculoskeletal: no cyanosis or clubbing, extremities motor strength 5/5 Skin: no rashes, warm and dry normal turgor Neurologic: PERRL, EOMI, accommodation nl, no face palsy, no dysarthria CN's II-XI intact bilaterally and moves all extremities Psychiatric: A+Ox3, euthymic affect Lymphatic: no cervical or axillary lymphadenopathy : deferred Results & Data Vital Signs (Past 12 Hours) Vital Signs Temp Pulse Resp BP BP Pulse Ox 04/19/19 12:18 86 88 L 04/19/19 11:11 85 20 95 04/19/19 11:10 85 20 95 04/19/19 10:54 36.7 C 70 20 130/74 96 04/19/19 07:46 36.5 C 75 20 136/72 90 04/19/19 07:06 72 18 94 04/19/19 07:05 63 18 94 04/19/19 04:46 36.5 C 60 18 107/68 97 04/19/19 04:12 58 L 16 98 Laboratory Results 04/19/19 06:10 04/19/19 06:10 Procalcitonin 0[address] of the chest from 04/18/2019 was reviewed and compared to PET scan from 2018. The PET scan was performed through [facility]. There is new basilar increased interstitial airspace opacities with the chronic right pleural effusion which is known to be malignant. The right upper lobe pulmonary nodule appears slightly increased in size. Since the prior set of imaging 6 weeks ago there are new pulmonary nodules or pulmonary nodules which have increased in size within the left lung apex and in the right subpleural region. There is also increased prominence of the interstitium in the right apex. These findings may be consistent with pneumonia although progression of malignancy is felt to be likely. Cannot rule out potential lymphangitic spread as well. PG Care Time/CCT Total # of Minutes Spent Total Time Spent with Patient: Total time spent is greater than 50% in coordination of care (as documented) at patient's floor/unit and/or counseling patient: 90 minutes time coordinating care in this patient including end-of-life discussion.
[2019-04-19] MEDS ORDERED: methylPREDNISolone 250 MG in SYRINGE 0 ML IV SCH (14:00)
[2019-04-19] MEDS: MULTIVITAMIN TAB PO SCH (14:38)
[2019-04-19] MEDS: RIVAROXABAN 10 MG TABLET PO SCH (14:39)
[2019-04-19] MEDS: METHYLPREDNISOLONE IV SCH ×2 (15:31→22:35)
[2019-04-19] MEDS: DEXTROSE 5% IV SCH ×2 (15:31→22:35)
[2019-04-19] MEDS: CHOLECALCIFEROL 1,000 UNITS TAB PO SCH (17:21)
--- NOTE | 2019-04-19 18:22 | Hospitalist Progress Note ---
Date of Service April 19, 2019 Assessment & Plan (1) Acute hypoxemic respiratory failure: Worsening dyspnea associated with hypoxia (O2 sat 84% on RA in ED). Requiring high flow O2 to maintain sats. Pulmonary Medicine consulted. CTA chest as described below. PE ruled out. Bilateral pneumonia vs lymphangitic spread of non-small cell Ca. Initially received IV vancomycin and piperacillin / tazo. Nasal MRSA screen negative, no MRSA pneumonia very unlikely. Continue piperacillin / tazo. IV steroids per Pulmonary Medicine. (2) Abnormal CT scan of lung: CTA lung negative for pulmonary embolism. RUL mass enlarged compared to November. New bilateral small pulmonary nodules consistent with metastatic disease. Bilateral infiltrates- pneumonia vs lymphangitic spread. Pulmonary Medicine consulted. (3) Non-small cell cancer of right lung: Non-small cell lung Ca with skeletal mets. CT now shows enlargement of RUL primary as well as new bilateral pulmonary nodules. Management per Medical Oncology. (4) Cancer related pain: Per Palliative Care Medicine. (5) Protein calorie malnutrition: 50 lb weight loss associated with malignancy. Cachectic. Diet / supplements as tolerated. (6) Diabetes mellitus, type 2: Diabetes mellitus type 2, usually managed with sitagliptin / metformin. Hold oral agents during hospital stay. Anticipate elevated blood sugars due to acute illness + steroids. FBS this morning = 128. Basal / bolus insulin per protocol. (7) DVT prophylaxis: Continue rivaroxaban. (8) Discharge planning issues: Discharge disposition to be determined. Family Medicine follow-up with Dr. Warren Thapa. Pulmonary Medicine follow-up with Dr. Bennett. Medical Oncology follow-up with Dr. Ridge Navarro. Palliative Care follow-up with Dr. Lopez. Subjective Recheck for multiple problems. Patient seen in their room around 1120. visiting. 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 Admitted yesterday with worsening dyspnea and hypoxia. No fever. Cough productive of brownish sputum. Chest wall discomfort from rib metastases and coughing. Review of Systems: Constitutional- no fever. Cardiac- no anginal symptoms. Pulmonary- as noted above. GI- no nausea, vomiting, diarrhea, melena, hematochezia. - no urinary symptoms. Otherwise, as noted above. Physical Exam Constitutional: + ill appearing and + cachectic Respiratory: + tachypneic Auscultation: + rhonchi and + wheezes Cardiovascular: Rate/Rhythm: regular rate and regular rhythm Heart Sounds: no gallop, no murmur and no cardiac rub Vessels: no JVD Extremities: no calf tenderness and no edema Gastrointestinal (Abdomen): normal bowel sounds, soft, nontender, no hepatosplenomegaly Skin: no rashes, warm and dry Psychiatric: Orientation: alert and oriented x 3 Results & Data Vital Signs (Past 12 Hours) Vital Signs Temp Pulse Resp BP Pulse Ox 04/19/19 15:31 36.8 C 76 20 128/80 93 04/19/19 15:20 79 20 98 04/19/19 12:18 86 88 L 04/19/19 12:15 82 21 91 04/19/19 11:11 85 20 95 04/19/19 11:10 85 20 95 04/19/19 10:54 36.7 C 70 20 130/74 96 04/19/19 07:46 36.5 C 75 20 136/72 90 04/19/19 07:06 72 18 94 04/19/19 07:05 63 18 94 Laboratory Results 04/19/19 06:10 04/19/19 06:10
[2019-04-19] MEDS ORDERED: LORazepam 0.5 MG TAB PO PRN (18:40)
[2019-04-19] MEDS: MIRTAZAPINE TAB 15 MG TAB PO SCH (19:51)
[2019-04-19] MEDS: SENNA 8.6 MG TAB PO SCH (19:52)
[2019-04-19] MEDS: INSULIN GLARGINE SOLOSTAR 100 UNITS/ML 3 ML PEN SC SCH (22:35)
[2019-04-20] MEDS ORDERED: HEPARIN 100 UNIT/ML 5ML FLUSH FLUSH PRN (00:42)
[2019-04-20] MEDS: PIPERACILLIN/TAZOBACTAM 3.375 GM in DEXTROSE 5% 100 ML IV SCH ×3 (01:59→17:54)
[2019-04-20] MEDS ORDERED: INSULIN ASPART 100 UNITS/ML 3 ML PEN SC SCH (02:00)
[2019-04-20] MEDS: METHADONE HCL 10 MG TAB PO SCH ×3 (05:57→22:42)
[2019-04-20] MEDS: ALBUT/IPRATROP 3MG/0.5MG NEB 3 ML VIAL NEB SCH ×4 (06:14→19:28)
[2019-04-20] MEDS ORDERED: INSULIN GLARGINE SOLOSTAR 100 UNITS/ML 3 ML PEN SC STA (08:48)
[2019-04-20] MEDS: DOCUSATE SODIUM 100 MG CAP PO SCH ×2 (08:55→21:10)
[2019-04-20] MEDS: HYDROmorphone HCL 2 MG TAB PO PRN ×2 (08:56→17:54)
[2019-04-20] MEDS: SERTRALINE HCL 100 MG TABLET PO SCH (08:56)
[2019-04-20] MEDS: METHYLPREDNISOLONE IV SCH ×3 (08:57→22:42)
[2019-04-20] MEDS: DEXTROSE 5% IV SCH ×3 (08:57→22:42)
[2019-04-20] MEDS: CALCIUM CARBONATE 1250MG TAB PO SCH ×2 (08:57→21:10)
[2019-04-20] MEDS: FOLIC ACID 1 MG TAB PO SCH (08:57)
[2019-04-20] MEDS: PROCHLORPERAZINE MALEATE 10 MG TAB PO PRN ×2 (08:57→14:09)
[2019-04-20] MEDS: POLYETHYLENE (MIRALAX) 17 GM PACK PO SCH ×2 (08:58→20:13)
[2019-04-20] MEDS: INSULIN ASPART 100 UNITS/ML 3 ML PEN SC SCH ×4 (09:06→21:11)
--- NOTE | 2019-04-20 10:13 | Pharmacy Report ---
Glycemic Control Consultation - Date of Service April 20, 2019 - Scope Scope: Glycemic Pharmacist consulted by Christin Gonzalez on 04/18/19 for glycemic control and to write orders per [facility] inpatient glycemic control protocol - Objective Weight: 49.7 kg Accuchecks BSG (last 24hrs): 04/19/19 04/19/19 04/19/19 11:14 16:09 20:19 POC Glucose 221 H 139 H 295 H 04/19/19 04/19/19 04/20/19 23:58 23:59 01:55 POC Glucose 301 H* 310 H* 282 H 04/20/19 07:16 POC Glucose 108 H HbA1c: Hemoglobin A1c 6.9 % (4.5-5.6) H 04/19/19 06:10 - Recent Pertinent Medications Outpatient Anti-diabetic Regimen: * Janumet 50/1000mg BID * A1c = 6.9 % 04/19/19 - Assessment & Plan Assessment & Plan: ASSESSMENT: * Mr. Mancini is a 63yo M type 2 diabetic. He is maintained on a PO agent as an outpt. His A1C of 6.9% is at goal based on age and co morbidities. * He is currently receiving solumedrol 250mg IV q8 for chemtx associated pulmonary toxicity. We will keep an eye on his PO intake and steroids. PLAN FOR INPATIENT GLYCEMIC CONTROL: * Holding outpatient oral diabetes medications * Basal insulin - * Lantus 15 units given yesterday evening per scale. Then lantus 10units this AM to help maintain adequate BSGs. Lantus scale on for tonight: * hold lantus for BSGs <141 * 5 units for BSGs 141-180 * 10 units for BSGs 181-220 * 15 units for BSGs >220 * Bolus insulin * NovoLog per scale ACHS or Q6hrs while NPO * Goal Range: Low 110 mg/dL - High 140 mg/dL * Correction Factor: 10 mg/dL/unit * Nutritional / Prandial insulin per carb ratio of 1 unit per 4 grams CHO consumed * Please note that the plan above was derived based on current level of insulin resistance and hospital stress. These recommendations are appropriate for inpatient admission only. Plan of care upon discharge will need to be reassessed to avoid potential outpatient hypo/hyperglycemia. Thank you.
[2019-04-20] MEDS ORDERED: OXYCODONE HCL SOLN 5 MG/5 ML UDC PO PRN (10:53)
--- NOTE | 2019-04-20 10:56 | Pulmonology Progress Note ---
Date of Service April 20, 2019 Assessment & Plan (1) Metastatic primary lung cancer: Impression: 63-year-old male with history of metastatic adenocarcinoma and known malignant pleural effusion of presumed lung primary on pemetrexed and cisplatin now with progressive pulmonary infiltrates, growing/new pulmonary nodules, and increased interstitial/groundglass opacities the bilateral lower lobes. The differential would include infectious or inflammatory etiologies including Alimta pulmonary toxicity. Cannot exclude lymphangitic tumor especially given the progression of disease noted on a CT scan with new pulmonary nodules. Recommendations: 1. Metastatic adenocarcinoma of lung primary: We will are continuing to treat any potentially reversible etiology. Continue high-dose steroids for possible chemotherapy the induced pulmonary toxicity. Continue broad-spectrum antibiotics for potential pneumonia. The patient and his have elected to pursue DNR/DNI status but continue to hope for clinical response 2. Dyspnea: Multifactorial: The patient felt overly sedated with Ativan. We will provide the patient some Xanax to see if this offers him the clinical benefit. Add oral oxycodone to see if this offers him the benefit as well. We discussed additional adjuvants to manage his shortness of breath including increasing narcotics or transition of morphine. Nebulized morphine may also be considered. 3. Acute on chronic hypoxemic respiratory failure: Continue supplemental oxygen. The patient inquires about the possibility of coming off of the high flow system. I advised him that we could certainly continue to try this with respiratory therapy to see whether or not he would tolerate an oxygen mask or nasal cannula intermittently during the day. We will continue to follow. Please contact us with additional pulmonary questions (2) Abnormal CT scan of lung: (3) Acute hypoxemic respiratory failure: Review of Systems Review of Systems: All systems reviewed & are unremarkable except as noted in HPI & below Physical Exam Constitutional: + ill appearing, + thin and + in distress Eyes: PERRL, conjunctivae normal, anicteric sclerae Neck: trachea midline, no thyromegaly Respiratory: Coarse breath sounds bilaterally without wheezing Cardiovascular: Rate/Rhythm: + tachycardic Heart Sounds: normal S1 and normal S2; no murmur Gastrointestinal (Abdomen): normal bowel sounds, soft, nontender, no hepatosplenomegaly Skin: no rashes, warm and dry Results & Data Vital Signs (Past 12 Hours) Vital Signs Temp Pulse Resp BP BP Pulse Ox 04/20/19 07:35 36.9 C 73 18 166/91 H 93 04/20/19 07:27 70 20 86 L 04/20/19 06:14 66 19 93 04/20/19 04:40 36.7 C 78 24 125/76 96 04/20/19 03:33 64 17 98 04/20/19 00:16 76 20 93 04/20/19 00:00 36.6 C 72 22 163/87 H 94 04/19/19 23:15 80 16 97 Laboratory Results 04/19/19 06:10 04/19/19 06:10 Diagnostic Findings No new films PG Care Time/CCT Total # of Minutes Spent Total Time Spent with Patient: Total time spent is greater than 50% in coordination of care (as documented) at patient's floor/unit and/or counseling patient:35 min
[2019-04-20] MEDS: CARBOHYDRATES FOR HYPOGLYCEMIA PO PRN (11:35)
[2019-04-20] MEDS: ONDANSETRON INJ 2 MG/ML 2 ML VIAL IV PRN (11:41)
[2019-04-20] MEDS: ALPRAZolam 0.5 MG TABLET PO PRN ×2 (11:42→23:20)
[2019-04-20] MEDS: PANTOprazole 40 MG TAB PO SCH (11:42)
[2019-04-20] MEDS ORDERED: VANCOMYCIN TROUGH SCH (13:30)
[2019-04-20] MEDS: RIVAROXABAN 10 MG TABLET PO SCH (14:08)
[2019-04-20] MEDS: MULTIVITAMIN TAB PO SCH (14:08)
[2019-04-20] MEDS: PRAVASTATIN SOD 40 MG TAB PO SCH (14:08)
--- NOTE | 2019-04-20 15:58 | Hospitalist Progress Note ---
Date of Service April 20, 2019 Assessment & Plan (1) Acute hypoxemic respiratory failure: Worsening dyspnea associated with hypoxia (O2 sat 84% on RA in ED). Requiring high flow O2 to maintain sats. Pulmonary Medicine consulted. CTA chest as described below. PE ruled out. Bilateral pneumonia vs lymphangitic spread of non-small cell Ca. Initially received IV vancomycin and piperacillin / tazo. Nasal MRSA screen negative, no MRSA pneumonia very unlikely. Vancomycin discontinued. Continue piperacillin / tazobactam. IV steroids per Pulmonary Medicine. (2) Abnormal CT scan of lung: CTA lung negative for pulmonary embolism. RUL mass enlarged compared to November. New bilateral small pulmonary nodules consistent with metastatic disease. Bilateral infiltrates- pneumonia vs lymphangitic spread. Pulmonary Medicine consulted. (3) Non-small cell cancer of right lung: Non-small cell lung Ca with skeletal mets. CT now shows enlargement of RUL primary as well as new bilateral pulmonary nodules. Management per Medical Oncology. (4) Cancer related pain: Per Palliative Care Medicine. (5) Protein calorie malnutrition: 50 lb weight loss associated with malignancy. Cachectic. Diet / supplements as tolerated. (6) Diabetes mellitus, type 2: Diabetes mellitus type 2, usually managed with sitagliptin / metformin. Hold oral agents during hospital stay. Elevated blood sugars due to acute illness + steroids. Pharmacy consulted for glycemic management. FBS this morning = 128. Continue basal / bolus insulin per protocol. (7) Do not resuscitate status: Per his advanced directives and current status patient indicates that he does not wish to have extraordinary measures undertaken in the event of worsening respiratory failure or cardiopulmonary arrest. Specifically, no CPR, no defibrillation, no intubation / mechanical ventilation. Code status changed to: DNR. (8) DVT prophylaxis: Continue rivaroxaban. (9) Discharge planning issues: Discharge disposition to be determined. Family Medicine follow-up with Dr. Warren Thapa. Pulmonary Medicine follow-up with Dr. Bennett. Medical Oncology follow-up with Dr. Ridge Navarro. Palliative Care follow-up with Dr. Lopez. Subjective Recheck for multiple problems. Patient seen in their room around 0910. visiting. Persistent dyspnea at rest. Requiring high-flow nasal O2. No fever. Persistent cough. Persistent chest wall discomfort from rib metastases and coughing. Blood sugars running high. He has reflected about his condition and priorities and he has consulted with his spouse. Per his advanced directives and current status he does not wish to have extraordinary measures undertaken in the event of worsening respiratory failure or cardiopulmonary arrest. Specifically, no CPR, no defibrillation, no intubation / mechanical ventilation. Review of Systems: Constitutional- no fever. Cardiac- no anginal symptoms. Pulmonary- as noted above. GI- no nausea, vomiting, diarrhea, melena, hematochezia. - no urinary symptoms. Otherwise, as noted above. Physical Exam Constitutional: + ill appearing and + cachectic Respiratory: + tachypneic Auscultation: + rhonchi (improved) and + wheezes (improved) Cardiovascular: Rate/Rhythm: regular rate and regular rhythm Heart Sounds: no gallop, no murmur and no cardiac rub Vessels: no JVD Extremities: no calf tenderness and no edema Gastrointestinal (Abdomen): normal bowel sounds, soft, nontender, no hepatosplenomegaly Skin: no rashes, warm and dry Psychiatric: Orientation: alert and oriented x 3 Results & Data Vital Signs (Past 12 Hours) Vital Signs Temp Pulse Resp BP Pulse Ox 04/20/19 15:21 81 18 91 04/20/19 11:47 36.8 C 79 24 163/87 H 163 H 04/20/19 11:12 89 20 90 04/20/19 07:35 36.9 C 73 18 166/91 H 93 04/20/19 07:27 70 20 86 L 04/20/19 06:14 66 19 93 04/20/19 04:40 36.7 C 78 24 125/76 96 Laboratory Results 04/19/19 06:10 04/19/19 06:10
[2019-04-20] MEDS: CHOLECALCIFEROL 1,000 UNITS TAB PO SCH (17:54)
[2019-04-20] MEDS ORDERED: INSULIN HUMAN REGULAR IV BOLUS 2 UNITS in SYRINGE 0 ML IV ONE (18:00)
[2019-04-20 18:28] LABS: BUN Creatinine Ratio 20.1 (10-20); Calcium 8.8 mg/dl (8.5-10.1); Creatinine Clr Calc Pharmacy 70.9 ml/min; Est GFR (African American) 112.8; Est GFR (Non-African American) 97.3
[2019-04-20 18:40] LABS: Beta-Hydroxybutyrate 1.02 mg/dl (0.2-2.81)
[2019-04-20] MEDS: INSULIN REGULAR 250 UNITS in SODIUM CHLORIDE 0.9% 247.5 ML IV SCH (18:49)
[2019-04-20] MEDS: SENNA 8.6 MG TAB PO SCH (21:10)
[2019-04-20] MEDS: MIRTAZAPINE TAB 15 MG TAB PO SCH (21:10)
[2019-04-20] MEDS: INSULIN GLARGINE SOLOSTAR 100 UNITS/ML 3 ML PEN SC SCH (21:11)
[2019-04-21] MEDS: PIPERACILLIN/TAZOBACTAM 3.375 GM in DEXTROSE 5% 100 ML IV SCH ×3 (01:43→19:12)
[2019-04-21] MEDS: METHADONE HCL 10 MG TAB PO SCH ×3 (06:47→22:17)
[2019-04-21] MEDS: HYDROmorphone HCL 2 MG TAB PO PRN ×3 (06:55→23:47)
[2019-04-21] MEDS: ALPRAZolam 0.5 MG TABLET PO PRN ×3 (06:55→22:17)
[2019-04-21] MEDS: ALBUT/IPRATROP 3MG/0.5MG NEB 3 ML VIAL NEB SCH ×4 (07:05→19:35)
[2019-04-21 07:29] LABS: Hematocrit (blood only) 30.2 % (42-52); Hemoglobin 9.4 g/dL (14.0-18.0); Mean Corpuscular Hemoglobin 27.2 pg (25-34); Mean Corpuscular Hgb Conc 31.1 g/dL (32-36); Mean Corpuscular Volume 87.5 fL (80-100); Platelet Count 419 K/uL (130-400); RDW Coefficient of Variation 19.7 % (11.5-14.5); RDW Standard Deviation 63.6 fL (36.4-46.3); Red Blood Count 3.45 M/uL (4.7-6.1); White Blood Count 10.76 K/uL (4.8-10.8)
[2019-04-21 08:09] LABS: BUN Creatinine Ratio 25.3 (10-20); Calcium 9.2 mg/dl (8.5-10.1); Creatinine Clr Calc Pharmacy 101.5 ml/min; Est GFR (African American) 130.7; Est GFR (Non-African American) 112.8; Potassium 3.7 mmol/L (3.5-5.1)
[2019-04-21] MEDS: CALCIUM CARBONATE 1250MG TAB PO SCH ×2 (08:18→20:29)
[2019-04-21] MEDS: PANTOprazole 40 MG TAB PO SCH (08:18)
[2019-04-21] MEDS: SERTRALINE HCL 100 MG TABLET PO SCH (08:18)
[2019-04-21] MEDS: FOLIC ACID 1 MG TAB PO SCH (08:18)
[2019-04-21] MEDS: INSULIN ASPART 100 UNITS/ML 3 ML PEN SC SCH ×4 (08:47→20:28)
[2019-04-21] MEDS: INSULIN GLARGINE SOLOSTAR 100 UNITS/ML 3 ML PEN SC SCH (09:13)
[2019-04-21] MEDS: DOCUSATE SODIUM 100 MG CAP PO SCH ×2 (09:15→20:31)
[2019-04-21] MEDS: METHYLPREDNISOLONE IV SCH ×2 (09:18→15:49)
[2019-04-21] MEDS: DEXTROSE 5% IV SCH ×2 (09:18→15:49)
--- NOTE | 2019-04-21 09:23 | Pulmonology Progress Note ---
Date of Service April 21, 2019 Assessment & Plan (1) Metastatic primary lung cancer: Impression: 63-year-old male with history of metastatic adenocarcinoma and known malignant pleural effusion of presumed lung primary on pemetrexed and cisplatin now with progressive pulmonary infiltrates, growing/new pulmonary nodules, and increased interstitial/groundglass opacities the bilateral lower lobes. The differential would include infectious or inflammatory etiologies including Alimta pulmonary toxicity. Cannot exclude lymphangitic tumor especially given the progression of disease noted on a CT scan with new pulmonary nodules. Recommendations: 1. Metastatic adenocarcinoma of lung primary: We will are continuing to treat any potentially reversible etiology. Continue high-dose steroids for possible chemotherapy the induced pulmonary toxicity. Continue broad-spectrum antibiotics for potential pneumonia. The patient and his have elected to pursue DNR/DNI status but continue to hope for clinical response 2. Dyspnea: Multifactorial: Continue Xanax and a higher dose of Dilaudid for pain control and dyspnea management. Nebulized morphine may also be considered. 3. Acute on chronic hypoxemic respiratory failure: Continue supplemental oxygen. Wean as tolerated with target oxygen saturations 90% I did advise the patient his that if feels that the current therapy is becoming inhibitive or onerous, we could have a discussion about transition to more of a palliative approach. He expressed understanding and states that he and his would talk about it. We will continue to follow. Please contact us with additional pulmonary questions (2) Abnormal CT scan of lung: (3) Acute hypoxemic respiratory failure: Subjective Seen and examined. EMR reviewed. Discussed with at bedside. Patient states that he slept reasonably well last night. He does feel that the Xanax is beneficial as well as the higher dose of Dilaudid. His pain is better controlled. His does note that he appears to be increasingly somnolent intermittently with intermittent periods of confusion. He is coughing and occasionally expectorate some phlegm. We have not been able to wean his oxygen much. He remains with very limited pulmonary reserve. Physical Exam Constitutional: + ill appearing, + thin and + in distress Eyes: PERRL, conjunctivae normal, anicteric sclerae Neck: trachea midline, no thyromegaly Respiratory: + uses accessory muscles and + tachypneic Auscultation: + crackles Cardiovascular: Rate/Rhythm: + tachycardic Heart Sounds: normal S1 and normal S2; no murmur Gastrointestinal (Abdomen): normal bowel sounds, soft, nontender, no hepatosplenomegaly Skin: no rashes, warm and dry Results & Data Vital Signs (Past 12 Hours) Vital Signs Temp Pulse Resp BP BP Pulse Ox 04/21/19 08:01 36.5 C 77 20 160/88 H 90 04/21/19 07:07 72 18 93 04/21/19 03:59 36.2 C L 68 20 158/83 H 95 04/21/19 03:56 76 16 94 04/20/19 23:36 72 18 94 04/20/19 23:00 37 C 72 20 158/87 H 95 04/20/19 22:20 83 18 96 Laboratory Results 04/21/19 06:49 04/21/19 06:49 Diagnostic Findings No new films PG Care Time/CCT Total # of Minutes Spent Total Time Spent with Patient: Total time spent is greater than 50% in coordination of care (as documented) at patient's floor/unit and/or counseling patient: 35 minutes of bedside including potential end-of-life discussions
[2019-04-21] MEDS: POLYETHYLENE (MIRALAX) 17 GM PACK PO SCH ×2 (11:45→20:32)
[2019-04-21] MEDS: PRAVASTATIN SOD 40 MG TAB PO SCH (11:45)
[2019-04-21] MEDS ORDERED: INSULIN GLARGINE SOLOSTAR 100 UNITS/ML 3 ML PEN SC STA (12:48)
--- NOTE | 2019-04-21 12:55 | Pharmacy Report ---
Pharmacy Glycemic Short Note 2 - Date of Service April 21, 2019 - Glycemic Short BSG Results (Last 24 hours): 04/20/19 04/20/19 04/20/19 16:49 16:50 17:45 Glucose 410 H* POC Glucose 420 H* 401 H* 04/20/19 04/20/19 04/20/19 20:05 21:01 22:07 Glucose POC Glucose 338 H* 314 H* 272 H 04/20/19 04/21/19 04/21/19 23:00 00:06 01:35 Glucose POC Glucose 203 H 130 H 136 H 04/21/19 04/21/19 04/21/19 03:14 04:20 05:15 Glucose POC Glucose 150 H 186 H 118 H 04/21/19 04/21/19 04/21/19 06:49 06:59 08:08 Glucose 93 POC Glucose 111 H 154 H 04/21/19 04/21/19 09:09 11:06 Glucose POC Glucose 168 H 123 H ASSESSMENT: * D/w attending and pulm the plan for glucocorticoids moving forward, solumedrol 250mg IV q8 will continue. He is currently on an insulin infsn, running at 1.3u/hr for the past 3-5 hours. Given the consistency with the gtt rate, an attempt to convert to basal/bolus would be reasonable. PLAN FOR INPATIENT GLYCEMIC CONTROL: * Basal insulin * Lantus 8 units given this AM. Plus additional 6 this afternoon to help taper the gtt off, if clinically appropriate. * Bolus insulin - if converted off the gtt would start with the following correctional insulin * NovoLog per scale ACHS or Q6hrs while NPO * Goal Range: Low 110 mg/dL - High 140 mg/dL * Correction Factor: 20 mg/dL/unit * Nutritional / Prandial insulin per carb ratio of 1 unit per 7 grams CHO consumed
--- NOTE | 2019-04-21 13:43 | Hospitalist Progress Note ---
Date of Service April 21, 2019 Assessment & Plan (1) Acute hypoxemic respiratory failure: Worsening dyspnea associated with hypoxia (O2 sat 84% on RA in ED). Requiring high flow O2 to maintain sats. Pulmonary Medicine consulted. CTA chest as described below. PE ruled out. Bilateral pneumonia vs lymphangitic spread of non-small cell Ca vs pulmonary toxicity from chemo. Initially received IV vancomycin and piperacillin / tazo. Nasal MRSA screen negative, so MRSA pneumonia very unlikely. Vancomycin discontinued. Sputum gram stain showed few WBC's, few gram positive cocci. Sputum culture growing only normal kaelyn. Continue piperacillin / tazobactam. Continue IV steroids per Pulmonary Medicine. (2) Abnormal CT scan of lung: CTA lung negative for pulmonary embolism. RUL mass enlarged compared to November. New bilateral small pulmonary nodules consistent with metastatic disease. Bilateral infiltrates- pneumonia vs lymphangitic spread. Pulmonary Medicine consulted. (3) Non-small cell cancer of right lung: Non-small cell lung Ca with skeletal mets. CT now shows enlargement of RUL primary as well as new bilateral pulmonary nodules. Management per Medical Oncology. (4) Cancer related pain: Per Palliative Care Medicine. (5) Protein calorie malnutrition: 50 lb weight loss associated with malignancy. Cachectic. Diet / supplements as tolerated. (6) Diabetes mellitus, type 2: Diabetes mellitus type 2, usually managed with sitagliptin / metformin. Hold oral agents during hospital stay. Elevated blood sugars due to acute illness + steroids. Pharmacy consulted for glycemic management. Started on insulin infusion for blood sugars > 400. FBS this morning = 111. Ongoing management per Pharmacy. (7) Do not resuscitate status: Per his advanced directives and current status patient indicates that he does not wish to have extraordinary measures undertaken in the event of worsening respiratory failure or cardiopulmonary arrest. Specifically, no CPR, no defibrillation, no intubation / mechanical ventilation. Code status changed to: DNR. However, he wishes to continue other treatments at this time. (8) DVT prophylaxis: Continue rivaroxaban. (9) Discharge planning issues: Discharge disposition to be determined. Family Medicine follow-up with Dr. Warren Thapa. Pulmonary Medicine follow-up with Dr. Bennett. Medical Oncology follow-up with Dr. Ridge Navarro. Palliative Care follow-up with Dr. Lopez. Subjective Recheck for multiple problems. Patient seen in their room around 0940. visiting. Got a little rest last night. No fever. Tired. Pulmonary status about the same. Limited respiratory reserve; persistent dyspnea at rest. Still requiring high-flow nasal O2. Persistent cough. Persistent chest wall discomfort from rib metastases and coughing. Blood sugars improved on insulin infusion. Review of Systems: Constitutional- as noted above. Cardiac- no anginal symptoms. Pulmonary- as noted above. GI- no nausea, vomiting, diarrhea, melena, hematochezia. - no urinary symptoms. Otherwise, as noted above. Physical Exam 2 Constitutional: + ill appearing and + cachectic Respiratory: + tachypneic coarse breath sounds at bases, rhonchi and wheezing improved Cardiovascular: Rate/Rhythm: regular rate and regular rhythm Heart Sounds: no gallop, no murmur and no cardiac rub Vessels: no JVD Extremities: no calf tenderness and no edema Gastrointestinal (Abdomen): normal bowel sounds, soft, nontender, no hepatosplenomegaly Skin: no rashes, warm and dry Psychiatric: Orientation: alert and oriented x 3 Results & Data Vital Signs (Past 12 Hours) Vital Signs Temp Pulse Resp BP BP Pulse Ox 04/21/19 12:10 36.8 C 78 19 175/85 H 90 04/21/19 11:23 73 18 93 04/21/19 08:01 36.5 C 77 20 160/88 H 90 04/21/19 07:07 72 18 93 04/21/19 03:59 36.2 C L 68 20 158/83 H 95 04/21/19 03:56 76 16 94 Laboratory Results 04/21/19 06:49 04/21/19 06:49 Microbiology 04/19/19 22:15 Sputum, Expectorated Gram Stain - Final 04/19/19 22:15 Sputum, Expectorated Sputum Culture - Final Light normal kaelyn. 04/18/19 13:55 Blood Aerobic Blood Culture - Preliminary No growth in Aerobic bottle after 48 hours. 04/18/19 13:55 Blood Anaerobic Blood Culture - Preliminary No growth in Anaerobic bottle after 48 hours. 04/18/19 13:25 Blood Aerobic Blood Culture - Preliminary No growth in Aerobic bottle after 48 hours. 04/18/19 13:25 Blood Anaerobic Blood Culture - Preliminary No growth in Anaerobic bottle after 48 hours.
[2019-04-21] MEDS: MULTIVITAMIN TAB PO SCH (13:47)
[2019-04-21] MEDS: RIVAROXABAN 10 MG TABLET PO SCH (13:47)
[2019-04-21] MEDS: CHOLECALCIFEROL 1,000 UNITS TAB PO SCH (15:43)
[2019-04-21] MEDS: INSULIN REGULAR 250 UNITS in SODIUM CHLORIDE 0.9% 247.5 ML IV SCH (19:21)
[2019-04-21] MEDS: MIRTAZAPINE TAB 15 MG TAB PO SCH (20:27)
[2019-04-21] MEDS: SENNA 8.6 MG TAB PO SCH (20:32)
[2019-04-21] MEDS ORDERED: INSULIN GLARGINE SOLOSTAR 100 UNITS/ML 3 ML PEN SC ONE (21:00)
[2019-04-22] MEDS: CARBOHYDRATES FOR HYPOGLYCEMIA PO PRN (00:28)
[2019-04-22] MEDS: DEXTROSE 5% IV SCH ×4 (00:29→23:40)
[2019-04-22] MEDS: METHYLPREDNISOLONE IV SCH ×4 (00:29→23:40)
[2019-04-22] MEDS: PIPERACILLIN/TAZOBACTAM 3.375 GM in DEXTROSE 5% 100 ML IV SCH ×3 (00:57→17:16)
[2019-04-22] MEDS ORDERED: INSULIN ASPART 100 UNITS/ML 3 ML PEN SC SCH (04:00)
[2019-04-22] MEDS: ALPRAZolam 0.5 MG TABLET PO PRN ×4 (04:05→16:02)
[2019-04-22] MEDS: METHADONE HCL 10 MG TAB PO SCH ×3 (05:26→21:56)
[2019-04-22 06:44] LABS: Hematocrit (blood only) 36.9 % (42-52); Hemoglobin 11.5 g/dL (14.0-18.0); Mean Corpuscular Hemoglobin 27.1 pg (25-34); Mean Corpuscular Hgb Conc 31.2 g/dL (32-36); Mean Corpuscular Volume 86.8 fL (80-100); Mean Platelet Volume 9.4 fL (7.4-10.4); Platelet Count 438 K/uL (130-400); RDW Coefficient of Variation 19.7 % (11.5-14.5); Red Blood Count 4.25 M/uL (4.7-6.1); White Blood Count 13.12 K/uL (4.8-10.8)
[2019-04-22] MEDS: ALBUT/IPRATROP 3MG/0.5MG NEB 3 ML VIAL NEB SCH ×4 (06:58→19:05)
[2019-04-22 07:16] LABS: BUN Creatinine Ratio 26.5 (10-20); Calcium 9.9 mg/dl (8.5-10.1); Creatinine Clr Calc Pharmacy 92.9 ml/min; Est GFR (African American) 129.7; Est GFR (Non-African American) 111.9; Potassium 3.5 mmol/L (3.5-5.1)
[2019-04-22] MEDS: HYDROmorphone HCL 2 MG TAB PO PRN (08:17)
[2019-04-22] MEDS: PANTOprazole 40 MG TAB PO SCH (08:21)
[2019-04-22] MEDS: SERTRALINE HCL 100 MG TABLET PO SCH (08:22)
[2019-04-22] MEDS: CALCIUM CARBONATE 1250MG TAB PO SCH ×2 (08:23→21:41)
[2019-04-22] MEDS: FOLIC ACID 1 MG TAB PO SCH (08:23)
[2019-04-22] MEDS: ONDANSETRON INJ 2 MG/ML 2 ML VIAL IV PRN (08:28)
[2019-04-22] MEDS ORDERED: HYDROmorphone HCL 2 MG TAB PO PRN (08:40)
--- NOTE | 2019-04-22 08:50 | Pulmonology Progress Note ---
Date of Service April 22, 2019 Assessment & Plan (1) Metastatic primary lung cancer: Impression: 63-year-old male with history of metastatic adenocarcinoma and known malignant pleural effusion of presumed lung primary on pemetrexed and cisplatin now with progressive pulmonary infiltrates, growing/new pulmonary nodules, and increased interstitial/groundglass opacities the bilateral lower lobes. The differential would include infectious or inflammatory etiologies including Alimta pulmonary toxicity. Cannot exclude lymphangitic tumor especially given the progression of disease noted on a CT scan with new pulmonary nodules. Recommendations: 1. Metastatic adenocarcinoma of lung primary: His oxygen requirement is slightly better however clinically he appears worse with increasing dyspnea. He is too uncomfortable to consider imaging studies at this point time. We will increase the frequency of his Xanax and Dilaudid and see how he does. Follow-up chest x-ray may be appropriate if we can get the patient under better symptom control currently. CRM ANALYST may be considered if he has continued issues. Given the fact his oxygen requirement slightly decreased I would favor continuing antibiotics and steroids at this point time. His oxygen requirements improved but clinically he appears worse. 2. Dyspnea: Multifactorial: Continue Xanax and Dilaudid for pain control and dyspnea management. May consider transition to morphine from Dilaudid if he continues to have issues 3. Acute on chronic hypoxemic respiratory failure: Continue supplemental oxygen. Wean as tolerated with target oxygen saturations 90% 4. Hemoptysis: Etiology unclear. Lung cancer and infection both may be contributing. It appears scant. The patient is not a candidate for bronchoscopy or any invasive procedures. Again if his dyspnea is improved we may consider repeating his chest x-ray today. Transition to full palliative care may be appropriate. Will readdress with patient and this afternoon I will reassess him this afternoon. (2) Abnormal CT scan of lung: (3) Acute hypoxemic respiratory failure: Subjective Patient seen and examined. Discussed with at bedside. Patient had some scant hemoptysis yesterday. He reports increasing dyspnea this morning. He states the Xanax is effective but he needs it that a shorter dosing frequency. Dilaudid is also effective but he may need it more frequently. He is not having any chest pain. He feels much worse and his breathing is getting to the point where he just wants the symptoms palliated. Review of Systems Review of Systems: All systems reviewed & are unremarkable except as noted in HPI & below Physical Exam Constitutional: + ill appearing, + thin and + in distress Eyes: PERRL, conjunctivae normal, anicteric sclerae Neck: trachea midline, no thyromegaly Respiratory: + uses accessory muscles and + tachypneic Auscultation: + crackles Cardiovascular: Rate/Rhythm: + tachycardic Heart Sounds: normal S1 and normal S2; no murmur Gastrointestinal (Abdomen): normal bowel sounds, soft, nontender, no hepatosplenomegaly Skin: no rashes, warm and dry Results & Data Vital Signs (Past 12 Hours) Vital Signs Temp Pulse Resp BP BP Pulse Ox 04/22/19 08:11 36.5 C 81 20 190/88 H 89 L 04/22/19 07:00 95 H 20 93 04/22/19 04:36 36.4 C L 76 24 155/89 H 91 04/22/19 02:59 88 20 90 04/21/19 23:29 36.4 C L 73 20 172/94 H 93 04/21/19 23:11 81 19 93 Laboratory Results 04/22/19 06:20 04/22/19 06:20 Diagnostic Findings No new films PG Care Time/CCT Total # of Minutes Spent Total Time Spent with Patient: Total time spent is greater than 50% in coordination of care (as documented) at patient's floor/unit and/or counseling patient: 35 minutes
[2019-04-22] MEDS: INSULIN ASPART 100 UNITS/ML 3 ML PEN SC SCH ×4 (08:53→21:51)
[2019-04-22] MEDS: POLYETHYLENE (MIRALAX) 17 GM PACK PO SCH ×2 (09:41→21:39)
[2019-04-22] MEDS: DOCUSATE SODIUM 100 MG CAP PO SCH ×2 (09:41→21:40)
--- NOTE | 2019-04-22 11:19 | Pharmacy Report ---
Pharmacy Glycemic Short Note 2 - Date of Service April 22, 2019 - Glycemic Short BSG Results (Last 24 hours): 04/21/19 04/21/19 04/21/19 11:06 12:59 16:00 Glucose POC Glucose 123 H 273 H 348 H* 04/21/19 04/21/19 04/21/19 17:55 19:06 20:03 Glucose POC Glucose 325 H* 334 H* 276 H 04/21/19 04/21/19 04/21/19 21:04 22:11 23:27 Glucose POC Glucose 228 H 144 H 90 04/22/19 04/22/19 04/22/19 00:21 00:40 01:57 Glucose POC Glucose 64 L* 92 128 H 04/22/19 04/22/19 04/22/19 03:59 06:20 07:22 Glucose 75 POC Glucose 168 H 111 H ASSESSMENT: * Type 2 diabetic with erratic BSGs over the last 2 days. * Glycemic control has been difficult given patient's high dose steroid administration and changes in clinical status. * Over the last 24 hrs, patient was transitioned off insulin drip. * FBS 75-111 this AM with ~ 22 units of basal insulin on board. Given patient's discomfort and poor PO intake thus far today, will provide a reduced dose of basal insulin over the next 24 hrs * BSGs yesterday did climb as high as ~ 340s and as low as 60's. I suspect this was secondary to inappropriately low/high prandial Novolog SQ doses while on the IV infusion. * Will attempt to control BSGs today with purely basal/bolus SQ. In the past correctional insulin doses may have been set too high and led to hypoglycemic episodes when BSGs severely elevated. PLAN FOR INPATIENT GLYCEMIC CONTROL: * Basal insulin * Lantus 8 units with lunch, then BSG per the following scale: * 0 units if BSG less than 100 * 6 units if BSG 100-140 * 9 units if BSG above 140 * Bolus insulin * NovoLog per scale ACHS or Q6hrs while NPO * Goal Range: Low 110 mg/dL - High 140 mg/dL * Correction Factor: 30 mg/dL/unit * Nutritional / Prandial insulin per carb ratio of 1 unit per 7 grams CHO consumed
[2019-04-22] MEDS ORDERED: INSULIN GLARGINE SOLOSTAR 100 UNITS/ML 3 ML PEN SC ONE (11:30)
[2019-04-22] MEDS ORDERED: MoRPHine SULFATE PCA 50 MG/50ML IV SCH (13:00)
--- NOTE | 2019-04-22 13:01 | Palliative Care Progress Note ---
Date of Service April 22, 2019 Assessment & Plan (1) Goals of care, counseling/discussion: -After lengthy discussion, patient states he wants to go home. , Fior, at bedside and is tearful, but agrees that she wants patient to come home if possible. -Discussed home hospice care and what this would look like for patient: oxygen via nasal cannula or mask, no lab draws, no abx, no IV steroids, continue important medications as patient is able to tolerate, give morphine and lorazepam/Xanax for comfort. Allow nature to take its course and for patient to pass away. Discussed that hospice is not present 26/12, but are available to call 26/12. Talked about adding private duty caregivers if needed, patient does have long-term care insurance. -For now, continue IV steroids and abx. Continue to try to wean high-flow oxygen to a level of oxygen that can be done at home. Max home therapy is usually 10LPM. -Will switch to morphine BOTTLE PACKING MACHINE CLEANER: morphine more effective for SOB, morphine BOTTLE PACKING MACHINE CLEANER can be done at home on hospice as well. -Continuous morphine dose of 0.5mg/hr, incremental dose of 1mg Q30min PRN pain or SOB to start. If ineffective, can increase continuous dose to 1mg and increase incremental dose to 2mg. -Discontinue PO Dilaudid. -Xanax 0.5mg Q4h PRN anxiety. -Would be certain to write script for Roxanol 10mg PO Q1h PRN pain or SOB if patient does discharge home: so has back up medication to give in case BOTTLE PACKING MACHINE CLEANER pump malfunctions, is ineffective, pain/SOB needs increase greatly, etc. -Much education and support needs to be given to patient and his prior to him going home: what to do if patient becomes increasingly short of breath, how to give methadone slurry sublingually, etc. Dr. Lopez and I have both discussed with patient and . -We will continue to follow closely. (2) Cancer, metastatic to lung: (3) Bilateral pneumonia: (4) Cancer related pain: Subjective Patient had a rough weekend. Having hemoptysis. Oxygen requirements still high at 35LPM and 45% FiO2. Had panic attack this morning with severe dyspnea. Improved after Dilaudid PO and Xanax, but is now drowsy and falling asleep during conversation. , Fior, at bedside. Long discussion about patient's lack of improvement and continued decline. She was tearful and she and patient stated they would like to talk about moving towards home with hospice and transitioning to full comfort measures. Review of Systems Review of Systems: +weakness no dysphagia, but trouble taking pills this morning due to SOB +cough with hemoptysis, +SOB no chest pain, no edema no N/V +severe anxiety Physical Exam Constitutional: + cachectic and + frail appearing ENMT: external ear and nose normal, oropharynx normal Neck: normal visual inspection Respiratory: + labored breathing; no respiratory distress on high-flow nasal cannula Cardiovascular: Rate/Rhythm: regular rate and regular rhythm Extremities: no edema Gastrointestinal (Abdomen): Percussion/Palpation: abdomen soft; abdomen nontender Skin: + mottling (BL knees) dusky fingertips Neurologic: awake (but lethargic/drowsy) Psychiatric: Orientation: oriented to person, oriented to place and oriented to time Results & Data Vital Signs (Past 12 Hours) Vital Signs Temp Pulse Resp BP BP Pulse Ox 04/22/19 11:43 36.6 C 85 21 160/94 H 92 04/22/19 11:06 83 20 91 04/22/19 08:11 36.5 C 81 20 190/88 H 89 L 04/22/19 07:00 95 H 20 93 04/22/19 04:36 36.4 C L 76 24 155/89 H 91 04/22/19 02:59 88 20 90 Supervising Physician Co-Signing Physician Notes Patient seen and examined, patient's and [id number] at bedside. Patient has clinically deteriorated over the weekend-patient now stating he wants to go home. Patient and agreeable to home with hospice. PE: Patient awake and alert, fatigued, short of breath with minimal exertion HEENT: EOMI, hearing within normal limits Respiratory: On high flow nasal cannula diminished breath sounds bilaterally CV: Regular rate, no edema Abdomen: Not distended Neuro: Alert and oriented Agree with above note, assessment and plan as per EMMETT Gonzalez-will continue to follow and help facilitate discharge home with hospice. PG Care Time/CCT Prolonged Care Time Prolonged Care Time: Yes Total Prolonged Care Time: 65 Time Spent Midlevel 65 minutes with >50% of time spent at bedside with patient and family discussing condition and GOC; as well as collaborating with multiple physicians and case management to coordinate care. Attending Spent 30 minutes in addition to this 65 minutes spent by EMMETT Gonzalez for a total of 95 minutes with greater than 50% of the time spent at bedside discussing goals of care.
[2019-04-22] MEDS ORDERED: NALOXONE HCL 0.4 MG/1 ML VIAL/CARP IV PRN (13:09)
[2019-04-22] MEDS: PRAVASTATIN SOD 40 MG TAB PO SCH (13:38)
[2019-04-22] MEDS: MULTIVITAMIN TAB PO SCH (13:39)
[2019-04-22] MEDS: RIVAROXABAN 10 MG TABLET PO SCH (13:39)
[2019-04-22] MEDS: SODIUM CHLORIDE 0.9% 1000ML 1,000 ML IV SCH (13:41)
[2019-04-22] MEDS: MORPHINE SULFATE PCA 30 MG/30 ML IV PRN (13:54)
[2019-04-22] MEDS: CHOLECALCIFEROL 1,000 UNITS TAB PO SCH (16:02)
--- NOTE | 2019-04-22 17:30 | Hospitalist Progress Note ---
Date of Service April 22, 2019 Assessment & Plan (1) Acute hypoxemic respiratory failure: Worsening dyspnea associated with hypoxia (O2 sat 84% on RA in ED). Possible related to bilateral pneumonia vs lymphangitic spread of non-small cell Ca vs pulmonary toxicity from chemo. CT chest showed extensive left greater the right bibasilar consolidative and groundglass opacities suggests pneumonia or aspiration pneumonitis. Requiring high flow O2 to maintain sat. Pulmonary on board Initially received IV vancomycin and piperacillin / tazo. Vanco was discontinued since nasal MRSA screen negative, so MRSA pneumonia very unlikely.. Sputum culture growing only normal kaelyn. Continue piperacillin / tazobactam and IV Solumedrol Continue high flow oxygen supplement (2) Non-small cell cancer of right lung: Non-small cell lung Ca with skeletal mets. CTA chest showed increased size of the previously noted lobular spiculated right upper lobe nodule with interval development of bilateral pulmonary metastatic nodules Management per Medical Oncology. Palliative care on board Palliative team had meeting with patient and and would transition to home hospice Starting on PASTING MACHINE OFFBEARER pump with morphine Continue Xanax prn (3) Cancer related pain: Continue PASTING MACHINE OFFBEARER pump with morphine Will change to roxanol prn on discharge (4) Protein calorie malnutrition: 50 lb weight loss associated with malignancy. Increase protein intake (5) Diabetes mellitus, type 2: Diabetes mellitus type 2, usually managed with sitagliptin / metformin. Continue to hold oral DM meds. Pharmacy on board for glycemic management. On Lantus and novolog sliding scale Continue monitor BS (6) Do not resuscitate status: Per his advanced directives and current status patient indicates that he does not wish to have extraordinary measures undertaken in the event of worsening respiratory failure or cardiopulmonary arrest. Specifically, no CPR, no defibrillation, no intubation / mechanical ventilation. Code status changed to: DNR. (7) DVT prophylaxis: Continue rivaroxaban. (8) Discharge planning issues: Plan to discharge on home hospice Family Medicine follow-up with Dr. Warren Thapa. Pulmonary Medicine follow-up with Dr. Bennett. Medical Oncology follow-up with Dr. Ridge Navarro. Palliative Care follow-up with Dr. Lopez. Subjective Pt was seen and examined Lying in bed with respiratory distress with at bedside Pt said that he just had an episode of dyspnea and anxiety when he removed the oxygen to eat said that he would like pt to be comfortable Continue requiring high flow oxygen Denies any chest pain, palpitation, dizziness and fever Physical Exam Physical Exam: General- No acute distress Head- atraumatic Eyes- PERRL, EOMI, ENT- oropharynx clear Neck- supple, no JVD Lungs- +diminished BS, Coarse BS at base Heart- regular rhythm; no murmur Abdomen- normal bowel sounds, soft, nontender Extremities- no calf tenderness Neuro- alert, oriented x 3; PERRL, EOMI; no facial palsy; no dysarthria Skin- warm & dry Results & Data Vital Signs (Past 12 Hours) Vital Signs Temp Pulse Resp BP BP Pulse Ox 04/22/19 15:40 36.3 C L 83 18 161/106 H 94 04/22/19 15:29 83 20 96 04/22/19 11:43 36.6 C 85 21 160/94 H 92 04/22/19 11:06 83 20 91 04/22/19 08:11 36.5 C 81 20 190/88 H 89 L 04/22/19 07:00 95 H 20 93
[2019-04-22] MEDS: MIRTAZAPINE TAB 15 MG TAB PO SCH (21:40)
[2019-04-22] MEDS: SENNA 8.6 MG TAB PO SCH (21:42)
[2019-04-22] MEDS: INSULIN GLARGINE SOLOSTAR 100 UNITS/ML 3 ML PEN SC SCH (21:47)
[2019-04-23] MEDS: PIPERACILLIN/TAZOBACTAM 3.375 GM in DEXTROSE 5% 100 ML IV SCH ×2 (01:54→10:35)
[2019-04-23] MEDS: INSULIN ASPART 100 UNITS/ML 3 ML PEN SC SCH ×5 (02:08→20:53)
[2019-04-23] MEDS: ALPRAZolam 0.5 MG TABLET PO PRN ×10 (03:08→23:39)
[2019-04-23] MEDS: METHADONE HCL 10 MG TAB PO SCH ×3 (05:30→20:55)
[2019-04-23] MEDS: METHYLPREDNISOLONE IV SCH ×2 (06:16→15:33)
[2019-04-23] MEDS: DEXTROSE 5% IV SCH ×2 (06:16→15:33)
[2019-04-23] MEDS: ALBUT/IPRATROP 3MG/0.5MG NEB 3 ML VIAL NEB SCH ×4 (06:59→18:54)
[2019-04-23] MEDS: MORPHINE SULFATE PCA 30 MG/30 ML IV PRN ×3 (07:07→20:01)
[2019-04-23] MEDS: SERTRALINE HCL 100 MG TABLET PO SCH (08:09)
[2019-04-23] MEDS: POLYETHYLENE (MIRALAX) 17 GM PACK PO SCH ×2 (08:09→20:50)
[2019-04-23] MEDS: CALCIUM CARBONATE 1250MG TAB PO SCH ×2 (09:05→20:52)
[2019-04-23] MEDS: DOCUSATE SODIUM 100 MG CAP PO SCH ×2 (09:05→20:51)
[2019-04-23] MEDS: PANTOprazole 40 MG TAB PO SCH (09:05)
[2019-04-23] MEDS: FOLIC ACID 1 MG TAB PO SCH (09:05)
[2019-04-23] MEDS: INSULIN GLARGINE SOLOSTAR 100 UNITS/ML 3 ML PEN SC SCH ×2 (09:06→20:54)
--- NOTE | 2019-04-23 09:31 | Pharmacy Report ---
Pharmacy Glycemic Short Note 2 - Date of Service April 23, 2019 - Glycemic Short BSG Results (Last 24 hours): 04/22/19 04/22/19 04/22/19 11:01 16:09 20:56 POC Glucose 178 H 279 H 302 H* 04/22/19 04/23/19 04/23/19 20:59 01:59 07:39 POC Glucose 301 H* 135 H 220 H ASSESSMENT: 04/23 * BSGs did climb thoughout the day yesterday, patient had not eaten much yesterday either - only 1 meal documented. * BSG pattern is suggestive of both basal and prandial insulin deficiency. Will increase doses of both today. Will not adjust correctional insulin dose as overly aggressive correction has caused hypoglycemic episodes. 04/22 * Type 2 diabetic with erratic BSGs over the last 2 days. * Glycemic control has been difficult given patient's high dose steroid administration and changes in clinical status. * Over the last 24 hrs, patient was transitioned off insulin drip. * FBS 75-111 this AM with ~ 22 units of basal insulin on board. Given patient's discomfort and poor PO intake thus far today, will provide a reduced dose of basal insulin over the next 24 hrs * BSGs yesterday did climb as high as ~ 340s and as low as 60's. I suspect this was secondary to inappropriately low/high prandial Novolog SQ doses while on the IV infusion. * Will attempt to control BSGs today with purely basal/bolus SQ. In the past correctional insulin doses may have been set too high and led to hypoglycemic episodes when BSGs severely elevated. PLAN FOR INPATIENT GLYCEMIC CONTROL: * Basal insulin (dose increase) * Lantus 2 units additional with lunch (total AM dose = 11 units), then BSG per the following scale: * 0 units if BSG less than 100 * 6 units if BSG 100-140 * 12 units if BSG above 140 * Bolus insulin (prandial increase only) * NovoLog per scale ACHS or Q6hrs while NPO * Goal Range: Low 110 mg/dL - High 140 mg/dL * Correction Factor: 30 mg/dL/unit * Nutritional / Prandial insulin per carb ratio of 1 unit per 5 grams CHO consumed * Reassess insulin needs with each step down in steroid dose DISCHARGE RECS: * to be determined...
--- NOTE | 2019-04-23 11:22 | Palliative Care Progress Note ---
Date of Service April 23, 2019 Assessment & Plan (1) Goals of care, counseling/discussion: -Morphine MANUFACTURING PROJECT MANAGER pump: -Increase continuous dose to 1mg/hr. -Incremental dose of 1mg Q30min. -Xanax 0.5mg Q2h PRN anxiety. -Would be certain to write script for Roxanol 10mg PO Q1h PRN pain or SOB if patient does discharge home: so has back up medication to give in case MANUFACTURING PROJECT MANAGER pump malfunctions, is ineffective, pain/SOB needs increase greatly, etc. -When/if discharging: Hospice agency will need to bring the MANUFACTURING PROJECT MANAGER pump that will be used at home, to the hospital and switch him over prior to him being discharged. -Dr. Bennett transitioned steroids and abx to oral. -Continue to wean oxygen as needed according to patient's comfort level. -Discussed home hospice again with patient and : will see how patient does with switch to oral medications, MANUFACTURING PROJECT MANAGER pump changes, and continuing to wean oxygen. Once he is stable and comfortable for at least 24 hours or more, can talk about discharging home. -Continue methadone 30mg TID. -We will continue to follow closely. (2) Cancer, metastatic to lung: (3) Bilateral pneumonia: (4) Cancer related pain: Subjective Patient is awake and oriented x4. Still drowsy and falling asleep at times. Fior at bedside. Patient continues to have pain, but does feel much improved with the morphine MANUFACTURING PROJECT MANAGER. Still has pain 10/10 at times, which worsens his anxiety, and the anxiety worsens his pain and SOB. Review of Systems Review of Systems: +weakness no dysphagia +cough, +SOB no chest pain, no edema no N/V +severe anxiety +pain 4/10 after PRN morphine dose delivered Physical Exam Constitutional: + cachectic and + frail appearing ENMT: external ear and nose normal, oropharynx normal Neck: normal visual inspection Respiratory: + labored breathing; no respiratory distress Cardiovascular: Rate/Rhythm: regular rate and regular rhythm Extremities: no edema Gastrointestinal (Abdomen): Percussion/Palpation: abdomen soft; abdomen nontender Neurologic: awake (but lethargic/drowsy) Psychiatric: Orientation: oriented to person, oriented to place and oriented to time Results & Data Vital Signs (Past 12 Hours) Vital Signs Temp Pulse Pulse Resp BP Pulse Ox 04/23/19 11:05 83 20 93 04/23/19 10:53 78 22 94 04/23/19 08:00 82 04/23/19 07:49 36.5 C 68 21 155/88 H 92 04/23/19 07:01 70 16 92 04/23/19 07:00 70 16 92 04/23/19 03:42 74 20 94 04/23/19 00:10 36.6 C 80 20 164/95 H 89 L Supervising Physician Co-Signing Physician Notes Patient seen and examined, patient's at bedside. Collaborated with EMMETT Gonzalez Patient currently on O2 at 10 L via oxime mask with sats of 99%, patient has tolerated this for over 20 minutes Patient's color has improved, respirations are unlabored, taking deep breaths. Overall appears improved from exam yesterday. PE: Drowsy at times, alert and oriented when awake HEENT: EOMI, hearing within normal limits Respirations: Good air movement, unlabored CV: Regular rate Abdomen: Not distended Psych: Anxiety well controlled Agree with above note, assessment and plan as per EMMETT Gonzalez-will continue to follow and assist with transition home with hospice care. PG Care Time/CCT Prolonged Care Time Prolonged Care Time: Yes Total Prolonged Care Time: 35 Time Spent Midlevel 35 minutes with >50% of the time spent at bedside with patient and family discussing symptom management and hospice. Attending Spent 35 minutes in addition to the 35 minutes spent by EMMETT Gonzalez for a total of 70 minutes with greater than 50% of time spent at bedside and reviewing plan of care as well as details regarding transition home with hospice care. Critical Care Time Prolonged Care Time Prolonged Care Time: Yes Total Prolonged Care Time: 35 70
[2019-04-23] MEDS ORDERED: INSULIN GLARGINE SOLOSTAR 100 UNITS/ML 3 ML PEN SC SCH (11:30)
[2019-04-23] MEDS: PRAVASTATIN SOD 40 MG TAB PO SCH (12:21)
[2019-04-23] MEDS: SODIUM CHLORIDE 0.9% 1000ML 1,000 ML IV SCH (13:52)
[2019-04-23] MEDS: MULTIVITAMIN TAB PO SCH (14:04)
[2019-04-23] MEDS: RIVAROXABAN 10 MG TABLET PO SCH (14:05)
--- NOTE | 2019-04-23 14:51 | Pulmonology Progress Note ---
Date of Service April 23, 2019 Assessment & Plan (1) Metastatic primary lung cancer: Impression: 63-year-old male with history of metastatic adenocarcinoma and known malignant pleural effusion of presumed lung primary on pemetrexed and cisplatin now with progressive pulmonary infiltrates, growing/new pulmonary nodules, and increased interstitial/groundglass opacities the bilateral lower lobes. The differential would include infectious or inflammatory etiologies including Alimta pulmonary toxicity. Cannot exclude lymphangitic tumor especially given the progression of disease noted on a CT scan with new pulmonary nodules. Recommendations: 1. Metastatic adenocarcinoma of lung primary: He is stable but not much better. Continues to require high flow oxygen. He and his family are contemplating trying to go home with palliative care. In hopes of facilitating this, we will transition him to oral Levaquin and prednisone. He should be placed on oxygen via nasal cannula which could be supplied in transport as well as at home to assess whether or not her current prescription would meet his needs. 2. Dyspnea: Multifactorial: Continue Xanax and morphine for pain control and dyspnea management. Sublingual Roxanol may be considered for breakthrough issues. Defer to palliative care and hospice 3. Acute on chronic hypoxemic respiratory failure: Continue supplemental oxy gen. Wean as tolerated with target oxygen saturations 90% 4. Hemoptysis: Etiology unclear. Lung cancer and infection both may be contributing. It appears scant. The patient is not a candidate for bronchoscopy or any invasive procedures. Again if his dyspnea is improved we may consider repeating his chest x-ray today. Transition to full palliative care may be appropriate. Imaging reviewed with the patient's daughter who has arrived from out of town. Questions were answered. (2) Abnormal CT scan of lung: (3) Acute hypoxemic respiratory failure: Subjective Patient feels his breathing is slightly better with increasing dose of narcotics and benzodiazepines. He is tolerating the morphine BACK MAKER. His pain is somewhat better. He is not experienced any additional hemoptysis. Review of Systems Review of Systems: Unchanged from prior Physical Exam Constitutional: + ill appearing, + thin and + in distress Eyes: PERRL, conjunctivae normal, anicteric sclerae Neck: trachea midline, no thyromegaly Respiratory: + uses accessory muscles and + tachypneic Auscultation: + crackles Cardiovascular: Rate/Rhythm: + tachycardic Heart Sounds: normal S1 and normal S2; no murmur Gastrointestinal (Abdomen): normal bowel sounds, soft, nontender, no hepatosplenomegaly Skin: no rashes, warm and dry Results & Data Vital Signs (Past 12 Hours) Vital Signs Temp Pulse Pulse Resp BP Pulse Ox 04/23/19 11:47 36.3 C L 71 20 160/91 H 91 04/23/19 11:05 83 20 93 04/23/19 10:53 78 22 94 04/23/19 08:00 82 04/23/19 07:49 36.5 C 68 21 155/88 H 92 04/23/19 07:01 70 16 92 04/23/19 07:00 70 16 92 04/23/19 03:42 74 20 94 Laboratory Results 04/22/19 06:20 04/22/19 06:20 Diagnostic Findings No new imaging PG Care Time/CCT Total # of Minutes Spent Total Time Spent with Patient: Total time spent is greater than 50% in coordination of care (as documented) at patient's floor/unit and/or counseling patient:
--- NOTE | 2019-04-23 15:16 | Hospitalist Progress Note ---
Date of Service April 23, 2019 Assessment & Plan (1) Acute hypoxemic respiratory failure: Worsening dyspnea associated with hypoxia (O2 sat 84% on RA in ED). Possible related to bilateral pneumonia vs lymphangitic spread of non-small cell Ca vs pulmonary toxicity from chemo. CT chest showed extensive left greater the right bibasilar consolidative and groundglass opacities suggests pneumonia or aspiration pneumonitis. Continue Requiring high flow O2 to maintain sat. Pulmonary on board Initially received IV vancomycin and piperacillin / tazo. Vanco was discontinued since nasal MRSA screen negative, so MRSA pneumonia very unlikely.. Sputum culture growing only normal kaelyn. On piperacillin / tazobactam and IV Solumedrol Will transition to oral levaquin and prednisone since pt wants to go home on hospice Continue high flow oxygen supplement for now Will continue to wean oxygen (2) Non-small cell cancer of right lung: Non-small cell lung Ca with skeletal mets. CTA chest showed increased size of the previously noted lobular spiculated right upper lobe nodule with interval development of bilateral pulmonary metastatic nodules Management per Medical Oncology. Palliative care on board Palliative team had meeting with patient and and would transition to home hospice Continue S[employer] SUPER[employer]OR pump with morphine Continue Xanax prn (3) Cancer related pain: Continue S[employer] SUPER[employer]OR pump with morphine Will change to roxanol prn on discharge wants him to be comfortable Pain control (4) Protein calorie malnutrition: 50 lb weight loss associated with malignancy. Increase protein intake (5) Diabetes mellitus, type 2: Diabetes mellitus type 2, usually managed with sitagliptin / metformin. Continue to hold oral DM meds. Pharmacy on board for glycemic management. On Lantus and novolog sliding scale Continue monitor BS (6) Do not resuscitate status: Per his advanced directives and current status patient indicates that he does not wish to have extraordinary measures undertaken in the event of worsening respiratory failure or cardiopulmonary arrest. Specifically, no CPR, no defibrillation, no intubation / mechanical ventilation. Code status changed to: DNR. (7) DVT prophylaxis: Continue rivaroxaban. (8) Discharge planning issues: Will d/c tele Plan to discharge on home hospice Family Medicine follow-up with Dr. Warren Thapa. Pulmonary Medicine follow-up with Dr. Bennett. Medical Oncology follow-up with Dr. Ridge Navarro. Palliative Care follow-up with Dr. Lopez. Subjective Pt was seen and examined. Lying in bed with respiratory distress He said that with minimal exertion while on the bed, he got exhausted wants pt to be comfortable Continue requiring high flow oxygen Denies any chest pain and dizziness Physical Exam Physical Exam: General- No acute distress Head- atraumatic Eyes- PERRL, EOMI, ENT- oropharynx clear Neck- supple, no JVD Lungs- +diminished BS, Coarse BS at base Heart- regular rhythm; no murmur Abdomen- normal bowel sounds, soft, nontender Extremities- no calf tenderness Neuro- alert, oriented x 3; PERRL, EOMI; no facial palsy; no dysarthria Skin- warm & dry Results & Data Vital Signs (Past 12 Hours) Vital Signs Temp Pulse Pulse Resp BP Pulse Ox 04/23/19 15:12 36.6 C 82 24 164/83 H 92 04/23/19 11:47 36.3 C L 71 20 160/91 H 91 04/23/19 11:05 83 20 93 04/23/19 10:53 78 22 94 04/23/19 08:00 82 04/23/19 07:49 36.5 C 68 21 155/88 H 92 04/23/19 07:01 70 16 92 04/23/19 07:00 70 16 92 04/23/19 03:42 74 20 94
[2019-04-23] MEDS: CHOLECALCIFEROL 1,000 UNITS TAB PO SCH (15:34)
[2019-04-23] MEDS: MIRTAZAPINE TAB 15 MG TAB PO SCH (19:19)
[2019-04-23] MEDS: SENNA 8.6 MG TAB PO SCH (20:52)
[2019-04-23] MEDS: predniSONE 20 MG TAB PO SCH (20:53)
[2019-04-24] MEDS: ALPRAZolam 0.5 MG TABLET PO PRN ×5 (02:00→13:19)
[2019-04-24] MEDS: INSULIN ASPART 100 UNITS/ML 3 ML PEN SC SCH ×3 (02:01→12:32)
[2019-04-24] MEDS: METHADONE HCL 10 MG TAB PO SCH ×2 (05:51→14:11)
[2019-04-24 07:08] LABS: Creatinine Clr Calc Pharmacy 99.9 ml/min; Est GFR (African American) 132.9; Est GFR (Non-African American) 114.7
[2019-04-24 07:22] VITALS: TEMP 97.7
[2019-04-24] MEDS: MORPHINE SULFATE PCA 30 MG/30 ML IV PRN (07:23)
[2019-04-24] MEDS: ALBUT/IPRATROP 3MG/0.5MG NEB 3 ML VIAL NEB SCH ×2 (07:24→11:13)
[2019-04-24] MEDS: POLYETHYLENE (MIRALAX) 17 GM PACK PO SCH (08:18)
[2019-04-24] MEDS: DOCUSATE SODIUM 100 MG CAP PO SCH (08:19)
[2019-04-24] MEDS: PANTOprazole 40 MG TAB PO SCH (08:19)
[2019-04-24] MEDS: SERTRALINE HCL 100 MG TABLET PO SCH (08:19)
[2019-04-24] MEDS: predniSONE 20 MG TAB PO SCH (08:19)
[2019-04-24] MEDS: CALCIUM CARBONATE 1250MG TAB PO SCH (08:19)
[2019-04-24] MEDS ORDERED: INSULIN GLARGINE SOLOSTAR 100 UNITS/ML 3 ML PEN SC SCH ×2 (09:00→21:00)
[2019-04-24] MEDS: FOLIC ACID 1 MG TAB PO SCH (10:07)
[2019-04-24] MEDS ORDERED: ALPRAZolam 0.5 MG TABLET PO STA (10:19)
--- NOTE | 2019-04-24 10:21 | Palliative Care Progress Note ---
Date of Service April 24, 2019 Assessment & Plan (1) Goals of care, counseling/discussion: -Patient with increased anxiety. -Patient has been able to be weaned down to 6LNC. -Unable to determine 24 hour use of Morphine as he was transfered from the 2nd floor and that HE[employer]ILITIES SURVEYOR pump remained on that unit. From 1800 last evening, he had 32 attempts and 18 injections with a total of 23.85 mg PRN use. -Patient receiving Xanax 0.5 mg Q 2 PRN for anxiety. -Family and patient adamantly wanting to go home with hospice services. -All medications transitioned to po. -Main concern was oxygen use limitations, he has been weaned down to 6LNC and SpO2 sitting mid 90's. -Patient says he wants to pass away at home. -Case management involved and I discussed with the Palliative care medical records coder regarding discharge timing. The following Rx was faxed ([phone]) to [facility] (hospice pharmacy) -Morphine [employer] SUR[employer]YOR 5mg/mL Administer 1 mg basal hourly, 1 mg PRN bolus with Q20 minute lock out, #100mL cassette -Xanax 0.5 mg Q2 PRN anxiety/SOB #48 -Roxanol 20mg/mL Admin 10 mg SL Q1 PRN air hunger/pain. #30mL -Case management working on transport and confirmed the HEALTH [employer]ACILITIES SURVEYOR would be ready by 1400 today and hospice/daughter can meet at the home. All equipment delivered. -Additional dose of Xanax administered and patient did rest comfortably. -Nursing instructed to give one dose of Roxanol just as soon as he is disconnected and transferred to the litter prior to DC. -Hospitalist aware and working on discharge instructions and Pulmonary updated as well. -PPS: 10% (2) Cancer, metastatic to lung: (3) Bilateral pneumonia: (4) Cancer related pain: Subjective Patient seen and examined with at bedside. He appears to have anxiety and SOB, but his O2 has been weaned to 6LNC and SpO2 sitting mid 90's. Please see A/P. Working to DC patient home for end of life care. Review of Systems Review of Systems: +weakness +SOB no chest pain, no edema no N/V +severe anxiety +pain 5/10 on Morphine [employer]IES SUR[employer]YOR Physical Exam Constitutional: + ill appearing, + cachectic, + frail appearing and + lethargic Cardiovascular: RRR, no murmur, no edema Rate/Rhythm: + tachycardic Extremities: normal capillary refill Skin: no rashes, warm and dry + ecchymosis Psychiatric: A+Ox3, euthymic affect Results & Data Vital Signs (Past 12 Hours) Vital Signs Temp Pulse Resp BP Pulse Ox 04/24/19 07:26 92 H 30 H 94 04/24/19 07:21 36.5 C 91 H 18 163/107 H 96 PG Care Time/CCT Total # of Minutes Spent Total Time Spent with Patient: Total time spent is greater than 50% in coordination of care (as documented) at patient's floor/unit and/or counseling patient: 110 Time Spent Midlevel total time spent 110 minutes with > 50% of that time spent assessing the patient, discussing symptom management needs and orchestrating DC plans with IDT
[2019-04-24] MEDS ORDERED: MoRPHine SULFATE 10 MG/0.5 ML UDP PO PRN (10:47)
[2019-04-24] MEDS ORDERED: levoFLOXacin 500 MG TAB PO SCH (11:00)
[2019-04-24 11:15] VITALS: PULSE 78; O2SAT 93
--- NOTE | 2019-04-24 11:33 | Hospitalist Progress Note ---
Date of Service April 24, 2019 Assessment & Plan (1) Acute hypoxemic respiratory failure: Worsening dyspnea associated with hypoxia (O2 sat 84% on RA in ED). Possible related to bilateral pneumonia vs lymphangitic spread of non-small cell Ca vs pulmonary toxicity from chemo. CT chest showed extensive left greater the right bibasilar consolidative and groundglass opacities suggests pneumonia or aspiration pneumonitis. Continue Requiring high flow O2 to maintain sat. Pulmonary on board Initially received IV vancomycin and piperacillin / tazo. Vanco was discontinued since nasal MRSA screen negative, so MRSA pneumonia very unlikely.. Sputum culture growing only normal kaelyn. On piperacillin / tazobactam and IV Solumedrol Continue oral Levaquin and prednisone Transition from high flow oxygen to 6L NC Case discussed with pulmonary Not much help in continuing prednisone or antibiotics at this point time as per pulm Pt would like to complete the course of antibiotic and short course prednisone (2) Non-small cell cancer of right lung: Non-small cell lung Ca with skeletal mets. CTA chest showed increased size of the previously noted lobular spiculated right upper lobe nodule with interval development of bilateral pulmonary metastatic nodules Management per Medical Oncology. Palliative care on board Palliative team had meeting with patient and and would transition to home hospice Continue MACHINE [employer]TER AUTOMATIC pump with morphine on discharge Will discharge home on hospice Continue Xanax and Roxanol PRN (3) Cancer related pain: Continue MACHINE SETTER AUTOMATIC pump with morphine Continue Roxanol and Xanax prn wants him to be comfortable Pt wishes to go home on hospice (4) Protein calorie malnutrition: 50 lb weight loss associated with malignancy. Increase protein intake (5) Diabetes mellitus, type 2: Diabetes mellitus type 2, usually managed with sitagliptin / metformin. Continue to hold oral DM meds. Pharmacy on board for glycemic management. On Lantus and novolog sliding scale Continue monitor BS (6) Do not resuscitate status: Per his advanced directives and current status patient indicates that he does not wish to have extraordinary measures undertaken in the event of worsening respiratory failure or cardiopulmonary arrest. Specifically, no CPR, no defibrillation, no intubation / mechanical ventilation. Code status changed to: DNR. Comfort care (7) DVT prophylaxis: Continue rivaroxaban. (8) Discharge planning issues: Plan to discharge on home hospice Family Medicine follow-up with Dr. Warren Thapa. Pulmonary Medicine follow-up with Dr. Bennett. Medical Oncology follow-up with Dr. Ridge Navarro. Palliative Care follow-up with Dr. Lopez. Subjective Pt was seen and examined. Lying in bed comfortable resting with /daughter and grand daughter at bedside. said that patient had a rough time last night. She said that he just finally felt asleep after taking 2 Xanax tablets Pt is very anxious today and wishes to go home today said that she wants to follow his wishes by going home on comfort care Case discussed with palliative care and gave scripts to case management for Xanax, Roxanol and Morphine MACHINE [employer]TER [employer]OMATIC pump Denies any chest pain and palpitation Physical Exam Physical Exam: General- No acute distress Head- atraumatic Eyes- PERRL, EOMI, ENT- oropharynx clear Neck- supple, no JVD Lungs- +diminished BS, Coarse BS at base Heart- regular rhythm; no murmur Abdomen- normal bowel sounds, soft, nontender Extremities- no calf tenderness Neuro- alert, oriented x 3; PERRL, EOMI; no facial palsy; no dysarthria Skin- warm & dry Results & Data Vital Signs (Past 12 Hours) Vital Signs Temp Pulse Resp BP Pulse Ox 04/24/19 11:14 78 20 93 04/24/19 07:26 92 H 30 H 94 04/24/19 07:21 36.5 C 91 H 18 163/107 H 96
--- NOTE | 2019-04-24 11:59 | Pulmonology Progress Note ---
Date of Service April 24, 2019 Assessment & Plan (1) Metastatic primary lung cancer: Impression: 63-year-old male with history of metastatic adenocarcinoma and known malignant pleural effusion of presumed lung primary on pemetrexed and cisplatin now with progressive pulmonary infiltrates, growing/new pulmonary nodules, and increased interstitial/groundglass opacities the bilateral lower lobes. The differential would include infectious or inflammatory etiologies including Alimta pulmonary toxicity. Cannot exclude lymphangitic tumor especially given the progression of disease noted on a CT scan with new pulmonary nodules. Patient is declining despite aggressive therapy and his de ath appears eminent Recommendations: 1. Metastatic adenocarcinoma of lung primary: Family and patient expressed a desire to go home. He understands that he . Discussed with palliative care today. From an oxygen and pulmonary standpoint I would strongly recommend that he be discharged home as soon as possible. I advised the family that at this rate is unclear if he is good to make it through the weekend. 2. Dyspnea: Multifactorial: Continue Xanax and morphine for pain control and dyspnea management. Sublingual Roxanol may be considered for breakthrough issues. Defer to palliative care and hospice 3. Acute on chronic hypoxemic respiratory failure: Continue supplemental oxygen as a palliative measure 4. Hemoptysis: Resolved I would favor getting the patient home on symptomatic therapy. I do not see much utility in continuing prednisone or antibiotics at this point time. Oxygen can be used as a palliative measure but would not measure saturations or try and titrate to a specific goal other than comfort. (2) Abnormal CT scan of lung: (3) Acute hypoxemic respiratory failure: Subjective Patient seen and examined with and family at bedside. He is continuing to decline clinically. He has episodes of lucidity when he complains of pain and increased shortness of breath but otherwise is having increasing somnolence. He and his family would like to get him home for palliative care and to pass away if possible. Review of Systems Review of Systems: Unchanged from prior Physical Exam Constitutional: + ill appearing, + thin and + in distress Eyes: PERRL, conjunctivae normal, anicteric sclerae Neck: trachea midline, no thyromegaly Respiratory: + uses accessory muscles and + tachypneic Auscultation: + crackles Cardiovascular: Rate/Rhythm: + tachycardic Heart Sounds: normal S1 and normal S2; no murmur Gastrointestinal (Abdomen): normal bowel sounds, soft, nontender, no hepatosplenomegaly Skin: no rashes, warm and dry Results & Data Vital Signs (Past 12 Hours) Vital Signs Temp Pulse Resp BP Pulse Ox 04/24/19 11:14 78 20 93 04/24/19 07:26 92 H 30 H 94 04/24/19 07:21 36.5 C 91 H 18 163/107 H 96 PG Care Time/CCT Total # of Minutes Spent Total Time Spent with Patient: Total time spent is greater than 50% in coordination of care (as documented) at patient's floor/unit and/or counseling patient: 50 minutes time spent coordinating end-of-life care in this patient with discussions with family at the bedside and with the patient as well as with his care teams.
[2019-04-24] MEDS: PRAVASTATIN SOD 40 MG TAB PO SCH ×2 (12:30→12:39)
[2019-04-24] MEDS: RIVAROXABAN 10 MG TABLET PO SCH (14:11)
[2019-04-24] MEDS: MULTIVITAMIN TAB PO SCH (14:12)
[2019-04-24 14:33] VITALS: BP 173/95
--- NOTE | 2019-04-24 15:15 | Pharmacy Report ---
Pharmacy Glycemic Short Note 2 - Date of Service April 24, 2019 - Glycemic Short BSG Results (Last 24 hours): 04/23/19 04/23/19 04/24/19 16:20 19:57 02:00 POC Glucose 212 H 233 H 138 H 04/24/19 04/24/19 07:52 11:59 POC Glucose 198 H 147 H ASSESSMENT: 04/24: * Patient received total of 52 units of insulin yesterday, of which 23 were basal - solm 250 q 8 d/c and changed to prednisone 40 bid * Anticipated BSGs trending down with change in steroids - decrease basal ~30% and utilize stress of 2 for dosing * 8 units basal this am with scale for tonight - loosened CF/CR with lunch time 04/23 * BSGs did climb thoughout the day yesterday, patient had not eaten much yesterday either - only 1 meal documented. * BSG pattern is suggestive of both basal and prandial insulin deficiency. Will increase doses of both today. Will not adjust correctional insulin dose as overly aggressive correction has caused hypoglycemic episodes. 04/22 * Type 2 diabetic with erratic BSGs over the last 2 days. * Glycemic control has been difficult given patient's high dose steroid administration and changes in clinical status. * Over the last 24 hrs, patient was transitioned off insulin drip. * FBS 75-111 this AM with ~ 22 units of basal insulin on board. Given patient's discomfort and poor PO intake thus far today, will provide a reduced dose of basal insulin over the next 24 hrs * BSGs yesterday did climb as high as ~ 340s and as low as 60's. I suspect this was secondary to inappropriately low/high prandial Novolog SQ doses while on the IV infusion. * Will attempt to control BSGs today with purely basal/bolus SQ. In the past correctional insulin doses may have been set too high and led to hypoglycemic episodes when BSGs severely elevated. PLAN FOR INPATIENT GLYCEMIC CONTROL: * Basal insulin * Lantus 8 this AM and scale of 5 or 8 for tonight * Bolus insulin-loosened * NovoLog per scale ACHS or Q6hrs while NPO * Goal Range: Low 110 mg/dL - High 140 mg/dL * Correction Factor: 450mg/dL/unit * Nutritional / Prandial insulin per carb ratio of 1 unit per 7 grams CHO consumed *
--- NOTE | 2019-04-25 08:55 | Discharge Summary ---
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 For the past 2-3 weeks pt has had increased cough, more productive sputum white/clear, worsened SOB. The past two mornings pt had significant worsening of SOB specifically first thing in the morning. states his lips were purple. He does not use O2 at home. Complains of CARIAS, "rib pain" 2/2 to mets. He feels warm but denies documented fever. He is always chilled. Over 50lb weight loss in the past 1 year. Denies dizziness, lightheaded, syncope, hemoptysis, recent n/v, dysuria, increased urg/freq with urination. He does have intermittent nausea after chemo but no vomiting. He also has been experiencing LLQ abd pain intermittently, currently absent. Attributed this to constipation. He alternates from diarrhea to constipation due to pain meds and bowel regimen. He currently is receiving chemo therapy under the care of Dr. Navarro q4 weeks. Was seen in Dr. Navarro office today when O2 saturations were in 60s and he was referred to our ED. Appetite has overall been poor, on Remeron. He takes medical marijuana, po Dilaudid and methadone for pain control. elicits profound fatigue past 2 days. Admission Exam Per Admitting Provider Constitutional: Thin, cachectic, M, vitals as above, NAD, sitting up in bed, on non breather 15L, pleasant, conversing easily Head: Normocephalic, Atraumatic Eyes: PERRL, conjunctivae normal, anicteric sclerae ENMT: external ear and nose normal, oropharynx dry mucous membranes Neck: trachea midline, no thyromegaly normal visual inspection Respiratory: normal respiratory effort, lungs clear to auscultation with diffuse expiratory wheezing and diminished breath sounds at bases, no rhonchi. Normal insp/exp effort, no accessory muscle use on 15L via non rebreather Cardiovascular: RRR, no murmur, no edema Vessels: no JVD or carotid bruit Chest: normal inspection of chest Abdomen: normal bowel sounds, soft, nontender, no hepatosplenomegaly Musculoskeletal: no cyanosis or clubbing, extremities motor strength 5/5 Skin: no rashes, warm and dry normal turgor Neurologic: PERRL, EOMI, accommodation nl, no face palsy, no dysarthria CN's II-XI intact bilaterally and moves all extremities Psychiatric: A+Ox3, euthymic affect Lymphatic: no cervical or axillary lymphadenopathy : deferred Principal Diagnosis Acute hypoxemic respiratory failure Non-small cell cancer of right lung Cancer related pain Diabetes mellitus, type 2 Discharge Exam General- No acute distress Head- atraumatic Eyes- PERRL, EOMI, ENT- oropharynx clear Neck- supple, no JVD Lungs- +diminished BS, Coarse BS at base Heart- regular rhythm; no murmur Abdomen- normal bowel sounds, soft, nontender Extremities- no calf tenderness Neuro- alert, oriented x 3; PERRL, EOMI; no facial palsy; no dysarthria Skin- warm & dry Discharge Data Allergies Allergy/AdvReac Type Severity Reaction Status Date / Time ciprofloxacin [From Cipro] Allergy Intermediate BLOOD IN Verified 04/18/19 13:08 KIDNEYS mushroom AdvReac Intermediate STOMACH Verified 04/18/19 13:08 PAIN Consultations 04/18/19 14:24 ED Decision to Admit Stat 04/18/19 15:52 Consult Case Management - Discharge Planning Routine 04/19/19 08:33 Consult Pulmonology Routine 04/19/19 09:32 Consult Palliative Care Routine Ordered Studies 04/18/19 13:02 CT angio chest PE protocol Stat CT angio chest PE protocol CT DOSE: 323.03 mGycm HISTORY: 63 years-old Male with Dyspnea, lung ca, o2 sat 65%. Acute shortness of breath in a patient with history of lung cancer. TECHNIQUE: Multiple CTA images of the chest were obtained after the intravenous administration of 88 ml Optiray 320. Coronal and sagittal MIPS were obtained from the axial data set and were submitted for review. All measurements were obtained according to NASCET criteria. A dose lowering technique was utilized adhering to the principles of ALARA. COMPARISON: Chest radiograph of same day, CTA chest 11/24/2018 FINDINGS: CTA: Heart is mildly enlarged. Trace pericardial effusion. Coronary arterial calcifications are noted. No thoracic aortic aneurysm or dissection. Patency of the imaged great vessels. Pulmonary artery is opacified to level the subsegmental branches. The distal segmental and subsegmental branches are suboptimally evaluated secondary to contrast bolus timing. There is narrowing of the pulmonary arterial branches of the right hilum secondary to pathologic right hilar adenopathy. CT CHEST: Unremarkable thyroid. Pathologically enlarged mediastinal and hilar lymph nodes with additional multiple soft tissue nodules/lymph nodes of the epicardial tissues. The epicardial nodules have increased in size from comparison. 10 mm left subpectoral lymph node has decreased in size comparison. Large soft tissue mass of the left chest wall has also decreased. Left axillary lymph nodes measure up to 1.8 x 1.5 cm. Chronic small left pleural effusion with pleural thickening appears generally unchanged. Extensive multifocal bibasilar groundglass and consolidative opacities, left greater than right with air bronchograms. Bilateral intralobular septal thickening with mild emphysema. Increased size of the irregular spiculated nodule of the apical segment right upper lobe, 2.4 x 1.3 cm, previously measuring approximately 1.6 x 1.1 cm. Interval development of multiple bilateral solid pulmonary nodules measuring up to approximately 7-8 mm bilaterally compatible with metastasis. Bilateral bronchial wall thickening is noted. Partially imaged soft tissue thickening of the left adrenal gland appears progressed from comparison measuring up to 1.7 cm suggestive of adrenal metastasis. Diffuse skeletal metastasis redemonstrated. There is increased sclerosis involving multiple the metastatic lesions with several of the vertebral body lesions mildly increased in size.. Lytic bony destruction of the anterolateral left fourth rib redemonstrated. IMPRESSION: 1. Chronic small left pleural effusion with pleural thickening redemonstrated, likely malignant. 2. Extensive left greater the right bibasilar consolidative and groundglass opacities suggests pneumonia or aspiration pneumonitis. 3. Cardiomegaly with mild pulmonary edema. 4. No evidence of pulmonary thromboembolic disease. 5. Increased size of the previously noted lobular spiculated right upper lobe nodule with interval development of bilateral pulmonary metastatic nodules. 6. Mild progression of the diffuse skeletal metastasis. 7. Persistent pathologic adenopathy of the chest as above. The above report was generated using voice recognition software. It may contain grammatical, syntax or spelling errors. Electronically signed by: Kai Vargas M.D. 04/18/2019 3:00 PM Dictated: 04/18/19 1447 Transcribed: 04/18/19 144 XR chest 1V portable HISTORY: 63 years-old Male Dyspnea acute shortness of breath COMPARISON: Chest radiographs 03/04/2019, CTA chest 11/24/2018 TECHNIQUE: Portable AP view of the chest FINDINGS: Cardiac silhouette is enlarged, unchanged. Emphysema. Chronic interstitial coarsening. 2.4 cm irregular nodule of the right upper lobe redemonstrated. Right IJ central venous catheter is stable. There are patchy left greater than right bibasilar and left midlung airspace opacities with small left pleural effusion. Probable trace right pleural effusion. No pneumothorax. Skeletal metastasis redemonstrated. Healing pathologic fracture of the lateral right sixth rib. IMPRESSION: 1. Left greater than right bibasilar and left midlung airspace opacities suspicious for pneumonia or aspiration pneumonitis. 2. Small left pleural effusion. 3. Irregular right upper lobe pulmonary nodule with skeletal metastasis red emonstrated. 4. Emphysema. The above report was generated using voice recognition software. It may contain grammatical, syntax or spelling errors. Electronically signed by: Kai Vargas M.D. 04/18/2019 1:34 PM Dictated: 04/18/19 1331 Transcribed: 04/18/19 1331 Hospital Course (1) Acute hypoxemic respiratory failure: Worsening dyspnea associated with hypoxia (O2 sat 84% on RA in ED). Possible related to bilateral pneumonia vs lymphangitic spread of non-small cell Ca vs pulmonary toxicity from chemo. CT chest showed extensive left greater the right bibasilar consolidative and groundglass opacities suggests pneumonia or aspiration pneumonitis. Continue Requiring high flow O2 to maintain sat. Pulmonary on board Initially received IV vancomycin and piperacillin / tazo. Vanco was discontinued since nasal MRSA screen negative, so MRSA pneumonia very unlikely.. Sputum culture growing only normal kaelyn. On piperacillin / tazobactam and IV Solumedrol Continue oral Levaquin and prednisone Transition from high flow oxygen to 6L NC Case discussed with pulmonary Not much help in continuing prednisone or antibiotics at this point time as per pulm Pt would like to complete the course of antibiotic and short course prednisone (2) Non-small cell cancer of right lung: Non-small cell lung Ca with skeletal mets. CTA chest showed increased size of the previously noted lobular spiculated right upper lobe nodule with interval development of bilateral pulmonary metastatic nodules Management per Medical Oncology. Palliative care on board Palliative team had meeting with patient and and would transition to home hospice Continue [employer] pump with morphine on discharge Will discharge home on hospice Continue Xanax and Roxanol PRN (3) Cancer related pain: Continue [employer]ER pump with morphine Continue Roxanol and Xanax prn wants him to be comfortable Pt wishes to go home on hospice (4) Protein calorie malnutrition: 50 lb weight loss associated with malignancy. Increase protein intake (5) Diabetes mellitus, type 2: Diabetes mellitus type 2, usually managed with sitagliptin / metformin. Continue to hold oral DM meds. Pharmacy on board for glycemic management. On Lantus and novolog sliding scale Continue monitor BS (6) Do not resuscitate status: Per his advanced directives and current status patient indicates that he does not wish to have extraordinary measures undertaken in the event of worsening respiratory failure or cardiopulmonary arrest. Specifically, no CPR, no defibrillation, no intubation / mechanical ventilation. Code status changed to: DNR. Comfort care (7) DVT prophylaxis: Continue rivaroxaban. (8) Discharge planning issues: Plan to discharge on home hospice Family Medicine follow-up with Dr. Warren Thapa. Pulmonary Medicine follow-up with Dr. Bennett. Medical Oncology follow-up with Dr. Ridge Navarro. Palliative Care follow-up with Dr. Lopez. Total Time Total Time Spent Total Time Spent (In Minutes): 35 minutes Total Time Includes: Examination of the Patient, Discharge Planning, Medication Reconciliation, Communication With Other Providers and Other Discharge Plan Discharge Items Patient Disposition: Hospice - Home Reason For Visit: PNEUMONITIS Discharge Diagnosis: Acute hypoxemic respiratory failure Non-small cell cancer of right lung Cancer related pain Diabetes mellitus, type 2 Activity: Resume your previous activity Activity Comment: as tolerated Non-emergency contact: Primary Care Provider Call non-emergency contact if: you have any medication questions Follow-up/Referrals: Warren Thapa, [Primary Care Provider] - Diet: Carb Consistent or DM2 Addtl Attending Provider Instructions: Discharge home with hospice Follow up with your primary care provider within 1 week (Please call to schedule for the appointment) Follow up with palliative care team Continue morphine with [employer]ER pump for comfort care Scripts sent by palliative care for Xanax, Roxanol, Morphine LAB[employer]Y TE[employer]ER pump Continue oxygen supplement Pending Studies at Discharge: No Stand-Alone Forms: [employer] Medications and DC Order Prescriptions: New morphine 30 mg/30 mL (1 mg/mL) Pt Controlled Analgesia Syring 30 mg IV PRN PRN (Reason: pain) Qty: 300 RF: 0 morphine concentrate 100 mg/5 mL (20 mg/mL) Solution 10 mg PO Q1H PRN (Reason: pain) Qty: 30 RF: 0 levofloxacin 500 mg Tablet 500 mg PO DAILY@1100 Qty: 2 RF: 0 prednisone 20 mg Tablet 40 mg PO DAILY Qty: 4 RF: 0 Continued ondansetron HCl [Zofran] 8 mg tablet 8 mg PO Q8H PRN (Reason: Nausea) RF: 0 prochlorperazine maleate [Compazine] 10 mg tablet 10 mg PO Q6H PRN (Reason: nausea and vomiting) RF: 0 docusate sodium [Colace] 100 mg capsule 100 mg PO BID RF: 0 polyethylene glycol 3350 [Miralax] 17 gram/dose powder 17 gm PO BID RF: 0 cannabidiol (CBD) extract 100 mg/mL solution 100 mg PO UD RF: 0 sennosides [Senokot] 8.6 mg tablet 8.6 mg PO PM RF: 0 methadone 10 mg tablet 30 mg PO Q8H RF: 0 sertraline 100 mg tablet 100 mg PO DAILY@0800 RF: 0 mirtazapine 15 mg tablet 15 mg PO DAILY@2000 RF: 0 Xarelto 10 mg tablet 10 mg PO DAILY@1400 RF: 0 Changed lorazepam [Ativan] 0.5 mg tablet 0.5 mg PO Q2H PRN (Reason: anxiety) Qty: 0 RF: 0 Discontinued folic acid 1 mg tablet 1 mg PO DAILY@1000 RF: 0 calcium carbonate 500 mg calcium (1,250 mg) tablet,chewable 1,500 mg PO BID RF: 0 Alimta 500 mg recon soln 0 mg IV UD RF: 0 multivitamin Tablet 1 tab PO 1400 RF: 0 pravastatin 80 mg Tablet 80 mg PO 1200 RF: 0 Janumet 50-1,000 mg Tablet 1 tab PO BIDM RF: 0 cholecalciferol (vitamin D3) [Vitamin D3] 2,000 unit Capsule 2,000 unit PO DAILY@1600 RF: 0 hydromorphone [Dilaudid] 4 mg tablet 2 mg PO Q4H PRN (Reason: pain) RF: 0 dexamethasone 4 mg tablet 4 mg PO DAILY@1000 RF: 0 dexamethasone 4 mg tablet 4 mg PO UD RF: 0 Xgeva 120 mg/1.7 mL (70 mg/mL) Solution 0 mg SUBCUT UD RF: 0 cyanocobalamin (vitamin B-12) 1,000 mcg/mL Kit 0 mcg IM UD RF: 0 Discharge Orders: Discharge Order (Routine); Ordered 04/24/19 Ordered By: Caryn Arias Admission Data Admit Date/Time: 04/18/19 14:57 Attending Provider: Caryn Arias Admit Provider: Nadeem Garsia Primary Care Provider: Warren Thapa Other Providers: Geovany Johnson ; [facility] ; Nadeem Garsia ; Nakul Bennett ; Fior Lopez Other Interventions: Discharge Summary Assessment (RN) Last Done: 04/24/19 14:30 DC Date/Time DO NOT enter until pt leaves facility: 04/24/19 15:22
== END 2019-04-24 15:22 | disposition hospice, home (50) | DRG 189 ==
LOC: ED 11:59 → SUATTDRO 14:57 → 2S 14:57 → 4W 04-23 15:34